=== PATIENT | female | born 1950 | race Caucasian/White ===

== ENCOUNTER → 2016-05-28 | Outpatient (CLI) | payer OTHER ==
[2016-05-28 14:41] LABS: HEMATOCRIT 38.8 % (37-47); MEAN CELL VOLUME 91.9 fL (80-100); MEAN CORPUSCULAR HEMOGLOBIN 31.5 pg (25-34); MEAN CORPUSCULAR HGB CONC 34.3 g/dl (32-36); PLATELET COUNT 250 K/uL (130-400); RED BLOOD COUNT 4.22 M/uL (4.2-5.4); WHITE BLOOD COUNT 9.28 K/uL (4.8-10.8)
[2016-05-28 14:52] LABS: ALT/SGPT 32 U/L (12-78); CREATININE 0.71 mg/dl (0.60-1.20)
[2016-05-28 14:55] LABS: ALKALINE PHOSPHATASE 95 U/L (45-117); AST/SGOT 37 U/L (15-37)
== END | disposition home or self-care (01) ==
LOC: C.LAB1850 13:20
PROVIDERS: ATTEND Internal Medicine Rheumatology
DX: R76.8 Other specified abnormal immunological findings in serum (principal); I73.00 Raynaud's syndrome without gangrene; M25.50 Pain in unspecified joint

== ENCOUNTER → 2016-09-02 | Outpatient (CLI) | payer OTHER ==
[2016-09-02 13:13] LABS: BASO % 0.5 %; BASO ABS # 0.03 K/uL (0-0.2); COMPLETE YES; EOS % 0.6 %; HEMATOCRIT 40.2 % (37-47); IG% 0.2 %; LYMPH % 16.9 %; LYMPH ABS # 1.11 K/uL (1.2-3.4); MEAN CELL VOLUME 92.4 fL (80-100); MEAN CORPUSCULAR HGB CONC 34.6 g/dl (32-36); MEAN PLATELET VOLUME 9.9 fL (7.4-10.4); MONO % 8.2 %; NEUT % 73.6 %; PLATELET COUNT 233 K/uL (130-400); RED BLOOD COUNT 4.35 M/uL (4.2-5.4); WHITE BLOOD COUNT 6.55 K/uL (4.8-10.8)
[2016-09-02 13:31] LABS: CREATININE 0.67 mg/dl (0.60-1.20)
[2016-09-02 13:34] LABS: ALKALINE PHOSPHATASE 82 U/L (45-117); ALT/SGPT 40 U/L (12-78); AST/SGOT 46 U/L (15-37)
[2016-09-02 14:55] LABS: URINE APPEARANCE CLEAR (CLEAR); URINE BILIRUBIN NEG (NEG); URINE COLOR YELLOW; URINE NITRITE NEG (NEG); URINE PH 7.5 (4.5-7.5); URINE SPECIFIC GRAVITY 1.012 (1.000-1.030); UROBILINOGEN NEG (NEG)
[2016-09-02 14:58] LABS: MANUAL MICROSCOPIC REQUIRED? NO; REVIEW REQ? NO
== END | disposition home or self-care (01) ==
LOC: C.LAB1850 11:42
PROVIDERS: ATTEND Internal Medicine Rheumatology
DX: R76.8 Other specified abnormal immunological findings in serum (principal); M35.9 Systemic involvement of connective tissue, unspecified; Z79.899 Other long term (current) drug therapy

== ENCOUNTER → 2016-10-31 | Outpatient (CLI) | payer OTHER ==
[2016-10-31 14:43] LABS: BASO % 0.2 %; BASO ABS # 0.01 K/uL (0-0.2); COMPLETE YES; EOS % 0.6 %; HEMATOCRIT 40.1 % (37-47); IG% 0.2 %; LYMPH % 13.8 %; LYMPH ABS # 0.92 K/uL (1.2-3.4); MEAN CELL VOLUME 90.1 fL (80-100); MEAN CORPUSCULAR HEMOGLOBIN 31.9 pg (25-34); MEAN CORPUSCULAR HGB CONC 35.4 g/dl (32-36); MEAN PLATELET VOLUME 10.1 fL (7.4-10.4); NEUT % 77.2 %; PLATELET COUNT 232 K/uL (130-400); RED BLOOD COUNT 4.45 M/uL (4.2-5.4); WHITE BLOOD COUNT 6.65 K/uL (4.8-10.8)
[2016-10-31 14:54] LABS: ALT/SGPT 34 U/L (12-78); AST/SGOT 32 U/L (15-37); CREATININE 0.63 mg/dl (0.60-1.20)
[2016-10-31 14:59] LABS: ALKALINE PHOSPHATASE 79 U/L (45-117)
[2016-10-31 14:59] LABS: URINE APPEARANCE CLEAR (CLEAR); URINE BILIRUBIN NEG (NEG); URINE COLOR YELLOW; URINE NITRITE NEG (NEG); URINE PH 6.5 (4.5-7.5); URINE SPECIFIC GRAVITY 1.011 (1.000-1.030); UROBILINOGEN NEG (NEG)
[2016-10-31 15:02] LABS: MANUAL MICROSCOPIC REQUIRED? NO; REVIEW REQ? NO
[2016-11-04 16:07] LABS: ANTI-CENTROMERE AB <1.0 NEG AI (<1.0 NEG); ANTI-SS-A 7.2 POS AI (<1.0 NEG); ANTI-SS-B 1.5 POS AI (<1.0 NEG); DNA ds CRITHIDIA POSITIVE (NEGATIVE); Sm Antibody <1.0 NEG AI (<1.0 NEG)
[2016-11-07 13:45] LABS: ANA TITER 1:40 TITER (<1:40); DNA ds CRITHIDIA TITER 1:40 (<1:10)
== END | disposition home or self-care (01) ==
LOC: C.LAB1850 13:18
PROVIDERS: ATTEND Internal Medicine Rheumatology
DX: R76.8 Other specified abnormal immunological findings in serum (principal); I73.00 Raynaud's syndrome without gangrene; M35.9 Systemic involvement of connective tissue, unspecified; Z79.899 Other long term (current) drug therapy

== ENCOUNTER → 2017-06-23 | Outpatient (CLI) | payer OTHER ==
[2017-06-23 14:38] LABS: BASO % 0.2 %; BASO ABS # 0.01 K/uL (0-0.2); EOS % 0.8 %; EOS ABS # 0.04 K/uL (0-0.5); HEMATOCRIT 39.9 % (37-47); IG# 0.01 K/uL (0.00-0.02); LYMPH % 17.2 %; MEAN CELL VOLUME 91.9 fL (80-100); MEAN CORPUSCULAR HEMOGLOBIN 32.3 pg (25-34); MEAN CORPUSCULAR HGB CONC 35.1 g/dl (32-36); MEAN PLATELET VOLUME 10.1 fL (7.4-10.4); MONO % 4.8 %; MONO ABS # 0.25 K/uL (0.11-0.59); NEUT % 76.8 %; NEUT ABS # 4.02 K/uL (1.4-6.5); PLATELET COUNT 241 K/uL (130-400); RED CELL DISTRIBUTION WIDTH CV 13.7 % (11.5-14.5); RED CELL DISTRIBUTION WIDTH SD 46.3 fL (36.4-46.3); WHITE BLOOD COUNT 5.23 K/uL (4.8-10.8)
[2017-06-23 15:06] LABS: ALBUMIN 3.8 gm/dl (3.4-5.0); ALT/SGPT 39 U/L (12-78); AST/SGOT 41 U/L (15-37); CREATININE 0.68 mg/dl (0.60-1.20)
[2017-06-23 15:09] LABS: ALKALINE PHOSPHATASE 84 U/L (45-117)
== END | disposition home or self-care (01) ==
LOC: C.LAB1850 13:27
PROVIDERS: ATTEND Internal Medicine Rheumatology
DX: M25.50 Pain in unspecified joint (principal); M35.9 Systemic involvement of connective tissue, unspecified; Z79.899 Other long term (current) drug therapy

== ENCOUNTER → 2017-07-06 | Outpatient (CLI) | payer OTHER | END | disposition home or self-care (01) | LOC: C.LAB1850 15:14 | PROVIDERS: ATTEND Internal Medicine Rheumatology | DX: M81.0 Age-related osteoporosis without current pathological fracture (principal); E55.9 Vitamin D deficiency, unspecified ==

== ENCOUNTER → 2017-09-30 | Outpatient (CLI) | payer OTHER ==
[2017-09-30 14:04] LABS: BASO % 0.1 %; BASO ABS # 0.01 K/uL (0-0.2); EOS ABS # 0.07 K/uL (0-0.5); HEMATOCRIT 39.5 % (37-47); HEMOGLOBIN 13.9 g/dL (12.0-16.0); IG# 0.01 K/uL (0.00-0.02); LYMPH % 15.9 %; LYMPH ABS # 1.07 K/uL (1.2-3.4); MEAN CELL VOLUME 92.5 fL (80-100); MEAN CORPUSCULAR HEMOGLOBIN 32.6 pg (25-34); MEAN CORPUSCULAR HGB CONC 35.2 g/dl (32-36); MEAN PLATELET VOLUME 10.3 fL (7.4-10.4); MONO % 5.5 %; MONO ABS # 0.37 K/uL (0.11-0.59); NEUT % 77.4 %; PLATELET COUNT 240 K/uL (130-400); RED CELL DISTRIBUTION WIDTH SD 47.1 fL (36.4-46.3); WHITE BLOOD COUNT 6.73 K/uL (4.8-10.8)
[2017-09-30 14:20] LABS: ALBUMIN 4.2 gm/dl (3.4-5.0); ALKALINE PHOSPHATASE 97 U/L (45-117); ALT/SGPT 50 U/L (12-78); AST/SGOT 83 U/L (15-37); CREATININE 0.65 mg/dl (0.60-1.20); TOTAL PROTEIN 7.9 gm/dl (6.4-8.2)
== END | disposition home or self-care (01) ==
LOC: C.LAB1850 12:20
PROVIDERS: ATTEND Internal Medicine Rheumatology
DX: R76.8 Other specified abnormal immunological findings in serum (principal); M35.9 Systemic involvement of connective tissue, unspecified; Z79.899 Other long term (current) drug therapy; I73.00 Raynaud's syndrome without gangrene

== ENCOUNTER 2019-12-15 03:44 | Inpatient (IN) ==
--- OUTSIDE RECORDS SUMMARY | 2019-12-15 03:51 | External Medical Summary | Continuity of Care Document ---
:1950 Author Name Glen Wadsworth, Provider Address Unavailable Unavailable , Care Team Providers Name Role Phone Unavailable Unavailable Unavailable Maddi Abraham M.D. Unavailable [email or web address] ALLAN DUTTA Unavailable Unavailable Unavailable Unavailable Unavailable Problems Undifferentiated connective tissue disease (710.9) (M35.9) Osteoporosis (733.00) (M81.0) Raynauds phenomenon (443.0) (I73.00) Positive ELISA (antinuclear antibody) (795.79) (R76.8) Polyarthralgia (719.49) (M25.50) Vitamin D deficiency (268.9) (E55.9) Long-term use of hydroxychloroquine (V58.69) (Z79.899) Abnormal SPEP (790.99) (R77.8) Allergies and Adverse Reactions No Known Drug Allergies (Allergy) Medications Tums 500 MG Oral Tablet Chewable; TAKE 2 TABLET Daily Ananth Abraham Quantity: 60 Refills: 0 Hydroxychloroquine Sulfate 200 MG Oral Tablet; TAKE 1 TABLET DAILY. Ananth Abraham Quantity: 90 Refills: 1 Vitamin D3 125 MCG (5000 UT) Oral Tablet; TAKE 1 TABLET Week ly Ananth Abraham Start: 06-Oct-2017 Refills: 3 Procedures Procedures not documented Immunizations Immunizations not documented Social History - Smoking Status Ex-smoker Plan of Treatment Planned Observations Planned Goals not documented Results No Known Results Results not documented Encounters Appointment; Maddi Abraham M.D. 09-Feb-2018 11:20 Encounter Diagnosis: Problem not documented
--- NOTE | 2019-12-15 04:07 | Emergency Department Note ---
History of Present Illness General Chief complaint: Weakness Stated complaint: WEAKNESS Time Seen by Provider: 12/15/19 04:00 Source: patient Mode of arrival: EMS Limitations: no limitations History of Present Illness Provider complaint: Weakness, fever Onset (ago): day(s) 2 Associated symptoms: + cough, + fever/chills, + loss of appetite, + malaise and + weakness; no chest pain, no headaches, no nausea/vomiting and no shortness of breath Treatments prior to arrival: none This is a 69-year-old female who presents from home via EMS due to 2 days of increased weakness. Patient states in addition to the fatigue and weakness she noticed fevers and chills. Patient states the highest temperature she got at home was 100.2. Patient states she has had a slight cough, typically nonproductive. Patient states she is a former smoker, no diagnosis of COPD, does not use home oxygen. Patient does see rheumatology as she has a history of rheumatologic disorders. No recent courses of steroids, however patient does take Plaquenil daily. Patient denies any sick contacts, stating her at home has been well. No known exposure to any coronavirus positive individual. Patient has not been tested for coronavirus. Patient denies any prior history of recurrent bronchitis or pneumonia. Patient denies any headaches, dizziness, nasal congestion, sore throat, chest pain, abdominal pain, vomiting or diarrhea, lower extremity swelling, rash or sores. Patient states she has not had a great appetite. Pt states she has also been using CBD oil to help with her symptoms. EMS reports that on their arrival patient was tachycardic in the 140s, tachypneic in the 30s, febrile at 100.2, however was holding a blood pressure. Patient received a total of 1 L of normal saline from EMS in route to the hospital. They state her heart rate is now in the 130s, however she does still appear tachypneic. Patient was initially 93% on room air, she was placed on 3 L via nasal cannula and sats improved to 98%. Pt seen during a time of high acuity and national emergency pandemic while wearing PPE. Home Medications Home Medications Medication Instructions Recorded Confirmed Type Cbd Oil 0 drp PO DIRECTED PRN 12/15/19 12/15/19 History hydroxychloroquine 200 mg PO DAILY 12/15/19 12/15/19 History Allergies Allergy/AdvReac Type Severity Reaction Status Date / Time No Known Allergies Allergy Verified 12/15/19 05:04 Past Med/Surg History Medical History (Updated 12/15/19 @ 23:36 by Traci Hampton DO) Emphysema of lung Myocardial Infarction nstemi Sjogren's disease Smoker Smokers' cough Tobacco abuse (Acute) Surgical History (Updated 12/15/19 @ 14:43 by John Navarrete PA-C) No pertinent past surgical history Family History (Updated 12/15/19 @ 14:43 by John Navarrete PA-C) Other Family history non-contributory Social History (Updated 12/15/19 @ 14:44 by John Navarrete PA-C) Smoking Status: Current some day smoker Tobacco Type: Cigarettes Hx Alcohol Use: No Hx Substance Use: No Communication Ability: Effective 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 and A total of 10 systems reviewed and were otherwise negative Physical Exam Vital Signs Vital Signs - 24 hr 12/15/19 03:55 12/15/19 04:00 12/15/19 04:15 Temperature 38.2 C H Temperature Source Oral Pulse Rate 135 H 133 H 125 H Pulse Rate [Apical] Pulse Rate from SpO2 Sensor 135 H 133 H Respiratory Rate 25 H 32 H 35 H Respiratory Effort / Characteristics Non-Labored Spontaneous Spontaneous Accessory Muscle Use Labored Short of Breath SOB on Exertion Respiratory Depth Normal Respiratory Pattern Regular Blood Pressure 163/93 H 151/86 H Blood Pressure Mean 106 110 Blood Pressure Position Lying Pulse Oximetry 93 93 93 Oxygen Delivery Method Room Air Room Air Sepsis Recent Fever Within 48 Hours Yes Sepsis New/Unexplained Change in Mental Status Yes Sepsis Action Taken by Nursing Physician Notified 12/15/19 04:30 12/15/19 05:00 12/15/19 05:08 Temperature Temperature Source Pulse Rate 135 H 128 H Pulse Rate [Apical] 120 H Pulse Rate from SpO2 Sensor 135 H 128 H Respiratory Rate 28 H 30 H 28 H Respiratory Effort / Characteristics Spontaneous Respiratory Depth Respiratory Pattern Blood Pressure 146/78 H 116/66 Blood Pressure Mean 96 81 Blood Pressure Position Pulse Oximetry 93 92 92 Oxygen Delivery Method Room Air Sepsis Recent Fever Within 48 Hours Sepsis New/Unexplained Change in Mental Status Sepsis Action Taken by Nursing 12/15/19 05:30 12/15/19 05:39 Temperature 36.9 C Temperature Source Oral Pulse Rate 120 H Pulse Rate [Apical] Pulse Rate from SpO2 Sensor 123 H Respiratory Rate 18 Respiratory Effort / Characteristics Respiratory Depth Respiratory Pattern Blood Pressure 111/60 Blood Pressure Mean 69 Blood Pressure Position Pulse Oximetry 95 Oxygen Delivery Method Sepsis Recent Fever Within 48 Hours Sepsis New/Unexplained Change in Mental Status Sepsis Action Taken by Nursing GENERAL: alert, ill appearing, well nourished, mild distress, non-toxic EYE EXAM: normal conjunctiva, PERRL and EOM's grossly intact OROPHARYNX: no exudate, no erythema, lips, buccal mucosa, and tongue normal and mucous membranes are moist NECK: supple, no nuchal rigidity, no adenopathy, non-tender LUNGS: Clear to auscultation. Normal chest wall mechanics, no w/r/r, tachypneic, oxygen saturation 93% on room air HEART: no murmurs, S1 normal and S2 normal, sinus tachycardia on the monitor at 133 ABDOMEN: abdomen soft, non-tender, normo-active bowel sounds, no masses, no rebound or guarding. BACK: Back is symmetrical on inspection and there is no deformity, no midline tenderness, no CVA tenderness. SKIN: no rashes and no bruising UPPER EXTREMITIES: upper extremities are grossly normal. FROM, nml pulses b/l. LOWER EXTREMITIES: No pitting edema. FROM, nml pulses b/l. NEURO EXAM: Normal sensorium, cranial nerves II-XII grossly intact, normal speech, no gross weakness of arms, no gross weakness of legs. Gross sensation intact. Course Course 0450: Pt updated on results. HR in 120's. 0514: Case discussed with Dr. Cutler. 0535: Updated pt's via phone per patient request. states she was very weak and tremulous over the last 2-3 days. Mild cough which was mildly worse than her usual smokers cough. 0557: Discussed with Dr. Mclean again. He would like patient sent for CT imaging now that her coronavirus test is negative. VS still stable. Pt made aware of results. Administered Medications Acetaminophen (Tylenol) 650 mg PO Q4H PRN PRN Reason: Pain or Fever Stop: 01/14/20 08:27 Last Admin: 08/06/20 21:11 Dose: 650 mg Documented by: [id number] Albuterol (Duoneb) 3 ml NEB QIDR EVELYN Stop: 01/14/20 06:59 Last Admin: 12/15/19 19:33 Dose: Not Given Documented by: [id number] Admin: 12/15/19 15:52 Dose: Not Given Documented by: [id number] Admin: 12/15/19 10:54 Dose: 3 ml Documented by: [id number] Admin: 12/15/19 08:16 Dose: Not Given Documented by: [id number] Guaifenesin (Mucinex) 600 mg PO Q12 EVELYN Stop: 01/14/20 08:59 Last Admin: 12/15/19 21:08 Dose: 600 mg Documented by: [id number] Admin: 12/15/19 09:46 Dose: 600 mg Documented by: [id number] Hydroxychloroquine Sulfate (Plaquenil) 200 mg PO DAILY [facility] Stop: 01/14/20 08:59 Last Admin: 12/15/19 09:46 Dose: 200 mg Documented by: [id number] Sodium Chloride (Nss 1000ml) 1,000 mls @ 125 mls/hr IV .Q8H [facility] Stop: 01/14/20 04:14 Last Admin: 12/15/19 17:16 Dose: 125 mls/hr Documented by: [id number] Infusion: 12/15/19 17:16 Dose: 125 mls/hr Documented by: [id number] Admin: 12/15/19 09:18 Dose: 125 mls/hr Documented by: [id number] Infusion: 12/15/19 09:18 Dose: 125 mls/hr Documented by: [id number] Admin: 12/15/19 04:40 Dose: 125 mls/hr Documented by: [id number] Azithromycin 500 mg/ Dextrose 255 mls @ 125 mls/hr IV DAILY@0900 [facility] Stop: 12/22/19 08:59 Last Infusion: 12/15/19 11:52 Dose: 0 mls/hr Documented by: [id number] Admin: 12/15/19 09:45 Dose: 125 mls/hr Documented by: [id number] Piperacillin Sod/Tazobactam (Sod 3.375 gm/ Dextrose) 115 mls @ 28.75 mls/hr IV Q8H EVELYN; Protocol Stop: 12/22/19 08:59 Last Admin: 12/15/19 21:08 Dose: 28.8 mls/hr Documented by: [id number] Infusion: 12/15/19 18:05 Dose: 0 mls/hr Documented by: [id number] Admin: 12/15/19 14:03 Dose: 28.8 mls/hr Documented by: [id number] Dexamethasone 6 mg/ Syringe 1.5 mls @ 1 mls/min IV Q6H EVELYN Stop: 01/14/20 09:59 Last Admin: 12/15/19 21:08 Dose: 1 mls/min Documented by: [id number] Admin: 12/15/19 15:37 Dose: 1 mls/min Documented by: [id number] Admin: 12/15/19 09:46 Dose: 1 mls/min Documented by: [id number] Discontinued Medications Acetaminophen (Ofirmev) Confirm Administered Dose 1,000 mg IV .STK-MED ONE Stop: 12/15/19 04:15 Last Admin: 12/15/19 04:40 Dose: Not Given Documented by: [id number] Albuterol (Duoneb) 3 ml NEB NOW STA Stop: 12/15/19 04:55 Last Admin: 12/15/19 05:04 Dose: 3 ml Documented by: [id number] Dexamethasone (Decadron) 10 mg IV NOW ONE Stop: 12/15/19 04:52 Last Admin: 12/15/19 04:56 Dose: 10 mg Documented by: [id number] Acetaminophen (Ofirmev) 1,000 mg in 100 mls @ 400 mls/hr IV NOW STA Stop: 12/15/19 04:30 Last Infusion: 12/15/19 04:58 Dose: 0 mls/hr Documented by: [id number] Admin: 12/15/19 04:40 Dose: 400 mls/hr Documented by: [id number] Magnesium Sulfate/Dextrose (Magnesium Sulfate / D5w) 1 gm in 100 mls @ 100 mls/hr IV NOW STA Stop: 12/15/19 05:29 Last Infusion: 12/15/19 05:40 Dose: 0 mls/hr Documented by: [id number] Admin: 12/15/19 04:40 Dose: 100 mls/hr Documented by: [id number] Cefepime HCl (Maxipime) 2,000 mg in 20 mls @ 5 mls/min IV NOW STA Stop: 12/15/19 04:33 Last Admin: 12/15/19 04:40 Dose: 5 mls/min Documented by: [id number] Vancomycin HCl 1,000 mg/ (Sodium Chloride) 520 mls @ 200 mls/hr IV NOW ONE Stop: 12/15/19 07:05 Last Infusion: 12/15/19 07:30 Dose: 0 mls/hr Documented by: [id number] Admin: 12/15/19 04:49 Dose: 200 mls/hr Documented by: [id number] Magnesium Sulfate/Dextrose (Magnesium Sulfate / D5w) 1 gm in 100 mls @ 50 mls/hr IV ONE ONE Stop: 12/15/19 07:56 Last Admin: 12/15/19 08:12 Dose: Not Given Documented by: [id number] Piperacillin Sod/Tazobactam (Sod 3.375 gm/ Dextrose) 115 mls @ 230 mls/hr IV NOW ONE; Protocol Stop: 12/15/19 10:29 Last Infusion: 12/15/19 09:53 Dose: 0 mls/hr Documented by: [id number] Admin: 12/15/19 09:18 Dose: 230 mls/hr Documented by: [id number] Ioversol (Optiray 320 125ml) 120 ml IV ONCE ONE Stop: 12/15/19 07:36 Last Admin: 12/15/19 07:35 Dose: 120 ml Documented by: [id number] Potassium Chloride (Klor-Con M20) 40 meq PO NOW STA Stop: 12/15/19 04:31 Last Admin: 12/15/19 04:44 Dose: Not Given Documented by: [id number] Potassium Chloride (Klor-Con Pwd) 40 meq PO NOW STA Stop: 12/15/19 04:54 Last Admin: 12/15/19 05:03 Dose: 40 meq Documented by: [id number] Critical Care Time Critical Care Time: Yes Total Critical Care Time: 46 Critical care of 46 min performed to assess and manage high likelihood of life- threatening sepsis and multifocal pneumonia, involving labs and imaging p erformed with assessment to evaluate sepsis diagnosis] with frequent reassessment. This time includes bedside time, treatment discussions with patient/family/consultants, documentation time and excludes procedure time. Medical Decision Making Differential Diagnosis Differential diagnosis: Etiologies such as viral syndrome, otitis, pharyngitis, pneumonia, influenza, meningitis, urinary tract infection, sepsis, bacteremia, as well as others were entertained. Medical Records Attestation: I reviewed the patient's medical records. Home Medications Current Medication List: was personally reviewed by me Laboratory Data Attestation: I reviewed the patient's lab results. Result diagrams: 12/15/19 03:45 12/15/19 03:45 Lab Results 12/15/19 12/15/19 12/15/19 Range/Units 03:45 03:45 03:45 WBC 14.16 H (4.8-10.8) K/uL RBC 4.25 (4.2-5.4) M/uL Hgb 13.9 (12.0-16.0) g/dL Hct 39.0 (37-47) % MCV 91.8 (80-100) fL MCH 32.7 (25-34) pg MCHC 35.6 (32-36) g/dL RDW Std Deviation 45.4 (36.4-46.3) fL RDW Coeff of Oz 13.5 (11.5-14.5) % Plt Count 195 (130-400) K/uL MPV 10.6 H (7.4-10.4) fL Immature Gran % (Auto) 0.4 % Neut % (Auto) 94.8 % Lymph % (Auto) 2.7 % [place] % (Auto) 2.1 % Eos % (Auto) 0.0 % Baso % (Auto) 0.0 % Neut # (Auto) 13.43 H (1.4-6.5) K/uL Lymph # (Auto) 0.38 L (1.2-3.4) K/uL [place] # (Auto) 0.30 (0.11-0.59) K/uL Eos # (Auto) 0.00 (0-0.5) K/uL Baso # (Auto) 0.00 (0-0.2) K/uL Immature Gran # (Auto) 0.05 H (0.00-0.02) K/uL PT 11.3 (9.0-12.0) Seconds INR 1.1 (0.9-1.1) APTT 36.5 H (21.0-31.0) Seconds PTT Ratio 1.3 Sodium 132 L (136-145) mmol/L Potassium 3.1 L (3.5-5.1) mmol/L Chloride 97 L (98-107) mmol/L Carbon Dioxide 24 (21-32) mmol/L Anion Gap 11.0 (3-11) BUN 12 (7-18) mg/dl Creatinine 0.71 (0.6-1.2) mg/dl Est Cr Clr Drug Dosing Not Reportable Est GFR ( Amer) 100.7 Est GFR (Non-Af Amer) 86.9 BUN/Creatinine Ratio 16.8 (10-20) Glucose 105 H (70-99) mg/dl Lactate (0.4-2.0) mmol/L Calcium 8.7 (8.5-10.1) mg/dl Magnesium 1.5 L (1.8-2.4) mg/dl Total Bilirubin 0.6 (0.2-1) mg/dl AST 63 H (15-37) U/L ALT 25 (12-78) U/L Alkaline Phosphatase 78 (45-117) U/L Troponin I 0.828 H* (0-0.045) ng/ml Total Protein 7.1 (6.4-8.2) gm/dl Albumin 2.7 L (3.4-5.0) gm/dl Globulin 4.4 H (2.5-4.0) gm/dl Albumin/Globulin Ratio 0.6 L (0.9-2) Procalcitonin (0-0.5) ng/ml Adenovirus (PCR) (NotDetected) B. pertussis DNA (PCR) (NotDetected) B.parapertussis DNA PCR (NotDetected) C. pneumoniae DNA (PCR) (NotDetected) Coronavirus OC43 (PCR) (NotDetected) Coronavirus HKU1 (PCR) (NotDetected) Coronavirus 229E (PCR) (NotDetected) COVID-19 PCR (Negative) Coronavirus NL63 (PCR) (NotDetected) Human Metapneumovir PCR (NotDetected) Influenza Type A (PCR) (NotDetected) Influenza Type B (PCR) (NotDetected) M. pneumoniae (PCR) (NotDetected) Parainfluenza 1 (PCR) (NotDetected) Parainfluenza 2 (PCR) (NotDetected) Parainfluenza 3 (PCR) (NotDetected) Parainfluenza 4 (PCR) (NotDetected) RSV (PCR) (NotDetected) Entero/Rhino (PCR) (NotDetected) 12/15/19 12/15/19 12/15/19 Range/Units 03:45 04:23 04:35 WBC (4.8-10.8) K/uL RBC (4.2-5.4) M/uL Hgb (12.0-16.0) g/dL Hct (37-47) % MCV (80-100) fL MCH (25-34) pg MCHC (32-36) g/dL RDW Std Deviation (36.4-46.3) fL RDW Coeff of Oz (11.5-14.5) % Plt Count (130-400) K/uL MPV (7.4-10.4) fL Immature Gran % (Auto) % Neut % (Auto) % Lymph % (Auto) % [place] % (Auto) % Eos % (Auto) % Baso % (Auto) % Neut # (Auto) (1.4-6.5) K/uL Lymph # (Auto) (1.2-3.4) K/uL [place] # (Auto) (0.11-0.59) K/uL Eos # (Auto) (0-0.5) K/uL Baso # (Auto) (0-0.2) K/uL Immature Gran # (Auto) (0.00-0.02) K/uL PT (9.0-12.0) Seconds INR (0.9-1.1) APTT (21.0-31.0) Seconds PTT Ratio Sodium (136-145) mmol/L Potassium (3.5-5.1) mmol/L Chloride (98-107) mmol/L Carbon Dioxide (21-32) mmol/L Anion Gap (3-11) BUN (7-18) mg/dl Creatinine (0.6-1.2) mg/dl Est Cr Clr Drug Dosing Est GFR ( Amer) Est GFR (Non-Af Amer) BUN/Creatinine Ratio (10-20) Glucose (70-99) mg/dl Lactate 1.3 (0.4-2.0) mmol/L Calcium (8.5-10.1) mg/dl Magnesium (1.8-2.4) mg/dl Total Bilirubin (0.2-1) mg/dl AST (15-37) U/L ALT (12-78) U/L Alkaline Phosphatase (45-117) U/L Troponin I (0-0.045) ng/ml Total Protein (6.4-8.2) gm/dl Albumin (3.4-5.0) gm/dl Globulin (2.5-4.0) gm/dl Albumin/Globulin Ratio (0.9-2) Procalcitonin 19.35 H (0-0.5) ng/ml Adenovirus (PCR) (NotDetected) B. pertussis DNA (PCR) (NotDetected) B.parapertussis DNA PCR (NotDetected) C. pneumoniae DNA (PCR) (NotDetected) Coronavirus OC43 (PCR) (NotDetected) Coronavirus HKU1 (PCR) (NotDetected) Coronavirus 229E (PCR) (NotDetected) COVID-19 PCR NEGATIVE (Negative) Coronavirus NL63 (PCR) (NotDetected) Human Metapneumovir PCR (NotDetected) Influenza Type A (PCR) (NotDetected) Influenza Type B (PCR) (NotDetected) M. pneumoniae (PCR) (NotDetected) Parainfluenza 1 (PCR) (NotDetected) Parainfluenza 2 (PCR) (NotDetected) Parainfluenza 3 (PCR) (NotDetected) Parainfluenza 4 (PCR) (NotDetected) RSV (PCR) (NotDetected) Entero/Rhino (PCR) (NotDetected) 12/15/19 Range/Units 04:35 WBC (4.8-10.8) K/uL RBC (4.2-5.4) M/uL Hgb (12.0-16.0) g/dL Hct (37-47) % MCV (80-100) fL MCH (25-34) pg MCHC (32-36) g/dL RDW Std Deviation (36.4-46.3) fL RDW Coeff of Oz (11.5-14.5) % Plt Count (130-400) K/uL MPV (7.4-10.4) fL Immature Gran % (Auto) % Neut % (Auto) % Lymph % (Auto) % [place] % (Auto) % Eos % (Auto) % Baso % (Auto) % Neut # (Auto) (1.4-6.5) K/uL Lymph # (Auto) (1.2-3.4) K/uL [place] # (Auto) (0.11-0.59) K/uL Eos # (Auto) (0-0.5) K/uL Baso # (Auto) (0-0.2) K/uL Immature Gran # (Auto) (0.00-0.02) K/uL PT (9.0-12.0) Seconds INR (0.9-1.1) APTT (21.0-31.0) Seconds PTT Ratio Sodium (136-145) mmol/L Potassium (3.5-5.1) mmol/L Chloride (98-107) mmol/L Carbon Dioxide (21-32) mmol/L Anion Gap (3-11) BUN (7-18) mg/dl Creatinine (0.6-1.2) mg/dl Est Cr Clr Drug Dosing Est GFR ( Amer) Est GFR (Non-Af Amer) BUN/Creatinine Ratio (10-20) Glucose (70-99) mg/dl Lactate (0.4-2.0) mmol/L Calcium (8.5-10.1) mg/dl Magnesium (1.8-2.4) mg/dl Total Bilirubin (0.2-1) mg/dl AST (15-37) U/L ALT (12-78) U/L Alkaline Phosphatase (45-117) U/L Troponin I (0-0.045) ng/ml Total Protein (6.4-8.2) gm/dl Albumin (3.4-5.0) gm/dl Globulin (2.5-4.0) gm/dl Albumin/Globulin Ratio (0.9-2) Procalcitonin (0-0.5) ng/ml Adenovirus (PCR) Not Detected (NotDetected) B. pertussis DNA (PCR) Not Detected (NotDetected) B.parapertussis DNA PCR Not Detected (NotDetected) C. pneumoniae DNA (PCR) Not Detected (NotDetected) Coronavirus OC43 (PCR) Not Detected (NotDetected) Coronavirus HKU1 (PCR) Not Detected (NotDetected) Coronavirus 229E (PCR) Not Detected (NotDetected) COVID-19 PCR (Negative) Coronavirus NL63 (PCR) Not Detected (NotDetected) Human Metapneumovir PCR Not Detected (NotDetected) Influenza Type A (PCR) Not Detected (NotDetected) Influenza Type B (PCR) Not Detected (NotDetected) M. pneumoniae (PCR) Not Detected (NotDetected) Parainfluenza 1 (PCR) Not Detected (NotDetected) Parainfluenza 2 (PCR) Not Detected (NotDetected) Parainfluenza 3 (PCR) Not Detected (NotDetected) Parainfluenza 4 (PCR) Not Detected (NotDetected) RSV (PCR) Not Detected (NotDetected) Entero/Rhino (PCR) Not Detected (NotDetected) Imaging Data My Impression: X-ray: I interpreted the following studies. Chest: A single view study of the chest was reviewed and revealed what appeared to be a multi lobar pneumonia, however was negative for cardiomegaly, effusion, pulmonary edema, or wide mediastinum. Radiologist's Impression: CT angio chest PE protocol CT DOSE: 411.13 mGy.cm HISTORY: 69 years-old Female with PE. Acute cough with fever and shortness of breath TECHNIQUE: Multiple CTA images of the chest were obtained after the intravenous administration of 120 ml Optiray 320. Coronal and sagittal MIPS were obtained from the axial data set and were submitted for review. All measurements were obtained according to NASCET criteria. A dose lowering technique was utilized adhering to the principles of ALARA. COMPARISON: Chest radiograph of same day FINDINGS: CTA: Mild cardiomegaly. No pericardial effusion. Mixed plaque of the thoracic aortic arch. Patency of the imaged great vessels. There is suboptimal opacification of the distal descending thoracic aorta secondary to contrast bolus timing. The pulmonary artery is opacified to the level of the subsegmental branches and demonstrates no filling defects to suggest thromboembolic disease. CT CHEST: No thyroid nodules identified. Subcarinal adenopathy measures up to 2.3 x 1.3 cm. Mildly prominent paratracheal and AP window lymph nodes. Trace pleural effusions. No pneumothorax. Moderate emphysema with bronchial wall thickening suggestive of bronchitis. Mild mucous plugging of the lung bases. Multifocal patchy alveolar opacities are present within all lobes bilaterally, most pronounced in the lower lobes, right greater than left with air bronchograms. Mild intralobular septal thickening. Mild thickening of the left adrenal gland. Hepatic steatosis. Unremarkable appearance of the soft tissues. Mild age-indeterminate however likely chronic superior endplate compression deformity at the T8 level. Schmorl's nodes with mild superior endplate compression deformity also noted at T11 and L1 which is also likely chronic. 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 IMPRESSION: 1. Multifocal alveolar opacities within all lobes bilaterally, greatest within the right greater than left lower lobes is compatible with multifocal pneumonia. Follow-up imaging after treatment course is recommended to document complete resolution. 2. Moderate emphysema with bronchial wall thickening suggestive of bronchitis. Mild mucous plugging of the lung bases. 3. Cardiomegaly with mild pulmonary vascular congestion and trace pleural effusions. 4. Subcarinal adenopathy, likely reactive. 5. Hepatic steatosis. ACT 112: Negative or not required by law. The above report was generated using voice recognition software. It may contain grammatical, syntax or spelling errors. Electronically signed by: Zander Cassidy M.D. 12/15/2019 8:07 AM ECG Data Attestation: I personally reviewed and interpreted this ECG as follows: Indication: + weakness Rate (beats per minute): 134 Rhythm: + sinus tachycardia ECG Intervals/blocks: + Normal QRS and + Normal QT ECG [place]: + Left axis deviation ECG ST segments: + Normal ST segments Blood Pressure Blood Pressure Findings: Elevated blood pressure MDM Narrative This was an ill-appearing female brought in from home via EMS with concerns for sepsis. Patient was febrile, tachycardic, and tachypneic although had maintained a normal blood pressure. Patient did receive 1 L of normal saline solution in route to the hospital, and IV fluids were continued upon her arrival. Patient's heart rate was slowly improving from around 140 according to EMS down into the low 130s. While patient was maintaining her oxygen saturation, she was placed on 2 L via nasal cannula for comfort. Labs are drawn and sent, cultures obtained, chest x-ray performed. Patient was placed on airborne precautions due to concern for possible coronavirus although patient denied any known exposure. Patient's labs revealed a leukocytosis, however reassuring renal and hepatic function. Patient also found to have an elevated troponin. Patient was sinus tachycardia on her EKG without any acute ischemic EKG changes. Patient's x-ray revealed what appeared to be a multi lobar pneumonia. Patient was started on broad-spectrum antibiotics. IV fluids were continued to achieve 30 mL/kg, patient was never hypotensive in the emergency room. While patient's lactic acid was reassuring, her pro calcitonin was significantly elevated. Patient was given Tylenol for her fever. With improvement in fever and continued IV fluids, patient's heart rate slowly continued to come down. Case was discussed with hospitalist for additional evaluation and management. Patient was updated on all of her results. At her request I also updated her who was in the waiting room. Once her coronavirus test resulted negative, he was allowed to come back and visit her. At that time the hospitalist requested that I add a CT of the patient's chest due to her history of rheumatologic disease, multi lobar pneumonia, and elevated troponin. I have a lower suspicion for PE given patient does have a history of tobacco abuse and likely has underlying COPD, however will order as angiography to rule out. Patient kept aware of all results, continued to have slowly improving tachycardia and tachypnea in the emergency room, did maintain her blood pressure and oxygen saturations. Mild electrolyte abnormalities were repleted while in the emergency room also. An order was placed for continuous cardiac monitoring. The monitor shows a rate of _133_ with sinus tachycardia_ rhythm. Impression & Plan Sepsis, Multifocal pneumonia, Hypomagnesemia, Hypokalemia, Tobacco abuse, Elevated troponin Discharge Plan Visit Data *Final* Discharge Date/Time: 12/15/19 06:50 Chief Complaint: Weakness Stated Complaint: WEAKNESS ED Provider: Traci Hampton Discharge Problem: Sepsis, Multifocal pneumonia, Hypomagnesemia, Hypokalemia, Tobacco abuse, Elevated troponin Patient Disposition: Admitted As Inpatient Discharge Instructions Interventions: ED Discharge Assessment Last Done: 12/15/19 06:50 Discharge Problem: Sepsis Qualifiers: Sepsis type: sepsis due to unspecified organism Sepsis acute organ dysfunction status: with acute organ dysfunction Severe sepsis acute organ dysfunction type: unspecified Severe sepsis shock status: without septic shock Qualified Code(s): A41.9 - Sepsis, unspecified organism
[2019-12-15 04:13] LABS: Hemoglobin 13.9 g/dL (12.0-16.0); Immature Granulocytes # (auto) 0.05 K/uL (0.00-0.02); Immature Granulocytes % (auto) 0.4 %; Lymphocytes # (auto) 0.38 K/uL (1.2-3.4); Lymphocytes % (auto) 2.7 %; Mean Corpuscular Hemoglobin 32.7 pg (25-34); Mean Corpuscular Hgb Conc 35.6 g/dL (32-36); Mean Corpuscular Volume 91.8 fL (80-100); Mean Platelet Volume 10.6 fL (7.4-10.4); Monocytes % (auto) 2.1 %; Neutrophils # (auto) 13.43 K/uL (1.4-6.5); Neutrophils % (auto) 94.8 %; Platelet Count 195 K/uL (130-400); RDW Coefficient of Variation 13.5 % (11.5-14.5); RDW Standard Deviation 45.4 fL (36.4-46.3); Red Blood Count 4.25 M/uL (4.2-5.4); White Blood Count 14.16 K/uL (4.8-10.8)
[2019-12-15] MEDS ORDERED: ACETAMINOPHEN 1000 MG/100 ML IV IV ONE (04:14)
[2019-12-15] MEDS ORDERED: ACETAMINOPHEN 1,000 MG/100 ML VIAL IV STA (04:16)
[2019-12-15 04:22] LABS: Alanine Aminotransferase 25 U/L (12-78); Albumin Level 2.7 gm/dl (3.4-5.0); Aspartate Aminotransferase 63 U/L (15-37); BUN Creatinine Ratio 16.8 (10-20); Blood Urea Nitrogen 12 mg/dl (7-18); Calcium 8.7 mg/dl (8.5-10.1); Carbon Dioxide 24 mmol/L (21-32); Chloride 97 mmol/L (98-107); Est GFR (African American) 100.7; Est GFR (Non-African American) 86.9; Glucose 105 mg/dl (70-99); Magnesium 1.5 mg/dl (1.8-2.4); Potassium 3.1 mmol/L (3.5-5.1); Sodium 132 mmol/L (136-145)
[2019-12-15 04:26] LABS: INR 1.1 (0.9-1.1); Partial Thromboplastin Ratio 1.3; Partial Thromboplastin Time 36.5 Seconds (21.0-31.0); Prothrombin Time 11.3 Seconds (9.0-12.0)
[2019-12-15] MEDS ORDERED: VANCOMYCIN HCL 1,000 MG in SODIUM CHLORIDE 0.9% 500 ML IV ONE (04:30)
[2019-12-15] MEDS ORDERED: MAGNESIUM SULFATE / D5W 1 GM/100 ML BAG IV STA (04:30)
[2019-12-15] MEDS ORDERED: CEFEPIME 2,000 MG/20 ML VIAL IV STA (04:30)
[2019-12-15] MEDS ORDERED: VANCOMYCIN CONSULT ACTIVE PRN ×3 (04:30→08:28)
[2019-12-15 04:36] LABS: Albumin Globulin Ratio 0.6 (0.9-2); Alkaline Phosphatase 78 U/L (45-117); Bilirubin,Total 0.6 mg/dl (0.2-1); Globulin 4.4 gm/dl (2.5-4.0); Total Protein 7.1 gm/dl (6.4-8.2); Troponin I 0.828 ng/ml (0-0.045)
[2019-12-15] MEDS: POTASSIUM CHLORIDE 20 MEQ TABCR PO STA ×2 (04:39→04:44)
[2019-12-15] MEDS: SODIUM CHLORIDE 0.9% 1000ML 1,000 ML IV SCH ×3 (04:40→17:16)
[2019-12-15] MEDS ORDERED: DEXAMETHASONE SOD INJ 10 MG/ML VIAL IV ONE (04:51)
[2019-12-15] MEDS ORDERED: POTASSIUM CHLORIDE PWD 20 MEQ PACK PO STA (04:53)
[2019-12-15] MEDS ORDERED: ALBUT/IPRATROP 3MG/0.5MG NEB 3 ML VIAL NEB STA (04:54)
[2019-12-15] MEDS ORDERED: MAGNESIUM SULFATE / D5W 1 GM/100 ML BAG IV ONE (05:57)
--- NOTE | 2019-12-15 05:59 | History & Physical Report ---
Date of Service December 15, 2019 Assessment & Plan (1) Multifocal pneumonia: Acute respiratory failure with hypoxia/multifocal pneumonia- Patient is COVID-19- testing in the ED. Pro-Lorenzo elevated at 19.35 Placed on vancomycin IV, Zosyn IV, azithromycin IV. Duonebs every 4 hours while awake and every 2 hours when necessary. Given Decadron 10 mg IV in the ED and will continue 6 mg IV every 6 hours Guaifenesin extended release 600 mg p.o. twice daily Nasal cannula 2 L oxygen titrate to keep pulse ox 94%. Differential includes pneumonia due to bacteria, viruses, versus pneumonitis associated with Sjogren's syndrome. CT angiography of chest is being ordered to further investigate cause of pn eumonia/pneumonitis, and assess for possible PE. Consult pulmonology depending upon the results of CT Present on Admission?: Yes (2) Acute respiratory failure with hypoxia: See above Present on Admission?: Yes (3) Sjogrens syndrome: Continue hydroxychloroquine Present on Admission?: Yes (4) Non-STEMI (non-ST elevated myocardial infarction): The patient will be admitted to telemetry for serial cardiac enzymes, serial EKG's, cardiac rhythm monitoring and a 2-D echocardiogram with Dopplers. Troponin elevated at 0.828 upon admission. More commonly type II IA, supply demand mismatch. We will consult cardiology Present on Admission?: Yes (5) Hypomagnesemia: Given magnesium sulfate IV Present on Admission?: Yes (6) Hypokalemia: Placing on NSS + KCl 20 mEq at 100 mils per hour Follow serial BMP and magnesium levels Present on Admission?: Yes History of Present Illness Chief Complaint: The patient presents to the emergency department via EMS from home, with 2 to 3 days of increased weakness, shortness of breath, fatigue, fevers and chills. Primary Care Provider: Serafin Suarez MD The patient is a 69-year-old female with a past medical history including presumptive Sjogren's syndrome/chronic inflammatory state. She has had 2 to 3 days of worsening fatigue, generalized weakness, shortness of breath, fevers and chills. She has not had a recent travels or sick exposures. She was COVID-19 negative in the ED. Chest x-ray in the emergency department suggested a multifocal pneumonia, and oxygenation which initially was 93% on room air and with 3 L improved to 98%, later decreased into the mid 80s toward the end of her course in the ED. She did empirically receive Decadron 10 mg IV,vancomycin 1000 mg IV and cefepime 2 g IV, along with DuoNeb treatment from the emergency department. The patient was presently being sent for a CT angiography of the chest to assess for possible PE, due to declining oxygen. Allergies Allergy/AdvReac Type Severity Reaction Status Date / Time No Known Allergies Allergy Verified 12/15/19 05:04 Home Medications Home Medications Medication Instructions Recorded Confirmed Type Cbd Oil 0 drp PO DIRECTED PRN 12/15/19 12/15/19 History hydroxychloroquine 200 mg PO DAILY 12/15/19 12/15/19 History Past Med/Surg History Social History (Updated 12/15/19 @ 05:46 by Traci Hampton DO) Smoking Status: Current every day smoker Tobacco Type: Cigarettes Current Living Situation: Spouse Feels Safe at Home: Yes Review of Systems Review of Systems: The patient denies chest pain, palpitations, cough, lower extremity swelling, sore throat, fevers, chills, sweats, nausea, vomiting, diarrhea , constipation, abdominal pain, pelvic pain, blood in urine or stool, dysuria, urinary frequency or urgency, lightheadedness, dizziness, headache, memory loss, loss of consciousness, rash, abnormal bruising or bleeding, imbalance, focal or generalized weakness, numbness or tingling in arms or legs, or night sweats. The review of systems is otherwise negative other than for that already noted above, and at least 10 systems have been reviewed. Physical Exam Physical Exam: The patient is awake, alert and oriented 3, normocephalic and atraumatic, lying in bed and in no acute distress. HEENT--PERRL, EOMI, mucous membranes and oropharynx moderately dry. Neck--supple. No JVD. No bruits. Thyroid normal, trachea midline, no adenopathy. Heart--normal S1 and S2. No murmurs, rubs or gallops. Lungs--dry crackles throughout bilaterally. No respiratory distress, no accessory muscle use. Abdomen--normal bowel sounds and soft. Nontender. Nondistended. Extremities--no cyanosis or clubbing. No edema. Dermatologic--normal skin turgor, normal color, no abnormal lymph nodes, no rash. Neurologic--cranial nerves II through XII grossly intact. Rheumatologic--normal range of motion. Psychiatric--normal affect. Results & Data Results & Data ([facility]) Vital Signs (Past 12 Hours) Vital Signs Temp Pulse Pulse Resp BP Pulse Ox 12/15/19 05:39 98.4 F 12/15/19 05:30 120 H 18 111/60 95 12/15/19 05:08 120 H 28 H 92 12/15/19 05:00 128 H 30 H 116/66 92 12/15/19 04:30 135 H 28 H 146/78 H 93 12/15/19 04:15 125 H 35 H 93 12/15/19 04:00 100.8 F H 133 H 32 H 151/86 H 93 12/15/19 03:55 135 H 25 H 163/93 H 93 Laboratory Results Laboratory Results WBC 14.16 K/uL (4.8-10.8) H 12/15/19 03:45 RBC 4.25 M/uL (4.2-5.4) 12/15/19 03:45 Hgb 13.9 g/dL (12.0-16.0) 12/15/19 03:45 Hct 39.0 % (37-47) 12/15/19 03:45 MCV 91.8 fL (80-100) 12/15/19 03:45 MCH 32.7 pg (25-34) 12/15/19 03:45 MCHC 35.6 g/dL (32-36) 12/15/19 03:45 RDW Std Deviation 45.4 fL (36.4-46.3) 12/15/19 03:45 RDW Coeff of Oz 13.5 % (11.5-14.5) 12/15/19 03:45 Plt Count 195 K/uL (130-400) 12/15/19 03:45 MPV 10.6 fL (7.4-10.4) H 12/15/19 03:45 Immature Gran % (Auto) 0.4 % 12/15/19 03:45 Neut % (Auto) 94.8 % 12/15/19 03:45 Lymph % (Auto) 2.7 % 12/15/19 03:45 Elliott % (Auto) 2.1 % 12/15/19 03:45 Eos % (Auto) 0.0 % 12/15/19 03:45 Baso % (Auto) 0.0 % 12/15/19 03:45 Neut # (Auto) 13.43 K/uL (1.4-6.5) H 12/15/19 03:45 Lymph # (Auto) 0.38 K/uL (1.2-3.4) L 12/15/19 03:45 Elliott # (Auto) 0.30 K/uL (0.11-0.59) 12/15/19 03:45 Eos # (Auto) 0.00 K/uL (0-0.5) 12/15/19 03:45 Baso # (Auto) 0.00 K/uL (0-0.2) 12/15/19 03:45 Immature Gran # (Auto) 0.05 K/uL (0.00-0.02) H 12/15/19 03:45 PT 11.3 Seconds (9.0-12.0) 12/15/19 03:45 INR 1.1 (0.9-1.1) 12/15/19 03:45 APTT 36.5 Seconds (21.0-31.0) H 12/15/19 03:45 PTT Ratio 1.3 12/15/19 03:45 Sodium 132 mmol/L (136-145) L 12/15/19 03:45 Potassium 3.1 mmol/L (3.5-5.1) L 12/15/19 03:45 Chloride 97 mmol/L (98-107) L 12/15/19 03:45 Carbon Dioxide 24 mmol/L (21-32) 12/15/19 03:45 Anion Gap 11.0 (3-11) 12/15/19 03:45 BUN 12 mg/dl (7-18) 12/15/19 03:45 Creatinine 0.71 mg/dl (0.6-1.2) 12/15/19 03:45 Est Cr Clr Drug Dosing Not Reportable 12/15/19 03:45 Est GFR ( Amer) 100.7 12/15/19 03:45 Est GFR (Non-Af Amer) 86.9 12/15/19 03:45 BUN/Creatinine Ratio 16.8 (10-20) 12/15/19 03:45 Glucose 105 mg/dl (70-99) H 12/15/19 03:45 Lactate 1.3 mmol/L (0.4-2.0) 12/15/19 04:23 Calcium 8.7 mg/dl (8.5-10.1) 12/15/19 03:45 Magnesium 1.5 mg/dl (1.8-2.4) L 12/15/19 03:45 Total Bilirubin 0.6 mg/dl (0.2-1) 12/15/19 03:45 AST 63 U/L (15-37) H 12/15/19 03:45 ALT 25 U/L (12-78) 12/15/19 03:45 Alkaline Phosphatase 78 U/L (45-117) 12/15/19 03:45 Troponin I 0.828 ng/ml (0-0.045) H* 12/15/19 03:45 Total Protein 7.1 gm/dl (6.4-8.2) 12/15/19 03:45 Albumin 2.7 gm/dl (3.4-5.0) L 12/15/19 03:45 Globulin 4.4 gm/dl (2.5-4.0) H 12/15/19 03:45 Albumin/Globulin Ratio 0.6 (0.9-2) L 12/15/19 03:45 Procalcitonin 19.35 ng/ml (0-0.5) H 12/15/19 03:45 COVID-19 PCR NEGATIVE (Negative) 12/15/19 04:35 Code Status & VTE Plan Code Status Full code VTE Prophylaxis Plan VTE Prophylaxis will be ordered: Yes PG Care Time/CCT Total # of Minutes Spent Total Time Spent with Patient: Total time spent is greater than 50% in coordination of care (as documented) at patient's floor/unit and/or counseling patient: Coding Level of Care Code 57690 Initial Inpt Care Lvl 3 Diagnoses Multifocal pneumonia J18.9 Acute respiratory failure with hypoxia J96.01 Sjogrens syndrome M35.00 Non-STEMI (non-ST elevated myocardial infarction) I21.4 Hypomagnesemia E83.42 Hypokalemia E87.6
[2019-12-15] MEDS ORDERED: OPTIRAY 320 125ml IV ONE (07:35)
--- NOTE | 2019-12-15 07:40 | XRay Report ---
XR chest 1V portable HISTORY: 69 years-old Female SEPSIS acute sepsis COMPARISON: None TECHNIQUE: Portable AP view of the chest FINDINGS: Cardiac silhouette is mildly enlarged. Bilateral mixed interstitial and alveolar opacities. No pneumo thorax or large pleural effusion. 1.3 cm nodular opacity projects over the lateral left midlung. Dege nerative changes of the shoulders and spine. IMPRESSION: 1. Right greater than left mixed interstitial and alveolar opacities are suggestive of multifocal pne umonia. Close follow-up is needed. 2. 1.3 cm nodular opacity projects over the lateral left midlung suspicious for a pulmonary nodule ACT 112: Negative or not required by law. The above report was generated using voice recognition software. It may contain grammatical, syntax o r spelling errors. Electronically signed by: Zander Cassidy M.D. 12/15/2019 7:39 AM
[2019-12-15 07:44] LABS: Adenovirus PCR Not Detected (NotDetected); Bordetella parapertussis PCR Not Detected (NotDetected); Bordetella pertussis PCR Not Detected (NotDetected); Chlamydia pneumoniae PCR Not Detected (NotDetected); Coronavirus 229E PCR Not Detected (NotDetected); Coronavirus HKU1 PCR Not Detected (NotDetected); Coronavirus NL63 PCR Not Detected (NotDetected); Coronavirus OC43PCR Not Detected (NotDetected); Human Metapneumovirus PCR Not Detected (NotDetected); Influenza A PCR Not Detected (NotDetected); Influenza B PCR Not Detected (NotDetected); Mycoplasma pneumoniae PCR Not Detected (NotDetected); Parainfluenza Virus 1 PCR Not Detected (NotDetected); Parainfluenza Virus 2 PCR Not Detected (NotDetected); Parainfluenza Virus 3 PCR Not Detected (NotDetected); Parainfluenza Virus 4 PCR Not Detected (NotDetected); Respiratory Syncytial VirusPCR Not Detected (NotDetected); Rhinovirus/Enterovirus PCR Not Detected (NotDetected)
--- NOTE | 2019-12-15 08:09 | CT Scan Report ---
CT angio chest PE protocol CT DOSE: 411.13 mGy.cm HISTORY: 69 years-old Female with PE. Acute cough with fever and shortness of breath TECHNIQUE: Multiple CTA images of the chest were obtained after the intravenous administration of 120 ml Optiray 320. Coronal and sagittal MIPS were obtained from the axial data set and were submitted for review. All measurements were obtained according to NASCET criteria. A dose lowering technique w as utilized adhering to the principles of ALARA. COMPARISON: Chest radiograph of same day FINDINGS: CTA: Mild cardiomegaly. No pericardial effusion. Mixed plaque of the thoracic aortic arch. Patency of the imaged great vessels. There is suboptimal opacification of the distal descending thoracic aorta secon rinku to contrast bolus timing. The pulmonary artery is opacified to the level of the subsegmental bra nches and demonstrates no filling defects to suggest thromboembolic disease. CT CHEST: No thyroid nodules identified. Subcarinal adenopathy measures up to 2.3 x 1.3 cm. Mildly prominent pa ratracheal and AP window lymph nodes. Trace pleural effusions. No pneumothorax. Moderate emphysema wi th bronchial wall thickening suggestive of bronchitis. Mild mucous plugging of the lung bases. Multif ocal patchy alveolar opacities are present within all lobes bilaterally, most pronounced in the lower lobes, right greater than left with air bronchograms. Mild intralobular septal thickening. Mild thickening of the left adrenal gland. Hepatic steatosis. Unremarkable appearance of the soft tis sues. Mild age-indeterminate however likely chronic superior endplate compression deformity at the T8 level. Schmorl's nodes with mild superior endplate compression deformity also noted at T11 and L1 wh ich is also likely chronic. 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 IMPRESSION: 1. Multifocal alveolar opacities within all lobes bilaterally, greatest within the right greater than left lower lobes is compatible with multifocal pneumonia. Follow-up imaging after treatment course i s recommended to document complete resolution. 2. Moderate emphysema with bronchial wall thickening suggestive of bronchitis. Mild mucous plugging o f the lung bases. 3. Cardiomegaly with mild pulmonary vascular congestion and trace pleural effusions. 4. Subcarinal adenopathy, likely reactive. 5. Hepatic steatosis. ACT 112: Negative or not required by law. The above report was generated using voice recognition software. It may contain grammatical, syntax o r spelling errors. Electronically signed by: Zander Cassidy M.D. 12/15/2019 8:07 AM
[2019-12-15] MEDS: ALBUT/IPRATROP 3MG/0.5MG NEB 3 ML VIAL NEB SCH ×5 (08:16→19:33)
[2019-12-15] MEDS ORDERED: ACETAMINOPHEN 325 MG TAB PO PRN (08:28)
[2019-12-15] MEDS ORDERED: ONDANSETRON INJ 2 MG/ML 2 ML VIAL IV PRN (08:28)
[2019-12-15] MEDS ORDERED: MAGNESIUM HYDROXIDE SUSP 30 ML UDC PO PRN (08:28)
[2019-12-15] MEDS ORDERED: ALUMINUM/MAGNESIUM SUSP 30 ML UDC PO PRN (08:28)
[2019-12-15] MEDS ORDERED: PIPERACILL/TAZOBAC CONSULT ACTIVE PRN (08:28)
--- NOTE | 2019-12-15 09:19 | Pharmacy Report ---
Pharmacy Abx Dose Short Note - Date of Service December 15, 2019 - Assessment & Plan Assessment Evon is a 69 year old F with history of presumptive Sjogrens Syndrome admitted for 2-3 days of increased weakness, shortness of breath, fatigue, fevers and chills. CXR revealed right greater than left mixed interstitial and alveolar opacities suggestive of multifocal pneumonia. COVID-19 negative. * Ordered empiric vancomycin + zosyn + azithromycin * No reports of recent hospital admission or recent outpt antibiotic use * BC and MRSA nasal swab pending. If nasal swab is negative, recommend d/c vancomycin. Plan Vancomycin * Loading dose: 1000 mg (18 mg/kg) IV * Maintenance dose: 750 mg (14 mg/kg) IV q12h * Goal trough level: ~15 mcg/mL * Trough level 12/16 @ 0530 Pharmacy will continue to follow and will adjust dose/frequency as necessary. Thank you.
[2019-12-15] MEDS: AZITHROMYCIN 500 MG in DEXTROSE 5% 250 ML IV SCH (09:45)
[2019-12-15] MEDS: HYDROXYCHLOROQUINE SULFATE 200 MG TAB PO SCH (09:46)
[2019-12-15] MEDS: guaiFENesin 600 MG TABCR PO SCH ×2 (09:46→21:08)
[2019-12-15] MEDS: dexAMETHasone 6 MG in SYRINGE 0 ML IV SCH ×3 (09:46→21:08)
[2019-12-15] MEDS ORDERED: PIPERACILLIN/TAZOBACTAM 3.375 GM in DEXTROSE 5% 100 ML IV ONE (10:00)
--- NOTE | 2019-12-15 10:52 | History & Physical Bridge Note ---
Date of Service December 15, 2019 History & Physical Bridge Note I have examined the patient, reviewed the History & Physical and in the interval since the performance of the History & Physical I have noted the following changes of clinical significance: no changes noted
--- NOTE | 2019-12-15 10:53 | Pre Anesthesia Assessment ---
Date of Service December 15, 2019 Pre Sedation Assessment Vital Signs Temp Pulse Pulse Resp BP BP Pulse Ox 12/15/19 08:33 37 C 98 H 18 100/60 92 12/15/19 06:30 110 H 27 H 107/63 90 12/15/19 06:00 120 H 32 H 102/67 97 12/15/19 05:39 36.9 C 12/15/19 05:30 120 H 18 111/60 95 12/15/19 05:08 120 H 28 H 92 12/15/19 05:00 128 H 30 H 116/66 92 12/15/19 04:30 135 H 28 H 146/78 H 93 12/15/19 04:15 125 H 35 H 93 12/15/19 04:00 38.2 C H 133 H 32 H 151/86 H 93 12/15/19 03:55 135 H 25 H 163/93 H 93 Cardiovascular + regular rate Respiratory + respiratory effort normal Pre-Sedation Airway Assessment Smoking Status: Former smoker Hx Sleep Apnea: No Hx Difficult Intubation: No Short, Thick Neck: No Thyromental Distance: > or= 3.5 Finger Breadths Oral Cavity: + WNL Mallampati Class: III ASA: ASA3 Procedure Planning Contraindications for Sedation: none Current Medications Reviewed: Yes Notes The planned sedation has been discussed with the patient. Informed Consent was obtained. I have identified the patient, determined the appropriateness of sedation and have assessed the patient immediately prior to the procedure. All medicine(s) and interventions are by my order.
--- NOTE | 2019-12-15 12:03 | Electrophysiology Report ---
Date of Service December 15, 2019
--- NOTE | 2019-12-15 12:04 | Post Anesthesia Assessment ---
Date of Service December 15, 2019 Post Sedation Assessment Vital Signs Temp Pulse Pulse Resp BP BP Pulse Ox 12/15/19 10:55 36.6 C 109 H 16 96/63 L 94 12/15/19 08:33 37 C 98 H 18 100/60 92 12/15/19 06:30 110 H 27 H 107/63 90 12/15/19 06:00 120 H 32 H 102/67 97 12/15/19 05:39 36.9 C 12/15/19 05:30 120 H 18 111/60 95 12/15/19 05:08 120 H 28 H 92 12/15/19 05:00 128 H 30 H 116/66 92 12/15/19 04:30 135 H 28 H 146/78 H 93 12/15/19 04:15 125 H 35 H 93 12/15/19 04:00 38.2 C H 133 H 32 H 151/86 H 93 12/15/19 03:55 135 H 25 H 163/93 H 93 Recovery Score Activity: Moves 4 extremities Respiration: Deep Breath/Cough Circulation: +/-20% PreAnes Value Consciousness: Fully Awake Oxygen Saturation: > 92% On Room Air Discharge Sedation Level of Care: Fast Track Phase II Post Sedation Plan On clinical assessment, the patient appears to have tolerated the sedation without complications. Patient is recovering as anticipated. Patient will continue to be monitored by nursing and may be discharged when sedation discharge criteria are met per below protocol. Upon Completions of procedure up to 15 minutes continue every 5 minute vital signs and the P.A.R. score; then discharge to a Phase I or Fast Track to Phase II per the following guidelines: * Discharge Patient to appropriate Phase II area if PAR is 8 or greater or return to pre- procedure baseline. The post - procedure orders will be as directed. * If PAR score is less than 8 or not return to pre-procedure baseline then patient will follow Phase I monitoring till PAR is reached for Phase II. The Phase I may be done in procedure room or may call to secure a Phase I area. * If naloxone or flumazenil are used for reversal, hold in Phase I for cont inued monitoring from when last reversal dose was given for a minimum of 60 minutes or longer pending the nurse and/or physician discretion of patient condition before discharge to Phase II. Please call the Sedation Physician to re-evaluate and complete post-note for discharge to Phase II area. Do NOT discharge from procedure sedation or Phase 1 until post- sedation evaluation note is complete by procedure /sedation MD Sedation Discharge Instructions to be given to the patient at discharge to home.
--- NOTE | 2019-12-15 13:06 | XCELERA ---
[id number]
[2019-12-15] MEDS: PIPERACILLIN/TAZOBACTAM 3.375 GM in DEXTROSE 5% 100 ML IV SCH ×2 (14:03→21:08)
--- NOTE | 2019-12-15 14:31 | Pulmonary Consultation ---
Date of Consultation December 15, 2019 Assessment & Plan (1) Acute respiratory failure with hypoxia: This is a 69-year-old female with a history of Sjogren's disease and undifferentiated inflammatory disease. She is on chronic hydroxychloroquine and CBD oil with no other prescription medications. The patient states that she has had 2 to 3 days of worsening shortness of breath and feelings of fever and chills. She has no mucus production. And she further denies hemoptysis. Bio fire panel as well as COVID 19 PCR is negative Recommendations: 1. Acute respiratory failure with hypoxia: Patient has no history of supplemental oxygen use. Imaging reveals multifocal pneumonia. CT of the chest was negative for pulmonary emboli. The patient does have some evidence of mild mucus plugging at the lung bases. Will start patient with flutter valve and incentive spirometry. Also agree with cefepime and azithromycin and is much as patient has an elevated procalcitonin. Patient is in no respiratory distress. Titrate oxygen off as tolerated. Increase ambulation as tolerated. Patient started on dexamethasone for pneumonia. Patient has no bronchospasm. Would stop steroids without a taper. 2. Undifferentiated inflammatory disease: Patient does report history of Sjogre n's syndrome and is chronically on hydrochloroquine and CBD oil. We will continue home medications. Patient also empirically started on dexamethasone 6 mg every 6 hours in the emergency department. I am not sure that the steroids will have efficacy as the patient has used steroids in the past with no improvement. 3. Emphysema: Patient has no history of pulmonary function testing as an outpatient. She is a sporadic smoker with no heavy smoking history. I recommended to the patient that she follow-up with pulmonary office on discharge and consider pulmonary function testing. 4. Tobacco abuse: Discussed complete abstention from tobacco abuse. Recommended patient consider smoking cessation program. Thank you for including us in the care of this patient. We will follow along with you. Please refer to Dr. Prasad's addendum for further recommendations. (2) Multifocal pneumonia: (3) Sjogrens syndrome: (4) Tobacco abuse: (5) Emphysema of lung: Supervising Physician Co-Signing Physician Notes Patient seen and examined with John navarrete PA-C. I agree with his assessment and plan aside for any additions/exceptions noted: Patient has a history of Sjogren's disorder on Plaquenil. No other immunosup pressant medications other than sporadic prednisone use. She has a history of smoking for roughly [address] of her chest reviewed which demonstrates upper lobe predominant emphysema versus cystic changes and multifocal infiltrates. There is also a large station 7 lymph node. I went o gail options with her which include continuing antibiotics and obtaining a follow-up CT chest in 4 to 6 weeks versus a more aggressive approach such as bronchoscopy with endobronchial ultrasound transbronchial needle aspiration of the lymph node. Given her Sjogren's disorder and her history of smoking, she is certainly at risk for malignancy. Her procalcitonin was quite elevated upon admission but she does appear to be improving. I suspect that she likely has bacterial pneumonia. I would recommend treating for 7 days. We will make her n.p.o. for tonight and if she decides to go through a bronchoscopy tomorrow, we can do that for her at that time. History of Present Illness Attending Physician: Catarino Santo, History of Present Illness Attending: Dr. Prasad This is a 69-year-old female with a past medical history including Sjogren's syndrome and an undifferentiated inflammatory disorder. She is on chronic hydroxychloroquine and CBD oil and states that she takes no other prescription medications. The patient states that she has had 2 to 3 days of increased shortness of breath with fever and chills. She has no sputum production and denies any hemoptysis. She has no history of significant sick contacts. She is to her Megha who is a radiologist. They have no children and no birds or exotic pets. She has no recent travel as very cautious when outside of the home regarding mask wearing and social distancing. She has a chronic intermittent tremor of her face and lips when speaking and reports that her brother has similar findings. She has been seen by Dr. [facility] in the past and currently follows in [place]. She has no chronic pulmonary disease and no use of supplemental oxygen in the past. She has been an "on again off again" smoker but does not smoke heavily and does not smoke every day. Patient has not been outdoors for significant amounts of time and denies any exposure to ticks or other insects. Allergies Allergy/AdvReac Type Severity Reaction Status Date / Time No Known Allergies Allergy Verified 12/15/19 05:04 Home Medications Home Medications Medication Instructions Recorded Confirmed Type Cbd Oil 0 drp PO DIRECTED PRN 12/15/19 12/15/19 History hydroxychloroquine 200 mg PO DAILY 12/15/19 12/15/19 History Patient History Medical History (Updated 12/15/19 @ 15:27 by Pramod Lynch MD) Emphysema of lung Myocardial Infarction nstemi Sjogren's disease Smoker Smokers' cough Tobacco abuse Surgical History (Updated 12/15/19 @ 14:43 by John Navarrete PA-C) No pertinent past surgical history Family History (Updated 12/15/19 @ 14:43 by John Navarrete PA-C) Other Family history non-contributory Social History (Updated 12/15/19 @ 14:44 by John Navarrete PA-C) Smoking Status: Current some day smoker Tobacco Type: Cigarettes Hx Alcohol Use: No Hx Substance Use: No Communication Ability: Effective Department Store General 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 EYES: No icterus, gaze conjugate NOSE: No evidence of epistaxis MOUTH: No lesions or candidiasis NECK: Supple LUNGS: Bibasilar coarse rales. No rhonchi. No appreciation of bronchospasm. HEART: Regular, tachycardic. No appreciation of ectopy ABDOMEN: Soft, NT, ND, BS Present EXTREMITIES: No LE edema, pedal pulses intact. NEURO: A&OX3. Chronic tremor of lips and face when speaking. No appreciable tremor of extremities. Results & Data Results & Data ([facility]) Vital Signs (Past 12 Hours) Vital Signs Temp Pulse Pulse Resp BP BP Pulse Ox 12/15/19 10:55 36.6 C 109 H 16 96/63 L 94 12/15/19 08:33 37 C 98 H 18 100/60 92 12/15/19 06:30 110 H 27 H 107/63 90 12/15/19 06:00 120 H 32 H 102/67 97 12/15/19 05:39 36.9 C 12/15/19 05:30 120 H 18 111/60 95 12/15/19 05:08 120 H 28 H 92 12/15/19 05:00 128 H 30 H 116/66 92 12/15/19 04:30 135 H 28 H 146/78 H 93 12/15/19 04:15 125 H 35 H 93 12/15/19 04:00 38.2 C H 133 H 32 H 151/86 H 93 12/15/19 03:55 135 H 25 H 163/93 H 93 Laboratory Results 12/15/19 03:45 12/15/19 03:45 INR 1.1 (0.9-1.1) 12/15/19 03:[address] angio chest PE protocol CT DOSE: 411.13 mGy.cm HISTORY: 69 years-old Female with PE. Acute cough with fever and shortness of breath TECHNIQUE: Multiple CTA images of the chest were obtained after the intravenous administration of 120 ml Optiray 320. Coronal and sagittal MIPS were obtained from the axial data set and were submitted for review. All measurements were obtained according to NASCET criteria. A dose lowering technique was utilized adhering to the principles of ALARA. COMPARISON: Chest radiograph of same day FINDINGS: CTA: Mild cardiomegaly. No pericardial effusion. Mixed plaque of the thoracic aortic arch. Patency of the imaged great vessels. There is suboptimal opacification of the distal descending thoracic aorta secondary to contrast bolus timing. The pulmonary artery is opacified to the level of the subsegmental branches and demonstrates no filling defects to suggest thromboembolic disease. CT CHEST: No thyroid nodules identified. Subcarinal adenopathy measures up to 2.3 x 1.3 cm. Mildly prominent paratracheal and AP window lymph nodes. Trace pleural effusions. No pneumothorax. Moderate emphysema with bronchial wall thickening suggestive of bronchitis. Mild mucous plugging of the lung bases. Multifocal patchy alveolar opacities are present within all lobes bilaterally, most pronounced in the lower lobes, right greater than left with air bronchograms. Mild intralobular septal thickening. Mild thickening of the left adrenal gland. Hepatic steatosis. Unremarkable appearance of the soft tissues. Mild age-indeterminate however likely chronic superior endplate compression deformity at the T8 level. Schmorl's nodes with mild superior endplate compression deformity also noted at T11 and L1 which is also likely chronic. 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 IMPRESSION: 1. Multifocal alveolar opacities within all lobes bilaterally, greatest within the right greater than left lower lobes is compatible with multifocal pneumonia. Follow-up imaging after treatment course is recommended to document complete resolution. 2. Moderate emphysema with bronchial wall thickening suggestive of bronchitis. Mild mucous plugging of the lung bases. 3. Cardiomegaly with mild pulmonary vascular congestion and trace pleural effusions. 4. Subcarinal adenopathy, likely reactive. 5. Hepatic steatosis. Electronically signed by: Zander Cassidy M.D. 12/15/2019 8:07 AM PG Care Time/CCT Total # of Minutes Spent Total Time Spent with Patient: Total time spent is greater than 50% in coordination of care (as documented) at patient's floor/unit and/or counseling patient: 45 minutes including discussion with patient and patient's [id number] who was present in the room. Coding Level of Care Code 36936 Inpt Consult Level 5 Diagnoses Acute respiratory failure with hypoxia J96.01 Multifocal pneumonia J18.9 Sjogrens syndrome M35.00 Tobacco abuse Z72.0 Emphysema of lung J43.9
--- NOTE | 2019-12-15 15:42 | Cardiology Consultation ---
Date of Consultation December 15, 2019 Assessment & Plan (1) Troponin level elevated: Patient had elevated biomarkers, but given their trajectory, along with the absence of cardiac symptoms, is unlikely to be due to ACS. This could reflect a remote event, or could be due to demand ischemia given active multifocal pneumonia. EKG was reassuring. Echocardiogram findings were inconclusive; reduced cardiac wall motion could be due to a prior infarct, or could be an artifact. The likelihood of infarct appears to be low given the patient's pre-hospital exercise capacity and lack of cardiac history. -recommend Lexican scan on an outpatient basis Present on Admission?: Yes (2) Multifocal pneumonia: Present on Admission?: Yes (3) Emphysema of lung: Present on Admission?: Yes (4) Tobacco abuse: Present on Admission?: Yes (5) Sjogrens syndrome: Present on Admission?: Yes (6) Hypomagnesemia: Present on Admission?: Yes (7) Hypokalemia: Present on Admission?: Yes Supervising Physician Co-Signing Physician Notes I saw and examined the patient at the bedside and agrees the documentation in his note. Briefly, the patient was admitted for symptoms of multi focal pneumonia. She was discovered incidentally to have mildly elevated cardiac biomarkers. I do not believe this represents an acute coronary syndrome. she did not report symptoms consistent with coronary artery disease or angina leading up to her current admission. Think the likelihood that she has significant coronary disease is low, however her echocardiogram was not normal. This could be a false positive. I think a more thorough evaluation is warranted and suggested a Lexiscan perfusion study. This could certainly be performed as an outpatient. If the patient's clinical condition requires her to be in the hospital into next week we could perform it as an inpatient as well. I do not think she requires any change in her medical therapy at this point. History of Present Illness Reason for Consultation: elevated troponins Attending Physician: Catarino Santo DO History of Present Illness Patient is a 69 year old female with a PMH of unspecified connective tissue disorder treated with hydroxychloroquine, emphysema, and tobacco use who presented to the ED with marked weakness. Patient had noticed 1-2 days of fever, fatigue, and weakness, which had worsened to the point of being unable to transfer herself off the toilet without concern for falling. Patient denies chest pain, chest pressure, arm pain, jaw pain, cough, shortness of breath, lightheadedness, dizziness, or syncope at that time. She was brought to the ED by her . Laboratory analysis and imaging in the ED revealed multifocal pneumonia, for which she was treated with IV antibiotics, IV steroids, and IV fluids. Patient's initial troponin was elevated at 0.828, and a repeat level three hours later was 0.824. Cardiology was consulted as a result of these elevated cardiac biomarkers. Patient reports improvement of her symptoms upon receiving treatment. Allergies Allergy/AdvReac Type Severity Reaction Status Date / Time No Known Allergies Allergy Verified 12/15/19 05:04 Home Medications Home Medications Medication Instructions Recorded Confirmed Type Cbd Oil 0 drp PO DIRECTED PRN 12/15/19 12/15/19 History hydroxychloroquine 200 mg PO DAILY 12/15/19 12/15/19 History Patient History Medical History (Updated 12/15/19 @ 15:27 by Pramod Lynch MD) Emphysema of lung Myocardial Infarction nstemi Sjogren's disease Smoker Smokers' cough Tobacco abuse Surgical History (Updated 12/15/19 @ 14:43 by John Navarrete PA-C) No pertinent past surgical history Family History (Updated 12/15/19 @ 14:43 by John Navarrete PA-C) Other Family history non-contributory Social History (Updated 12/15/19 @ 14:44 by John Navarrete PA-C) Smoking Status: Current some day smoker Tobacco Type: Cigarettes Hx Alcohol Use: No Hx Substance Use: No Communication Ability: Effective Conference Producer Required: No Beliefs That Will Affect Care: None Current Living Situation: Spouse Feels Safe at Home: Yes Review of Systems Constitutional: no sweats, no body aches and no weight gain Respiratory: no cough, no chest congestion and no wheezing Cardiovascular: no chest pain, no chest pain at rest, no chest pain with activity, no radiating jaw, neck or arm pain, no palpitations, no lightheadedness, no syncope, no edema and no claudication Gastrointestinal: no abdominal pain, no nausea, no vomiting, no constipation and no diarrhea/loose stools Physical Exam Constitutional: well developed; no acute distress Respiratory: no cough Auscultation: + diminished lung sounds and + crackles; no wheezes Cardiovascular: Rate/Rhythm: regular rhythm and + tachycardic Heart Sounds: no murmur Vessels: no carotid bruit Results & Data ([facility]) Vital Signs (Past 12 Hours) Vital Signs Temp Pulse Pulse Resp BP BP Pulse Ox 12/15/19 10:55 36.6 C 109 H 16 96/63 L 94 12/15/19 08:33 37 C 98 H 18 100/60 92 12/15/19 06:30 110 H 27 H 107/63 90 12/15/19 06:00 120 H 32 H 102/67 97 12/15/19 05:39 36.9 C 12/15/19 05:30 120 H 18 111/60 95 12/15/19 05:08 120 H 28 H 92 12/15/19 05:00 128 H 30 H 116/66 92 12/15/19 04:30 135 H 28 H 146/78 H 93 12/15/19 04:15 125 H 35 H 93 12/15/19 04:00 38.2 C H 133 H 32 H 151/86 H 93 12/15/19 03:55 135 H 25 H 163/93 H 93 PG Care Time/CCT Total # of Minutes Spent Total Time Spent with Patient: Total time spent is greater than 50% in coordination of care (as documented) at patient's floor/unit and/or counseling patient: Coding Level of Care Code 54965 Initial Inpt Care Lvl 3 Diagnoses Troponin level elevated R79.89 Multifocal pneumonia J18.9 Emphysema of lung J43.9 Tobacco abuse Z72.0 Sjogrens syndrome M35.00 Hypomagnesemia E83.42 Hypokalemia E87.6 Resident Activity Tracking Resident Involvement: Resident Care Provided Care Provided: Adult Hospital Medicine
--- NOTE | 2019-12-15 17:30 | Electrocardiogram Report ---
Test Reason : Blood Pressure : / mmHG Vent. Rate : 134 BPM Atrial Rate : 134 BPM P-R Int : 156 ms QRS Dur : 096 ms QT Int : 272 ms P-R-T Axes : 069 -38 076 degrees QTc Int : 406 ms Sinus tachycardia Possible Left atrial enlargement Left axis deviation Incomplete right bundle branch block Abnormal ECG No previous ECGs available Confirmed by Silvano Nguyen ([id number]) on 12/15/2019 5:29:55 PM Referred By: REFERRED SELF Confirmed By:Puneet Nguyen
[2019-12-15] MEDS ORDERED: VANCOMYCIN HCL 750 MG in SODIUM CHLORIDE 0.9% 250 ML IV SCH (18:00)
[2019-12-16] MEDS: SODIUM CHLORIDE 0.9% 1000ML 1,000 ML IV SCH ×3 (01:54→18:41)
[2019-12-16] MEDS: PIPERACILLIN/TAZOBACTAM 3.375 GM in DEXTROSE 5% 100 ML IV SCH ×3 (05:07→22:15)
[2019-12-16] MEDS: dexAMETHasone 6 MG in SYRINGE 0 ML IV SCH (05:09)
[2019-12-16 06:44] LABS: Appearance Urine Clear (Clear); Bilirubin Urine Negative (Negative); Blood Urine Trace (Negative); Color Urine Dark Yellow; Epithelial Cell Urine Auto >30 /lpf (0-5); Glucose Urine UA Negative (Negative); Ketones Urine Trace (Negative); Leukocyte Esterase Urine Negative (Negative); Nitrite Urine Negative (Negative); Protein Urine 2+ (Negative); Specific Gravity Urine 1.037 (1.000-1.030); Urobilinogen Urine Negative (Negative); pH Urine 5.5 (4.5-7.5)
[2019-12-16] MEDS: ALBUT/IPRATROP 3MG/0.5MG NEB 3 ML VIAL NEB SCH ×5 (06:51→19:40)
[2019-12-16 07:15] LABS: Bacteria Urine Automated 1+ (Negative); RBC Urine Automated 0-4 /hpf (0-4)
[2019-12-16 07:43] LABS: Basophils # (auto) 0.01 K/uL (0-0.2); Basophils % (auto) 0.1 %; Hematocrit (blood only) 39.8 % (37-47); Hemoglobin 13.5 g/dL (12.0-16.0); Immature Granulocytes # (auto) 0.67 K/uL (0.00-0.02); Immature Granulocytes % (auto) 3.7 %; Lymphocytes # (auto) 0.31 K/uL (1.2-3.4); Lymphocytes % (auto) 1.7 %; Mean Corpuscular Hemoglobin 31.5 pg (25-34); Mean Corpuscular Hgb Conc 33.9 g/dL (32-36); Mean Corpuscular Volume 92.8 fL (80-100); Mean Platelet Volume 10.9 fL (7.4-10.4); Monocytes # (auto) 0.33 K/uL (0.11-0.59); Monocytes % (auto) 1.8 %; Neutrophils # (auto) 16.99 K/uL (1.4-6.5); Neutrophils % (auto) 92.7 %; Platelet Count 192 K/uL (130-400); RDW Coefficient of Variation 14.2 % (11.5-14.5); Red Blood Count 4.29 M/uL (4.2-5.4); White Blood Count 18.31 K/uL (4.8-10.8)
[2019-12-16 07:54] LABS: Partial Thromboplastin Ratio 1.2; Partial Thromboplastin Time 33.3 Seconds (21.0-31.0); Prothrombin Time 10.6 Seconds (9.0-12.0)
[2019-12-16 08:09] LABS: BUN Creatinine Ratio 17.9 (10-20); Calcium 8.5 mg/dl (8.5-10.1); Creatinine Clr Calc Pharmacy 71.5 ml/min; Est GFR (African American) 105.5; Magnesium 1.8 mg/dl (1.8-2.4); Potassium 3.6 mmol/L (3.5-5.1)
[2019-12-16 08:11] LABS: Albumin Globulin Ratio 0.4 (0.9-2); Bilirubin,Total 0.5 mg/dl (0.2-1); Globulin 4.5 gm/dl (2.5-4.0); Total Protein 6.5 gm/dl (6.4-8.2)
[2019-12-16] MEDS: AZITHROMYCIN 500 MG in DEXTROSE 5% 250 ML IV SCH (09:03)
--- NOTE | 2019-12-16 10:06 | History & Physical Bridge Note ---
Date of Service December 16, 2019 History & Physical Bridge Note I have examined the patient, reviewed the History & Physical and in the interval since the performance of the History & Physical I have noted the following changes of clinical significance: no changes noted
[2019-12-16] MEDS ORDERED: SODIUM CHLORIDE 0.9% 500 ML IV SCH ×2 (10:15→11:00)
--- NOTE | 2019-12-16 10:47 | Pulmonology Progress Note ---
Date of Service December 16, 2019 Assessment & Plan (1) Acute respiratory failure with hypoxia: 69-year-old female with a past medical history of tobacco abuse smoking 1 pack/day for 20 to 30 years, centrilobular emphysema and Sjogren's disorder on Plaquenil presenting for acute hypoxemic respiratory failure with multifocal pneumonia and a subcarinal lymph node She does appear to be improving with broad-spectrum antibiotics. Recommend rechecking procalcitonin as it was very elevated initially. Blood cultures are negative to date. I discussed bronchoscopy with her versus being conservative and following up CT chest in 4 to 6 weeks. We have elected to proceed with a bronchoscopy to do brushings, washings and endobronchial ultrasound with transbronchial needle aspiration of the subcarinal lymph node. She is certainly at risk for lymphoma and lung cancer given her Sjogren's and extensive tobacco smoking history. This was discussed with the to his satisfaction. We will proceed with a bronchoscopy today. (2) Multifocal pneumonia: (3) Sjogrens syndrome: (4) Tobacco abuse: (5) Emphysema of lung: Admission and Anticipated Discharge Date Admission Date: December 15, 2019 Subjective Patient notes that her breathing and coughing have improved. She is still very weak and often times unsteady on her feet. She feels that her tremor is getting worse. She is very hungry today. She is anxious about the procedure. I did discuss the bronchoscopy with her who is initially upset about not being called with an update, but then was satisfied with my discussion with him. He is a radiologist at [employer]. Review of Systems Review of Systems: All systems reviewed & are unremarkable except as noted in HPI & below Physical Exam Physical Exam: GENERAL : No acute distress. EYES: No icterus, gaze conjugate NOSE: No evidence of epistaxis MOUTH: No lesions or candidiasis NECK: Supple LUNGS: Bibasilar coarse rales. No rhonchi. No appreciation of bronchospasm. HEART: Regular, tachycardic. No appreciation of ectopy ABDOMEN: Soft, NT, ND, BS Present EXTREMITIES: No LE edema, pedal pulses intact. NEURO: A&OX3. Chronic tremor of lips and face when speaking. No appreciable tremor of extremities. Results & Data Results & Data ([facility]) Vital Signs (Past 12 Hours) Vital Signs Temp Pulse Pulse Resp BP Pulse Ox Pulse Ox 12/16/19 07:14 98.2 F 120 H 21 121/77 93 12/16/19 06:54 119 H 20 85 L 12/16/19 04:09 98.2 F 125 H 20 115/72 90 12/16/19 04:00 91 12/16/19 00:00 98.6 F 99 H 18 100/64 90 signs, labs and imaging. PG Care Time/CCT Total # of Minutes Spent Total Time Spent with Patient: Total time spent is greater than 50% in coordination of care (as documented) at patient's floor/unit and/or counseling patient: Coding Level of Care Code 43801 Subseq Hosp Care Lvl 3 Diagnoses Acute respiratory failure with hypoxia J96.01 Multifocal pneumonia J18.9 Sjogrens syndrome M35.00 Tobacco abuse Z72.0 Emphysema of lung J43.9
--- NOTE | 2019-12-16 11:06 | Pre Anesthesia Assessment ---
Date of Service December 16, 2019 Pre Sedation Assessment Vital Signs Temp Pulse Pulse Pulse Resp BP Pulse Ox 12/16/19 11:00 143 H 18 154/96 H 92 12/16/19 07:14 98.2 F 120 H 21 121/77 93 12/16/19 06:54 119 H 20 85 L 12/16/19 04:09 98.2 F 125 H 20 115/72 90 12/16/19 04:00 12/16/19 00:00 98.6 F 99 H 18 100/64 90 12/15/19 20:04 101.3 F H 137 H 18 135/79 94 12/15/19 15:54 98.8 F 118 H 19 122/76 92 12/15/19 15:41 122 H Pulse Ox 12/16/19 11:00 12/16/19 07:14 12/16/19 06:54 12/16/19 04:09 12/16/19 04:00 91 12/16/19 00:00 12/15/19 20:04 12/15/19 15:54 12/15/19 15:41 Pre-Sedation Airway Assessment Smoking Status: Current some day smoker Hx Sleep Apnea: No Short, Thick Neck: Yes Thyromental Distance: > or= 3.5 Finger Breadths Oral Cavity: + Dental Abnormalities Mallampati Class: II ASA: ASA3 NPO Status Date of Last Intake of Fluids: 12/15/19 Time of Last Intake of Fluids: 21:00 Date of Last Intake of Solid Food: 12/15/19 Time of Last Intake of Solid Foods: 17:00 Notes The planned sedation has been discussed with the patient. Informed Consent was obtained. I have identified the patient, determined the appropriateness of sedation and have assessed the patient immediately prior to the procedure. All medicine(s) and interventions are by my order.
[2019-12-16] MEDS ORDERED: METOPROLOL TARTRATE 1 MG/ML VIAL IV ONE ×2 (11:19→15:31)
[2019-12-16] MEDS: guaiFENesin 600 MG TABCR PO SCH ×2 (11:25→19:52)
[2019-12-16] MEDS ORDERED: fentaNYL citrate 100 MCG/2 ML VIAL IV ONE (12:11)
[2019-12-16] MEDS ORDERED: MIDAZOLAM HCL 1 MG/ML 2ML VIAL IV STA (12:11)
[2019-12-16] MEDS ORDERED: LIDOCAINE HCL 2% (LOCAL) INJ 50 ML VIAL INSTIL ONE (12:11)
[2019-12-16] MEDS ORDERED: LIDOCAINE 4% INH SOLN 4 ML BTL NEB ONE (12:18)
--- NOTE | 2019-12-16 12:29 | Procedure Note ---
Procedure Note Date of Service December 16, 2019 Note 4 mg of Versed were utilized and 150 mcg of fentanyl were utilized for sedation. Procedural sedation began at 11:19 AM and ended at 12:01 PM. PREOPERATIVE DIAGNOSIS: Nodular infiltrates with subcarinal adenopathy POSTOPERATIVE DIAGNOSIS: Nodular infiltrates with subcarinal adenopathy RAPID ON SITE POSITIVE [facility] NODES FOR MALIGNANCY INCLUDE: 5 out of 6 lymph node samples adequate. PROCEDURES PERFORMED: Endobronchial ultrasound with transbronchial needle aspiraion PROCEDURALIST: Clark Prasad MD ORIENTAL RUG REPAIRER: None. ANESTHESIA: Local regional using 1% lidocaine and concious sedation as noted in the EMR and note INDICATIONS FOR PROCEDURE: The procedures were explained to the patient. All risks, benefits, and options were discussed. The risks include but were not limited to bleeding, infection, and pneumothorax. All questions were answered, and the patient wished for us to proceed with the procedure. DESCRIPTION OF PROCEDURE: Prior to the start of the procedure, the patient was found to be tachycardic with heart rates in the mid 130s. She appeared to be in a sinus tachycardia. We gave her 2-1/2 mg of metoprolol and her heart rate improved to the 1 teens. Endobronchial ultrasound bronchoscope was inserted through the mouth. Vocal cords were visualized and appeared normal with normal movement. Trachea appeared normal. I visualized lymph node station 11 R, 10 R, 7, 4R, 4L, 11 L and 10 L. Only station 7 lymph node appeared to be pathologically enlarged. I performed 6 passes of station 7. 5 out of 6 were deemed to be adequate. 15 sweeps on each individual past. Adequate hemostasis was achieved. The scope was then withdrawn. The regular bronchoscope was inserted. Again the cords, trachea and kajal were visualized and all appeared normal. Kajal was sharp. I did a sequential inspection of the right and left tracheal bronchial tree. There were scant secretions noted generally. There were thick secretions noted in the lingula. I performed a general washing of the right lower lobe and superior segment. I also performed microscopy brushings and cytology brushings of the superior segment of the right lower lobe. Adequate hemostasis was achieved. We then performed a BAL in the lingula with 120 mL of fluid. 40 mL was aspirated. Patient tolerated the procedure well. Recommendations: Follow biopsy results from station 7 lymph node. Follow culture results from brushings and BAL fluid. Follow cytology from the BAL fluid. Continue antibiotics. Will need repeat CT chest in 4 to 6 weeks. Coding CPT Codes Pulmonary/Thoracic - Pulmonary and Thoracic: 23688 Dx bronchoscopy/BAL ([id number]) Pulmonary/Thoracic - Pulmonary and Thoracic: 99023 Dx bronchoscopy/brush ([id number]) Pulmonary/Thoracic - Pulmonary and Thoracic: 93459 Bronchoscopy, w/EBUS 1 or 2 mediastinal ([id number]) Sedation/Anesthesia - Sedation/Anesthesia: 47282 Mod Sedation by the same physician; Ea [id number] Minutes ([id number]) [facility] Procedure Codes (Charges) Pulmonary/Thoracic Procedure 1: Pulmonary and Thoracic: 19249 Dx bronchoscopy/BAL Procedure 2: Pulmonary and Thoracic: 19006 Dx bronchoscopy/brush Procedure 3: Pulmonary and Thoracic: 13615 Bronchoscopy, w/EBUS 1 or 2 mediastinal Sedation/Anesthesia Procedure 1: Sedation/Anesthesia: 46114 Mod Sedation by the same physician; Ea [id number] Minutes Total Sedation Time (minutes): 42
--- NOTE | 2019-12-16 13:43 | XRay Report ---
XR chest 1V portable CLINICAL HISTORY: labored breathing dyspnea COMPARISON STUDY: 12/15/2019 FINDINGS: Mildly progressive bibasilar parenchymal infiltrative change. Slightly progressive right up per lobe infiltrate. Unchanged pleural-based density left midlung laterally. IMPRESSION: Progressive bilateral parenchymal infiltrative change ACT 112: Negative or not required by law. The above report was generated using voice recognition software. It may contain grammatical, syntax or spelling errors. Electronically signed by: González Haynes M.D. 12/16/2019 1:42 PM
[2019-12-16] MEDS ORDERED: LORazepam 1 MG/2 ML VIAL IV PRN ×2 (13:46→15:08)
[2019-12-16] MEDS ORDERED: LORazepam 1 MG TAB PO PRN (13:46)
[2019-12-16] MEDS ORDERED: STAT IV Infusion **Titration per Protocol STA (13:46)
[2019-12-16] MEDS ORDERED: MULTI-VITAMIN INFUSION 10 ML, THIAMINE HCL 100 MG, FOLIC ACID 1 MG in SODIUM CHLORIDE 0... IV ONE (14:00)
[2019-12-16] MEDS ORDERED: DEXMEDETOMIDINE HCL 200 MCG in SODIUM CHLORIDE 0.9% 48 ML IV SCH (14:00)
[2019-12-16] MEDS: FOLIC ACID 1 MG in SYRINGE 9.8 ML IV SCH (14:22)
[2019-12-16] MEDS: THIAMINE HCL 100 MG in SYRINGE 9 ML IV SCH (14:22)
[2019-12-16] MEDS: HYDROXYCHLOROQUINE SULFATE 200 MG TAB PO SCH ×2 (14:45→15:19)
--- NOTE | 2019-12-16 14:51 | Communication Note ---
Date of Service: December 16, 2019 Patient was seen after the bronchoscopy. I was called by the nurse due to increasing tachypnea and hypoxemia. She is currently on 15 L via oxygen mask. She is demonstrating paradoxical respiratory movements. Repeat chest x-ray demonstrated mildly worsening interstitial markings and alveolar opacities in the right lower lobe. Upon discussion with her , it was discovered that she is a very heavy drinker and at least drinks 4-5 drinks of hard liquor a night and often times late into the night. She has a chronic tremor, but it is definitely worse since hospitalization. Her last drink was on Thursday. She is very likely going through alcohol withdrawal at this point. Some of her hypoxemia is likely acutely worsened related to the bronchoscopy and also due to alcohol withdrawal itself. She does have multifocal pneumonia which is still in the process of being worked up. It is very likely these infiltrates represent aspiration pneumonia. Additionally, she does have evidence of a halo around some of these nodular infiltrates and thus fungal disease is difficult to rule out. I did send bronchoscopy specimens for fungal cultures. She is chronically on Plaquenil and has gotten intermittent doses of prednisone as an outpatient. She also has evidence of hypoalbuminemia and may theoretically be immunocompromise. Unclear whether she has underlying cirrhosis. I had a lengthy discussion with her regarding her overall condition and prognosis. I also had a long discussion with the patient's hospitalist Dr. Santo. We have elected to transfer her to the ICU. I did recommend using high flow nasal cannula if her work of breathing increases. I would avoid BiPAP given her risk of aspiration and active alcohol withdrawal. Recommend high-dose thiamine, alcohol withdrawal protocol with Ativan and Precedex for symptomatic control. CRITICAL CARE TIME - I have personally spent 37 minutes of critical care time in the direct management of this patient. This is a life/limb threatening event. This includes time spent evaluating patient, direct bedside care, chart review, placing orders, interpretation of diagnostic studies, discussion with consultants, patient, and family members, as well as other required patient management activities. This time is exclusive of all separately billable procedures, and teaching time and separate from and in addition to any other critical care service time. Coding Level of Care Code Critical Care 1st 30-74 mins
[2019-12-16 14:58] LABS: Eosinophil Body Fluid Man 0 %; Lymphocyte Body Fluid Man 0 %; Neutrophil Body Fluid Man 17 %
[2019-12-16 14:59] LABS: Fluid Mono/Macrophage 83 %
[2019-12-16] MEDS ORDERED: LORazepam 3 MG/6 ML VIAL IV PRN (15:08)
[2019-12-16] MEDS ORDERED: ATIVAN IV ALCOHOL WITHDRAWL IV PRN (15:08)
[2019-12-16] MEDS: LORazepam 2 MG/4 ML VIAL IV PRN ×2 (15:12→15:17)
[2019-12-16] MEDS ORDERED: ENOXAPARIN INJ 40 MG/0.4 ML SYR SQ SCH (15:15)
--- NOTE | 2019-12-16 15:23 | Critical Care Consultation ---
Date of Consultation December 16, 2019 Assessment & Plan (1) Acute respiratory failure with hypoxia: Reason Critically Ill: 69 yo F PMHx Sjogren's disease, alcohol abuse, depression/anxiety who presented with weakness, fatigue, and fevers and who was admitted for multifocal pneumonia/NSTEMI. Admitted to ICU for worsening respiratory status and worsening alcohol withdrawal for respiratory and cardiac monitoring. Neuro - [facility] ICU: Negative Sedation: none Analgesia: none Alcohol Abuse Disorder in Acute Alcohol Withdrawal: - History of over 10 years of 2+ alcoholic beverages per day (vodka martinis), however patient's goes to bed 4-5 hours earlier than the patient so it is unclear the patient's quantity of drinking. - Started having worsening of her tremor today, last reported alcoholic beverage Thursday. - Placed on AWSS Ativan IV Withdrawal Protocol with frequent AWSS scoring. - Was started on Precedex by primary team for anxiolytic, have discontinued and will start Ativan scheduled taper (2mg IV q8h for the next 24 hours) with PRN. - Start thiamine, folate. Cardiac - Tachycardia, NSTEMI: - On admission with troponin 0.828, which has continued to downtrend with most recent troponin 0.295. - Echo showed LV systolic function low normal, moderate to severe hypokinesis of mid-distal anterioseptal arana, RVSP 30-40. - Cariology consulted and appreciate recommendations. - No changes in medical therapy at this time. - Lexiscan outpatient. - Patient with continued tachycardia to the 120-140s throughout admission prior to arrival in ICU. - Type 2 ME likely demand ischemia in the setting of hypoxia, continued tach ycardia and tachypnea for several hours, as well as pulmonary infection. - Lopressor 5mg IV and Ativan IV given in ICU this afternoon with improvement in diaphoresis and tachycardia (now 100-110s). - Lopressor 5mg IV q6h PRN tachycardia >100bpm. Hold for HR <60bpm, SBP <100mmHg. - EKG AM, continuous cardiac monitoring. Respiratory - Acute Hypoxemic Respiratory Failure: - With tachypnea and increased oxygen demand initially requiring 15L Oxymask, and transferred to ICU for continued monitoring for decompensation. - Suspect respiratory failure multifactorial secondary to multifocal pneumonia, V/Q mismatch 2/2 fluid and bronchial washings. - After receiving Lopressor, Ativan, patient with some improvement in respiratory status, however still tachypneic to mid-30s. - Holding fluids at this time due to exam findings suggestive of mild fluid overload. Patient is listed as +4000mL in chart however output was not monitored while not in ICU. - Dong cath as below to monitor Is/Os. - Currently on HFNC at FiO2 70%. Continue to wean as tolerated. Consider non- invasive positive pressure ventilation to decrease afterload and aid in alveolar ventilation. - Low threshold for intubation if the patient's respiratory status does not improve overnight. - Consent received by . Multifocal Pneumonia: - s/p bronchoscopy, bronchial washing and lymph node biopsy by Dr. Prasad this afternoon. - CTA Chest showed multifocal alveolar opacities within all lobes bilaterally, greatest within the right greater than left lower lobes. - Leukocytosis to 18 today; currently on Zosyn/azithromycin for treatment of suspected pneumonia. - Solumedrol 60mg IV q8h. - Bronchial washings sent today to rule out fungal causes, given cannot rule out fungal pneumonia. - Patient has Sjogren's on Plaquenil and therefore likely has some element of immune compromise. - BioFire negative. - Unlikely to have MRSA pneumonia, however can consider broadening coverage for MRSA and fungal causes if pneumonia worsens. - Treatment for respiratory failure as above. Emphysema: - CTA Chest showed moderate emphysema with bronchial wall thickening suggestive of bronchitis. - Patient has 20+ pack year history of smoking. - Encourage smoking cessation. - IV Steroids as above. GI - - NPO until able to tolerate nasal cannula. - Then can advance to Heart Healthy diet. - Famotidine 20mg IV BID for GI ppx. RENAL/LYTES - - No significant electrolyte derangement. - Replete as needed. - No evidence of kidney injury. - - Dong inserted to monitor strict Is/Os. - UA with bacteria however no urinary symptoms on arrival. - Currently on azithromycin/Zosyn for pneumonia as above. ENDO - - Patient without history of DM2 or thyroid disease. - TSH normal, not in thyroid storm. - BSG in ICU 330, likely adrenal stress 2/2 infection. - Insulin drip for now, monitor BSG closely and titrate as needed. - No history of DM2 and so expect will not require insulin after acute infection improves. HEME - - Stable H/H. - Continue to follow CBC given recent biopsy. ID - - Pneumonia as above. - Leukocytosis to 18 today; likely multifactorial 2/2 infection / inflammation receiving steroids. - Patient also received steroids this admission and is currently on solumedrol 60mg IV q8h. - Bcx drawn on admission, negative to date. INTEGUMENTARY - Sjogren's Disease: - With history of Sjogren's disease on hydroxychloroquine 200mg daily at home. - Will resume once able to tolerate PO. - Lymph node biopsy for pathology. - Sjogren's disease patients at increased risk for lung cancer and lymphoma. - IV steroids as above. LINES/IV ACCESS - - PIVs intact. - PICC line placed after consent obtained from patient's . DVT PROPHYLAXIS - - SCDs. - Patient is recently s/p bronchoscopy with respiratory decompensation, will hold Heparin at this time. Thank you for allowing us to be part of this patient's care. Please refer to Dr. Chavez's documentation for any further recommendations. (2) Non-STEMI (non-ST elevated myocardial infarction): (3) Sjogrens syndrome: (4) Multifocal pneumonia: (5) Tobacco abuse: (6) Emphysema of lung: (7) Elevated troponin: (8) Sepsis: Supervising Physician Co-Signing Physician Notes Dr. Escamilla was resident physician during care of patient. I separately evaluated patient for newby portions of the history and the exam. I was present during the critical portion of medical decision making, and I discussed the case with the resident. I generally agree with the findings and plan. Patient seen and evaluated, initially was going to start positive pressure noninvasive ventilation as opposed to high flow as the patient was n.p.o. for a procedure proceeding and she has not had food or drink since that time. Ultimately she was started on high flow nasal cannula and had improvement in her oxygenation. I believe her exacerbation of hypoxic respiratory failure is more likely VQ mismatch from lavage or pneumonitis from possible oozing in the airways. Compounding the factors is probable alcohol withdraw and a hyperadrenergic state. She was significantly tachycardic which required beta- blockade, I do suspect she is volume up and non-invasive mechanical ventilation may be indicated in the near future to assist with manipulation of her hemodynamics. Patient is certainly critically ill. I have personally spent 60 minutes of critical care time in the direct management of this patient. This is a life/limb threatening event. This includes time spent evaluating patient, direct bedside care, chart review, placing orders, interpretation of diagnostic studies, discussion with consultants, patient, and/or family members regarding treatment decisions, as well as other required patient management activities. This time is exclusive of all separately billable procedures, and teaching time and separate from and in addition to any other critical care service time. History of Present Illness Reason for Consultation: alcohol withdrawal, acute hypoxemic respiratory failure Requesting Physician: Dr. Santo Attending Physician: Catarino Santo, DO History of Present Illness 69 yo F PMHx alcohol abuse, Sjogren's disease admitted for multilobar pneumonia after developing profound weakness and mild fever at home. Admitted overnight on Azithromycin/cefepime which was transitioned to Zosyn for concern for anaerobic infection. Dr. Prasad noted a halo nodule on CTA Chest, as well as a subcarinal lymph node and performed elective bronchoscopy in order to perform bronchial washing as well as lymph node biopsy. Patient was put on 15L Oxymask during this procedure, and pre-procedure was tachycardic to the 120s. Following procedure patient had worsening of her respiratory status, and it was also discovered that she has profound alcohol abuse history of at least 2 but sometimes 5 vodka martinis daily. She started to have tremors and anxiety, as well as worsening tachycardia following procedure and patient was transferred to ICU for closer monitoring of alcohol withdrawal as well as for respiratory decompensation. Of note, patient also had an elevated troponin on arrival that has peaked, but denies CP. On interview patient is tremulous, and confused about why she was moved to the ICU. States she feels comfortable despite 15L Oxymask and tachypnea. Anxious to go home. Denies CP, confirms weakness at home. During interview patient became sleepy 2/2 Ativan, and though arousable was unable to answer some questions due to her tiredness. On discussion with her , she has had about 2 vodka martinis every day for "quite some time as she thinks it helps with her anxiety". He will go to bed at night at 8pm and read, while she will stay downstairs until sometimes midnight before coming to bed. He states that they are "on very different schedules" and therefore he is not sure if she drinks more alcohol than he sees her drink. She also does all of the shopping so he is unclear on how much vodka she buys. She does not have a history of seizures, or for hospitalizations in the past for alcohol abuse. Allergies Allergy/AdvReac Type Severity Reaction Status Date / Time No Known Allergies Allergy Verified 12/15/19 05:04 Home Medications Home Medications Medication Instructions Recorded Confirmed Type Cbd Oil 0 drp PO DIRECTED PRN 12/15/19 12/15/19 History hydroxychloroquine 200 mg PO DAILY 12/15/19 12/15/19 History Patient History Medical History Emphysema of lung Myocardial Infarction nstemi Sjogren's disease Smoker Smokers' cough Tobacco abuse (Acute) Surgical History No pertinent past surgical history Family History Other Family history non-contributory Social History Smoking Status: Current some day smoker Tobacco Type: Cigarettes Hx Alcohol Use: No Hx Substance Use: No Communication Ability: Effective Mirror Painter Required: No Beliefs That Will Affect Care: None Current Living Situation: Spouse Feels Safe at Home: Yes Review of Systems Review of Systems: All systems reviewed & are unremarkable except as noted in HPI & below Physical Exam Constitutional: well developed, + ill appearing and + thin; no acute distress Eyes: PERRL, conjunctivae normal, anicteric sclerae ENMT: external ear and nose normal, oropharynx normal Neck: trachea midline, no thyromegaly Respiratory: Tachypneic, lungs with diffuse coarse crackles R>L, inspiratory wheeze bilaterally No cough Cardiovascular: Rate/Rhythm: regular rhythm and + tachycardic Heart Sounds: no murmur Extremities: no edema Gastrointestinal (Abdomen): normal bowel sounds, soft, nontender, no he patosplenomegaly Musculoskeletal: Extremities: no cyanosis and no clubbing Skin: No rashes Patient on initial exam is diaphoretic on face and has clammy hands Neurologic: moves all extremities; no focal motor deficits Speech / Cognition: normal speech Motor/Sensory: + tremor (upper lip, bilateral upper extremities with hands outstretched) Psychiatric: Orientation: alert and oriented x 3 Affect: + anxious affect Genitourinary: Dong currently draining clear yellow urine Results & Data Results & Data ([facility]) Vital Signs (Past 12 Hours) Vital Signs Temp Pulse Pulse Pulse Resp BP BP 12/16/19 14:56 118 H 22 12/16/19 13:33 124 H 25 H 12/16/19 13:17 37 C 123 H 24 105/69 12/16/19 12:45 119 H 14 127/71 12/16/19 12:40 120 H 14 115/78 12/16/19 12:35 119 H 14 121/72 12/16/19 12:30 118 H 14 113/72 12/16/19 12:25 120 H 14 113/66 12/16/19 12:20 118 H 14 113/70 12/16/19 12:15 118 H 14 113/70 12/16/19 12:10 117 H 12 101/64 12/16/19 12:05 117 H 12 97/60 L 12/16/19 12:00 117 H 12 107/69 12/16/19 11:55 120 H 14 120/74 12/16/19 11:50 120 H 14 106/65 12/16/19 11:45 118 H 14 110/64 12/16/19 11:40 118 H 14 102/66 12/16/19 11:35 119 H 16 117/73 12/16/19 11:30 124 H 16 126/76 12/16/19 11:25 122 H 18 141/87 H 12/16/19 11:20 142 H 20 134/112 H 160/126 H 12/16/19 11:00 143 H 18 154/96 H 12/16/19 07:14 36.8 C 120 H 21 121/77 12/16/19 06:54 119 H 20 12/16/19 04:09 36.8 C 125 H 20 115/72 12/16/19 04:00 Pulse Ox Pulse Ox 12/16/19 14:56 94 12/16/19 13:33 91 12/16/19 13:17 89 L 12/16/19 12:45 92 12/16/19 12:40 89 L 12/16/19 12:35 88 L 12/16/19 12:30 89 L 12/16/19 12:25 89 L 12/16/19 12:20 91 12/16/19 12:15 91 12/16/19 12:10 90 12/16/19 12:05 89 L 12/16/19 12:00 90 12/16/19 11:55 94 12/16/19 11:50 95 12/16/19 11:45 96 12/16/19 11:40 96 12/16/19 11:35 95 12/16/19 11:30 94 12/16/19 11:25 94 12/16/19 11:20 97 12/16/19 11:00 92 12/16/19 07:14 93 12/16/19 06:54 85 L 12/16/19 04:09 90 12/16/19 04:00 91 Resident Activity Tracking Resident Involvement: Resident Care Provided Care Provided: Adult Hospital Medicine (1) Sepsis Sepsis acute organ dysfunction status: with acute organ dysfunction Sepsis type: sepsis due to unspecified organism Severe sepsis acute organ dysfunction type: unspecified Severe sepsis shock status: without septic shock Qualified Code(s): A41.9 - Sepsis, unspecified organism; R65.20 - Severe sepsis without septic shock
[2019-12-16] MEDS ORDERED: METOPROLOL TARTRATE 1 MG/ML VIAL IV STA ×2 (15:32→15:53)
[2019-12-16] MEDS ORDERED: INSULIN PROTOCOL GOAL RANGE ONE (15:46)
[2019-12-16] MEDS ORDERED: NovoLIN-R BOLUS FROM BAG IV ONE (16:15)
[2019-12-16] MEDS ORDERED: DEXTROSE 50% 50 ML SYRINGE IV PRN (16:15)
[2019-12-16] MEDS ORDERED: GLUCOSE 40% GEL 15 GM TUBE PO PRN (16:15)
[2019-12-16] MEDS ORDERED: CARBOHYDRATES FOR HYPOGLYCEMIA PO PRN (16:15)
[2019-12-16] MEDS ORDERED: INSULIN REGULAR 250 UNITS in SODIUM CHLORIDE 0.9% 247.5 ML IV SCH (16:15)
[2019-12-16] MEDS ORDERED: GLUCOSE 10 TABS/TUBE PO PRN (16:15)
[2019-12-16] MEDS ORDERED: GLUCAGON FOR INJ 1 MG VIAL IM PRN (16:15)
[2019-12-16 16:22] LABS: Allen Test POS (Pos); Base Excess ABG -4.3 mEq/L (-9-1.8); HCO3 ABG 19 mmol/L (19-24); PCO2 ABG 28 mmHg (35-46); PO2 ABG 85 mmHg (80-95); pH ABG 7.44 (7.35-7.45)
[2019-12-16] MEDS ORDERED: methylPREDNISolone 60 MG in SYRINGE 0 ML IV SCH (17:15)
[2019-12-16] MEDS: INSULIN ASPART 100 UNITS/ML 3 ML PEN SC SCH ×2 (18:14→20:36)
[2019-12-16] MEDS: methylPREDNISolone 60 MG in SYRINGE 0 ML IV SCH (18:16)
[2019-12-16] MEDS ORDERED: METOPROLOL TARTRATE 1 MG/ML VIAL IV PRN (19:30)
[2019-12-16] MEDS ORDERED: METOPROLOL TARTRATE 1 MG/ML VIAL IV SCH ×2 (20:00)
--- NOTE | 2019-12-16 20:21 | Hospitalist Progress Note ---
Date of Service December 16, 2019 Assessment & Plan (1) Sepsis: present on arrival due to multifocal pneumonia, presented with leukocytosis, fever, tachycardia bilateral infiltrates on CXR and CT chest continue Zosyn and Zithromax, Vanco was stopped due to MRSA swab negativity follow up blood cultures no evidence of shock, transferred to ICU due to hypoxia and alcohol withdrawal (2) Multifocal pneumonia: multifocal pneumonia, likely aspiration pneumonia in setting of heavy alcohol abuse, malnutrition COVID negative Pro-Lorenzo elevated at 19.35 on admission continue Zosyn IV, azithromycin IV. Duonebs every 4 hours while awake and every [address] chest with multifocal pneumonia, enlarged mediastinal lymph node bronchoscopy on 12/[address] Prasad bronchial lavage sent for cultures EBUS performed, biopsy results pending transferred to ICU shortly after bronchoscopy due to worsening hypoxia (3) Acute respiratory failure with hypoxia: increased work of breathing, accessory muscle use, requiring 15L Oxymask to keep saturations > 90% due to multifocal pneumonia, may have aspirated after bronchoscopy complicated by suspected alcohol withdrawal transferred to ICU, placed on HFNC, saturations in the low 90's at risk for intubation, okay with intubation if it is required (4) Alcohol withdrawal: unsure how much patient drinks as she drinks a lot after goes to bed may be as much as a fifth a night AWSS scale with Ativan Precedex drip 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 may require intubation to protect airway (5) Emphysema of lung: seen on CT, this is a new diagnosis she is a heavy smoker (6) Hyperglycemia: sugars in the 300's, she did get a dose of decadron this morning place on insulin drip in the ICU check HbA1c as she does not have a history of diabetes (7) Sjogrens syndrome: Continue hydroxychloroquine (8) Non-STEMI (non-ST elevated myocardial infarction): preserved EF on echo, troponin falling cardiology consult appreciated, likely demand ischemia in setting of tachycardia, sepsis no plans for further work up at this time (9) Hypomagnesemia: Given magnesium sulfate IV (10) Hypokalemia: Placing on NSS + KCl 20 mEq at 100 mils per hour Follow serial BMP and magnesium levels (11) Tobacco abuse: Admission and Anticipated Discharge Date Admission Date: December 15, 2019 Subjective patient had bronchoscopy this morning to evaluate lymph node with EBUS and for bronchial lavage over night she had a fever and her HR was elevated in the 120-140 range this morning she had tremors but she denied any shortness of breath, had a cough but no sputum production she was NPO for the bronchoscopy labs reviewed, WBC up to 18k, Cr 0.64, Na 131, electrolytes stable after the bronchoscopy she was requiring 15L oxymask which was a dramatic increase as she was on 2L NC prior she arrived to the floor tachypneic, tachycardic, having tremors, admitted to shortness of breath her lungs were coarse bilaterally and a follow up chest x-ray showed worsening infiltrate in the right base as well as bilateral infiltrates her was at the bedside, he told Dr. Prasad and myself that she smokes 1ppd and drinks several martini's every night yesterday she admitted to only one drink a day at this time we suspected she was going through alcohol withdrawal which would explain her tremors, tachycardia, hyponatremia, elevated AST says that she starts drinking around 4-5 pm every day and he goes to bed at 830pm so he does not know how much she drinks every night due to her high oxygen requirements, increased work of breathing, tachycardia and need to control withdrawal, we moved patient to the ICU for close monitoring discussed with the ICU resident and with Dr. Chavez at the time of transfer discussed extensively with Dr. Prasad Review of Systems Review of Systems: All systems reviewed & are unremarkable except as noted in Subjective Constitutional: + fever, + chills, + sweats, + fatigue and + weakness Respiratory: + cough, + chest congestion, + dyspnea and + dyspnea on exertion; no wheezing Cardiovascular: no chest pain, no palpitations and no edema Gastrointestinal: no abdominal pain, no nausea, no vomiting, no constipation and no diarrhea/loose stools Neurologic: + tremor(s); no seizure-like activity Physical Exam Constitutional: well developed, + acute distress, + ill appearing and + frail appearing Eyes: PERRL, conjunctivae normal, anicteric sclerae ENMT: external ear and nose normal, oropharynx normal Neck: trachea midline, no thyromegaly Respiratory: + respiratory distress, + labored breathing, + uses accessory muscles and + cough Auscultation: + crackles and + rhonchi; no rales and no wheezes Cardiovascular: Rate/Rhythm: regular rhythm and + tachycardic Heart Sounds: normal S1 and normal S2; no murmur Vessels: no JVD Extremities: normal capillary refill; no edema Gastrointestinal (Abdomen): normal bowel sounds, soft, nontender, no hepatosplenomegaly Musculoskeletal: no cyanosis or clubbing, extremities motor strength 5/5 Skin: no rashes, warm and dry Neurologic: patellar DTR's 2+ bilat, sensation intact and PERRL, EOMI, accommodation nl, no face palsy, no dysarthria Motor/Sensory: + tremor (facial muscles, arms bilaterally) Psychiatric: Orientation: alert and oriented x 3 Lymphatic: no cervical or axillary lymphadenopathy Results & Data Results & Data ([facility]) Vital Signs (Past 12 Hours) Vital Signs Temp Pulse Pulse Pulse Resp BP BP 12/16/19 19:42 112 H 29 H 12/16/19 18:07 89 35 H 109/61 12/16/19 17:58 111 H 32 H 12/16/19 17:49 37.5 C 12/16/19 17:12 124 H 117/79 12/16/19 17:07 103 H 34 H 117/79 12/16/19 16:11 114 H 37 H 112/61 12/16/19 16:00 36.7 C 12/16/19 15:56 116 H 37 H 114/65 12/16/19 15:47 133 H 124/79 12/16/19 15:41 117 H 37 H 124/79 12/16/19 15:15 135 H 24 12/16/19 14:56 118 H 22 12/16/19 14:53 134 H 35 H 129/82 12/16/19 13:53 135 H 33 H 130/73 12/16/19 13:33 124 H 25 H 12/16/19 13:17 37 C 123 H 24 105/69 12/16/19 12:45 119 H 14 127/71 12/16/19 12:40 120 H 14 115/78 12/16/19 12:35 119 H 14 121/72 12/16/19 12:30 118 H 14 113/72 12/16/19 12:25 120 H 14 113/66 12/16/19 12:20 118 H 14 113/70 12/16/19 12:15 118 H 14 113/70 12/16/19 12:10 117 H 12 101/64 12/16/19 12:05 117 H 12 97/60 L 12/16/19 12:00 117 H 12 107/69 12/16/19 11:55 120 H 14 120/74 12/16/19 11:50 120 H 14 106/65 12/16/19 11:45 118 H 14 110/64 12/16/19 11:40 118 H 14 102/66 12/16/19 11:35 119 H 16 117/73 12/16/19 11:30 124 H 16 126/76 12/16/19 11:25 122 H 18 141/87 H 12/16/19 11:20 142 H 20 134/112 H 160/126 H 12/16/19 11:00 143 H 18 154/96 H Pulse Ox 12/16/19 19:42 93 12/16/19 18:07 95 12/16/19 17:58 95 12/16/19 17:49 12/16/19 17:12 12/16/19 17:07 96 12/16/19 16:11 98 12/16/19 16:00 12/16/19 15:56 99 12/16/19 15:47 12/16/19 15:41 98 12/16/19 15:15 95 12/16/19 14:56 94 12/16/19 14:53 96 12/16/19 13:53 95 12/16/19 13:33 91 12/16/19 13:17 89 L 12/16/19 12:45 92 12/16/19 12:40 89 L 12/16/19 12:35 88 L 12/16/19 12:30 89 L 12/16/19 12:25 89 L 12/16/19 12:20 91 12/16/19 12:15 91 12/16/19 12:10 90 12/16/19 12:05 89 L 12/16/19 12:00 90 12/16/19 11:55 94 12/16/19 11:50 95 12/16/19 11:45 96 12/16/19 11:40 96 12/16/19 11:35 95 12/16/19 11:30 94 12/16/19 11:25 94 12/16/19 11:20 97 12/16/19 11:00 92 Laboratory Results Laboratory Results - last 24 hr 12/15/19 12/16/19 12/16/19 21:50 06:30 07:14 WBC 18.31 H RBC 4.29 Hgb 13.5 Hct 39.8 MCV 92.8 MCH 31.5 MCHC 33.9 RDW Std Deviation 48.0 H RDW Coeff of Oz 14.2 Plt Count 192 MPV 10.9 H Immature Gran % (Auto) 3.7 Neut % (Auto) 92.7 Lymph % (Auto) 1.7 Franklin % (Auto) 1.8 Eos % (Auto) 0.0 Baso % (Auto) 0.1 Neut # (Auto) 16.99 H Lymph # (Auto) 0.31 L Franklin # (Auto) 0.33 Eos # (Auto) 0.00 Baso # (Auto) 0.01 Immature Gran # (Auto) 0.67 H PT INR APTT PTT Ratio ABG pH ABG pCO2 ABG pO2 ABG HCO3 ABG O2 Saturation ABG Base Excess Philipp Test Barometric Pressure Oxygen Given Sodium Potassium Chloride Carbon Dioxide Anion Gap BUN Creatinine Est Cr Clr Drug Dosing Est GFR ( Amer) Est GFR (Non-Af Amer) BUN/Creatinine Ratio Glucose POC Glucose Lactate Calcium Magnesium Total Bilirubin AST ALT Alkaline Phosphatase Ammonia Troponin I 0.497 H* Total Protein Albumin Globulin Albumin/Globulin Ratio Folate TSH Urine Color Dark Yellow Urine Appearance Clear Urine pH 5.5 Ur Specific [place] 1.037 H Urine Protein 2+ H Urine Glucose (UA) Negative Urine Ketones Trace H Urine Blood Trace H Urine Nitrite Negative Urine Bilirubin Negative Urine Urobilinogen Negative Ur Leukocyte Esterase Negative Urine WBC (Auto) 5-10 H Urine RBC (Auto) 0-4 U Hyaline Cast (Auto) 1-5 U Epithel Cells (Auto) >30 H Urine Bacteria (Auto) 1+ H Ur Renal Epithelial Cell Not Reportable Fluid Neutrophils % Fluid Lymphocytes % Fluid Eosinophils % Fl Monocyt/Macrophag % Flow Cytometry Comment 12/16/19 12/16/19 12/16/19 07:14 07:14 13:52 WBC RBC Hgb Hct MCV MCH MCHC RDW Std Deviation RDW Coeff of Oz Plt Count MPV Immature Gran % (Auto) Neut % (Auto) Lymph % (Auto) Franklin % (Auto) Eos % (Auto) Baso % (Auto) Neut # (Auto) Lymph # (Auto) Franklin # (Auto) Eos # (Auto) Baso # (Auto) Immature Gran # (Auto) PT 10.6 INR 1.0 APTT 33.3 H PTT Ratio 1.2 ABG pH ABG pCO2 ABG pO2 ABG HCO3 ABG O2 Saturation ABG Base Excess Philipp Test Barometric Pressure Oxygen Given Sodium 131 L Potassium 3.6 D Chloride 102 Carbon Dioxide 21 Anion Gap 8.0 BUN 11 Creatinine 0.64 Est Cr Clr Drug Dosing 71.5 Est GFR ( Amer) 105.5 Est GFR (Non-Af Amer) 91.0 BUN/Creatinine Ratio 17.9 Glucose 121 H POC Glucose Lactate Calcium 8.5 Magnesium 1.8 Total Bilirubin 0.5 AST 54 H ALT 25 Alkaline Phosphatase 61 Ammonia Troponin I Total Protein 6.5 Albumin 2.0 L Globulin 4.5 H Albumin/Globulin Ratio 0.4 L Folate TSH Urine Color Urine Appearance Urine pH Ur Specific [place] Urine Protein Urine Glucose (UA) Urine Ketones Urine Blood Urine Nitrite Urine Bilirubin Urine Urobilinogen Ur Leukocyte Esterase Urine WBC (Auto) Urine RBC (Auto) U Hyaline Cast (Auto) U Epithel Cells (Auto) Urine Bacteria (Auto) Ur Renal Epithelial Cell Fluid Neutrophils % 17 Fluid Lymphocytes % 0 Fluid Eosinophils % 0 Fl Monocyt/Macrophag % 83 Flow Cytometry Comment 12/16/19 12/16/19 12/16/19 15:28 15:37 15:38 WBC RBC Hgb Hct MCV MCH MCHC RDW Std Deviation RDW Coeff of Oz Plt Count MPV Immature Gran % (Auto) Neut % (Auto) Lymph % (Auto) Franklin % (Auto) Eos % (Auto) Baso % (Auto) Neut # (Auto) Lymph # (Auto) Franklin # (Auto) Eos # (Auto) Baso # (Auto) Immature Gran # (Auto) PT INR APTT PTT Ratio ABG pH Cancelled ABG pCO2 Cancelled ABG pO2 Cancelled ABG HCO3 Cancelled ABG O2 Saturation Cancelled ABG Base Excess Cancelled Philipp Test Cancelled Barometric Pressure Cancelled Oxygen Given Cancelled Sodium Potassium Chloride Carbon Dioxide Anion Gap BUN Creatinine Est Cr Clr Drug Dosing Est GFR ( Amer) Est GFR (Non-Af Amer) BUN/Creatinine Ratio Glucose POC Glucose 333 H* 332 H* Lactate Calcium Magnesium Total Bilirubin AST ALT Alkaline Phosphatase Ammonia Troponin I Total Protein Albumin Globulin Albumin/Globulin Ratio Folate TSH Urine Color Urine Appearance Urine pH Ur Specific [place] Urine Protein Urine Glucose (UA) Urine Ketones Urine Blood Urine Nitrite Urine Bilirubin Urine Urobilinogen Ur Leukocyte Esterase Urine WBC (Auto) Urine RBC (Auto) U Hyaline Cast (Auto) U Epithel Cells (Auto) Urine Bacteria (Auto) Ur Renal Epithelial Cell Fluid Neutrophils % Fluid Lymphocytes % Fluid Eosinophils % Fl Monocyt/Macrophag % Flow Cytometry Comment 12/16/19 12/16/19 12/16/19 15:40 15:40 15:40 WBC RBC Hgb Hct MCV MCH MCHC RDW Std Deviation RDW Coeff of Oz Plt Count MPV Immature Gran % (Auto) Neut % (Auto) Lymph % (Auto) Franklin % (Auto) Eos % (Auto) Baso % (Auto) Neut # (Auto) Lymph # (Auto) Franklin # (Auto) Eos # (Auto) Baso # (Auto) Immature Gran # (Auto) PT INR APTT PTT Ratio ABG pH ABG pCO2 ABG pO2 ABG HCO3 ABG O2 Saturation ABG Base Excess Philipp Test Barometric Pressure Oxygen Given Sodium Potassium Chloride Carbon Dioxide Anion Gap BUN Creatinine Est Cr Clr Drug Dosing Est GFR ( Amer) Est GFR (Non-Af Amer) BUN/Creatinine Ratio Glucose POC Glucose Lactate 2.0 Calcium Magnesium Total Bilirubin AST ALT Alkaline Phosphatase Ammonia Troponin I Total Protein Albumin Globulin Albumin/Globulin Ratio Folate > 24.00 TSH 0.452 Urine Color Urine Appearance Urine pH Ur Specific [place] Urine Protein Urine Glucose (UA) Urine Ketones Urine Blood Urine Nitrite Urine Bilirubin Urine Urobilinogen Ur Leukocyte Esterase Urine WBC (Auto) Urine RBC (Auto) U Hyaline Cast (Auto) U Epithel Cells (Auto) Urine Bacteria (Auto) Ur Renal Epithelial Cell Fluid Neutrophils % Fluid Lymphocytes % Fluid Eosinophils % Fl Monocyt/Macrophag % Flow Cytometry Comment 12/16/19 12/16/19 12/16/19 15:40 15:44 16:04 WBC RBC Hgb Hct MCV MCH MCHC RDW Std Deviation RDW Coeff of Oz Plt Count MPV Immature Gran % (Auto) Neut % (Auto) Lymph % (Auto) Franklin % (Auto) Eos % (Auto) Baso % (Auto) Neut # (Auto) Lymph # (Auto) Franklin # (Auto) Eos # (Auto) Baso # (Auto) Immature Gran # (Auto) PT INR APTT PTT Ratio ABG pH 7.44 ABG pCO2 28 L ABG pO2 85 ABG HCO3 19 ABG O2 Saturation 97.0 H ABG Base Excess -4.3 Philipp Test POS Barometric Pressure 734.3 Oxygen Given 35L O2 85% Sodium Potassium Chloride Carbon Dioxide Anion Gap BUN Creatinine Est Cr Clr Drug Dosing Est GFR ( Amer) Est GFR (Non-Af Amer) BUN/Creatinine Ratio Glucose POC Glucose Lactate Calcium Magnesium Total Bilirubin AST ALT Alkaline Phosphatase Ammonia < 10.0 L Troponin I 0.295 H* Total Protein Albumin Globulin Albumin/Globulin Ratio Folate TSH Urine Color Urine Appearance Urine pH Ur Specific [place] Urine Protein Urine Glucose (UA) Urine Ketones Urine Blood Urine Nitrite Urine Bilirubin Urine Urobilinogen Ur Leukocyte Esterase Urine WBC (Auto) Urine RBC (Auto) U Hyaline Cast (Auto) U Epithel Cells (Auto) Urine Bacteria (Auto) Ur Renal Epithelial Cell Fluid Neutrophils % Fluid Lymphocytes % Fluid Eosinophils % Fl Monocyt/Macrophag % Flow Cytometry Comment 12/16/19 12/16/19 12/16/19 17:29 17:52 18:13 WBC RBC Hgb Hct MCV MCH MCHC RDW Std Deviation RDW Coeff of Oz Plt Count MPV Immature Gran % (Auto) Neut % (Auto) Lymph % (Auto) Franklin % (Auto) Eos % (Auto) Baso % (Auto) Neut # (Auto) Lymph # (Auto) Franklin # (Auto) Eos # (Auto) Baso # (Auto) Immature Gran # (Auto) PT INR APTT PTT Ratio ABG pH ABG pCO2 ABG pO2 ABG HCO3 ABG O2 Saturation ABG Base Excess Philipp Test Barometric Pressure Oxygen Given Sodium Potassium Chloride Carbon Dioxide Anion Gap BUN Creatinine Est Cr Clr Drug Dosing Est GFR ( Amer) Est GFR (Non-Af Amer) BUN/Creatinine Ratio Glucose POC Glucose 104 H 108 H 107 H Lactate Calcium Magnesium Total Bilirubin AST ALT Alkaline Phosphatase Ammonia Troponin I Total Protein Albumin Globulin Albumin/Globulin Ratio Folate TSH Urine Color Urine Appearance Urine pH Ur Specific [place] Urine Protein Urine Glucose (UA) Urine Ketones Urine Blood Urine Nitrite Urine Bilirubin Urine Urobilinogen Ur Leukocyte Esterase Urine WBC (Auto) Urine RBC (Auto) U Hyaline Cast (Auto) U Epithel Cells (Auto) Urine Bacteria (Auto) Ur Renal Epithelial Cell Fluid Neutrophils % Fluid Lymphocytes % Fluid Eosinophils % Fl Monocyt/Macrophag % Flow Cytometry Comment 12/16/19 12/16/19 12/16/19 18:36 18:59 20:00 WBC RBC Hgb Hct MCV MCH MCHC RDW Std Deviation RDW Coeff of Oz Plt Count MPV Immature Gran % (Auto) Neut % (Auto) Lymph % (Auto) Franklin % (Auto) Eos % (Auto) Baso % (Auto) Neut # (Auto) Lymph # (Auto) [place] # (Auto) Eos # (Auto) Baso # (Auto) Immature Gran # (Auto) PT INR APTT PTT Ratio ABG pH ABG pCO2 ABG pO2 ABG HCO3 ABG O2 Saturation ABG Base Excess Philipp Test Barometric Pressure Oxygen Given Sodium Potassium Chloride Carbon Dioxide Anion Gap BUN Creatinine Est Cr Clr Drug Dosing Est GFR ( Amer) Est GFR (Non-Af Amer) BUN/Creatinine Ratio Glucose POC Glucose 102 H 141 H 144 H Lactate Calcium Magnesium Total Bilirubin AST ALT Alkaline Phosphatase Ammonia Troponin I Total Protein Albumin Globulin Albumin/Globulin Ratio Folate TSH Urine Color Urine Appearance Urine pH Ur Specific [place] Urine Protein Urine Glucose (UA) Urine Ketones Urine Blood Urine Nitrite Urine Bilirubin Urine Urobilinogen Ur Leukocyte Esterase Urine WBC (Auto) Urine RBC (Auto) U Hyaline Cast (Auto) U Epithel Cells (Auto) Urine Bacteria (Auto) Ur Renal Epithelial Cell Fluid Neutrophils % Fluid Lymphocytes % Fluid Eosinophils % Fl Monocyt/Macrophag % Flow Cytometry Comment 12/16/19 Unknown WBC RBC Hgb Hct MCV MCH MCHC RDW Std Deviation RDW Coeff of Oz Plt Count MPV Immature Gran % (Auto) Neut % (Auto) Lymph % (Auto) Franklin % (Auto) Eos % (Auto) Baso % (Auto) Neut # (Auto) Lymph # (Auto) [place] # (Auto) Eos # (Auto) Baso # (Auto) Immature Gran # (Auto) PT INR APTT PTT Ratio ABG pH ABG pCO2 ABG pO2 ABG HCO3 ABG O2 Saturation ABG Base Excess Philipp Test Barometric Pressure Oxygen Given Sodium Potassium Chloride Carbon Dioxide Anion Gap BUN Creatinine Est Cr Clr Drug Dosing Est GFR ( Amer) Est GFR (Non-Af Amer) BUN/Creatinine Ratio Glucose POC Glucose Lactate Calcium Magnesium Total Bilirubin AST ALT Alkaline Phosphatase Ammonia Troponin I Total Protein Albumin Globulin Albumin/Globulin Ratio Folate TSH Urine Color Urine Appearance Urine pH Ur Specific [place] Urine Protein Urine Glucose (UA) Urine Ketones Urine Blood Urine Nitrite Urine Bilirubin Urine Urobilinogen Ur Leukocyte Esterase Urine WBC (Auto) Urine RBC (Auto) U Hyaline Cast (Auto) U Epithel Cells (Auto) Urine Bacteria (Auto) Ur Renal Epithelial Cell Fluid Neutrophils % Fluid Lymphocytes % Fluid Eosinophils % Fl Monocyt/Macrophag % Flow Cytometry Comment Pending Diagnostic Findings XR chest 1V portable CLINICAL HISTORY: labored breathing dyspnea COMPARISON STUDY: 12/15/2019 FINDINGS: Mildly progressive bibasilar parenchymal infiltrative change. Slightly progressive right upper lobe infiltrate. Unchanged pleural-based density left midlung laterally. IMPRESSION: Progressive bilateral parenchymal infiltrative change Medications Administered Current Inpatient Medications Acetaminophen (Tylenol) 650 mg PO Q4H PRN PRN Reason: Pain or Fever Stop: 01/14/20 08:27 Last Admin: 12/15/19 21:11 Dose: 650 mg Documented by: Al Hydrox/Mg Hydrox/Simethicone (Maalox) 15 ml PO Q4H PRN PRN Reason: Dyspepsia Stop: 01/14/20 08:27 Albuterol (Duoneb) 3 ml NEB QIDR [facility] Stop: 01/14/20 06:59 Last Admin: 12/16/19 19:40 Dose: 3 ml Documented by: Dextrose (Dextrose 50%) 25 - 50 ml IV UD PRN; Protocol PRN Reason: Hypoglycemia Protocol Stop: 01/15/20 16:14 Last Admin: 12/16/19 18:46 Dose: 25 ml Documented by: Enoxaparin Sodium (Lovenox) 40 mg SQ QAM [facility] Stop: 01/15/20 15:14 Last Admin: 12/16/19 18:14 Dose: Not Given Documented by: Glucagon (Glucagen) 1 mg IM UD PRN; Protocol PRN Reason: Hypoglycemia Protocol Stop: 01/15/20 16:14 Glucose (Glucose 40%) 15 - 30 gm PO UD PRN; Protocol PRN Reason: Hypoglycemia Protocol Stop: 01/15/20 16:14 Glucose (Dex4 Glucose) 4 - 8 tabs PO UD PRN; Protocol PRN Reason: Hypoglycemia Protocol Stop: 01/15/20 16:14 Guaifenesin (Mucinex) 600 mg PO Q12 [facility] Stop: 01/14/20 08:59 Last Admin: 12/16/19 19:52 Dose: Not Given Documented by: Hydroxychloroquine Sulfate (Plaquenil) 200 mg PO DAILY [facility] Stop: 01/14/20 08:59 Last Admin: 12/16/19 15:19 Dose: Not Given Documented by: Sodium Chloride (Nss 1000ml) 1,000 mls @ 100 mls/hr IV .Q10H [facility] Stop: 01/14/20 04:14 Last Admin: 12/16/19 18:41 Dose: 100 mls/hr Documented by: Azithromycin 500 mg/ Dextrose 255 mls @ 125 mls/hr IV DAILY@0900 [facility] Stop: 12/22/19 08:59 Last Infusion: 12/16/19 11:09 Dose: Infused Documented by: Piperacillin Sod/Tazobactam (Sod 3.375 gm/ Dextrose) 115 mls @ 28.75 mls/hr IV Q8H [facility]; Protocol Stop: 12/22/19 08:59 Last Infusion: 12/16/19 18:50 Dose: Infused Documented by: Folic Acid 1 mg/ Syringe 10 mls @ 5 mls[facility] [place]: 01/15/20 14:14 Last Admin: 12/16/19 14:22 Dose: 5 mls/min Documented by: Thiamine HCl 100 mg/ Syringe 10 mls @ 2 mls/[facility] Stop: 01/15/20 14:14 Last Admin: 12/16/19 14:22 Dose: 2 mls/min Documented by: Lorazepam (Ativan) 1 mg in 2 mls @ 2 mls/min IV UD PRN; Protocol PRN Reason: EtOH Withdrawl AWSS Score 6,7 Stop: 01/15/20 15:07 Lorazepam (Ativan) 2 mg in 4 mls @ 4 mls/min IV UD PRN; Protocol PRN Reason: EtOH Withdrawl AWSS Score 8,9 Stop: 01/15/20 15:07 Last Admin: 12/16/19 15:17 Dose: 4 mls/min Documented by: Lorazepam (Ativan) 3 mg in 6 mls @ 4 mls/min IV ONCE PRN; Protocol PRN Reason: EtOH Withdrawl AWSS Score >=10 Stop: 01/15/20 15:07 Insulin Human Regular 250 (units/ Sodium Chloride) 250 mls @ 0.8 mls/hr IV .Q24H [facility]; Protocol Stop: 01/15/20 16:14 Last Titration: 12/16/19 19:02 Dose: 0.8 units/hr, 0.8 mls/hr Documented by: Methylprednisolone 60 mg/ (Syringe) 0.96 mls @ 1.5 mls/min IV Q8H [facility] Stop: 01/15/20 17:59 Last Admin: 12/16/19 18:16 Dose: 1.5 mls/min Documented by: Lorazepam (Ativan) 2 mg in 4 mls @ 4 mls/min IV Q8H [facility] Stop: 01/15/20 20:59 Famotidine 20 mg/ Syringe 5 mls @ 2.5 mls/min IV Q12 [facility] Stop: 01/15/20 19:59 Insulin Aspart (Novolog Flexpen) 0 units SC ACHS [facility] Stop: 01/15/20 16:29 Last Admin: 12/16/19 18:14 Dose: Not Given Documented by: Magnesium Hydroxide (Milk Of Magnesia) 30 ml PO Q12H PRN PRN Reason: Constipation Stop: 01/14/20 08:27 Metoprolol Tartrate (Lopressor) 5 mg IV Q6 PRN PRN Reason: HR > 100 Stop: 01/15/20 19:29 Miscellaneous (Carbohydrates For Hypoglycemia) 15 - 30 gm PO UD PRN PRN Reason: Hypoglycemia Treatment Stop: 01/15/20 16:14 Miscellaneous Information (Consult) 1 ea N/A UD PRN PRN Reason: Consult Stop: 01/14/20 08:27 Ondansetron HCl (Zofran) 4 mg IV Q6H PRN PRN Reason: Nausea Stop: 01/14/20 08:27 PG Care Time/CCT Total # of Minutes Spent Total Time Spent: 60 Total Time Spent with Patient: Total time spent is greater than 50% in coordination of care (as documented) at patient's floor/unit and/or counseling patient: Prolonged Care Time Prolonged Care Time: No Critical Care Time: Yes Total Critical Care Time: 35 Coding Level of Care Code 72173 Subseq Hosp Care Lvl 3 Diagnoses Sepsis A41.9; R65.20 Sepsis acute organ dysfunction status: with acute organ dysfunction Sepsis type: sepsis due to unspecified organism Severe sepsis acute organ dysfunction type: unspecified Severe sepsis shock status: without septic shock Multifocal pneumonia J18.9 Acute respiratory failure with hypoxia J96.01 Alcohol withdrawal F10.239 Emphysema of lung J43.9 Hyperglycemia R73.9 Sjogrens syndrome M35.00 Non-STEMI (non-ST elevated myocardial infarction) I21.4 Hypomagnesemia E83.42 Hypokalemia E87.6 Tobacco abuse Z72.0 Additional Codes Critical Care Time - Critical Care Time: Yes ([id number]) (1) Sepsis Sepsis acute organ dysfunction status: with acute organ dysfunction Sepsis type: sepsis due to unspecified organism Severe sepsis acute organ dysfunction type: unspecified Severe sepsis shock status: without septic shock Qualified Code(s): A41.9 - Sepsis, unspecified organism; R65.20 - Severe sepsis without septic shock
[2019-12-16] MEDS: FAMOTIDINE 20 MG in SYRINGE 3 ML IV SCH (20:34)
[2019-12-16] MEDS: LORazepam 2 MG/4 ML VIAL IV SCH (20:34)
--- NOTE | 2019-12-16 23:05 | Communication Note ---
Date of Service: December 16, 2019 Progressively throughout the night, the patient was noted to have increasing work of breathing, tachypnea, and persistent tachycardia. While the patient did seem to maintain oxygen saturations in the low 90s, she had increasing work of breathing with respiratory rates into the upper 30s. She was transitioned from Precedex to Ativan per orders prior to my arrival. The patient has been resting comfortably from this standpoint. I am generally concerned that the patient's respiratory status is extremely tenuous and she is requiring some positive pr essure support given review of imaging studies and the patient's appearance clinically. Decision was made by myself to place the patient on CPAP as previously ordered in an attempt to improve the patient's respiratory status. In review of documentation, there have been discussions regarding the utility of both high flow versus CPAP. At this point, the patient's status has appeared to change and she has become much more tachypneic with shallow breathing. I am concerned that regardless of any intervention at this point, the patient is at high risk for need for endotracheal intubation. While the patient certainly may have aspirated and might continue to be at risk for aspiration, I feel the risks of placing the patient on BiPAP with an attempted to avoid endotracheal intubation outweighs the benefits of continuing with current high flow settings. Patient was placed on a CPAP of 10. She was titrated down to an FiO2 of 60% immediately. She is drawn tidal volumes in the 500-600 range. Respiratory rate is now in the 20s. She awakens and reports no discomfort this time. Clinically, the patient appears much more comfortable. We will repeat an ABG reassess. We will continue to monitor the patient closely and proceed with endotracheal intubation if the patient's clinical status is to deteriorate despite positive pressure ventilatory techniques. Low threshold for emergent endotracheal intubation in the setting of worsening respiratory distress. I have personally spent 36 minutes of critical care time in the direct management of this patient. This is a life/limb threatening event. This includes time spent evaluating patient, direct bedside care, chart review, placing orders, interpretation of diagnostic studies, discussion with consultants, patient, and family members, as well as other required patient management activities. This time is exclusive of all separately billable procedures, and teaching time and separate from and in addition to any other critical care service time. Coding Level of Care Code Critical Care shellie [email or web address]'[email or web address] 30 min Time Spent (min) 36
[2019-12-17] MEDS: methylPREDNISolone 60 MG in SYRINGE 0 ML IV SCH ×2 (01:12→10:40)
[2019-12-17 04:25] LABS: Basophils # (auto) 0.01 K/uL (0-0.2); Basophils % (auto) 0.1 %; Hematocrit (blood only) 33.7 % (37-47); Hemoglobin 11.7 g/dL (12.0-16.0); Immature Granulocytes # (auto) 0.16 K/uL (0.00-0.02); Immature Granulocytes % (auto) 1.3 %; Lymphocytes % (auto) 2.5 %; Mean Corpuscular Hemoglobin 32.1 pg (25-34); Mean Corpuscular Hgb Conc 34.7 g/dL (32-36); Mean Corpuscular Volume 92.3 fL (80-100); Mean Platelet Volume 10.7 fL (7.4-10.4); Monocytes # (auto) 0.32 K/uL (0.11-0.59); Monocytes % (auto) 2.7 %; Neutrophils # (auto) 11.18 K/uL (1.4-6.5); Neutrophils % (auto) 93.4 %; Platelet Count 173 K/uL (130-400); RDW Coefficient of Variation 14.3 % (11.5-14.5); RDW Standard Deviation 48.5 fL (36.4-46.3); Red Blood Count 3.65 M/uL (4.2-5.4); White Blood Count 11.97 K/uL (4.8-10.8)
[2019-12-17 04:39] LABS: Partial Thromboplastin Ratio 1.3; Partial Thromboplastin Time 36.3 Seconds (21.0-31.0); Prothrombin Time 10.1 Seconds (9.0-12.0)
[2019-12-17 04:41] LABS: iSTAT Allen Test Pass; iSTAT Art Bld Gas pCO2 Correct 32 mmHg (35-46); iSTAT Art Bld Gas pH Corrected 7.382 (7.35-7.45); iSTAT Arterial Blood Gas HCO3 19 meg/L (19-24); iSTAT Arterial Blood Gas pCO2 32 mmHg (35-46); iSTAT Arterial Blood Gas pH 7.39 (7.35-7.45); iSTAT Arterial Blood Gas pO2 74 mmHg (80-95); iSTAT Arterial Blood Gas pO2 C 78; iSTAT Carbon Dioxide 20 mmol/L (24-31); iSTAT FiO2 50 %; iSTAT Hematocrit 32 % (37-47); iSTAT Hemoglobin 10.9 g/dl (12.0-16.0); iSTAT Potassium 3.6 mmol/L (3.3-5.0); iSTAT Site R Radial; iSTAT Sodium 134 mmol/L (135-144)
[2019-12-17 04:42] LABS: Albumin Level 1.5 gm/dl (3.4-5.0); BUN Creatinine Ratio 24.5 (10-20); Calcium 7.7 mg/dl (8.5-10.1); Est GFR (African American) 119.4; Magnesium 1.9 mg/dl (1.8-2.4); Potassium 3.6 mmol/L (3.5-5.1)
[2019-12-17 04:45] LABS: Albumin Globulin Ratio 0.4 (0.9-2); Bilirubin,Total 0.4 mg/dl (0.2-1); Globulin 4.1 gm/dl (2.5-4.0); Total Protein 5.6 gm/dl (6.4-8.2)
[2019-12-17] MEDS: LORazepam 2 MG/4 ML VIAL IV SCH (05:42)
[2019-12-17] MEDS: PIPERACILLIN/TAZOBACTAM 3.375 GM in DEXTROSE 5% 100 ML IV SCH ×3 (05:42→20:56)
[2019-12-17 05:51] LABS: Estimated Average Glucose 117 mg/dl; Hemoglobin A1C 5.7 % (4.5-5.6)
[2019-12-17] MEDS ORDERED: POTASSIUM PHOS 3 MMOL/1 ML INFUSION IV STA (05:55)
[2019-12-17] MEDS ORDERED: POTASSIUM PHOSPHATE 21 MMOL in SODIUM CHLORIDE 0.9% 250 ML IV ONE (07:00)
--- NOTE | 2019-12-17 07:06 | XRay Report ---
XR chest 1V portable CLINICAL HISTORY: f/u dyspnea COMPARISON STUDY: 12/16/2019 FINDINGS: Unchanging diffuse right and to a lesser extent left parenchymal infiltrative change. Subtl e improvement in aeration left base. IMPRESSION: Generally stable diffuse bilateral parenchymal infiltrates. Slight improvement in aerati on left lung base. ACT 112: Negative or not required by law. The above report was generated using voice recognition software. It may contain grammatical, syntax or spelling errors. Electronically signed by: González Haynes M.D. 12/17/2019 7:05 AM
[2019-12-17] MEDS: ALBUT/IPRATROP 3MG/0.5MG NEB 3 ML VIAL NEB SCH (07:32)
--- NOTE | 2019-12-17 07:52 | Critical Care Progress Note ---
Date of Service December 17, 2019 Assessment & Plan (1) Acute respiratory failure with hypoxia: Reason Critically Ill: 69 yo F PMHx Sjogren's disease, alcohol abuse, depression/anxiety who presented with weakness, fatigue, and fevers and who was admitted for multifocal pneumonia/NSTEMI. Admitted to ICU for worsening respiratory status and worsening alcohol withdrawal for respiratory and cardiac monitoring. Neuro - [facility] ICU: POSITIVE Sedation: Ativan 2mg q8h and PRN Analgesia: none Alcohol Abuse Disorder in Acute Alcohol Withdrawal: - History of over 10 years of 2+ alcoholic beverages per day (vodka michaelis), however patient's goes to bed 4-5 hours earlier than the patient so it is unclear the patient's quantity of drinking. - Started having worsening of her tremor today, last reported alcoholic beverage Thursday. - Was started on Precedex by primary team for anxiolytic, have resumed to help facilitate CPAP/BiPAP. - Ativan scheduled taper with PRN, AWSS protocol. - Continue thiamine, folate. Cardiac - NSTEMI: - On admission with troponin 0.828, which has continued to downtrend with most recent troponin 0.295. - Patient without symptoms of CP or palpitations. - Echo showed LV systolic function low normal, moderate to severe hypokinesis of mid-distal anterioseptal arana, RVSP 30-40. - Cariology consulted and appreciate recommendations. - EKG reviewed with Dr. Nguyen this AM, shows T wave inversions in V1-3, relatively unchanged from prior EKG /. - No changes in medical therapy at this time, agree with Lopressor as below. - Lexiscan outpatient, or inpatient if patient is in hospital early next week. Tachycardia, Frequent PVCs: - Patient with continued tachycardia to the 120-140s throughout admission prior to arrival in ICU. - Type 2 VA likely demand ischemia in the setting of hypoxia, continued tachycardia and tachypnea for several hours, as well as pulmonary infection. - EKG this AM reviewed with Dr. Nguyen, no PVCs on captured EKG, however with tachycardia. - Etiology of PVCs could be multifactorial 2/2 acute septic illness, NSTEMI. - Lopressor 5mg IV and Ativan IV given in ICU with improvement in diaphoresis and tachycardia (now 100-110s). - Lopressor 5mg IV q6h PRN tachycardia >100bpm. Hold for HR <60bpm, SBP <100mmHg. - EKG daily, continuous cardiac monitoring. Respiratory - Acute Hypoxemic Respiratory Failure: - With tachypnea and increased oxygen demand initially requiring 15L Oxymask, and transferred to ICU for continued monitoring for decompensation. - Suspect respiratory failure multifactorial secondary to multifocal pneumonia, V/Q mismatch 2/2 fluid and bronchial washings. - After receiving Lopressor, Ativan, patient with some improvement in respiratory status, however still tachypneic to mid-30s. - Holding fluids at this time due to exam findings suggestive of mild fluid overload. Patient is listed as 4kg up in weight over 24 hours, with total +3L on Is/Os in that same time period. - Dong cath as below to monitor Is/Os. - Currently on CPAP of 10 without improvement in respiratory status. - Low threshold for intubation if the patient's respiratory status does not improve. - Consent received by . Multifocal Pneumonia: - s/p bronchoscopy, bronchial washing and lymph node biopsy by Dr. Prasad 12/15. - CTA Chest showed multifocal alveolar opacities within all lobes bilaterally, greatest within the right greater than left lower lobes. - Leukocytosis to 18 today; currently on Zosyn/azithromycin for treatment of suspected pneumonia. - Solumedrol 60mg IV q8h. - Bronchial washings sent today to rule out fungal causes, given cannot rule out fungal pneumonia. - Patient has Sjogren's on Plaquenil and therefore likely has some element of immune compromise. - BioFire negative. - Unlikely to have MRSA pneumonia, however can consider broadening coverage for MRSA and fungal causes if pneumonia worsens. - Treatment for respiratory failure as above. Emphysema: - CTA Chest showed moderate emphysema with bronchial wall thickening suggestive of bronchitis. - Patient has 20+ pack year history of smoking. - Encourage smoking cessation. - IV Steroids as above. GI - - NPO until able to tolerate nasal cannula. - Then can advance to Heart Healthy diet. - Famotidine 20mg IV BID for GI ppx. RENAL/LYTES - - No significant electrolyte derangement. - Replete as needed. - No evidence of kidney injury. - - Dong inserted to monitor strict Is/Os. - UA with bacteria however no urinary symptoms on arrival. - Currently on azithromycin/Zosyn for pneumonia as above. ENDO - - Patient without history of DM2 or thyroid disease. - TSH normal, not in thyroid storm. - BSG in ICU 330, likely adrenal stress 2/2 infection. - Insulin drip for now, monitor BSG closely and titrate as needed. - No history of DM2 and so expect will not require insulin after acute infection improves. HEME - - Stable H/H. - Continue to follow CBC given recent biopsy. ID - - Pneumonia as above. - Leukocytosis to 18 today; likely multifactorial 2/2 infection / inflammation r eceiving steroids. - Patient also received steroids this admission and is currently on solumedrol 60mg IV q8h. - Bcx drawn on admission, negative to date. INTEGUMENTARY - Sjogren's Disease: - With history of Sjogren's disease on hydroxychloroquine 200mg daily at home. - Will resume once able to tolerate PO. - Lymph node biopsy for pathology. - Sjogren's disease patients at increased risk for lung cancer and lymphoma. - IV steroids as above. LINES/IV ACCESS - - PIVs intact. - PICC line placed after consent obtained from patient's . DVT PROPHYLAXIS - - SCDs. - Resume Lovenox 40mg SQ q12h. Thank you for allowing us to be part of this patient's care. Please refer to Dr. Chavez's documentation for any further recommendations. (2) Non-STEMI (non-ST elevated myocardial infarction): (3) Sjogrens syndrome: (4) Multifocal pneumonia: (5) Tobacco abuse: (6) Emphysema of lung: (7) Elevated troponin: (8) Sepsis: Admission and Anticipated Discharge Date Admission Date: December 15, 2019 Supervising Physician Co-Signing Physician Notes Dr. Escamilla was resident physician during care of patient. I separately evaluated patient for newby portions of the history and the exam. I was present during the critical portion of medical decision making, and I discussed the case with the resident. I generally agree with the findings and plan. Patient is now on BiPAP CPAP, reviewed cardiology notes, patient remains critically ill receiving treatment for alcohol withdraw. Requiring intravenous medications to improve hemodynamics. Updated the patient's of status and regarding possible cardiac infection which would be covered by current antibiotic regimen. Update 12:45 Critical Care team is signing off, care has been transitioned to Pulmonary and Hospitalist service. Subjective Overnight patient was transitioned from Precedex to Ativan IV scheduled doses with PRN dosing by AWSS protocol. She was also placed on BiPAP due to continued respiratory distress despite high flow nasal cannula. She was started at FiO2 100% and rapidly weaned to 60%, currently on 40%. Still with tachycardia over night, however overall HR trend is down from yesterday, with average HR in the 90s-110s from 110s-130s on 12/14 into the afternoon of 12/15. On cardiac monitoring around 9PM last night patient started having intermittent bigeminy/trigeminy, which became more consistently trigeminy overnight. Patient denies CP or palpitations. No nausea or vomiting. This AM patient is able to answer yes/no questions by shaking her head. Our communication is somewhat limited by BiPAP. She denies shortness of breath on BiPAP. Denies headache or dizziness. Denies abdominal or chest wall pain. Review of Systems Review of Systems: Otherwise unobtainable due to respiratory status Physical Exam Constitutional: well developed, + ill appearing and + thin uncomfortable appearing Eyes: PERRL, conjunctivae normal, anicteric sclerae ENMT: external ear and nose normal, oropharynx normal Neck: trachea midline, no thyromegaly Respiratory: Tachypneic, lungs with diffuse coarse crackles R>L, inspiratory/expiratory wheeze bilaterally Intermittent cough Cardiovascular: Rate/Rhythm: + tachycardic (With occasional ectopy) Heart Sounds: no murmur Extremities: no edema Gastrointestinal (Abdomen): normal bowel sounds, soft, nontender, no hepatosplenomegaly Musculoskeletal: Extremities: no cyanosis and no clubbing Skin: no rashes, warm and dry Neurologic: moves all extremities; no focal motor deficits Speech / Cognition: normal speech Motor/Sensory: + tremor (upper lip, bilateral upper extremities with hands outstretched) Psychiatric: Orientation: alert and oriented x 3 Affect: + anxious affect Genitourinary: Dong currently draining clear yellow urine Results & Data Results & Data ([facility]) Vital Signs (Past 12 Hours) Vital Signs Temp Pulse Pulse Pulse Resp BP BP 12/17/19 07:07 103 H 34 H 100/71 12/17/19 06:07 96 H 33 H 116/74 12/17/19 05:07 109 H 36 H 122/73 12/17/19 04:43 79 32 H 12/17/19 04:07 101 H 35 H 100/61 12/17/19 04:00 99 H 34 H 12/17/19 03:07 106 H 34 H 103/68 12/17/19 03:00 100 H 36 H 12/17/19 02:08 95 H 33 H 113/76 12/17/19 02:00 37.4 C 90 37 H 12/17/19 01:07 97 H 34 H 103/63 12/17/19 01:00 97 H 34 H 12/17/19 00:07 100 H 28 H 104/64 12/17/19 00:00 37.7 C H 101 H 99 H 99 H 35 H 104/64 12/16/19 23:10 96 H 24 12/16/19 23:07 105 H 35 H 109/65 12/16/19 23:00 107 H 35 H 12/16/19 22:07 107 H 32 H 105/63 12/16/19 22:00 107 H 38 H 12/16/19 21:07 114 H 34 H 107/61 12/16/19 21:00 113 H 36 H 12/16/19 20:07 37.7 C H 119 H 32 H 119/71 12/16/19 20:00 37.7 C H 114 H 119 H 119 H 39 H 119/71 12/16/19 19:42 112 H 29 H Pulse Ox Pulse Ox 12/17/19 07:07 93 12/17/19 06:07 93 12/17/19 05:07 93 12/17/19 04:43 98 12/17/19 04:07 95 12/17/19 04:00 96 95 12/17/19 03:07 95 12/17/19 03:00 98 12/17/19 02:08 96 12/17/19 02:00 87 L 12/17/19 01:07 97 12/17/19 01:00 96 12/17/19 00:07 96 12/17/19 00:00 95 12/16/19 23:10 97 12/16/19 23:07 96 12/16/19 23:00 96 12/16/19 22:07 94 12/16/19 22:00 94 12/16/19 21:07 93 12/16/19 21:00 93 12/16/19 20:07 92 12/16/19 20:00 93 12/16/19 19:42 93 Resident Activity Tracking Resident Involvement: Resident Care Provided Care Provided: Adult Hospital Medicine (1) Sepsis Sepsis acute organ dysfunction status: with acute organ dysfunction Sepsis type: sepsis due to unspecified organism Severe sepsis acute organ dysfunction type: unspecified Severe sepsis shock status: without septic shock Qualified Code(s): A41.9 - Sepsis, unspecified organism; R65.20 - Severe sepsis without septic shock
[2019-12-17] MEDS: INSULIN ASPART 100 UNITS/ML 3 ML PEN SC SCH ×4 (07:55→20:56)
[2019-12-17] MEDS: FOLIC ACID 1 MG in SYRINGE 9.8 ML IV SCH (08:09)
[2019-12-17] MEDS: THIAMINE HCL 100 MG in SYRINGE 9 ML IV SCH (08:09)
[2019-12-17] MEDS: guaiFENesin 600 MG TABCR PO SCH (08:10)
[2019-12-17] MEDS: FAMOTIDINE 20 MG in SYRINGE 3 ML IV SCH ×2 (08:10→20:55)
[2019-12-17] MEDS: AZITHROMYCIN 500 MG in DEXTROSE 5% 250 ML IV SCH (08:10)
[2019-12-17] MEDS ORDERED: ALBUT/IPRATROP 3MG/0.5MG NEB 3 ML VIAL NEB PRN (08:55)
[2019-12-17] MEDS: HYDROXYCHLOROQUINE SULFATE 200 MG TAB PO SCH (09:01)
--- NOTE | 2019-12-17 09:56 | Cardiology Progress Note ---
Date of Service December 17, 2019 Assessment & Plan (1) Elevated troponin: patient's mild biomarker elevation of the time admission is resolving. As noted previously a I suspect this is related to supply demand mismatch rather than an acute coronary syndrome. Based on a possible wall motion abnormality seen on echocardiography we recommended outpatient perfusion imaging. I think this is still a reasonable course although it may be able to be performed as an inpatient when her clinical condition improves. Unfortunately, she has difficulty verbalizing symptoms at this point. She does have some minor EKG changes involving T-wave inversions. This is a nonspecific finding. Hemodynamically she has been stable with biomarkers that are trending downward I think the likelihood of coronary ischemia or an acute coronary syndrome is low. She clearly has a competing diagnosis for her decompensation which involves a primary lung process. I think treatment of any specific cardiac problem at this point is simply supportive. (2) Ventricular trigeminy: The patient has developed more frequent ventricular ectopy over the past 24 hours. I suspect this is simply related to her underlying pulmonary process and generalized illness. She has been getting occasional doses of intravenous beta blockade which would seem reasonable in the setting of ventricular ectopy. However, her tachycardia is likely driven by her severe pulmonary process and possibly alcohol withdrawal. As her clinical condition improves of expect to see both a reduction in her heart rate and less ventricular ectopy. As she appears to be hemodynamically stable with a normal blood pressure currently, I would not advocate any specific treatment for frequent PVCs. As noted above, we will likely perform some perfusion imaging in order to exclude ischemic heart di sease once her clinical condition improves. Admission and Anticipated Discharge Date Admission Date: December 15, 2019 Subjective the patient was on BiPAP at the time of my evaluation. While she was responsive to verbal stimuli and questions, she cannot provide answers due to tachypnea. Review of Systems Review of Systems: Other Per HPI. Patient very tachypneic on assisted br eathing. Physical Exam Physical Exam: She generally had her eyes closed but did respond to verbal stimuli. She appeared uncomfortable and tachypneic. HEENT: Sclerae are anicteric. Neuro: Cranial nerves intact Lungs: Tachypneic. Inspiratory stridor and expiratory wheezing. Cardiac: The rhythm was Rapid with frequent ectopy. S1 and S2 were normal. There are no murmurs on examination. Abdomen: The abdomen was soft and nontender. Extremities: Patient has bilateral radial pulses that are equal in intensity. PICC line in the right upper extremity. Skin: There are no rashes noted on examination today. Results & Data ([facility]) Vital Signs (Past 12 Hours) Vital Signs Temp Pulse Pulse Pulse Resp BP BP 12/17/19 09:07 107 H 43 H 104/71 12/17/19 08:53 128 H 120/75 12/17/19 08:38 37.5 C 12/17/19 08:07 114 H 40 H 120/75 12/17/19 08:00 12/17/19 07:35 108 H 108 H 30 H 12/17/19 07:07 103 H 34 H 100/71 12/17/19 06:07 96 H 33 H 116/74 12/17/19 05:07 109 H 36 H 122/73 12/17/19 04:43 79 32 H 12/17/19 04:07 101 H 35 H 100/61 12/17/19 04:00 99 H 34 H 12/17/19 03:07 106 H 34 H 103/68 12/17/19 03:00 100 H 36 H 12/17/19 02:08 95 H 33 H 113/76 12/17/19 02:00 37.4 C 90 37 H 12/17/19 01:07 97 H 34 H 103/63 12/17/19 01:00 97 H 34 H 12/17/19 00:07 100 H 28 H 104/64 12/17/19 00:00 37.7 C H 101 H 99 H 99 H 35 H 104/64 12/16/19 23:10 96 H 24 12/16/19 23:07 105 H 35 H 109/65 12/16/19 23:00 107 H 35 H 12/16/19 22:07 107 H 32 H 105/63 12/16/19 22:00 38.1 C H 107 H 38 H Pulse Ox Pulse Ox 12/17/19 09:07 93 12/17/19 08:53 12/17/19 08:38 12/17/19 08:07 94 12/17/19 08:00 93 12/17/19 07:35 94 12/17/19 07:07 93 12/17/19 06:07 93 12/17/19 05:07 93 12/17/19 04:43 98 12/17/19 04:07 95 12/17/19 04:00 96 95 12/17/19 03:07 95 12/17/19 03:00 98 12/17/19 02:08 96 12/17/19 02:00 87 L 12/17/19 01:07 97 12/17/19 01:00 96 12/17/19 00:07 96 12/17/19 00:00 95 12/16/19 23:10 97 12/16/19 23:07 96 12/16/19 23:00 96 12/16/19 22:07 94 12/16/19 22:00 94 Laboratory Results Abnormal Lab Results 12/16/19 12/16/19 12/16/19 13:52 15:28 15:37 WBC RBC Hgb POC Hgb Hct POC Hct MCV MCH MCHC RDW Std Deviation RDW Coeff of Oz Plt Count MPV Immature Gran % (Auto) Neut % (Auto) Lymph % (Auto) Smyth % (Auto) Eos % (Auto) Baso % (Auto) Neut # (Auto) Lymph # (Auto) Smyth # (Auto) Eos # (Auto) Baso # (Auto) Immature Gran # (Auto) PT INR APTT PTT Ratio Sample Site POC pH POC pCO2 POC pO2 POC HCO3 POC Total CO2 POC Base Excess ABG pH Cancelled ABG pH (Temp Correct) ABG pCO2 Cancelled ABG pCO2 (Temp Corrct ABG pO2 Cancelled POC ABG pO2 at Pt Temp ABG HCO3 Cancelled POC ABG O2 Sat ABG O2 Saturation Cancelled ABG Base Excess Cancelled Philipp Test Cancelled Barometric Pressure Cancelled Oxygen Given Cancelled O2 Delivery Device POC FiO2 POC Sodium Sodium POC Potassium Potassium Chloride Carbon Dioxide Anion Gap BUN Creatinine Est Cr Clr Drug Dosing Est GFR ( Amer) Est GFR (Non-Af Amer) BUN/Creatinine Ratio Glucose POC Glucose 333 H* Estimat Average Glucose Hemoglobin A1c Lactate Calcium Phosphorus Magnesium Total Bilirubin AST ALT Alkaline Phosphatase Ammonia Troponin I Total Protein Albumin Globulin Albumin/Globulin Ratio Folate Procalcitonin TSH Fluid Neutrophils % 17 Fluid Lymphocytes % 0 Fluid Eosinophils % 0 Fl Monocyt/Macrophag % 83 12/16/19 12/16/19 12/16/19 15:38 15:40 15:40 WBC RBC Hgb POC Hgb Hct POC Hct MCV MCH MCHC RDW Std Deviation RDW Coeff of Oz Plt Count MPV Immature Gran % (Auto) Neut % (Auto) Lymph % (Auto) Smyth % (Auto) Eos % (Auto) Baso % (Auto) Neut # (Auto) Lymph # (Auto) Smyth # (Auto) Eos # (Auto) Baso # (Auto) Immature Gran # (Auto) PT INR APTT PTT Ratio Sample Site POC pH POC pCO2 POC pO2 POC HCO3 POC Total CO2 POC Base Excess ABG pH ABG pH (Temp Correct) ABG pCO2 ABG pCO2 (Temp Corrct ABG pO2 POC ABG pO2 at Pt Temp ABG HCO3 POC ABG O2 Sat ABG O2 Saturation ABG Base Excess Philipp Test Barometric Pressure Oxygen Given O2 Delivery Device POC FiO2 POC Sodium Sodium POC Potassium Potassium Chloride Carbon Dioxide Anion Gap BUN Creatinine Est Cr Clr Drug Dosing Est GFR ( Amer) Est GFR (Non-Af Amer) BUN/Creatinine Ratio Glucose POC Glucose 332 H* Estimat Average Glucose Hemoglobin A1c Lactate 2.0 Calcium Phosphorus Magnesium Total Bilirubin AST ALT Alkaline Phosphatase Ammonia Troponin I Total Protein Albumin Globulin Albumin/Globulin Ratio Folate > 24.00 Procalcitonin TSH Fluid Neutrophils % Fluid Lymphocytes % Fluid Eosinophils % Fl Monocyt/Macrophag % 12/16/19 12/16/19 12/16/19 15:40 15:40 15:44 WBC RBC Hgb POC Hgb Hct POC Hct MCV MCH MCHC RDW Std Deviation RDW Coeff of Oz Plt Count MPV Immature Gran % (Auto) Neut % (Auto) Lymph % (Auto) Smyth % (Auto) Eos % (Auto) Baso % (Auto) Neut # (Auto) Lymph # (Auto) Smyth # (Auto) Eos # (Auto) Baso # (Auto) Immature Gran # (Auto) PT INR APTT PTT Ratio Sample Site POC pH POC pCO2 POC pO2 POC HCO3 POC Total CO2 POC Base Excess ABG pH ABG pH (Temp Correct) ABG pCO2 ABG pCO2 (Temp Corrct ABG pO2 POC ABG pO2 at Pt Temp ABG HCO3 POC ABG O2 Sat ABG O2 Saturation ABG Base Excess Philipp Test Barometric Pressure Oxygen Given O2 Delivery Device POC FiO2 POC Sodium Sodium POC Potassium Potassium Chloride Carbon Dioxide Anion Gap BUN Creatinine Est Cr Clr Drug Dosing Est GFR ( Amer) Est GFR (Non-Af Amer) BUN/Creatinine Ratio Glucose POC Glucose Estimat Average Glucose Hemoglobin A1c Lactate Calcium Phosphorus Magnesium Total Bilirubin AST ALT Alkaline Phosphatase Ammonia < 10.0 L Troponin I 0.295 H* Total Protein Albumin Globulin Albumin/Globulin Ratio Folate Procalcitonin TSH 0.452 Fluid Neutrophils % Fluid Lymphocytes % Fluid Eosinophils % Fl Monocyt/Macrophag % 12/16/19 12/16/19 12/16/19 16:04 17:29 17:52 WBC RBC Hgb POC Hgb Hct POC Hct MCV MCH MCHC RDW Std Deviation RDW Coeff of Oz Plt Count MPV Immature Gran % (Auto) Neut % (Auto) Lymph % (Auto) Smyth % (Auto) Eos % (Auto) Baso % (Auto) Neut # (Auto) Lymph # (Auto) Smyth # (Auto) Eos # (Auto) Baso # (Auto) Immature Gran # (Auto) PT INR APTT PTT Ratio Sample Site POC pH POC pCO2 POC pO2 POC HCO3 POC Total CO2 POC Base Excess ABG pH 7.44 ABG pH (Temp Correct) ABG pCO2 28 L ABG pCO2 (Temp Corrct ABG pO2 85 POC ABG pO2 at Pt Temp ABG HCO3 19 POC ABG O2 Sat ABG O2 Saturation 97.0 H ABG Base Excess -4.3 Philipp Test POS Barometric Pressure 734.3 Oxygen Given 35L O2 85% O2 Delivery Device POC FiO2 POC Sodium Sodium POC Potassium Potassium Chloride Carbon Dioxide Anion Gap BUN Creatinine Est Cr Clr Drug Dosing Est GFR ( Amer) Est GFR (Non-Af Amer) BUN/Creatinine Ratio Glucose POC Glucose 104 H 108 H Estimat Average Glucose Hemoglobin A1c Lactate Calcium Phosphorus Magnesium Total Bilirubin AST ALT Alkaline Phosphatase Ammonia Troponin I Total Protein Albumin Globulin Albumin/Globulin Ratio Folate Procalcitonin TSH Fluid Neutrophils % Fluid Lymphocytes % Fluid Eosinophils % Fl Monocyt/Macrophag % 12/16/19 12/16/19 12/16/19 18:13 18:36 18:59 WBC RBC Hgb POC Hgb Hct POC Hct MCV MCH MCHC RDW Std Deviation RDW Coeff of Oz Plt Count MPV Immature Gran % (Auto) Neut % (Auto) Lymph % (Auto) Smyth % (Auto) Eos % (Auto) Baso % (Auto) Neut # (Auto) Lymph # (Auto) Smyth # (Auto) Eos # (Auto) Baso # (Auto) Immature Gran # (Auto) PT INR APTT PTT Ratio Sample Site POC pH POC pCO2 POC pO2 POC HCO3 POC Total CO2 POC Base Excess ABG pH ABG pH (Temp Correct) ABG pCO2 ABG pCO2 (Temp Corrct ABG pO2 POC ABG pO2 at Pt Temp ABG HCO3 POC ABG O2 Sat ABG O2 Saturation ABG Base Excess Philipp Test Barometric Pressure Oxygen Given O2 Delivery Device POC FiO2 POC Sodium Sodium POC Potassium Potassium Chloride Carbon Dioxide Anion Gap BUN Creatinine Est Cr Clr Drug Dosing Est GFR ( Amer) Est GFR (Non-Af Amer) BUN/Creatinine Ratio Glucose POC Glucose 107 H 102 H 141 H Estimat Average Glucose Hemoglobin A1c Lactate Calcium Phosphorus Magnesium Total Bilirubin AST ALT Alkaline Phosphatase Ammonia Troponin I Total Protein Albumin Globulin Albumin/Globulin Ratio Folate Procalcitonin TSH Fluid Neutrophils % Fluid Lymphocytes % Fluid Eosinophils % Fl Monocyt/Macrophag % 12/16/19 12/16/19 12/16/19 20:00 22:03 22:59 WBC RBC Hgb POC Hgb Hct POC Hct MCV MCH MCHC RDW Std Deviation RDW Coeff of Oz Plt Count MPV Immature Gran % (Auto) Neut % (Auto) Lymph % (Auto) Smyth % (Auto) Eos % (Auto) Baso % (Auto) Neut # (Auto) Lymph # (Auto) Smyth # (Auto) Eos # (Auto) Baso # (Auto) Immature Gran # (Auto) PT INR APTT PTT Ratio Sample Site POC pH POC pCO2 POC pO2 POC HCO3 POC Total CO2 POC Base Excess ABG pH ABG pH (Temp Correct) ABG pCO2 ABG pCO2 (Temp Corrct ABG pO2 POC ABG pO2 at Pt Temp ABG HCO3 POC ABG O2 Sat ABG O2 Saturation ABG Base Excess Philipp Test Barometric Pressure Oxygen Given O2 Delivery Device POC FiO2 POC Sodium Sodium POC Potassium Potassium Chloride Carbon Dioxide Anion Gap BUN Creatinine Est Cr Clr Drug Dosing Est GFR ( Amer) Est GFR (Non-Af Amer) BUN/Creatinine Ratio Glucose POC Glucose 144 H 126 H 135 H Estimat Average Glucose Hemoglobin A1c Lactate Calcium Phosphorus Magnesium Total Bilirubin AST ALT Alkaline Phosphatase Ammonia Troponin I Total Protein Albumin Globulin Albumin/Globulin Ratio Folate Procalcitonin TSH Fluid Neutrophils % Fluid Lymphocytes % Fluid Eosinophils % Fl Monocyt/Macrophag % 12/17/19 12/17/19 12/17/19 00:02 01:59 03:00 WBC RBC Hgb POC Hgb Hct POC Hct MCV MCH MCHC RDW Std Deviation RDW Coeff of Oz Plt Count MPV Immature Gran % (Auto) Neut % (Auto) Lymph % (Auto) Smyth % (Auto) Eos % (Auto) Baso % (Auto) Neut # (Auto) Lymph # (Auto) Smyth # (Auto) Eos # (Auto) Baso # (Auto) Immature Gran # (Auto) PT INR APTT PTT Ratio Sample Site POC pH POC pCO2 POC pO2 POC HCO3 POC Total CO2 POC Base Excess ABG pH ABG pH (Temp Correct) ABG pCO2 ABG pCO2 (Temp Corrct ABG pO2 POC ABG pO2 at Pt Temp ABG HCO3 POC ABG O2 Sat ABG O2 Saturation ABG Base Excess Philipp Test Barometric Pressure Oxygen Given O2 Delivery Device POC FiO2 POC Sodium Sodium POC Potassium Potassium Chloride Carbon Dioxide Anion Gap BUN Creatinine Est Cr Clr Drug Dosing Est GFR ( Amer) Est GFR (Non-Af Amer) BUN/Creatinine Ratio Glucose POC Glucose 129 H 99 99 Estimat Average Glucose Hemoglobin A1c Lactate Calcium Phosphorus Magnesium Total Bilirubin AST ALT Alkaline Phosphatase Ammonia Troponin I Total Protein Albumin Globulin Albumin/Globulin Ratio Folate Procalcitonin TSH Fluid Neutrophils % Fluid Lymphocytes % Fluid Eosinophils % Fl Monocyt/Macrophag % 12/17/19 12/17/19 12/17/19 04:08 04:08 04:08 WBC 11.97 H RBC 3.65 L Hgb 11.7 L POC Hgb Hct 33.7 L POC Hct MCV 92.3 MCH 32.1 MCHC 34.7 RDW Std Deviation 48.5 H RDW Coeff of Oz 14.3 Plt Count 173 MPV 10.7 H Immature Gran % (Auto) 1.3 Neut % (Auto) 93.4 Lymph % (Auto) 2.5 Smyth % (Auto) 2.7 Eos % (Auto) 0.0 Baso % (Auto) 0.1 Neut # (Auto) 11.18 H Lymph # (Auto) 0.30 L Smyth # (Auto) 0.32 Eos # (Auto) 0.00 Baso # (Auto) 0.01 Immature Gran # (Auto) 0.16 H PT 10.1 INR 1.0 APTT 36.3 H PTT Ratio 1.3 Sample Site POC pH POC pCO2 POC pO2 POC HCO3 POC Total CO2 POC Base Excess ABG pH ABG pH (Temp Correct) ABG pCO2 ABG pCO2 (Temp Corrct ABG pO2 POC ABG pO2 at Pt Temp ABG HCO3 POC ABG O2 Sat ABG O2 Saturation ABG Base Excess Philipp Test Barometric Pressure Oxygen Given O2 Delivery Device POC FiO2 POC Sodium Sodium 137 POC Potassium Potassium 3.6 Chloride 109 H Carbon Dioxide 20 L Anion Gap 8.0 BUN 11 Creatinine 0.44 L Est Cr Clr Drug Dosing 104.0 Est GFR ( Amer) 119.4 Est GFR (Non-Af Amer) 103.0 BUN/Creatinine Ratio 24.5 H Glucose 99 POC Glucose Estimat Average Glucose Hemoglobin A1c Lactate Calcium 7.7 L Phosphorus 2.0 L Magnesium 1.9 Total Bilirubin 0.4 AST 35 ALT 18 Alkaline Phosphatase 50 Ammonia Troponin I Total Protein 5.6 L Albumin 1.5 L Globulin 4.1 H Albumin/Globulin Ratio 0.4 L Folate Procalcitonin TSH Fluid Neutrophils % Fluid Lymphocytes % Fluid Eosinophils % Fl Monocyt/Macrophag % 12/17/19 12/17/19 12/17/19 04:08 04:08 04:09 WBC RBC Hgb POC Hgb Hct POC Hct MCV MCH MCHC RDW Std Deviation RDW Coeff of Oz Plt Count MPV Immature Gran % (Auto) Neut % (Auto) Lymph % (Auto) Smyth % (Auto) Eos % (Auto) Baso % (Auto) Neut # (Auto) Lymph # (Auto) Smyth # (Auto) Eos # (Auto) Baso # (Auto) Immature Gran # (Auto) PT INR APTT PTT Ratio Sample Site POC pH POC pCO2 POC pO2 POC HCO3 POC Total CO2 POC Base Excess ABG pH ABG pH (Temp Correct) ABG pCO2 ABG pCO2 (Temp Corrct ABG pO2 POC ABG pO2 at Pt Temp ABG HCO3 POC ABG O2 Sat ABG O2 Saturation ABG Base Excess Philipp Test Barometric Pressure Oxygen Given O2 Delivery Device POC FiO2 POC Sodium Sodium POC Potassium Potassium Chloride Carbon Dioxide Anion Gap BUN Creatinine Est Cr Clr Drug Dosing Est GFR ( Amer) Est GFR (Non-Af Amer) BUN/Creatinine Ratio Glucose POC Glucose 100 H Estimat Average Glucose 117 Hemoglobin A1c 5.7 H Lactate Calcium Phosphorus Magnesium Total Bilirubin AST ALT Alkaline Phosphatase Ammonia Troponin I Total Protein Albumin Globulin Albumin/Globulin Ratio Folate Procalcitonin 9.77 H TSH Fluid Neutrophils % Fluid Lymphocytes % Fluid Eosinophils % Fl Monocyt/Macrophag % 12/17/19 12/17/19 12/17/19 04:27 06:02 07:19 WBC RBC Hgb POC Hgb 10.9 L Hct POC Hct 32 L MCV MCH MCHC RDW Std Deviation RDW Coeff of Oz Plt Count MPV Immature Gran % (Auto) Neut % (Auto) Lymph % (Auto) Smyth % (Auto) Eos % (Auto) Baso % (Auto) Neut # (Auto) Lymph # (Auto) Smyth # (Auto) Eos # (Auto) Baso # (Auto) Immature Gran # (Auto) PT INR APTT PTT Ratio Sample Site R Radial POC pH 7.39 POC pCO2 32 L POC pO2 74 L POC HCO3 19 POC Total CO2 20 L POC Base Excess -6.0 ABG pH ABG pH (Temp Correct) 7.382 ABG pCO2 ABG pCO2 (Temp Corrct 32 L ABG pO2 POC ABG pO2 at Pt Temp 78 ABG HCO3 POC ABG O2 Sat 95.0 ABG O2 Saturation ABG Base Excess Philipp Test Pass Barometric Pressure Oxygen Given O2 Delivery Device Other POC FiO2 50 POC Sodium 134 L Sodium POC Potassium 3.6 Potassium Chloride Carbon Dioxide Anion Gap BUN Creatinine Est Cr Clr Drug Dosing Est GFR ( Amer) Est GFR (Non-Af Amer) BUN/Creatinine Ratio Glucose POC Glucose 90 99 Estimat Average Glucose Hemoglobin A1c Lactate Calcium Phosphorus Magnesium Total Bilirubin AST ALT Alkaline Phosphatase Ammonia Troponin I Total Protein Albumin Globulin Albumin/Globulin Ratio Folate Procalcitonin TSH Fluid Neutrophils % Fluid Lymphocytes % Fluid Eosinophils % Fl Monocyt/Macrophag % 12/17/19 12/17/19 08:15 09:34 WBC RBC Hgb POC Hgb Hct POC Hct MCV MCH MCHC RDW Std Deviation RDW Coeff of Oz Plt Count MPV Immature Gran % (Auto) Neut % (Auto) Lymph % (Auto) Smyth % (Auto) Eos % (Auto) Baso % (Auto) Neut # (Auto) Lymph # (Auto) Smyth # (Auto) Eos # (Auto) Baso # (Auto) Immature Gran # (Auto) PT INR APTT PTT Ratio Sample Site POC pH POC pCO2 POC pO2 POC HCO3 POC Total CO2 POC Base Excess ABG pH ABG pH (Temp Correct) ABG pCO2 ABG pCO2 (Temp Corrct ABG pO2 POC ABG pO2 at Pt Temp ABG HCO3 POC ABG O2 Sat ABG O2 Saturation ABG Base Excess Philipp Test Barometric Pressure Oxygen Given O2 Delivery Device POC FiO2 POC Sodium Sodium POC Potassium Potassium Chloride Carbon Dioxide Anion Gap BUN Creatinine Est Cr Clr Drug Dosing Est GFR ( Amer) Est GFR (Non-Af Amer) BUN/Creatinine Ratio Glucose POC Glucose 99 113 H Estimat Average Glucose Hemoglobin A1c Lactate Calcium Phosphorus Magnesium Total Bilirubin AST ALT Alkaline Phosphatase Ammonia Troponin I Total Protein Albumin Globulin Albumin/Globulin Ratio Folate Procalcitonin TSH Fluid Neutrophils % Fluid Lymphocytes % Fluid Eosinophils % Fl Monocyt/Macrophag % PG Care Time/CCT Total # of Minutes Spent Total Time Spent with Patient: Total time spent is greater than 50% in coordination of care (as documented) at patient's floor/unit and/or counseling patient: Coding Level of Care Code 83146 Subseq Hosp Care Lvl 3 Diagnoses Elevated troponin R79.89 Ventricular trigeminy I49.8
[2019-12-17] MEDS: LORazepam 2 MG/4 ML VIAL IV PRN (09:57)
--- NOTE | 2019-12-17 10:24 | Electrocardiogram Report ---
Test Reason : Blood Pressure : / mmHG Vent. Rate : 122 BPM Atrial Rate : 122 BPM P-R Int : 168 ms QRS Dur : 094 ms QT Int : 296 ms P-R-T Axes : 076 026 091 degrees QTc Int : 421 ms Sinus tachycardia Possible Left atrial enlargement Nonspecific T wave abnormality Abnormal ECG When compared with ECG of 15-DEC-2019 03:53, T wave inversion now evident in Anterior leads Confirmed by Silvano Nguyen ([id number]) on 12/17/2019 10:24:17 AM Referred By: REFERRED SELF Confirmed By:Puneet Nguyen
[2019-12-17] MEDS ORDERED: STAT IV Infusion **Titration per Protocol STA ×4 (10:25→14:44)
[2019-12-17] MEDS ORDERED: DEXMEDETOMIDINE HCL 200 MCG in SODIUM CHLORIDE 0.9% 48 ML IV SCH (10:30)
--- NOTE | 2019-12-17 10:37 | Billing Data ---
Date of Service December 17, 2019 Coding Level of Care Code Critical Care 1st - mins
--- NOTE | 2019-12-17 10:56 | Billing Data ---
Date of Service December 16, 2019 Coding Level of Care Code Critical Care 1st 30-74 mins Time Spent (min) 60 Comment I have personally spent 60 minutes of critical care time in the direct management of this patient. This is a life/limb threatening event. This includes time spent evaluating patient, direct bedside care, chart review, placing orders, interpretation of diagnostic studies, discussion with consultants, patient, and/or family members regarding treatment decisions, as well as other required patient management activities. This time is exclusive of all separately billable procedures, and teaching time and separate from and in addition to any other critical care service time.
[2019-12-17] MEDS ORDERED: ENOXAPARIN INJ 40 MG/0.4 ML SYR SQ SCH (11:00)
[2019-12-17] MEDS ORDERED: FUROSEMIDE 40 MG/4 ML VIAL IV STA (12:02)
--- NOTE | 2019-12-17 12:18 | Pulmonology Progress Note ---
Date of Service December 17, 2019 Assessment & Plan (1) Acute hypoxemic respiratory failure: (2) Multifocal pneumonia: (3) Troponin level elevated: (4) Alcohol withdrawal: (5) Sjogrens syndrome: Admission and Anticipated Discharge Date Admission Date: December 15, 2019 Subjective Patient seen and examined at bedside. I discussed the case with the bedside nurse. I also discussed with her . The patient is minimally responsive at present. She is very tachypneic on CPAP. She is currently requiring 40% FiO2. I asked her if she was short of breath and she nodded her head no. Her history certainly unreliable at this point. She is 9 L positive on her fluid intake since admission. Her most recent temperature is 99.5. She has been febrile to 100.6 overnight. Review of Systems Review of Systems: Unobtainable due to cognitive status Physical Exam Physical Exam: GENERAL : No acute distress. EYES: No icterus, gaze conjugate NOSE: No evidence of epistaxis MOUTH: No lesions or candidiasis NECK: Supple LUNGS: Bibasilar coarse rales. No rhonchi. No appreciation of bronchospasm. HEART: Regular, tachycardic. No appreciation of ectopy ABDOMEN: Soft, NT, ND, BS Present EXTREMITIES: No LE edema, pedal pulses intact. NEURO: A&OX3. Chronic tremor of lips and face when speaking. No appreciable tremor of extremities. Results & Data Results & Data ([facility]) Vital Signs (Past 12 Hours) Vital Signs Temp Pulse Pulse Resp BP Pulse Ox Pulse Ox 12/17/19 11:07 115 H 38 H 111/71 93 12/17/19 10:52 106 H 12/17/19 10:07 118 H 43 H 117/75 93 12/17/19 10:06 117 H 40 H 93 12/17/19 09:07 107 H 43 H 104/71 93 12/17/19 08:53 128 H 120/75 12/17/19 08:38 99.5 F 12/17/19 08:07 114 H 40 H 120/75 94 12/17/19 08:00 93 12/17/19 07:35 108 H 108 H 30 H 94 12/17/19 07:07 103 H 34 H 100/71 93 12/17/19 06:07 96 H 33 H 116/74 93 12/17/19 05:07 109 H 36 H 122/73 93 12/17/19 04:43 79 32 H 98 12/17/19 04:07 101 H 35 H 100/61 95 12/17/19 04:00 99 H 34 H 96 95 12/17/19 03:07 106 H 34 H 103/68 95 12/17/19 03:00 100 H 36 H 98 12/17/19 02:08 95 H 33 H 113/76 96 12/17/19 02:00 99.3 F 90 37 H 87 L 12/17/19 01:07 97 H 34 H 103/63 97 12/17/19 01:00 97 H 34 H 96 I reviewed vital signs, labs and imaging. PG Care Time/CCT Total # of Minutes Spent Total Time Spent with Patient: Total time spent is greater than 50% in coordination of care (as documented) at patient's floor/unit and/or counseling patient: Coding Diagnoses Acute hypoxemic respiratory failure J96.01 Multifocal pneumonia J18.9 Troponin level elevated R79.89 Alcohol withdrawal F10.239 Sjogrens syndrome M35.00
--- NOTE | 2019-12-17 12:39 | Pulmonology Progress Note ---
Date of Service December 17, 2019 Assessment & Plan (1) Acute hypoxemic respiratory failure: 69-year-old female with a past medical history of Sjogren's disorder, tobacco abuse, centrilobular emphysema, alcoholism and ray nods phenomenon presenting to the hospital with multifocal pneumonia. She is currently in acute hypoxemic respiratory failure and very tachypneic on CPAP. I will give her a dose of 40 mg Lasix to see if this will improve her respiratory status. If not, we will likely elect to proceed with intubation and mechanical ventilation. I am holding her steroids at this point as I am concerned that she is immunocompromised given her underlying alcoholism and she likely has a very significant bacterial pneumonia. Procalcitonin is trending down, but still very elevated 9.77 today. Blood cultures negative to date. She has nodular infiltrates with surrounding halos in certain regions concerning for possible fungal infection as well. I am going to start her on voriconazole and I have ordered for a beta D glucan. Fungal, AFB and Gram stain/culture pending from bronchoscopy yesterday. Biopsy results from station 7 lymph node pending as well. Notably she also had an elevated troponin upon hospital admission and was found to have mild to moderate mitral regurgitation on echocardiogram on 12/15/2019 along with moderate to severe hypokinesis involving the mid to distal anterior septal arana. She also had evidence of right ventricular failure systolic pre ssure elevation to 30 to 40 mmHg. I suspect she likely has some degree of secondary pulmonary hypertension from chronic respiratory disease given her underlying centrilobular emphysema. She will need PFTs as an outpatient to evaluate for COPD. She will remain n.p.o. at this time. Cardiology notes reviewed as well and she has had evidence of ventricular trigeminy. Recommendation for an outpatient ischemic work-up. They feel that her acute issues are likely related to her hypoxemic respiratory failure. Continue with beta-blockade on a as needed basis. Precedex will also help with her heart rate at this time. I am holding her Plaquenil at this time. We will discontinue the scheduled Ativan and have her on the alcohol withdrawal protocol. Continue PRN Ativan. Continue thiamine and folic acid. Continue Precedex for agitation and withdrawal. Continue Lovenox, but will switch to once daily. I had numerous discussions with the and indicated to him that there is a very high likelihood that she will need intubation today with mechanical ventilation. She is very critically ill at this time. Albumin is very low. Prognosis at this time is guarded. (2) Multifocal pneumonia: (3) Troponin level elevated: (4) Alcohol withdrawal: (5) Sjogrens syndrome: Admission and Anticipated Discharge Date Admission Date: December 15, 2019 Subjective Patient seen and examined and discussed with the bedside RN. Patient is minimally responsive at this time due to altered mental status and hypoxemia. I also discussed the case with her . She has been very tachypneic overnight requiring CPAP and currently saturating 93% on 40% FiO2. She is 9 L positive. She has had low-grade fevers overnight. Review of Systems Review of Systems: Unobtainable due to cognitive status Physical Exam Constitutional: Patient is laying in bed. CPAP in place. She is very tachypneic. No obvious distress. Eyes: PERRL, conjunctivae normal, anicteric sclerae ENMT: external ear and nose normal, oropharynx normal Neck: normal visual inspection Respiratory: Diffuse rhonchi and crackles particularly on the right. Cardiovascular: Tachycardic. Regular rhythm. No significant peripheral edema. Gastrointestinal (Abdomen): normal bowel sounds, soft, nontender, no hepatosplenomegaly Musculoskeletal: Purpling discoloration of her fingertips noted. Skin: no rashes, warm and dry Neurologic: PERRL, EOMI, accommodation nl, no face palsy, no dysarthria Psychiatric: Lethargic. Able to answer some simple questions with shaking of her head. Unable to assess orientation. Results & Data Results & Data ([facility]) Vital Signs (Past 12 Hours) Vital Signs Temp Pulse Pulse Resp BP Pulse Ox Pulse Ox 12/17/19 11:07 115 H 38 H 111/71 93 12/17/19 10:52 106 H 12/17/19 10:07 118 H 43 H 117/75 93 12/17/19 10:06 117 H 40 H 93 12/17/19 09:07 107 H 43 H 104/71 93 12/17/19 08:53 128 H 120/75 12/17/19 08:38 99.5 F 12/17/19 08:07 114 H 40 H 120/75 94 12/17/19 08:00 93 12/17/19 07:35 108 H 108 H 30 H 94 12/17/19 07:07 103 H 34 H 100/71 93 12/17/19 06:07 96 H 33 H 116/74 93 12/17/19 05:07 109 H 36 H 122/73 93 12/17/19 04:43 79 32 H 98 12/17/19 04:07 101 H 35 H 100/61 95 12/17/19 04:00 99 H 34 H 96 95 12/17/19 03:07 106 H 34 H 103/68 95 12/17/19 03:00 100 H 36 H 98 12/17/19 02:08 95 H 33 H 113/76 96 12/17/19 02:00 99.3 F 90 37 H 87 L 12/17/19 01:07 97 H 34 H 103/63 97 12/17/19 01:00 97 H 34 H 96 I personally reviewed vital signs, labs and chest imaging PG Care Time/CCT Total # of Minutes Spent Total Time Spent with Patient: Total time spent is greater than 50% in coordination of care (as documented) at patient's floor/unit and/or counseling patient: Coding Level of Care Code 36129 Subseq Hosp Care Lvl 3 Diagnoses Acute hypoxemic respiratory failure J96.01 Multifocal pneumonia J18.9 Troponin level elevated R79.89 Alcohol withdrawal F10.239 Sjogrens syndrome M35.00
[2019-12-17] MEDS ORDERED: FUROSEMIDE 40 MG in SYRINGE 0 ML IV ONE (12:45)
[2019-12-17] MEDS: VORICONAZOLE 350 MG in 0.9 % SODIUM CHLORIDE 65 ML IV SCH (13:25)
[2019-12-17] MEDS: POTASSIUM CHLORIDE / WTR 20 MEQ/100 ML PLCT IV SCH ×2 (13:50→15:53)
[2019-12-17] MEDS ORDERED: ICU ELECTROLYTE REPLACEMENT PROTOCOL PRN (14:32)
[2019-12-17] MEDS ORDERED: PROPOFOL BOLUS FROM BAG IV PRN (14:32)
[2019-12-17] MEDS ORDERED: ETOMIDATE 2 MG/ML 20 ML VIAL IV ONE (14:32)
[2019-12-17] MEDS ORDERED: RAPID SEQUENCE INDUCTION BAG ONE (14:37)
[2019-12-17 14:44] LABS: iSTAT Allen Test Pass; iSTAT Art Bld Gas pCO2 Correct 34 mmHg (35-46); iSTAT Art Bld Gas pH Corrected 7.427 (7.35-7.45); iSTAT Arterial Blood Gas HCO3 22 meg/L (19-24); iSTAT Arterial Blood Gas pCO2 35 mmHg (35-46); iSTAT Arterial Blood Gas pH 7.42 (7.35-7.45); iSTAT Arterial Blood Gas pO2 58 mmHg (80-95); iSTAT Arterial Blood Gas pO2 C 56; iSTAT Carbon Dioxide 23 mmol/L (24-31); iSTAT FiO2 40 %; iSTAT Hematocrit 35 % (37-47); iSTAT Hemoglobin 11.9 g/dl (12.0-16.0); iSTAT Potassium 3.8 mmol/L (3.3-5.0); iSTAT Site R Radial; iSTAT Sodium 134 mmol/L (135-144)
[2019-12-17] MEDS ORDERED: MIDAZOLAM HCL 125MG/250ML D5W ONE (14:58)
--- NOTE | 2019-12-17 14:58 | Procedure Note ---
Procedure Note Date of Service December 17, 2019 Note INTUBATION PROCEDURE NOTE: Dr. Clark Prasad A time-out was completed verifying correct patient, procedure, site, positioning. Patient was evaluated and required intubation for hypoxemic respiratory failure. Sedative agent used: 20 mg of etomidate Paralysis agent used: 75 mg of succinylcholine Consent signed and placed on chart. Number of attempts: 1 Grade view: 1 via video laryngoscope The patient was prepared in the appropriate fashion. Sedation was achieved utilizing 20 mg of etomidate and 75 mg of succinylcholine. The patient was easily ventilated using [id number] to achieve adequate oxygenation. A 7-1/2 [place] endotracheal tube was placed under video laryngoscope guidance to 24 cm at the lip. The stylette was removed and balloon was inflated with 10mL of air. Appropriate Colorimetric change was appreciated. Bilateral breath sounds were heard without air sounds in the abdomen. Post Intubation Chest X-ray ordered Patient tolerated the procedure well and there were no immediate complications. Coding CPT Codes Resuscitation - Resuscitation: 94140 Endotracheal Intubation, emergency ([id number]) [facility] [place] Procedure Codes (Charges) Resuscitation Resuscitation: 12377 Endotracheal Intubation, emergency
[2019-12-17] MEDS: fentaNYL DRIP 1,250 MCG/250 ML BAG IV PRN (15:02)
[2019-12-17] MEDS: propofoL 1,000 MG/100 ML VIAL IV SCH (15:05)
--- NOTE | 2019-12-17 15:26 | XRay Report ---
XR chest 1V portable CLINICAL HISTORY: intubation tube position COMPARISON STUDY: 12/17/2019 FINDINGS: Placement of an endotracheal tube 5 cm above the natividad. Patchy parenchymal infiltrative change bilaterally is stable. There is a central catheter in the superior vena cava. No evidence of pneumothorax. IMPRESSION: 1. Interval placement of an endotracheal tube 5 cm above the natividad. 2. Study is otherwise unchanged. 3. Note is made of a nasogastric tube inferior to the diaphragm ACT 112: Negative or not required by law. The above report was generated using voice recognition software. It may contain grammatical, syntax or spelling errors. Electronically signed by: González Haynes M.D. 12/17/2019 3:25 PM
[2019-12-17 15:43] LABS: Ferritin 1773.4 ng/ml (8-388)
[2019-12-17] MEDS: NOREPINEPHRINE BIT INJ 8 MG in DEXTROSE 5% 500 ML IV SCH (15:43)
[2019-12-17] MEDS: PEPTAMEN INTENSE VHP 1.0 CAL 1,000 ML BAG OG SCH (16:04)
[2019-12-17 16:22] LABS: iSTAT Allen Test Pass; iSTAT Art Bld Gas pCO2 Correct 32 mmHg (35-46); iSTAT Art Bld Gas pH Corrected 7.419 (7.35-7.45); iSTAT Arterial Blood Gas HCO3 21 meg/L (19-24); iSTAT Arterial Blood Gas pCO2 33 mmHg (35-46); iSTAT Arterial Blood Gas pH 7.41 (7.35-7.45); iSTAT Arterial Blood Gas pO2 66 mmHg (80-95); iSTAT Arterial Blood Gas pO2 C 63; iSTAT Carbon Dioxide 22 mmol/L (24-31); iSTAT FiO2 50 %; iSTAT Hematocrit 36 % (37-47); iSTAT Hemoglobin 12.2 g/dl (12.0-16.0); iSTAT Potassium 4.3 mmol/L (3.3-5.0); iSTAT Site R Radial; iSTAT Sodium 133 mmol/L (135-144)
--- NOTE | 2019-12-17 20:46 | Hospitalist Progress Note ---
Date of Service December 17, 2019 Assessment & Plan (1) Sepsis: present on arrival due to multifocal pneumonia, presented with leukocytosis, fever, tachycardia bilateral infiltrates on CXR and CT chest continue Zosyn and Zithromax, Vanco was stopped due to MRSA swab negativity blood cultures - no growth at 48 hours urine culture - no growth bronchial lavage - no growth on funal, AFB, microbial but too early to tell, follow up final results add Voriconazole IV to cover for possible fungal infection given immunocompromised status with alcohol abuse, malnourished, on Plaquenil now with some circulatory shock after being intubated and sedated Levophed trip, titrate for MAP > 65 (2) Multifocal pneumonia: multifocal pneumonia, likely aspiration pneumonia in setting of heavy alcohol abuse, malnutrition COVID negative Pro-Lorenzo elevated at 19.35 on admission, trending down continue Zosyn IV, azithromycin IV, add Voriconazole on 12/16 to cover for possible fungal infection CT chest with multifocal pneumonia, enlarged mediastinal lymph node bronchoscopy on 12/[address] Prasad bronchial lavage sent for cultures EBUS performed, biopsy results pending transferred to ICU shortly after bronchoscopy due to worsening hypoxia now intubated and sedated (3) Acute respiratory failure with hypoxia: increased work of breathing, accessory muscle use, requiring 15L Oxymask to keep saturations > 90% due to multifocal pneumonia, may have aspirated after bronchoscopy complicated by suspected alcohol withdrawal transferred to ICU, placed on HFNC, saturations in the low 90's placed on CPAP overnight on 12/15 and into the morning on 12/16 still tachypneic intubated on 12/[address] Prasad ventilator management per Dr. Prasad (4) Alcohol withdrawal: unsure how much patient drinks as she drinks a lot after goes to bed may be as much as a fifth a night AWSS scale with Ativan Precedex drip ordered defer to log handler management now intubated for airway protection on Propofol (5) Emphysema of lung: seen on CT, this is a new diagnosis she is a heavy smoker will need outpatient follow up (6) Hyperglycemia: sugars in the 300's, she did get a dose of decadron this morning place on insulin drip in the ICU check HbA1c as she does not have a history of diabetes (7) Sjogrens syndrome: Continue hydroxychloroquine (8) Non-STEMI (non-ST elevated myocardial infarction): preserved EF on echo, troponin falling cardiology consult appreciated, likely demand ischemia in setting of tachycardia, sepsis no plans for further work up at this time (9) Hypomagnesemia: Given magnesium sulfate IV (10) Hypokalemia: stop IV fluids replaced K with K phos and K chloride IV today (11) Tobacco abuse: (12) Ventricular trigeminy: likely due to alcohol withdrawal, severe distress with multifocal pneumonia keep electrolytes normal resolved after metoprolol continue tele monitor (13) Pulmonary edema: likely due to aggressive fluid resuscitation at admission and then with bronchial lavage responded well to Lasix 40mg IV continue to follow closely Admission and Anticipated Discharge Date Admission Date: December 15, 2019 Subjective patient tachypneic on CPAP this morning, sedated on Precedex and Ativan reviewed labs, WBC 11k, Hb 11.7, plts 173, Cr 0.44, HCO2 20 BNP very elevated at 10k discussed with Dr. Prasad, decided to intubate patient this afternoon as she was still tachypneic, tiring out shortly after intubation she became hypotensive, placed on Levophed and pressures up to 90's systolic I updated patient's at the bedside discussed that she will be in the ICU for several days, will re-evaluate her breathing every day but I would anticipate being intubated a few days she received Lasix this afternoon, making a lot of urine afterwards some trigeminy overnight and this morning, resolved after a dose of metoprolol and Potassium phosphate this morning Review of Systems Review of Systems: Unobtainable due to cognitive status (obtunded) and Unobtainable due to endotracheal tube Physical Exam Constitutional: well developed, + acute distress, + ill appearing, + frail appearing and + mechanically ventilated Eyes: PERRL, conjunctivae normal, anicteric sclerae ENMT: external ear and nose normal, oropharynx normal Neck: trachea midline, no thyromegaly Respiratory: + respiratory distress, + labored breathing, + uses accessory muscles and + cough Auscultation: + crackles and + rhonchi; no rales and no wheezes Cardiovascular: Rate/Rhythm: regular rhythm and + tachycardic Heart Sounds: normal S1 and normal S2; no murmur Vessels: no JVD Extremities: normal capillary refill; no edema Gastrointestinal (Abdomen): normal bowel sounds, soft, nontender, no hepatosplenomegaly Musculoskeletal: no cyanosis or clubbing, extremities motor strength 5/5 Skin: no rashes, warm and dry Neurologic: normal touch/pain/proprioception, CN's II-XI intact bilaterally and + obtunded; no focal motor deficits Motor/Sensory: + tremor (facial muscles, arms bilaterally) Psychiatric: Orientation: + not alert Lymphatic: no cervical or axillary lymphadenopathy Results & Data Results & Data ([facility]) Vital Signs (Past 12 Hours) Vital Signs Temp Pulse Resp BP Pulse Ox 12/17/19 19:46 93 H 30 H 94 12/17/19 19:06 93 H 98/60 L 93 12/17/19 18:51 94 H 106/63 94 12/17/19 18:36 94 H 107/64 94 12/17/19 18:21 96 H 101/64 94 12/17/19 18:06 94 H 110/65 95 12/17/19 17:51 93 H 102/63 94 12/17/19 17:36 94 H 101/63 94 12/17/19 17:27 94 H 34 H 95 12/17/19 17:21 92 H 108/55 L 91 12/17/19 17:06 94 H 109/70 97 12/17/19 16:51 93 H 103/64 97 12/17/19 16:36 93 H 99/66 L 97 12/17/19 16:21 94 H 93/62 L 96 12/17/19 16:06 92 H 106/65 94 12/17/19 15:50 102 H 76/43 L 91 12/17/19 15:44 103 H 74/52 L 91 12/17/19 15:40 100 H 75/47 L 90 12/17/19 15:35 99 H 86/51 L 90 12/17/19 15:25 103 H 95/48 L 93 12/17/19 15:15 96 H 22 95/70 L 92 12/17/19 15:10 96 H 23 99 12/17/19 15:07 95 H 24 96/63 L 98 12/17/19 15:01 98 H 18 88/58 L 98 12/17/19 14:59 96 H 18 90/56 L 98 12/17/19 14:55 93 H 23 103/65 99 12/17/19 14:52 102 H 15 121/78 98 12/17/19 14:49 110 H 29 H 112/73 92 12/17/19 14:20 104 H 35 H 92 12/17/19 14:07 94 H 44 H 115/67 92 12/17/19 13:07 104 H 38 H 110/71 93 12/17/19 12:07 112 H 41 H 116/75 92 12/17/19 12:00 36.4 C L 12/17/19 11:07 115 H 38 H 111/71 93 12/17/19 10:52 106 H 12/17/19 10:07 118 H 43 H 117/75 93 12/17/19 10:06 117 H 40 H 93 12/17/19 09:07 107 H 43 H 104/71 93 12/17/19 08:53 128 H 120/75 12/17/19 08:38 37.5 C Laboratory Results Laboratory Results - last 24 hr 12/16/19 12/16/19 12/17/19 22:03 22:59 00:02 WBC RBC Hgb POC Hgb Hct POC Hct MCV MCH MCHC RDW Std Deviation RDW Coeff of Oz Plt Count MPV Immature Gran % (Auto) Neut % (Auto) Lymph % (Auto) [place] % (Auto) Eos % (Auto) Baso % (Auto) Neut # (Auto) Lymph # (Auto) [place] # (Auto) Eos # (Auto) Baso # (Auto) Immature Gran # (Auto) PT INR APTT PTT Ratio Sample Site POC pH POC pCO2 POC pO2 POC HCO3 POC Total CO2 POC Base Excess ABG pH (Temp Correct) ABG pCO2 (Temp Corrct POC ABG pO2 at Pt Temp POC ABG O2 Sat Philipp Test O2 Delivery Device POC O2 Rate Minute Ventilation POC FiO2 Tidal Volume PEEP POC Sodium Sodium POC Potassium Potassium Chloride Carbon Dioxide Anion Gap BUN Creatinine Est Cr Clr Drug Dosing Est GFR ( Amer) Est GFR (Non-Af Amer) BUN/Creatinine Ratio Glucose POC Glucose 126 H 135 H 129 H POC Glucose (other) Estimat Average Glucose Hemoglobin A1c Lactate Calcium Phosphorus Magnesium Ferritin Total Bilirubin AST ALT Alkaline Phosphatase Total Creatine Kinase NT-Pro-B Natriuret Pep Total Protein Albumin Globulin Albumin/Globulin Ratio Lipase Procalcitonin Urine Legionella Ag Beta-(1,3)-D-Glucan B-(1,3)-D-Glucan Intrp 12/17/19 12/17/19 12/17/19 01:59 03:00 04:08 WBC 11.97 H RBC 3.65 L Hgb 11.7 L POC Hgb Hct 33.7 L POC Hct MCV 92.3 MCH 32.1 MCHC 34.7 RDW Std Deviation 48.5 H RDW Coeff of Oz 14.3 Plt Count 173 MPV 10.7 H Immature Gran % (Auto) 1.3 Neut % (Auto) 93.4 Lymph % (Auto) 2.5 [place] % (Auto) 2.7 Eos % (Auto) 0.0 Baso % (Auto) 0.1 Neut # (Auto) 11.18 H Lymph # (Auto) 0.30 L [place] # (Auto) 0.32 Eos # (Auto) 0.00 Baso # (Auto) 0.01 Immature Gran # (Auto) 0.16 H PT INR APTT PTT Ratio Sample Site POC pH POC pCO2 POC pO2 POC HCO3 POC Total CO2 POC Base Excess ABG pH (Temp Correct) ABG pCO2 (Temp Corrct POC ABG pO2 at Pt Temp POC ABG O2 Sat Philipp Test O2 Delivery Device POC O2 Rate Minute Ventilation POC FiO2 Tidal Volume PEEP POC Sodium Sodium POC Potassium Potassium Chloride Carbon Dioxide Anion Gap BUN Creatinine Est Cr Clr Drug Dosing Est GFR ( Amer) Est GFR (Non-Af Amer) BUN/Creatinine Ratio Glucose POC Glucose 99 99 POC Glucose (other) Estimat Average Glucose Hemoglobin A1c Lactate Calcium Phosphorus Magnesium Ferritin Total Bilirubin AST ALT Alkaline Phosphatase Total Creatine Kinase NT-Pro-B Natriuret Pep Total Protein Albumin Globulin Albumin/Globulin Ratio Lipase Procalcitonin Urine Legionella Ag Beta-(1,3)-D-Glucan B-(1,3)-D-Glucan Intrp 12/17/19 12/17/19 12/17/19 04:08 04:08 04:08 WBC RBC Hgb POC Hgb Hct POC Hct MCV MCH MCHC RDW Std Deviation RDW Coeff of Oz Plt Count MPV Immature Gran % (Auto) Neut % (Auto) Lymph % (Auto) [place] % (Auto) Eos % (Auto) Baso % (Auto) Neut # (Auto) Lymph # (Auto) [place] # (Auto) Eos # (Auto) Baso # (Auto) Immature Gran # (Auto) PT 10.1 INR 1.0 APTT 36.3 H PTT Ratio 1.3 Sample Site POC pH POC pCO2 POC pO2 POC HCO3 POC Total CO2 POC Base Excess ABG pH (Temp Correct) ABG pCO2 (Temp Corrct POC ABG pO2 at Pt Temp POC ABG O2 Sat Philipp Test O2 Delivery Device POC O2 Rate Minute Ventilation POC FiO2 Tidal Volume PEEP POC Sodium Sodium 137 POC Potassium Potassium 3.6 Chloride 109 H Carbon Dioxide 20 L Anion Gap 8.0 BUN 11 Creatinine 0.44 L Est Cr Clr Drug Dosing 104.0 Est GFR ( Amer) 119.4 Est GFR (Non-Af Amer) 103.0 BUN/Creatinine Ratio 24.5 H Glucose 99 POC Glucose POC Glucose (other) Estimat Average Glucose Hemoglobin A1c Lactate Calcium 7.7 L Phosphorus 2.0 L Magnesium 1.9 Ferritin Total Bilirubin 0.4 AST 35 ALT 18 Alkaline Phosphatase 50 Total Creatine Kinase NT-Pro-B Natriuret Pep Total Protein 5.6 L Albumin 1.5 L Globulin 4.1 H Albumin/Globulin Ratio 0.4 L Lipase Procalcitonin 9.77 H Urine Legionella Ag Beta-(1,3)-D-Glucan B-(1,3)-D-Glucan Intrp 12/17/19 12/17/19 12/17/19 04:08 04:08 04:08 WBC RBC Hgb POC Hgb Hct POC Hct MCV MCH MCHC RDW Std Deviation RDW Coeff of Oz Plt Count MPV Immature Gran % (Auto) Neut % (Auto) Lymph % (Auto) [place] % (Auto) Eos % (Auto) Baso % (Auto) Neut # (Auto) Lymph # (Auto) [place] # (Auto) Eos # (Auto) Baso # (Auto) Immature Gran # (Auto) PT INR APTT PTT Ratio Sample Site POC pH POC pCO2 POC pO2 POC HCO3 POC Total CO2 POC Base Excess ABG pH (Temp Correct) ABG pCO2 (Temp Corrct POC ABG pO2 at Pt Temp POC ABG O2 Sat Philipp Test O2 Delivery Device POC O2 Rate Minute Ventilation POC FiO2 Tidal Volume PEEP POC Sodium Sodium POC Potassium Potassium Chloride Carbon Dioxide Anion Gap BUN Creatinine Est Cr Clr Drug Dosing Est GFR ( Amer) Est GFR (Non-Af Amer) BUN/Creatinine Ratio Glucose POC Glucose POC Glucose (other) Estimat Average Glucose 117 Hemoglobin A1c 5.7 H Lactate Calcium Phosphorus Magnesium Ferritin 1773.4 H Total Bilirubin AST ALT Alkaline Phosphatase Total Creatine Kinase 104 NT-Pro-B Natriuret Pep 95745 H Total Protein Albumin Globulin Albumin/Globulin Ratio Lipase Procalcitonin Urine Legionella Ag Beta-(1,3)-D-Glucan B-(1,3)-D-Glucan Intrp 12/17/19 12/17/19 12/17/19 04:08 04:09 04:27 WBC RBC Hgb POC Hgb 10.9 L Hct POC Hct 32 L MCV MCH MCHC RDW Std Deviation RDW Coeff of Oz Plt Count MPV Immature Gran % (Auto) Neut % (Auto) Lymph % (Auto) [place] % (Auto) Eos % (Auto) Baso % (Auto) Neut # (Auto) Lymph # (Auto) [place] # (Auto) Eos # (Auto) Baso # (Auto) Immature Gran # (Auto) PT INR APTT PTT Ratio Sample Site R Radial POC pH 7.39 POC pCO2 32 L POC pO2 74 L POC HCO3 19 POC Total CO2 20 L POC Base Excess -6.0 ABG pH (Temp Correct) 7.382 ABG pCO2 (Temp Corrct 32 L POC ABG pO2 at Pt Temp 78 POC ABG O2 Sat 95.0 Philipp Test Pass O2 Delivery Device Other POC O2 Rate Minute Ventilation POC FiO2 50 Tidal Volume PEEP POC Sodium 134 L Sodium POC Potassium 3.6 Potassium Chloride Carbon Dioxide Anion Gap BUN Creatinine Est Cr Clr Drug Dosing Est GFR ( Amer) Est GFR (Non-Af Amer) BUN/Creatinine Ratio Glucose POC Glucose 100 H POC Glucose (other) Estimat Average Glucose Hemoglobin A1c Lactate Calcium Phosphorus Magnesium Ferritin Total Bilirubin AST ALT Alkaline Phosphatase Total Creatine Kinase NT-Pro-B Natriuret Pep Total Protein Albumin Globulin Albumin/Globulin Ratio Lipase Pending Procalcitonin Urine Legionella Ag Beta-(1,3)-D-Glucan B-(1,3)-D-Glucan Intrp 12/17/19 12/17/19 12/17/19 06:02 07:19 08:15 WBC RBC Hgb POC Hgb Hct POC Hct MCV MCH MCHC RDW Std Deviation RDW Coeff of Oz Plt Count MPV Immature Gran % (Auto) Neut % (Auto) Lymph % (Auto) [place] % (Auto) Eos % (Auto) Baso % (Auto) Neut # (Auto) Lymph # (Auto) [place] # (Auto) Eos # (Auto) Baso # (Auto) Immature Gran # (Auto) PT INR APTT PTT Ratio Sample Site POC pH POC pCO2 POC pO2 POC HCO3 POC Total CO2 POC Base Excess ABG pH (Temp Correct) ABG pCO2 (Temp Corrct POC ABG pO2 at Pt Temp POC ABG O2 Sat Philipp Test O2 Delivery Device POC O2 Rate Minute Ventilation POC FiO2 Tidal Volume PEEP POC Sodium Sodium POC Potassium Potassium Chloride Carbon Dioxide Anion Gap BUN Creatinine Est Cr Clr Drug Dosing Est GFR ( Amer) Est GFR (Non-Af Amer) BUN/Creatinine Ratio Glucose POC Glucose 90 99 99 POC Glucose (other) Estimat Average Glucose Hemoglobin A1c Lactate Calcium Phosphorus Magnesium Ferritin Total Bilirubin AST ALT Alkaline Phosphatase Total Creatine Kinase NT-Pro-B Natriuret Pep Total Protein Albumin Globulin Albumin/Globulin Ratio Lipase Procalcitonin Urine Legionella Ag Beta-(1,3)-D-Glucan B-(1,3)-D-Glucan Intrp 12/17/19 12/17/19 12/17/19 09:34 10:38 12:09 WBC RBC Hgb POC Hgb Hct POC Hct MCV MCH MCHC RDW Std Deviation RDW Coeff of Oz Plt Count MPV Immature Gran % (Auto) Neut % (Auto) Lymph % (Auto) [place] % (Auto) Eos % (Auto) Baso % (Auto) Neut # (Auto) Lymph # (Auto) [place] # (Auto) Eos # (Auto) Baso # (Auto) Immature Gran # (Auto) PT INR APTT PTT Ratio Sample Site POC pH POC pCO2 POC pO2 POC HCO3 POC Total CO2 POC Base Excess ABG pH (Temp Correct) ABG pCO2 (Temp Corrct POC ABG pO2 at Pt Temp POC ABG O2 Sat Philipp Test O2 Delivery Device POC O2 Rate Minute Ventilation POC FiO2 Tidal Volume PEEP POC Sodium Sodium POC Potassium Potassium Chloride Carbon Dioxide Anion Gap BUN Creatinine Est Cr Clr Drug Dosing Est GFR ( Amer) Est GFR (Non-Af Amer) BUN/Creatinine Ratio Glucose POC Glucose 113 H 119 H 111 H POC Glucose (other) Estimat Average Glucose Hemoglobin A1c Lactate Calcium Phosphorus Magnesium Ferritin Total Bilirubin AST ALT Alkaline Phosphatase Total Creatine Kinase NT-Pro-B Natriuret Pep Total Protein Albumin Globulin Albumin/Globulin Ratio Lipase Procalcitonin Urine Legionella Ag Beta-(1,3)-D-Glucan B-(1,3)-D-Glucan Intrp 12/17/19 12/17/19 12/17/19 12:23 13:04 13:08 WBC RBC Hgb POC Hgb Hct POC Hct MCV MCH MCHC RDW Std Deviation RDW Coeff of Oz Plt Count MPV Immature Gran % (Auto) Neut % (Auto) Lymph % (Auto) [place] % (Auto) Eos % (Auto) Baso % (Auto) Neut # (Auto) Lymph # (Auto) [place] # (Auto) Eos # (Auto) Baso # (Auto) Immature Gran # (Auto) PT INR APTT PTT Ratio Sample Site POC pH POC pCO2 POC pO2 POC HCO3 POC Total CO2 POC Base Excess ABG pH (Temp Correct) ABG pCO2 (Temp Corrct POC ABG pO2 at Pt Temp POC ABG O2 Sat Philipp Test O2 Delivery Device POC O2 Rate Minute Ventilation POC FiO2 Tidal Volume PEEP POC Sodium Sodium POC Potassium Potassium Chloride Carbon Dioxide Anion Gap BUN Creatinine Est Cr Clr Drug Dosing Est GFR ( Amer) Est GFR (Non-Af Amer) BUN/Creatinine Ratio Glucose POC Glucose 103 H POC Glucose (other) Estimat Average Glucose Hemoglobin A1c Lactate 0.9 Calcium Phosphorus Magnesium Ferritin Total Bilirubin AST ALT Alkaline Phosphatase Total Creatine Kinase NT-Pro-B Natriuret Pep Total Protein Albumin Globulin Albumin/Globulin Ratio Lipase Procalcitonin Urine Legionella Ag Beta-(1,3)-D-Glucan Pending B-(1,3)-D-Glucan Intrp Pending 12/17/19 12/17/19 12/17/19 14:24 16:07 17:50 WBC RBC Hgb POC Hgb 11.9 L 12.2 Hct POC Hct 35 L 36 L MCV MCH MCHC RDW Std Deviation RDW Coeff of Oz Plt Count MPV Immature Gran % (Auto) Neut % (Auto) Lymph % (Auto) [place] % (Auto) Eos % (Auto) Baso % (Auto) Neut # (Auto) Lymph # (Auto) [place] # (Auto) Eos # (Auto) Baso # (Auto) Immature Gran # (Auto) PT INR APTT PTT Ratio Sample Site R Radial R Radial POC pH 7.42 7.41 POC pCO2 35 33 L POC pO2 58 L 66 L POC HCO3 22 21 POC Total CO2 23 L 22 L POC Base Excess -2.0 -4.0 ABG pH (Temp Correct) 7.427 7.419 ABG pCO2 (Temp Corrct 34 L 32 L POC ABG pO2 at Pt Temp 56 63 POC ABG O2 Sat 91.0 93.0 Philipp Test Pass Pass O2 Delivery Device BIPAP Ventilator POC O2 Rate 22 Minute Ventilation 12.7 POC FiO2 40 50 Tidal Volume 350 PEEP 8 POC Sodium 134 L 133 L Sodium POC Potassium 3.8 4.3 Potassium Chloride Carbon Dioxide Anion Gap BUN Creatinine Est Cr Clr Drug Dosing Est GFR ( Amer) Est GFR (Non-Af Amer) BUN/Creatinine Ratio Glucose POC Glucose POC Glucose (other) Estimat Average Glucose Hemoglobin A1c Lactate Calcium Phosphorus Magnesium Ferritin Total Bilirubin AST ALT Alkaline Phosphatase Total Creatine Kinase NT-Pro-B Natriuret Pep Total Protein Albumin Globulin Albumin/Globulin Ratio Lipase Procalcitonin Urine Legionella Ag Pending Beta-(1,3)-D-Glucan B-(1,3)-D-Glucan Intrp 12/17/19 17:56 WBC RBC Hgb POC Hgb Hct POC Hct MCV MCH MCHC RDW Std Deviation RDW Coeff of Oz Plt Count MPV Immature Gran % (Auto) Neut % (Auto) Lymph % (Auto) [place] % (Auto) Eos % (Auto) Baso % (Auto) Neut # (Auto) Lymph # (Auto) [place] # (Auto) Eos # (Auto) Baso # (Auto) Immature Gran # (Auto) PT INR APTT PTT Ratio Sample Site POC pH POC pCO2 POC pO2 POC HCO3 POC Total CO2 POC Base Excess ABG pH (Temp Correct) ABG pCO2 (Temp Corrct POC ABG pO2 at Pt Temp POC ABG O2 Sat Philipp Test O2 Delivery Device POC O2 Rate Minute Ventilation POC FiO2 Tidal Volume PEEP POC Sodium Sodium POC Potassium Potassium Chloride Carbon Dioxide Anion Gap BUN Creatinine Est Cr Clr Drug Dosing Est GFR ( Amer) Est GFR (Non-Af Amer) BUN/Creatinine Ratio Glucose POC Glucose POC Glucose (other) 203 H Estimat Average Glucose Hemoglobin A1c Lactate Calcium Phosphorus Magnesium Ferritin Total Bilirubin AST ALT Alkaline Phosphatase Total Creatine Kinase NT-Pro-B Natriuret Pep Total Protein Albumin Globulin Albumin/Globulin Ratio Lipase Procalcitonin Urine Legionella Ag Beta-(1,3)-D-Glucan B-(1,3)-D-Glucan Intrp Diagnostic Findings XR chest 1V portable CLINICAL HISTORY: intubation tube position COMPARISON STUDY: 12/17/2019 FINDINGS: Placement of an endotracheal tube 5 cm above the natividad. Patchy parenchymal infiltrative change bilaterally is stable. There is a central catheter in the superior vena cava. No evidence of pneumothorax. IMPRESSION: 1. Interval placement of an endotracheal tube 5 cm above the natividad. 2. Study is otherwise unchanged. 3. Note is made of a nasogastric tube inferior to the diaphragm Medications Administered Current Inpatient Medications Acetaminophen (Tylenol) 650 mg PO Q4H PRN PRN Reason: Pain or Fever Stop: 01/14/20 08:27 Last Admin: 12/15/19 21:11 Dose: 650 mg Documented by: Al Hydrox/Mg Hydrox/Simethicone (Maalox) 15 ml PO Q4H PRN PRN Reason: Dyspepsia Stop: 01/14/20 08:27 Albuterol (Duoneb) 3 ml NEB BID PRN PRN Reason: Shortness Of Breath Or Wheezing Stop: 01/16/20 08:59 Dextrose (Dextrose 50%) 25 - 50 ml IV UD PRN; Protocol PRN Reason: Hypoglycemia Protocol Stop: 01/15/20 16:14 Last Admin: 12/16/19 18:46 Dose: 25 ml Documented by: Enoxaparin Sodium (Lovenox) 40 mg SQ QAM EVELYN Stop: 01/17/20 08:59 Fentanyl Citrate (Fentanyl Bolus From Bag) 50 mcg IV Q60M PRN PRN Reason: Pain or Agitation Stop: 12/31/19 14:32 Glucagon (Glucagen) 1 mg IM UD PRN; Protocol PRN Reason: Hypoglycemia Protocol Stop: 01/15/20 16:14 Glucose (Glucose 40%) 15 - 30 gm PO UD PRN; Protocol PRN Reason: Hypoglycemia Protocol Stop: 01/15/20 16:14 Glucose (Dex4 Glucose) 4 - 8 tabs PO UD PRN; Protocol PRN Reason: Hypoglycemia Protocol Stop: 01/15/20 16:14 Heparin Sodium (Beef Lung) (Heparin Sod 10 Unit/Ml Flush) 5 ml FLUSH PRN PRN PRN Reason: Flush Stop: 01/16/20 01:00 Azithromycin 500 mg/ Dextrose 255 mls @ 125 mls/hr IV DAILY@0900 [facility] Stop: 12/22/19 08:59 Last Infusion: 12/17/19 10:31 Dose: Infused Documented by: Piperacillin Sod/Tazobactam (Sod 3.375 gm/ Dextrose) 115 mls @ 28.75 mls/hr IV Q8H [facility]; Protocol Stop: 12/22/19 08:59 Last Infusion: 12/17/19 18:15 Dose: Infused Documented by: Folic Acid 1 mg/ Syringe 10 mls @ 5 mls/min IV QAM [facility] Stop: 01/15/20 14:14 Last Admin: 12/17/19 08:09 Dose: 5 mls/min Documented by: Thiamine HCl 100 mg/ Syringe 10 mls @ 2 mls/min IV QAM EVELYN Stop: 01/15/20 14:14 Last Admin: 12/17/19 08:09 Dose: 2 mls/min Documented by: Lorazepam (Ativan) 1 mg in 2 mls @ 2 mls/min IV UD PRN; Protocol PRN Reason: EtOH Withdrawl AWSS Score 6,7 Stop: 01/15/20 15:07 Lorazepam (Ativan) 2 mg in 4 mls @ 4 mls/min IV UD PRN; Protocol PRN Reason: EtOH Withdrawl AWSS Score 8,9 Stop: 01/15/20 15:07 Last Admin: 12/17/19 09:57 Dose: 4 mls/min Documented by: Lorazepam (Ativan) 3 mg in 6 mls @ 4 mls/min IV ONCE PRN; Protocol PRN Reason: EtOH Withdrawl AWSS Score >=10 Stop: 01/15/20 15:07 Famotidine 20 mg/ Syringe 5 mls @ 2.5 mls/min IV Q12 EVELYN Stop: 01/15/20 19:59 Last Admin: 12/17/19 08:10 Dose: 2.5 mls/min Documented by: Dexmedetomidine HCl 200 mcg/ (Sodium Chloride) 50 mls @ 0 mls/hr IV .Q0M EVELYN; Protocol Stop: 12/21/19 10:29 Last Titration: 12/17/19 17:53 Dose: Infused Documented by: Voriconazole 350 mg/ Sodium (Chloride) 100 mls @ 50 mls/hr IV Q12H [facility] Stop: 12/18/19 03:59 Last Infusion: 12/17/19 15:45 Dose: Infused Documented by: Voriconazole 250 mg/ Sodium (Chloride) 100 mls @ 50 mls/hr IV Q12H EVELYN; Protocol Stop: 12/24/19 23:59 Propofol (Diprivan) 1,000 mg in 100 mls @ 5.418 mls/hr IV .[id number] EVELYN; Protocol Stop: 12/20/19 14:44 Last Titration: 12/17/19 18:56 Dose: 15 mcg/kg/min, 5.4 mls/hr Documented by: Fentanyl Citrate (Fentanyl Drip) 1,250 mcg in 250 mls @ 5 mls/hr IV .Q50H PRN; Protocol PRN Reason: Pain Stop: 12/31/19 14:32 Last Titration: 12/17/19 18:56 Dose: 25 mcg/hr, 5 mls/hr Documented by: Norepinephrine Bitartrate 8 mg (/ Dextrose) 508 mls @ 11.468 mls/hr IV .Q24H EVELYN; Protocol Stop: 01/16/20 14:49 Last Titration: 12/17/19 18:56 Dose: 0.05 mcg/kg/min, 11.5 mls/hr Documented by: Insulin Aspart (Novolog Flexpen) 0 units SC ACHS EVELYN Stop: 01/16/20 16:29 Last Admin: 12/17/19 18:19 Dose: 2 units Documented by: Magnesium Hydroxide (Milk Of Magnesia) 30 ml PO Q12H PRN PRN Reason: Constipation Stop: 01/14/20 08:27 Miscellaneous (Carbohydrates For Hypoglycemia) 15 - 30 gm PO UD PRN PRN Reason: Hypoglycemia Treatment Stop: 01/15/20 16:14 Miscellaneous (Icu Electrolyte Replacement Protocol) 1 ea N/A UD PRN PRN Reason: for e-lyte repletion Stop: 12/24/19 14:31 Miscellaneous Information (Consult) 1 ea N/A UD PRN PRN Reason: Consult Stop: 01/14/20 08:27 Nutritional Formula (Peptamen Intense Vhp 1.0 Lorenzo) 1,000 ml OG DAILY EVELYN; Protocol Stop: 01/16/20 15:29 Last Admin: 12/17/19 16:04 Dose: 1,000 ml Documented by: Ondansetron HCl (Zofran) 4 mg IV Q6H PRN PRN Reason: Nausea Stop: 01/14/20 08:27 Propofol (Diprivan Bolus From Bag) 20 mg IV Q5M PRN PRN Reason: Sedation Stop: 12/20/19 14:31 PG Care Time/CCT Total # of Minutes Spent Total Time Spent with Patient: Total time spent is greater than 50% in coordination of care (as documented) at patient's floor/unit and/or counseling patient: Coding Level of Care Code 10671 Subseq Hosp Care Lvl 3 Diagnoses Sepsis A41.9; R65.20 Sepsis acute organ dysfunction status: with acute organ dysfunction Sepsis type: sepsis due to unspecified organism Severe sepsis acute organ dysfunction type: unspecified Severe sepsis shock status: without septic shock Multifocal pneumonia J18.9 Acute respiratory failure with hypoxia J96.01 Alcohol withdrawal F10.239 Emphysema of lung J43.9 Hyperglycemia R73.9 Sjogrens syndrome M35.00 Non-STEMI (non-ST elevated myocardial infarction) I21.4 Hypomagnesemia E83.42 Hypokalemia E87.6 Tobacco abuse Z72.0 Ventricular trigeminy I49.8 Pulmonary edema J81.1 (1) Sepsis Sepsis acute organ dysfunction status: with acute organ dysfunction Sepsis type: sepsis due to unspecified organism Severe sepsis acute organ dysfunction type: unspecified Severe sepsis shock status: without septic shock Qualified Code(s): A41.9 - Sepsis, unspecified organism; R65.20 - Severe sepsis without septic shock
[2019-12-18] MEDS ORDERED: FUROSEMIDE 20 MG in SYRINGE 0 ML IV ONE (00:01)
[2019-12-18] MEDS: VORICONAZOLE 350 MG in 0.9 % SODIUM CHLORIDE 65 ML IV SCH (03:06)
[2019-12-18 04:43] LABS: Basophils # (auto) 0.02 K/uL (0-0.2); Basophils % (auto) 0.1 %; Hematocrit (blood only) 34.4 % (37-47); Hemoglobin 12.1 g/dL (12.0-16.0); Immature Granulocytes # (auto) 0.17 K/uL (0.00-0.02); Immature Granulocytes % (auto) 0.8 %; Lymphocytes # (auto) 0.63 K/uL (1.2-3.4); Lymphocytes % (auto) 3.1 %; Mean Corpuscular Hemoglobin 32.7 pg (25-34); Mean Corpuscular Hgb Conc 35.2 g/dL (32-36); Mean Platelet Volume 11.1 fL (7.4-10.4); Monocytes % (auto) 1.5 %; Neutrophils % (auto) 94.5 %; Platelet Count 222 K/uL (130-400); RDW Coefficient of Variation 14.6 % (11.5-14.5); White Blood Count 20.32 K/uL (4.8-10.8)
[2019-12-18 05:08] LABS: Albumin Globulin Ratio 0.3 (0.9-2); Albumin Level 1.5 gm/dl (3.4-5.0); BUN Creatinine Ratio 28.1 (10-20); Bilirubin,Total 0.3 mg/dl (0.2-1); Calcium 7.8 mg/dl (8.5-10.1); Creatinine Clr Calc Pharmacy 88.5 ml/min; Est GFR (African American) 109.6; Est GFR (Non-African American) 94.6; Globulin 4.3 gm/dl (2.5-4.0); Phosphorus 2.7 mg/dl (2.5-4.9); Potassium 4.2 mmol/L (3.5-5.1); Total Protein 5.8 gm/dl (6.4-8.2)
[2019-12-18 06:02] LABS: iSTAT Allen Test Pass; iSTAT Arterial Blood Gas HCO3 23 meg/L (19-24); iSTAT Arterial Blood Gas pCO2 39 mmHg (35-46); iSTAT Arterial Blood Gas pH 7.38 (7.35-7.45); iSTAT Arterial Blood Gas pO2 60 mmHg (80-95); iSTAT Carbon Dioxide 24 mmol/L (24-31); iSTAT Site R Radial
[2019-12-18] MEDS: PIPERACILLIN/TAZOBACTAM 3.375 GM in DEXTROSE 5% 100 ML IV SCH ×3 (06:20→20:43)
[2019-12-18] MEDS: propofoL 1,000 MG/100 ML VIAL IV SCH ×2 (07:00→18:55)
--- NOTE | 2019-12-18 07:13 | XRay Report ---
XR chest 1V portable CLINICAL HISTORY: post diuresis COMPARISON STUDY: 12/27/2019 FINDINGS: Endotracheal tube 5 cm above the natividad. Prominent pulmonary vasculature bilaterally consid ered unchanged. Nasogastric tube within the stomach. IMPRESSION: 1. Endotracheal tube 5 cm above the natividad. 2. Nasogastric tube inferior to the diaphragm. 3. Unchanged bilateral parenchymal infiltrative change. ACT 112: Negative or not required by law. The above report was generated using voice recognition software. It may contain grammatical, syntax or spelling errors. Electronically signed by: González Haynes M.D. 12/18/2019 7:12 AM
[2019-12-18] MEDS: INSULIN ASPART 100 UNITS/ML 3 ML PEN SC SCH ×3 (08:06→18:08)
[2019-12-18] MEDS: AZITHROMYCIN 500 MG in DEXTROSE 5% 250 ML IV SCH (08:25)
[2019-12-18] MEDS: FAMOTIDINE 20 MG in SYRINGE 3 ML IV SCH ×2 (08:26→20:43)
[2019-12-18] MEDS: PEPTAMEN INTENSE VHP 1.0 CAL 1,000 ML BAG OG SCH (08:27)
[2019-12-18] MEDS: ASPIRIN 81 MG CHEW NG SCH (08:42)
[2019-12-18] MEDS: ENOXAPARIN INJ 40 MG/0.4 ML SYR SQ SCH (08:42)
[2019-12-18] MEDS: THIAMINE HCL 100 MG TAB PO SCH (08:43)
[2019-12-18] MEDS: FOLIC ACID 1 MG TAB PO SCH (08:43)
[2019-12-18] MEDS ORDERED: ASPIRIN 81 MG ECTAB PO SCH (09:00)
[2019-12-18] MEDS ORDERED: FUROSEMIDE 40 MG in SYRINGE 0 ML IV ONE (09:30)
--- NOTE | 2019-12-18 09:59 | Critical Care Progress Note ---
Date of Service December 18, 2019 Assessment & Plan (1) S/P admission to ICU (intensive care unit): The patient was discussed with the bedside RN. Assessment and Plan: -Acute hypoxemic respiratory failure secondary to multifocal pneumonia -Alcoholism with possible immunocompromise state -Sjogren's disease -Severe sepsis -Shock likely related to sedation Neurologic: Analgesics and sedation: Continue low-dose propofol and fentanyl. Increasing fentanyl given her increased respiratory drive. Ammonia levels checked 2 days ago which were normal. Delirium precautions Pulmonary: Continue lung protective ventilation strategy. Aim for saturations of 88 to 92%. PaO2 acceptable at 60 today. Not ready for spontaneous breathing trials today given pressor requirement and oxygen requirements. Head of the bed elevated to 30 degrees if intubated Cardiovascular: Low-dose Levophed to maintain mean arterial pressure greater than 65. Aspirin started given her NSTEMI upon hospital admission. She does have a dyskinetic left ventricle as noted on the initial echocardiogram on admission. No further significant arrhythmias noted. Holding beta-yaya at this time. Gastrointestinal: Tube feeds started yesterday. Currently at goal. Stress ulcer prophylaxis: Famotidine twice daily. Renal: I am giving her 40 mg of IV Lasix today she does continue to have presence of pulmonary edema. Infectious disease: Continue Zosyn, azithromycin and voriconazole. She does have nodular opacities that may be concerning for fungal infection. LFTs being monitored. Cultures from the bronchoscopy are still pending. Thus far all cultures have been negative. Beta glucan was sent yesterday, but may be falsely elevated due to her undergoing treatment with Zosyn. We will follow-up procalcitonin tomorrow. Her procalcitonin yesterday was downtrending but still very elevated 9.77. Hematologic: Mild anemia. Ferritin was elevated likely an acute phase reactant from infection. I am going to obtain a left upper extremity ultrasound to evaluate for DVT as her left upper extremity was swollen. Mild leukocytosis today likely secondary to steroids that were given the day prior. We will continue to trend. Endocrine: Insulin protocol. F/E/N: Holding fluids, electrolytes acceptable. Nutrition at goal. Lines and tubes: Right PICC line, peripheral IVs in place and Dong catheter. VTE prophylaxis: Lovenox CODE STATUS: Full Family at bedside: was not available at bedside today Disposition: Patient to remain in the ICU as she is critically ill. I have personally spent 44 minutes of critical care time in the direct management of this patient. This is a life/limb threatening event. This includes time spent evaluating patient, direct bedside care, chart review, placing orders, interpretation of diagnostic studies, discussion with consultants, patient, and family members, as well as other required patient management activities. This time is exclusive of all separately billable procedures, and teaching time and separate from and in addition to any other critical care service time. Thank you for allowing us to participate in the care of this patient. (2) Acute hypoxemic respiratory failure: (3) Pulmonary edema: (4) Ventricular trigeminy: (5) Hyperglycemia: (6) Alcohol withdrawal: (7) Sepsis: (8) Elevated troponin: (9) Emphysema of lung: (10) Multifocal pneumonia: (11) Sjogrens syndrome: (12) Non-STEMI (non-ST elevated myocardial infarction): Admission and Anticipated Discharge Date Admission Date: December 15, 2019 Subjective Patient seen and examined this morning. She is on 15 of propofol 25 mcg of fentanyl. She is very tachypneic on the ventilator. Tidal volume is set at 350 and a PEEP of 8 cm H2O. FiO2 50%. Saturations of approximately 91 to 92% on these settings. She is not responsive to commands at present. She does open eyes spontaneously. Mild facial grimacing when applying pressure to her abdomen. Patient discussed with bedside RN. No significant arrhythmias overnight. Afebrile. Urine output has been marginal. She did receive 20 mg of IV Lasix overnight. Review of Systems Review of Systems: Unobtainable due to cognitive status and Unobtainable due to endotracheal tube Physical Exam Constitutional: Patient is intubated and sedated. She is very tachypneic. Eyes: PERRL, conjunctivae normal, anicteric sclerae ENMT: Endotracheal tube is in place. Neck: normal visual inspection Respiratory: Coarse breath sounds bilaterally on the ventilator. Tachypneic. Cardiovascular: Regular rate and rhythm. No significant edema in the lower extremities. Gastrointestinal (Abdomen): normal bowel sounds, soft, nontender, no hepatosplenomegaly Inspection/Auscultation: abdomen normal to inspection; abdomen not distended and no abdominal edema Mild grimacing upon deep palpation. Musculoskeletal: Extremities: + muscle hypertrophy Swollen left upper extremity Skin: no rashes, warm and dry Neurologic: PERRL, EOMI, accommodation nl, no face palsy, no dysarthria Psychiatric: Unable to adequately assess to the patient being mechanically ventilated and sedated. Results & Data Results & Data ([facility]) Vital Signs (Past 12 Hours) Vital Signs Temp Pulse Resp BP Pulse Ox Pulse Ox 12/18/19 06:00 98.2 F 86 95 12/18/19 05:52 86 115/67 94 12/18/19 05:39 89 29 H 92 12/18/19 05:37 88 118/63 95 12/18/19 05:22 87 114/67 94 12/18/19 05:07 86 130/72 94 12/18/19 05:00 87 92 12/18/19 04:52 88 106/66 91 12/18/19 04:07 87 125/73 93 12/18/19 04:00 87 93 12/18/19 03:56 93 12/18/19 03:52 88 123/71 93 12/18/19 03:37 86 116/71 95 12/18/19 03:22 85 123/74 95 12/18/19 03:07 87 121/70 95 12/18/19 03:00 87 94 12/18/19 02:52 86 127/71 94 12/18/19 02:37 84 119/74 95 12/18/19 02:22 85 122/72 95 12/18/19 02:07 85 124/74 95 12/18/19 02:00 85 95 12/18/19 01:52 86 121/71 95 12/18/19 01:44 97 H 26 H 95 12/18/19 01:37 88 120/69 95 12/18/19 01:22 86 122/73 95 12/18/19 01:07 88 122/74 94 12/18/19 01:00 87 95 12/18/19 00:00 87 95 12/17/19 23:51 87 118/72 95 12/17/19 23:36 88 119/71 94 12/17/19 23:21 87 113/71 95 12/17/19 23:06 89 112/74 95 12/17/19 23:00 90 95 12/17/19 22:51 88 120/71 95 12/17/19 22:42 90 29 H 95 08/08/20 22:36 91 H 120/72 95 12/17/19 22:21 90 115/69 95 12/17/19 22:06 90 115/69 94 12/17/19 22:00 89 95 12/17/19 21:51 90 114/70 95 I reviewed vital signs, labs and chest imaging. Coding Level of Care Code Critical Care 1st 30-74 mins Diagnoses S/P admission to ICU (intensive care unit) Acute hypoxemic respiratory failure J96.01 Pulmonary edema J81.1 Ventricular trigeminy I49.8 Hyperglycemia R73.9 Alcohol withdrawal F10.239 Sepsis A41.9; R65.20 Sepsis acute organ dysfunction status: with acute organ dysfunction Sepsis type: sepsis due to unspecified organism Severe sepsis acute organ dysfunction type: unspecified Severe sepsis shock status: without septic shock Elevated troponin R79.89 Emphysema of lung J43.9 Multifocal pneumonia J18.9 Sjogrens syndrome M35.00 Non-STEMI (non-ST elevated myocardial infarction) I21.4 Time Spent (min) 44 (1) Sepsis Sepsis acute organ dysfunction status: with acute organ dysfunction Sepsis type: sepsis due to unspecified organism Severe sepsis acute organ dysfunction type: unspecified Severe sepsis shock status: without septic shock Qualified Code(s): A41.9 - Sepsis, unspecified organism; R65.20 - Severe sepsis without septic shock
--- NOTE | 2019-12-18 11:07 | Electrocardiogram Report ---
Test Reason : Blood Pressure : / mmHG Vent. Rate : 091 BPM Atrial Rate : 091 BPM P-R Int : 184 ms QRS Dur : 098 ms QT Int : 376 ms P-R-T Axes : 072 024 095 degrees QTc Int : 462 ms Normal sinus rhythm Possible Left atrial enlargement ST and T wave changes concerning for ischemia Abnormal ECG When compared with ECG of 17-DEC-2019 08:26, T wave inversion more evident in Anterior leads Confirmed by Silvano Nguyen ([id number]) on 12/18/2019 11:06:57 AM Referred By: REFERRED SELF Confirmed By:Puneet Nguyen
[2019-12-18] MEDS: VORICONAZOLE IV SCH (13:42)
[2019-12-18] MEDS: SODIUM CHLORIDE 0.9% IV SCH (13:42)
[2019-12-18] MEDS: POTASSIUM CHLORIDE / WTR 20 MEQ/100 ML PLCT IV SCH ×2 (16:05→18:07)
--- NOTE | 2019-12-18 16:23 | Electrocardiogram Report ---
Test Reason : Blood Pressure : / mmHG Vent. Rate : 077 BPM Atrial Rate : 077 BPM P-R Int : 184 ms QRS Dur : 100 ms QT Int : 424 ms P-R-T Axes : 073 051 110 degrees QTc Int : 479 ms Sinus rhythm with frequent Premature ventricular complexes T wave abnormality, consider anterior ischemia Abnormal ECG When compared with ECG of 18-DEC-2019 09:49, Premature ventricular complexes are now Present Confirmed by Silvano Nguyen ([id number]) on 12/18/2019 4:22:50 PM Referred By: REFERRED SELF Confirmed By:Puneet Nguyen
[2019-12-18 16:30] LABS: BUN Creatinine Ratio 30.2 (10-20); Calcium 8.4 mg/dl (8.5-10.1); Creatinine Clr Calc Pharmacy 77.1 ml/min; Est GFR (African American) 104.5; Est GFR (Non-African American) 90.1; Magnesium 1.8 mg/dl (1.8-2.4); Potassium 3.6 mmol/L (3.5-5.1)
[2019-12-18] MEDS: NOREPINEPHRINE BIT INJ 8 MG in DEXTROSE 5% 500 ML IV SCH (17:09)
[2019-12-18] MEDS ORDERED: MAGNESIUM SULFATE / D5W 1 GM/100 ML BAG IV SCH (18:30)
[2019-12-18] MEDS: fentaNYL DRIP 1,250 MCG/250 ML BAG IV PRN (18:47)
--- NOTE | 2019-12-18 19:53 | Ultrasound Report ---
LEFT UPPER EXTREMITY VENOUS DOPPLER HISTORY: Swelling left upper extremity COMPARISON STUDY: None. FINDINGS: The left internal jugular vein is patent. There is normal flow within the left subclavian v ein. There is normal flow and compressibility within the left axillary, basilic, brachial, radial, ul chay, and visualized cephalic veins. IMPRESSION: No DVT within the left upper extremity. ACT 112: Negative or not required by law. Electronically signed by: Zackary Schmitz M.D. 12/18/2019 7:52 PM
--- NOTE | 2019-12-18 21:43 | Hospitalist Progress Note ---
Date of Service December 18, 2019 Assessment & Plan (1) Sepsis: present on arrival due to multifocal pneumonia, presented with leukocytosis, fever, tachycardia bilateral infiltrates on CXR and CT chest continue Zosyn and Zithromax, Vanco was stopped due to MRSA swab negativity blood cultures - no growth at over 48 hours urine culture - no growth, < 1000 colonies bronchial lavage - no growth on fungal, AFB, microbial but too early to tell, follow up final results added Voriconazole IV to cover for possible fungal infection given immunocompromised status with alcohol abuse, malnourished, on Plaquenil this was done on 12/16, continue now with some circulatory shock after being intubated and sedated low dose Levophed trip, titrate for MAP > 65 (2) Multifocal pneumonia: multifocal pneumonia, likely aspiration pneumonia in setting of heavy alc ohol abuse, malnutrition also, patient vapes nicotine daily, possible Vaping associated lung injury COVID negative Pro-Lorenzo elevated at 19.35 on admission, trending down to 9.7 continue Zosyn IV, azithromycin IV, Voriconazole to cover for possible fungal infection CT chest with multifocal pneumonia, enlarged mediastinal lymph node bronchoscopy on 12/[address] Prasad bronchial lavage sent for cultures EBUS performed, biopsy results pending transferred to ICU shortly after bronchoscopy due to worsening hypoxia now intubated and sedated (3) Acute respiratory failure with hypoxia: increased work of breathing, accessory muscle use, requiring 15L Oxymask to keep saturations > 90% due to multifocal pneumonia, may have aspirated after bronchoscopy complicated by suspected alcohol withdrawal transferred to ICU, placed on HFNC, saturations in the low 90's placed on CPAP overnight on 12/15 and into the morning on 12/16 intubated on 12/[address] Prasad ventilator management per Dr. Prasad OGT in place, tube feeds for GI prophylaxis (4) Alcohol withdrawal: unsure how much patient drinks as she drinks a lot after goes to bed may be as much as a fifth a night AWSS scale Precedex drip ordered initially, now on Propofol and Fentanyl PRN defer to gage maker management (5) Emphysema of lung: seen on CT, this is a new diagnosis she is a heavy smoker will need outpatient follow up (6) Hyperglycemia: sugars in the 300's, she did get a dose of decadron on 12/[address] on insulin drip in the ICU check HbA1c as she does not have a history of diabetes (7) Sjogrens syndrome: Continue hydroxychloroquine (8) Non-STEMI (non-ST elevated myocardial infarction): preserved EF on echo, troponin falling cardiology consult appreciated, likely demand ischemia in setting of tachycardia, sepsis no plans for further work up at this time add aspirin 81mg daily (9) Hypomagnesemia: Given magnesium sulfate IV (10) Hypokalemia: stop IV fluids monitor closely with repeat doses of Lasix to treat pulmonary edema K is 3.6 this afternoon, gave KCl 40 mEq (11) Tobacco abuse: (12) Ventricular trigeminy: likely due to alcohol withdrawal, severe distress with multifocal pneumonia keep electrolytes normal resolved after metoprolol continue tele monitor K 3.6 and Mg 1.8 repeat in the AM (13) Pulmonary edema: likely due to aggressive fluid resuscitation at admission and then with bronchial lavage responded well to Lasix 40mg IV continue to follow closely, give Lasix daily as needed Admission and Anticipated Discharge Date Admission Date: December 15, 2019 Subjective patient stable on ventilator labs reviewed, WBC 20k, Hb 12.1, plts 222k BMP with Cr of 0.66, K was 3.6 on repeat, Mg 1.8 with some PVC on monitor blood cultures no growth 48 hours, urine culture < 1000 colonies, no growth on bronchial lavage discussed with Dr. Prasad, will give further Lasix IV he found out that the patient vapes every day, raising possibility of vaping lung injury Review of Systems Review of Systems: Unobtainable due to endotracheal tube Physical Exam Constitutional: well developed, + ill appearing, + frail appearing and + mechanically ventilated Eyes: PERRL, conjunctivae normal, anicteric sclerae ENMT: external ear and nose normal, oropharynx normal Neck: trachea midline, no thyromegaly Respiratory: symmetric chest movement Auscultation: + crackles; no rales and no wheezes Cardiovascular: Rate/Rhythm: regular rhythm and + tachycardic Heart Sounds: normal S1 and normal S2; no murmur Vessels: no JVD Extremities: normal capillary refill; no edema Gastrointestinal (Abdomen): normal bowel sounds, soft, nontender, no hepatosplenomegaly Musculoskeletal: no cyanosis or clubbing, extremities motor strength 5/5 Skin: no rashes, warm and dry Neurologic: normal touch/pain/proprioception, CN's II-XI intact bilaterally and + obtunded; no focal motor deficits Psychiatric: Orientation: + not alert Lymphatic: no cervical or axillary lymphadenopathy Results & Data Results & Data ([facility]) Vital Signs (Past 12 Hours) Vital Signs Temp Pulse Resp BP Pulse Ox 12/18/19 20:10 79 22 94 12/18/19 17:35 80 117/68 94 12/18/19 17:10 84 21 93 12/18/19 16:35 83 102/64 93 12/18/19 15:35 80 107/63 92 12/18/19 14:35 81 109/62 91 12/18/19 14:20 88 22 93 12/18/19 14:11 82 113/64 93 12/18/19 13:35 82 100/56 L 92 12/18/19 12:35 80 99/60 L 93 12/18/19 11:54 81 24 94 12/18/19 11:35 83 100/61 94 12/18/19 10:35 90 112/67 94 12/18/19 09:54 36.9 C Laboratory Results Laboratory Results - last 24 hr 12/16/19 12/17/19 12/17/19 11:52 23:44 23:51 WBC RBC Hgb Hct MCV MCH MCHC RDW Std Deviation RDW Coeff of Oz Plt Count MPV Immature Gran % (Auto) Neut % (Auto) Lymph % (Auto) Parmer % (Auto) Eos % (Auto) Baso % (Auto) Neut # (Auto) Lymph # (Auto) Parmer # (Auto) Eos # (Auto) Baso # (Auto) Immature Gran # (Auto) Sample Site POC pH POC pCO2 POC pO2 POC HCO3 POC Total CO2 POC Base Excess POC ABG O2 Sat Philipp Test O2 Delivery Device POC O2 Rate Minute Ventilation Tidal Volume PEEP Sodium Potassium Chloride Carbon Dioxide Anion Gap BUN Creatinine Est Cr Clr Drug Dosing Est GFR ( Amer) Est GFR (Non-Af Amer) BUN/Creatinine Ratio Glucose POC Glucose (other) 163 H Calcium Phosphorus Magnesium Total Bilirubin AST ALT Alkaline Phosphatase Total Protein Albumin Globulin Albumin/Globulin Ratio Lipase 49 L BAL A.galactomannan Ag Pending BAL A.galactomann Index Pending 12/18/19 12/18/19 12/18/19 04:24 04:24 04:44 WBC 20.32 H RBC 3.70 L Hgb 12.1 Hct 34.4 L MCV 93.0 MCH 32.7 MCHC 35.2 RDW Std Deviation 50.0 H RDW Coeff of Oz 14.6 H Plt Count 222 MPV 11.1 H Immature Gran % (Auto) 0.8 Neut % (Auto) 94.5 Lymph % (Auto) 3.1 Parmer % (Auto) 1.5 Eos % (Auto) 0.0 Baso % (Auto) 0.1 Neut # (Auto) 19.20 H Lymph # (Auto) 0.63 L Parmer # (Auto) 0.30 Eos # (Auto) 0.00 Baso # (Auto) 0.02 Immature Gran # (Auto) 0.17 H Sample Site POC pH POC pCO2 POC pO2 POC HCO3 POC Total CO2 POC Base Excess POC ABG O2 Sat Philipp Test O2 Delivery Device POC O2 Rate Minute Ventilation Tidal Volume PEEP Sodium 136 Potassium 4.2 D Chloride 105 Carbon Dioxide 24 Anion Gap 7.0 BUN 16 Creatinine 0.57 L Est Cr Clr Drug Dosing 88.5 Est GFR ( Amer) 109.6 Est GFR (Non-Af Amer) 94.6 BUN/Creatinine Ratio 28.1 H Glucose 183 H POC Glucose (other) Calcium 7.8 L Phosphorus 2.7 Magnesium Total Bilirubin 0.3 AST 35 ALT 23 Alkaline Phosphatase 71 Total Protein 5.8 L Albumin 1.5 L Globulin 4.3 H Albumin/Globulin Ratio 0.3 L Lipase Cancelled BAL A.galactomannan Ag BAL A.galactomann Index 12/18/19 12/18/19 12/18/19 05:43 07:54 12:38 WBC RBC Hgb Hct MCV MCH MCHC RDW Std Deviation RDW Coeff of Oz Plt Count MPV Immature Gran % (Auto) Neut % (Auto) Lymph % (Auto) Parmer % (Auto) Eos % (Auto) Baso % (Auto) Neut # (Auto) Lymph # (Auto) Parmer # (Auto) Eos # (Auto) Baso # (Auto) Immature Gran # (Auto) Sample Site R Radial POC pH 7.38 POC pCO2 39 POC pO2 60 L POC HCO3 23 POC Total CO2 24 POC Base Excess -3.0 POC ABG O2 Sat 90.0 Philipp Test Pass O2 Delivery Device Ventilator POC O2 Rate 20 Minute Ventilation 7.0 Tidal Volume 350 PEEP 8 Sodium Potassium Chloride Carbon Dioxide Anion Gap BUN Creatinine Est Cr Clr Drug Dosing Est GFR ( Amer) Est GFR (Non-Af Amer) BUN/Creatinine Ratio Glucose POC Glucose (other) 166 H 159 H Calcium Phosphorus Magnesium Total Bilirubin AST ALT Alkaline Phosphatase Total Protein Albumin Globulin Albumin/Globulin Ratio Lipase BAL A.galactomannan Ag BAL A.galactomann Index 12/18/19 12/18/19 15:59 18:04 WBC RBC Hgb Hct MCV MCH MCHC RDW Std Deviation RDW Coeff of Oz Plt Count MPV Immature Gran % (Auto) Neut % (Auto) Lymph % (Auto) Parmer % (Auto) Eos % (Auto) Baso % (Auto) Neut # (Auto) Lymph # (Auto) Parmer # (Auto) Eos # (Auto) Baso # (Auto) Immature Gran # (Auto) Sample Site POC pH POC pCO2 POC pO2 POC HCO3 POC Total CO2 POC Base Excess POC ABG O2 Sat Philipp Test O2 Delivery Device POC O2 Rate Minute Ventilation Tidal Volume PEEP Sodium 136 Potassium 3.6 Chloride 102 Carbon Dioxide 27 Anion Gap 7.0 BUN 20 H Creatinine 0.66 Est Cr Clr Drug Dosing 77.1 Est GFR ( Amer) 104.5 Est GFR (Non-Af Amer) 90.1 BUN/Creatinine Ratio 30.2 H Glucose 161 H POC Glucose (other) 189 H Calcium 8.4 L Phosphorus Magnesium 1.8 Total Bilirubin AST ALT Alkaline Phosphatase Total Protein Albumin Globulin Albumin/Globulin Ratio Lipase BAL A.galactomannan Ag BAL A.galactomann Index Medications Administered Current Inpatient Medications Albuterol (Duoneb) 3 ml NEB BID PRN PRN Reason: Shortness Of Breath Or Wheezing Stop: 01/16/20 08:59 Aspirin (Aspirin Chew) 81 mg NG QAM [facility] Stop: 01/17/20 08:59 Last Admin: 12/18/19 08:42 Dose: 81 mg Documented by: Dextrose (Dextrose 50%) 25 - 50 ml IV UD PRN; Protocol PRN Reason: Hypoglycemia Protocol Stop: 01/15/20 16:14 Last Admin: 12/16/19 18:46 Dose: 25 ml Documented by: Enoxaparin Sodium (Lovenox) 40 mg SQ QAM [facility] Stop: 01/17/20 08:59 Last Admin: 12/18/19 08:42 Dose: 40 mg Documented by: Fentanyl Citrate (Fentanyl Bolus From Bag) 50 mcg IV Q60M PRN PRN Reason: Pain or Agitation Stop: 12/31/19 14:32 Folic Acid (Folvite) 1 mg PO QAM [facility] Stop: 01/17/20 08:59 Last Admin: 12/18/19 08:43 Dose: 1 mg Documented by: Glucagon (Glucagen) 1 mg IM UD PRN; Protocol PRN Reason: Hypoglycemia Protocol Stop: 01/15/20 16:14 Glucose (Glucose 40%) 15 - 30 gm PO UD PRN; Protocol PRN Reason: Hypoglycemia Protocol Stop: 01/15/20 16:14 Glucose (Dex4 Glucose) 4 - 8 tabs PO UD PRN; Protocol PRN Reason: Hypoglycemia Protocol Stop: 01/15/20 16:14 Heparin Sodium (Beef Lung) (Heparin Sod 10 Unit/Ml Flush) 5 ml FLUSH PRN PRN PRN Reason: Flush Stop: 01/16/20 01:00 Azithromycin 500 mg/ Dextrose 255 mls @ 125 mls/hr IV DAILY@0900 [facility] Stop: 12/22/19 08:59 Last Infusion: 12/18/19 10:31 Dose: Infused Documented by: Piperacillin Sod/Tazobactam (Sod 3.375 gm/ Dextrose) 115 mls @ 28.75 mls/hr IV Q8H [facility]; Protocol Stop: 12/22/19 08:59 Last Admin: 12/18/19 20:43 Dose: 28.8 mls/hr Documented by: Famotidine 20 mg/ Syringe 5 mls @ 2.5 mls/min IV Q12 [facility] Stop: 01/15/20 19:59 Last Admin: 12/18/19 20:43 Dose: 2.5 mls/min Documented by: Voriconazole 250 mg/ Sodium (Chloride) 100 mls @ 50 mls/hr IV Q12H [facility]; Protocol Stop: 12/24/19 23:59 Last Infusion: 12/18/19 16:02 Dose: Infused Documented by: Propofol (Diprivan) 1,000 mg in 100 mls @ 3.612 mls/hr IV .Q24H [facility]; Protocol Stop: 12/20/19 14:44 Last Titration: 12/18/19 20:08 Dose: 10 mcg/kg/min, 3.6 mls/hr Documented by: Fentanyl Citrate (Fentanyl Drip) 1,250 mcg in 250 mls @ 5 mls/hr IV .Q50H PRN; Protocol PRN Reason: Pain Stop: 12/31/19 14:32 Last Titration: 12/18/19 20:08 Dose: 25 mcg/hr, 5 mls/hr Documented by: Norepinephrine Bitartrate 8 mg (/ Dextrose) 508 mls @ 6.881 mls/hr IV .Q24H [facility]; Protocol Stop: 01/16/20 14:49 Last Titration: 12/18/19 18:48 Dose: 0.03 mcg/kg/min, 6.9 mls/hr Documented by: Insulin Aspart (Novolog Flexpen) 0 units SC Q6 [facility] Stop: 01/17/20 11:59 Last Admin: 12/18/19 18:08 Dose: 2 units Documented by: Miscellaneous (Carbohydrates For Hypoglycemia) 15 - 30 gm PO UD PRN PRN Reason: Hypoglycemia Treatment Stop: 01/15/20 16:14 Miscellaneous (Icu Electrolyte Replacement Protocol) 1 ea N/A UD PRN PRN Reason: for e-lyte repletion Stop: 12/24/19 14:31 Miscellaneous Information (Consult) 1 ea N/A UD PRN PRN Reason: Consult Stop: 01/14/20 08:27 Nutritional Formula (Peptamen Intense Vhp 1.0 Lorenzo) 1,000 ml OG DAILY [facility]; Protocol Stop: 01/16/20 15:29 Last Admin: 12/18/19 08:27 Dose: 1,000 ml Documented by: Propofol (Diprivan Bolus From Bag) 20 mg IV Q5M PRN PRN Reason: Sedation Stop: 12/20/19 14:31 Thiamine HCl (Vitamin B-1) 100 mg PO QAM [facility] Stop: 01/17/20 08:59 Last Admin: 12/18/19 08:43 Dose: 100 mg Documented by: PG Care Time/CCT Total # of Minutes Spent Total Time Spent with Patient: Total time spent is greater than 50% in coordination of care (as documented) at patient's floor/unit and/or counseling patient: Coding Level of Care Code 84727 Subseq Hosp Care Lvl 3 Diagnoses Sepsis A41.9; R65.20 Sepsis acute organ dysfunction status: with acute organ dysfunction Sepsis type: sepsis due to unspecified organism Severe sepsis acute organ dysfunction type: unspecified Severe sepsis shock status: without septic shock Multifocal pneumonia J18.9 Acute respiratory failure with hypoxia J96.01 Alcohol withdrawal F10.239 Emphysema of lung J43.9 Hyperglycemia R73.9 Sjogrens syndrome M35.00 Non-STEMI (non-ST elevated myocardial infarction) I21.4 Hypomagnesemia E83.42 Hypokalemia E87.6 Tobacco abuse Z72.0 Ventricular trigeminy I49.8 Pulmonary edema J81.1 (1) Sepsis Sepsis acute organ dysfunction status: with acute organ dysfunction Sepsis type: sepsis due to unspecified organism Severe sepsis acute organ dysfunction type: unspecified Severe sepsis shock status: without septic shock Qualified Code(s): A41.9 - Sepsis, unspecified organism; R65.20 - Severe sepsis without septic shock
[2019-12-19] MEDS: INSULIN ASPART 100 UNITS/ML 3 ML PEN SC SCH ×5 (00:08→23:49)
[2019-12-19] MEDS: PIPERACILLIN/TAZOBACTAM 3.375 GM in DEXTROSE 5% 100 ML IV SCH ×4 (02:03→21:02)
[2019-12-19] MEDS: VORICONAZOLE IV SCH ×2 (02:25→13:49)
[2019-12-19] MEDS: SODIUM CHLORIDE 0.9% IV SCH ×2 (02:25→13:49)
[2019-12-19 03:45] LABS: Basophils # (auto) 0.02 K/uL (0-0.2); Basophils % (auto) 0.1 %; Eosinophils # (auto) 0.01 K/uL (0-0.5); Eosinophils % (auto) 0.1 %; Hematocrit (blood only) 32.4 % (37-47); Hemoglobin 11.2 g/dL (12.0-16.0); Immature Granulocytes # (auto) 0.25 K/uL (0.00-0.02); Immature Granulocytes % (auto) 1.6 %; Lymphocytes # (auto) 0.48 K/uL (1.2-3.4); Mean Corpuscular Hemoglobin 32.2 pg (25-34); Mean Corpuscular Hgb Conc 34.6 g/dL (32-36); Mean Corpuscular Volume 93.1 fL (80-100); Mean Platelet Volume 10.9 fL (7.4-10.4); Monocytes # (auto) 0.59 K/uL (0.11-0.59); Monocytes % (auto) 3.7 %; Neutrophils # (auto) 14.64 K/uL (1.4-6.5); Neutrophils % (auto) 91.5 %; Platelet Count 251 K/uL (130-400); RDW Coefficient of Variation 14.6 % (11.5-14.5); RDW Standard Deviation 49.8 fL (36.4-46.3); Red Blood Count 3.48 M/uL (4.2-5.4); White Blood Count 15.99 K/uL (4.8-10.8)
[2019-12-19 04:03] LABS: BUN Creatinine Ratio 47.1 (10-20); Calcium 8.3 mg/dl (8.5-10.1); Creatinine Clr Calc Pharmacy 94.2 ml/min; Est GFR (African American) 111.6; Est GFR (Non-African American) 96.3; Magnesium 1.9 mg/dl (1.8-2.4)
[2019-12-19 05:25] LABS: iSTAT Allen Test Pass; iSTAT Arterial Blood Gas HCO3 25 meg/L (19-24); iSTAT Arterial Blood Gas pCO2 36 mmHg (35-46); iSTAT Arterial Blood Gas pH 7.46 (7.35-7.45); iSTAT Arterial Blood Gas pO2 62 mmHg (80-95); iSTAT Carbon Dioxide 26 mmol/L (24-31); iSTAT Site R Radial
[2019-12-19] MEDS: PEPTAMEN INTENSE VHP 1.0 CAL 1,000 ML BAG OG SCH ×2 (05:55→17:44)
[2019-12-19] MEDS: propofoL 1,000 MG/100 ML VIAL IV SCH ×3 (05:55→23:18)
--- NOTE | 2019-12-19 06:57 | Critical Care Progress Note ---
Date of Service December 19, 2019 Assessment & Plan Admission and Anticipated Discharge Date Admission Date: December 15, 2019 Results & Data Results & Data ([facility]) Vital Signs (Past 12 Hours) Vital Signs Temp Pulse Resp BP Pulse Ox 12/19/19 06:00 107 H 92 12/19/19 05:35 105 H 127/67 93 12/19/19 05:26 106 H 27 H 92 12/19/19 05:00 106 H 92 12/19/19 04:35 102 H 118/63 93 12/19/19 04:00 37 C 105 H 92 12/19/19 03:35 102 H 101/60 91 12/19/19 03:00 100 H 91 12/19/19 02:35 101 H 119/61 89 L 12/19/19 02:20 100 H 24 91 12/19/19 02:00 100 H 93 12/19/19 01:35 101 H 104/56 L 92 12/19/19 01:00 102 H 94 12/19/19 00:35 103 H 103/62 93 12/19/19 00:00 36.9 C 105 H 92 12/18/19 23:36 106 H 23 92 12/18/19 23:35 111 H 113/49 L 92 12/18/19 23:00 105 H 93 12/18/19 22:00 105 H 95 12/18/19 21:35 101 H 104/56 L 95 12/18/19 21:00 89 93 12/18/19 20:35 92 H 129/69 92 12/18/19 20:10 79 22 94 12/18/19 20:00 84 94 12/18/19 19:35 83 113/64 92 12/18/19 19:00 81 94
[2019-12-19] MEDS ORDERED: POTASSIUM PHOS 3 MMOL/1 ML INFUSION IV STA (07:41)
[2019-12-19] MEDS ORDERED: FUROSEMIDE 40 MG in SYRINGE 0 ML IV ONE ×2 (08:00→19:30)
--- NOTE | 2019-12-19 08:07 | XRay Report ---
XR chest 1V portable HISTORY: Shortness of breath. Follow-up. COMPARISON: Chest 12/18/2019. FINDINGS: The endotracheal tube terminates 3.3 cm from the natividad. Nasogastric tube terminus below th e diaphragm. The tip is not included on this study. Right PICC terminates at the distal SVC. The hear t remains mildly enlarged. No pneumothorax. Hazy right lung airspace opacities have slightly progress ed. Diffuse interstitial thickening is again noted. Suspect a trace right pleural effusion. IMPRESSION: 1. Satisfactory support line placement. 2. Interval progression of the right lung hazy airspace opacities. ACT 112: Negative or not required by law. Electronically signed by: Zackary Schmitz M.D. 12/19/2019 8:05 AM
--- NOTE | 2019-12-19 08:10 | Critical Care Progress Note ---
Date of Service December 19, 2019 Assessment & Plan (1) S/P admission to ICU (intensive care unit): 69-year-old female was admitted to the hospital because of multilobar pneumonia, she has history of Sjogren's, actively smoking, daily drinker, vaping. She has mediastinal lymphadenopathy and she underwent EBUS for it. Because of the worsening respiratory status she was intubated. Patient was signed out to me by Dr. Prasad. Assessment and Plan: -Acute hypoxemic respiratory failure secondary to multifocal pneumonia -Alcoholism with possible immunocompromise state -Sjogren's disease -Severe sepsis with shock Neurologic: Analgesics and sedation: Continue low-dose propofol and fentanyl. Increasing fentanyl given her increased respiratory drive. Ammonia levels checked 2 days ago which were normal. Delirium precautions Pulmonary: Continue lung protective ventilation strategy. Aim for saturations of 88 to 92%. Head of the bed elevated to 30 degrees if intubated Cardiovascular: Low-dose Levophed to maintain mean arterial pressure greater than 65. Continue with given her NSTEMI upon hospital admission. She does have a dyskinetic left ventricle as noted on the initial echocardiogram on admission. She has PVCs. Beta-blockers are on hold because of her low blood pressure and being on vasopressors. Gastrointestinal: Continue tube feeds. currently at goal. Stress ulcer prophylaxis: Famotidine twice daily. Renal: Electrolytes being replaced Infectious disease: Continue Zosyn, azithromycin and voriconazole. She does have nodular opacities that may be concerning for fungal infection. LFTs being monitored. Cultures from the bronchoscopy are still pending. Beta glucan was sent 12/17/2019, but may be falsely elevated due to her undergoing treatment with Zosyn. Procalcitonin is trending down Hematologic: Mild anemia. Ferritin was elevated likely an acute phase reactant from infection. Left upper extremity ultrasound negative for DVT Leukocytosis trending down Endocrine: Insulin protocol. F/E/N: Holding fluids, electrolytes acceptable. Nutrition at goal. Lines and tubes: Right PICC line, peripheral IVs in place and Dong catheter. VTE prophylaxis: Lovenox, Pepcid CODE STATUS: Full Plan: In/out: Positive 428, urine output 2230 Chest x-ray from today shows more haziness on the right lung likely representing pulmonary edema I will give a dose of Lasix 40 mg with strict in and out with him of having negative balance for the patient. The patient is still positive balance around 3 PM will give another dose of Lasix. Patient is approximately +8 L since the time of admission. Continue with antibiotics azithromycin, Zosyn and antifungal voriconazole. Eliceo Fulton has been added to the BAL which was done. Follow-up beta D glucan. LFTs has been added to the morning labs along with BNP Patient is still tachypneic on the vent I am not sure if alcohol withdrawal is playing a role. Tidal volume was increased from 350 to 450 early in the morning. I repeat an ABG today after the increase in tidal volume which is 7.47/35/64/on 50% FiO2 and PEEP of 8 I will go down on the tidal volume to 400. I will consider giving the patient Ativan Phosphorus and magnesium being replaced. Patient's QTC was 479. We will keep a close eye on her given that the patient is on voriconazole. Keep phosphorus greater than 3, magnesium greater than 2 and potassium greater than 4. Today will be last dose of azithromycin. Procalcitonin trending down. Today 3.46, it went down from 9.77. Steroids has been discontinued. We will keep the family updated after the morning rounds. I have personally spent 47 minutes of critical care time in the direct managem ent of this patient. This is a life/limb threatening event. This includes time spent evaluating pat ient, direct bedside care, chart review, placing orders, interpretation of diagnostic studies, discussion with consultants, patient, and family members, as well as other required patient management activities. This time is exclusive of all separately billable procedures, and teaching time and separate from and in addition to any other critical care service time. Please note the above document was generated using voice recognition software. It may contain grammatical, syntax or spelling errors. (2) Pulmonary edema: (3) Ventricular trigeminy: (4) Hyperglycemia: (5) Alcohol withdrawal: (6) Sepsis: (7) Elevated troponin: (8) Emphysema of lung: (9) Multifocal pneumonia: (10) Sjogrens syndrome: (11) Non-STEMI (non-ST elevated myocardial infarction): Admission and Anticipated Discharge Date Admission Date: December 15, 2019 Subjective Patient seen and examined at bedside. On propofol 20, fentanyl 25, Levophed 0.03 Breathing over the vent RASS: -2 Afebrile Review of Systems Review of Systems: Unobtainable due to endotracheal tube Physical Exam Physical Exam: Constitutional: No acute distress HEENT: PERRLA, positive ETT Respiratory system: Decreased air entry bilaterally, no wheeze, no rhonchi, positive crackles bilateral lower lobes more on the right side CVS: S1-S2 positive, no murmurs or gallops, tachycardia Abdomen: Soft, nontender, nondistended, positive bowel sounds x4 Extremities: +2 pulses bilaterally radialis/ dorsalis pedis, no cyanosis, no edema Neuro: Sedated, RASS -2, opens her eyes to command, positive corneal, positive gag, positive pupillary Psych: Unable to assess G/U: Positive Dong Skin: no rashes, warm and dry Lymphatic: no cervical or axillary lymphadenopathy Results & Data Results & Data ([facility]) Vital Signs (Past 12 Hours) Vital Signs Temp Pulse Resp BP Pulse Ox 12/19/19 07:24 108 H 27 H 93 12/19/19 06:00 107 H 92 12/19/19 05:35 105 H 127/67 93 12/19/19 05:26 106 H 27 H 92 12/19/19 05:00 106 H 92 12/19/19 04:35 102 H 118/63 93 12/19/19 04:00 37 C 105 H 92 12/19/19 03:35 102 H 101/60 91 12/19/19 03:00 100 H 91 12/19/19 02:35 101 H 119/61 89 L 12/19/19 02:20 100 H 24 91 12/19/19 02:00 100 H 93 12/19/19 01:35 101 H 104/56 L 92 12/19/19 01:00 102 H 94 12/19/19 00:35 103 H 103/62 93 12/19/19 00:00 36.9 C 105 H 92 12/18/19 23:36 106 H 23 92 12/18/19 23:35 111 H 113/49 L 92 12/18/19 23:00 105 H 93 12/18/19 22:00 105 H 95 12/18/19 21:35 101 H 104/56 L 95 12/18/19 21:00 89 93 12/18/19 20:35 92 H 129/69 92 08/09/20 20:10 79 22 94 12/19/19 03:29 12/19/19 03:29 Coding Level of Care Code Critical Care 1st 30-74 mins Diagnoses S/P admission to ICU (intensive care unit) Pulmonary edema J81.1 Ventricular trigeminy I49.8 Hyperglycemia R73.9 Alcohol withdrawal F10.239 Sepsis A41.9; R65.20 Sepsis acute organ dysfunction status: with acute organ dysfunction Sepsis type: sepsis due to unspecified organism Severe sepsis acute organ dysfunction type: unspecified Severe sepsis shock status: without septic shock Elevated troponin R79.89 Emphysema of lung J43.9 Multifocal pneumonia J18.9 Sjogrens syndrome M35.00 Non-STEMI (non-ST elevated myocardial infarction) I21.4 Time Spent (min) 47 (1) Sepsis Sepsis acute organ dysfunction status: with acute organ dysfunction Sepsis type: sepsis due to unspecified organism Severe sepsis acute organ dysfunction type: unspecified Severe sepsis shock status: without septic shock Qualified Code(s): A41.9 - Sepsis, unspecified organism; R65.20 - Severe sepsis without septic shock
[2019-12-19] MEDS: ASPIRIN 81 MG CHEW NG SCH (08:17)
[2019-12-19] MEDS: FOLIC ACID 1 MG TAB PO SCH (08:17)
[2019-12-19] MEDS: ENOXAPARIN INJ 40 MG/0.4 ML SYR SQ SCH (08:17)
[2019-12-19] MEDS: MAGNESIUM SULFATE / D5W 1 GM/100 ML BAG IV SCH ×2 (08:17→10:02)
[2019-12-19] MEDS: THIAMINE HCL 100 MG TAB PO SCH (08:17)
[2019-12-19] MEDS: FAMOTIDINE 20 MG in SYRINGE 3 ML IV SCH ×2 (08:18→21:15)
[2019-12-19 08:23] LABS: iSTAT Allen Test Pass; iSTAT Art Bld Gas pCO2 Correct 36 mmHg (35-46); iSTAT Art Bld Gas pH Corrected 7.468 (7.35-7.45); iSTAT Arterial Blood Gas HCO3 26 meg/L (19-24); iSTAT Arterial Blood Gas pCO2 35 mmHg (35-46); iSTAT Arterial Blood Gas pH 7.47 (7.35-7.45); iSTAT Arterial Blood Gas pO2 64 mmHg (80-95); iSTAT Arterial Blood Gas pO2 C 66; iSTAT Carbon Dioxide 27 mmol/L (24-31); iSTAT FiO2 50 %; iSTAT Hematocrit 33 % (37-47); iSTAT Hemoglobin 11.2 g/dl (12.0-16.0); iSTAT Potassium 3.9 mmol/L (3.3-5.0); iSTAT Site R Radial; iSTAT Sodium 136 mmol/L (135-144)
[2019-12-19] MEDS ORDERED: POTASSIUM PHOSPHATE 30 MMOL in SODIUM CHLORIDE 0.9% 500 ML IV ONE (08:30)
[2019-12-19 08:43] LABS: Alanine Aminotransferase 31 U/L (12-78); Albumin Level 1.4 gm/dl (3.4-5.0); Alkaline Phosphatase 80 U/L (45-117); Aspartate Aminotransferase 45 U/L (15-37); Bilirubin Direct < 0.1 mg/dl (0-0.2); Bilirubin,Total 0.2 mg/dl (0.2-1); NT Pro B Type Natriuretic Pept 4575 pg/ml (0-900); Total Protein 5.8 gm/dl (6.4-8.2)
[2019-12-19] MEDS ORDERED: AZITHROMYCIN 500 MG in DEXTROSE 5% 250 ML IV ONE (10:00)
[2019-12-19] MEDS: NOREPINEPHRINE BIT INJ 8 MG in DEXTROSE 5% 500 ML IV SCH (13:37)
[2019-12-19] MEDS: FENTANYL BOLUS FROM BAG IV PRN (13:49)
[2019-12-19] MEDS ORDERED: fentaNYL citrate 100 MCG/2 ML VIAL IV ONE (14:55)
[2019-12-19] MEDS ORDERED: SUCCINYLCHOLINE CHLORIDE 20 MG/ML 10 ML VIAL IV ONE (14:55)
[2019-12-19] MEDS ORDERED: ETOMIDATE 2 MG/ML 20 ML VIAL IV ONE (14:55)
[2019-12-19 15:47] LABS: BUN Creatinine Ratio 48.8 (10-20); Calcium 8.4 mg/dl (8.5-10.1); Creatinine Clr Calc Pharmacy 95.2 ml/min; Est GFR (African American) 110.9; Est GFR (Non-African American) 95.7; Magnesium 2.2 mg/dl (1.8-2.4)
[2019-12-19 15:52] LABS: Phosphorus 4.9 mg/dl (2.5-4.9)
[2019-12-19] MEDS ORDERED: STAT IV Infusion **Titration per Protocol STA (16:28)
[2019-12-19] MEDS ORDERED: Nursing to Pharmacy Communication SCH (17:45)
--- NOTE | 2019-12-19 19:18 | Hospitalist Progress Note ---
Date of Service December 19, 2019 Assessment & Plan (1) Sepsis: present on arrival due to multifocal pneumonia, presented with leukocytosis, fever, tachycardia Remains afebrile, leukocytosis improving, tachycardia persists and is likely also related to alcohol withdrawal With bilateral infiltrates on CXR and CT chest, worsening on chest x-ray 12/18, respiratory failure continue Zosyn and completed a course of Zithromax; Vanco was stopped due to MRSA swab negativity blood cultures - no growth from 12/14 urine culture - no growth, < 1000 colonies bronchial lavage - no growth on fungal, AFB, microbial -Continue voriconazole IV to cover for possible fungal infection given immunocompromised status with alcohol abuse, malnourished, on Plaquenil this was done on 12/16, continue now with some circulatory shock after being intubated and sedated -Continue low dose Levophed trip, titrate for MAP > 65 (2) Multifocal pneumonia: multifocal pneumonia, likely aspiration pneumonia in setting of heavy alcohol abuse, malnutrition also, patient vapes nicotine daily, possible Vaping associated lung injury COVID negative Pro-Lorenzo elevated at 19.35 on admission, trending down to 3 Antibiotics as outlined above CT chest with multifocal pneumonia, enlarged mediastinal lymph node which was biopsied on EBUS and negative for malignancy bronchoscopy on 12/[address] Prasad bronchial lavage sent for cultures-all no growth transferred to ICU shortly after bronchoscopy due to worsening hypoxia in the setting of alcohol withdrawal now remains intubated and sedated (3) Acute respiratory failure with hypoxia: increased work of breathing, accessory muscle use, requiring 15L Oxymask to keep saturations > 90% due to multifocal pneumonia, may have aspirated after bronchoscopy complicated by suspected alcohol withdrawal transferred to ICU, placed on HFNC, saturations in the low 90's placed on CPAP overnight on 12/15 and into the morning on 12/16 intubated on 12/[address] Prasad -Continue ventilator management as per spray machine loader OGT in place, tube feeds (4) Alcohol withdrawal: unsure how much patient drinks as she drinks a lot after goes to bed may be as much as a fifth a night AWSS scale Precedex drip ordered initially, now on Propofol and Fentanyl PRN defer to spray machine loader management -Continue thiamine, folate (5) Emphysema of lung: seen on CT, this is a new diagnosis she is a heavy smoker will need outpatient follow up and PFTs (6) Hyperglycemia: sugars in the 300's, she did get a dose of decadron on 12/15 in morning Glucose now much improved control Was on insulin drip and now weaned off -Continue Accu-Cheks, continue NovoLog sliding scale Hemoglobin A1c only 5.7% (7) Sjogrens syndrome: -Continue to hold home hydroxychloroquine during acute infection (8) Non-STEMI (non-ST elevated myocardial infarction): Secondary to myocardial demand ischemia in the setting of tachycardia from sepsis and alcohol withdrawal With preserved EF on echo, but with some wall motion abnormalities with moderate to severe hypokinesis involving the mid to distal anterior septal arana ECG with nonspecific T wave inversions cardiology consult appreciated, likely demand ischemia -Cardiology recommends outpatient perfusion imaging -Added aspirin 81mg daily (9) Tobacco abuse: Will eventually need counseling on smoking cessation (10) Ventricular trigeminy: likely due to alcohol withdrawal, severe distress with multifocal pneumonia keep electrolytes normal resolved after metoprolol but still with some occasional PVCs continue tele monitor Follow BMP (11) Pulmonary edema: likely due to aggressive fluid resuscitation at admission and then with bronchial lavage responded well to Lasix 40mg IV continue to follow closely, give Lasix daily as needed-defer to spray machine loader (12) DVT prophylaxis: Lovenox SQ Dispo-continued stay in ICU Admission and Anticipated Discharge Date Admission Date: December 15, 2019 Subjective Patient remains intubated and sedated. Discussed the case with the spray machine loader ROSEMARY. Review of Systems Review of Systems: Unobtainable due to endotracheal tube and Unobtainable due to reduced consciousness Physical Exam Constitutional: + thin; not ill appearing ENMT: ET tube in place Neck: trachea midline, no thyromegaly Respiratory: normal respiratory effort, lungs clear to auscultation Cardiovascular: RRR, no murmur, no edema Chest (Breasts): Chest: normal inspection of chest Gastrointestinal (Abdomen): Inspection/Auscultation: + abdomen distended (Mild) and normal bowel sounds Percussion/Palpation: abdomen soft; abdomen nontender Musculoskeletal: Extremities: + extremities abnormal to inspection (Left hand with 1+ pitting edema), no cyanosis and no clubbing Skin: no rashes, warm and dry Neurologic: Sedated Genitourinary: Dong catheter in place draining clear yellow urine Results & Data Results & Data (MN) Vital Signs (Past 12 Hours) Vital Signs Temp Pulse Resp BP Pulse Ox 12/19/19 18:36 109 H 116/48 L 93 12/19/19 17:36 103 H 112/65 91 12/19/19 16:46 37.3 C 12/19/19 16:36 109 H 114/50 L 90 12/19/19 15:38 103 H 23 93 12/19/19 15:35 102 H 104/65 93 12/19/19 14:36 102 H 103/56 L 92 12/19/19 13:36 112 H 114/63 92 12/19/19 13:20 106 H 24 95 12/19/19 12:36 110 H 110/59 L 96 12/19/19 12:16 37.2 C 12/19/19 11:36 106 H 102/55 L 95 12/19/19 10:50 111 H 24 92 12/19/19 10:36 106 H 88/52 L 94 12/19/19 09:36 110 H 106/70 91 12/19/19 08:36 111 H 130/73 92 12/19/19 07:36 37.3 C 113 H 110/71 94 12/19/19 07:24 108 H 27 H 93 Laboratory Results 12/19/19 12/19/19 12/19/19 Range/Units 17:52 14:58 12:01 WBC (4.8-10.8) K/uL RBC (4.2-5.4) M/uL Hgb (12.0-16.0) g/dL POC Hgb (12.0-16.0) g/dl Hct (37-47) % POC Hct (37-47) % MCV (80-100) fL MCH (25-34) pg MCHC (32-36) g/dL RDW Std Deviation (36.4-46.3) fL RDW Coeff of Oz (11.5-14.5) % Plt Count (130-400) K/uL MPV (7.4-10.4) fL Immature Gran % (Auto) % Neut % (Auto) % Lymph % (Auto) % [place] % (Auto) % Eos % (Auto) % Baso % (Auto) % Neut # (Auto) (1.4-6.5) K/uL Lymph # (Auto) (1.2-3.4) K/uL [place] # (Auto) (0.11-0.59) K/uL Eos # (Auto) (0-0.5) K/uL Baso # (Auto) (0-0.2) K/uL Immature Gran # (Auto) (0.00-0.02) K/uL Sample Site POC pH (7.35-7.45) POC pCO2 (35-46) mmHg POC pO2 (80-95) mmHg POC HCO3 (19-24) racheal/L POC Total CO2 (24-31) mmol/L POC Base Excess (-9-1.8) racheal/L ABG pH (Temp Correct) (7.35-7.45) ABG pCO2 (Temp Corrct (35-46) mmHg POC ABG pO2 at Pt Temp POC ABG O2 Sat (90-95) % Philipp Test O2 Delivery Device POC O2 Rate Minute Ventilation POC FiO2 % Tidal Volume PEEP POC Sodium (135-144) mmol/L Sodium 137 (136-145) mmol/L POC Potassium (3.3-5.0) mmol/L Potassium 4.0 (3.5-5.1) mmol/L Chloride 101 (98-107) mmol/L Carbon Dioxide 28 (21-32) mmol/L Anion Gap 8.0 (3-11) BUN 27 H (7-18) mg/dl Creatinine 0.55 L (0.6-1.2) mg/dl Est Cr Clr Drug Dosing 95.2 ml/min Est GFR ( Amer) 110.9 Est GFR (Non-Af Amer) 95.7 BUN/Creatinine Ratio 48.8 H (10-20) Glucose 94 (70-99) mg/dl POC Glucose (other) 108 H 148 H (70-99) mg/dl Calcium 8.4 L (8.5-10.1) mg/dl Phosphorus 4.9 D (2.5-4.9) mg/dl Magnesium 2.2 (1.8-2.4) mg/dl Total Bilirubin (0.2-1) mg/dl Direct Bilirubin (0-0.2) mg/dl AST (15-37) U/L ALT (12-78) U/L Alkaline Phosphatase (45-117) U/L NT-Pro-B Natriuret Pep (0-900) pg/ml Total Protein (6.4-8.2) gm/dl Albumin (3.4-5.0) gm/dl Procalcitonin (0-0.5) ng/ml B&T Cell Panel (Flow) Flow Cytometry Comment 12/19/19 12/19/19 12/19/19 Range/Units 08:09 08:09 05:11 WBC (4.8-10.8) K/uL RBC (4.2-5.4) M/uL Hgb (12.0-16.0) g/dL POC Hgb 11.2 L (12.0-16.0) g/dl Hct (37-47) % POC Hct 33 L (37-47) % MCV (80-100) fL MCH (25-34) pg MCHC (32-36) g/dL RDW Std Deviation (36.4-46.3) fL RDW Coeff of Oz (11.5-14.5) % Plt Count (130-400) K/uL MPV (7.4-10.4) fL Immature Gran % (Auto) % Neut % (Auto) % Lymph % (Auto) % [place] % (Auto) % Eos % (Auto) % Baso % (Auto) % Neut # (Auto) (1.4-6.5) K/uL Lymph # (Auto) (1.2-3.4) K/uL [place] # (Auto) (0.11-0.59) K/uL Eos # (Auto) (0-0.5) K/uL Baso # (Auto) (0-0.2) K/uL Immature Gran # (Auto) (0.00-0.02) K/uL Sample Site R Radial R Radial POC pH 7.47 H 7.46 H (7.35-7.45) POC pCO2 35 36 (35-46) mmHg POC pO2 64 L 62 L (80-95) mmHg POC HCO3 26 H 25 H (19-24) racheal/L POC Total CO2 27 26 (24-31) mmol/L POC Base Excess 2.0 H 2.0 H (-9-1.8) racheal/L ABG pH (Temp Correct) 7.468 H (7.35-7.45) ABG pCO2 (Temp Corrct 36 (35-46) mmHg POC ABG pO2 at Pt Temp 66 POC ABG O2 Sat 94.0 93.0 (90-95) % Philipp Test Pass Pass O2 Delivery Device Ventilator Ventilator POC O2 Rate 28 20 Minute Ventilation 9 POC FiO2 50 % Tidal Volume 450 PEEP 8 8 POC Sodium 136 (135-144) mmol/L Sodium (136-145) mmol/L POC Potassium 3.9 (3.3-5.0) mmol/L Potassium (3.5-5.1) mmol/L Chloride (98-107) mmol/L Carbon Dioxide (21-32) mmol/L Anion Gap (3-11) BUN (7-18) mg/dl Creatinine (0.6-1.2) mg/dl Est Cr Clr Drug Dosing ml/min Est GFR ( Amer) Est GFR (Non-Af Amer) BUN/Creatinine Ratio (10-20) Glucose (70-99) mg/dl POC Glucose (other) (70-99) mg/dl Calcium (8.5-10.1) mg/dl Phosphorus (2.5-4.9) mg/dl Magnesium (1.8-2.4) mg/dl Total Bilirubin 0.2 (0.2-1) mg/dl Direct Bilirubin < 0.1 (0-0.2) mg/dl AST 45 H (15-37) U/L ALT 31 (12-78) U/L Alkaline Phosphatase 80 (45-117) U/L NT-Pro-B Natriuret Pep 4575 H (0-900) pg/ml Total Protein 5.8 L (6.4-8.2) gm/dl Albumin 1.4 L (3.4-5.0) gm/dl Procalcitonin (0-0.5) ng/ml B&T Cell Panel (Flow) Flow Cytometry Comment 12/19/19 12/19/19 12/19/19 Range/Units 03:29 03:29 03:29 WBC 15.99 H (4.8-10.8) K/uL RBC 3.48 L (4.2-5.4) M/uL Hgb 11.2 L (12.0-16.0) g/dL POC Hgb (12.0-16.0) g/dl Hct 32.4 L (37-47) % POC Hct (37-47) % MCV 93.1 (80-100) fL MCH 32.2 (25-34) pg MCHC 34.6 (32-36) g/dL RDW Std Deviation 49.8 H (36.4-46.3) fL RDW Coeff of Oz 14.6 H (11.5-14.5) % Plt Count 251 (130-400) K/uL MPV 10.9 H (7.4-10.4) fL Immature Gran % (Auto) 1.6 % Neut % (Auto) 91.5 % Lymph % (Auto) 3.0 % [place] % (Auto) 3.7 % Eos % (Auto) 0.1 % Baso % (Auto) 0.1 % Neut # (Auto) 14.64 H (1.4-6.5) K/uL Lymph # (Auto) 0.48 L (1.2-3.4) K/uL [place] # (Auto) 0.59 (0.11-0.59) K/uL Eos # (Auto) 0.01 (0-0.5) K/uL Baso # (Auto) 0.02 (0-0.2) K/uL Immature Gran # (Auto) 0.25 H (0.00-0.02) K/uL Sample Site POC pH (7.35-7.45) POC pCO2 (35-46) mmHg POC pO2 (80-95) mmHg POC HCO3 (19-24) racheal/L POC Total CO2 (24-31) mmol/L POC Base Excess (-9-1.8) racheal/L ABG pH (Temp Correct) (7.35-7.45) ABG pCO2 (Temp Corrct (35-46) mmHg POC ABG pO2 at Pt Temp POC ABG O2 Sat (90-95) % Philipp Test O2 Delivery Device POC O2 Rate Minute Ventilation POC FiO2 % Tidal Volume PEEP POC Sodium (135-144) mmol/L Sodium 138 (136-145) mmol/L POC Potassium (3.3-5.0) mmol/L Potassium 4.0 (3.5-5.1) mmol/L Chloride 102 (98-107) mmol/L Carbon Dioxide 28 (21-32) mmol/L Anion Gap 8.0 (3-11) BUN 26 H (7-18) mg/dl Creatinine 0.54 L (0.6-1.2) mg/dl Est Cr Clr Drug Dosing 94.2 ml/min Est GFR ( Amer) 111.6 Est GFR (Non-Af Amer) 96.3 BUN/Creatinine Ratio 47.1 H (10-20) Glucose 155 H (70-99) mg/dl POC Glucose (other) (70-99) mg/dl Calcium 8.3 L (8.5-10.1) mg/dl Phosphorus 2.0 L (2.5-4.9) mg/dl Magnesium 1.9 (1.8-2.4) mg/dl Total Bilirubin (0.2-1) mg/dl Direct Bilirubin (0-0.2) mg/dl AST (15-37) U/L ALT (12-78) U/L Alkaline Phosphatase (45-117) U/L NT-Pro-B Natriuret Pep (0-900) pg/ml Total Protein (6.4-8.2) gm/dl Albumin (3.4-5.0) gm/dl Procalcitonin 3.46 H (0-0.5) ng/ml B&T Cell Panel (Flow) Flow Cytometry Comment 12/19/19 12/18/19 12/16/19 Range/Units 00:05 23:57 Unknown WBC (4.8-10.8) K/uL RBC (4.2-5.4) M/uL Hgb (12.0-16.0) g/dL POC Hgb (12.0-16.0) g/dl Hct (37-47) % POC Hct (37-47) % MCV (80-100) fL MCH (25-34) pg MCHC (32-36) g/dL RDW Std Deviation (36.4-46.3) fL RDW Coeff of Oz (11.5-14.5) % Plt Count (130-400) K/uL MPV (7.4-10.4) fL Immature Gran % (Auto) % Neut % (Auto) % Lymph % (Auto) % [place] % (Auto) % Eos % (Auto) % Baso % (Auto) % Neut # (Auto) (1.4-6.5) K/uL Lymph # (Auto) (1.2-3.4) K/uL [place] # (Auto) (0.11-0.59) K/uL Eos # (Auto) (0-0.5) K/uL Baso # (Auto) (0-0.2) K/uL Immature Gran # (Auto) (0.00-0.02) K/uL Sample Site POC pH (7.35-7.45) POC pCO2 (35-46) mmHg POC pO2 (80-95) mmHg POC HCO3 (19-24) racheal/L POC Total CO2 (24-31) mmol/L POC Base Excess (-9-1.8) racheal/L ABG pH (Temp Correct) (7.35-7.45) ABG pCO2 (Temp Corrct (35-46) mmHg POC ABG pO2 at Pt Temp POC ABG O2 Sat (90-95) % Philipp Test O2 Delivery Device POC O2 Rate Minute Ventilation POC FiO2 % Tidal Volume PEEP POC Sodium (135-144) mmol/L Sodium (136-145) mmol/L POC Potassium (3.3-5.0) mmol/L Potassium (3.5-5.1) mmol/L Chloride (98-107) mmol/L Carbon Dioxide (21-32) mmol/L Anion Gap (3-11) BUN (7-18) mg/dl Creatinine (0.6-1.2) mg/dl Est Cr Clr Drug Dosing ml/min Est GFR ( Amer) Est GFR (Non-Af Amer) BUN/Creatinine Ratio (10-20) Glucose (70-99) mg/dl POC Glucose (other) 220 H > 700 H* (70-99) mg/dl Calcium (8.5-10.1) mg/dl Phosphorus (2.5-4.9) mg/dl Magnesium (1.8-2.4) mg/dl Total Bilirubin (0.2-1) mg/dl Direct Bilirubin (0-0.2) mg/dl AST (15-37) U/L ALT (12-78) U/L Alkaline Phosphatase (45-117) U/L NT-Pro-B Natriuret Pep (0-900) pg/ml Total Protein (6.4-8.2) gm/dl Albumin (3.4-5.0) gm/dl Procalcitonin (0-0.5) ng/ml B&T Cell Panel (Flow) See Comment Flow Cytometry Comment Cancelled Diagnostic Findings XR chest 1V portable HISTORY: Shortness of breath. Follow-up. COMPARISON: Chest 12/18/2019. FINDINGS: The endotracheal tube terminates 3.3 cm from the natividad. Nasogastric tube terminus below the diaphragm. The tip is not included on this study. Right PICC terminates at the distal SVC. The heart remains mildly enlarged. No pneumothorax. Hazy right lung airspace opacities have slightly progressed. Diffuse interstitial thickening is again noted. Suspect a trace right pleural effusion. IMPRESSION: 1. Satisfactory support line placement. 2. Interval progression of the right lung hazy airspace opacities. PG Care Time/CCT Total # of Minutes Spent Total Time Spent with Patient: Total time spent is greater than 50% in coordination of care (as documented) at patient's floor/unit and/or counseling patient: Coding Level of Care Code 78622 Subseq Hosp Care Lvl 1 Diagnoses Sepsis A41.9; R65.20 Sepsis acute organ dysfunction status: with acute organ dysfunction Sepsis type: sepsis due to unspecified organism Severe sepsis acute organ dysfunction type: unspecified Severe sepsis shock status: without septic shock Multifocal pneumonia J18.9 Acute respiratory failure with hypoxia J96.01 Alcohol withdrawal F10.239 Emphysema of lung J43.9 Hyperglycemia R73.9 Sjogrens syndrome M35.00 Non-STEMI (non-ST elevated myocardial infarction) I21.4 Tobacco abuse Z72.0 Ventricular trigeminy I49.8 Pulmonary edema J81.1 DVT prophylaxis Z29.9 (1) Sepsis Sepsis acute organ dysfunction status: with acute organ dysfunction Sepsis type: sepsis due to unspecified organism Severe sepsis acute organ dysfunction type: unspecified Severe sepsis shock status: without septic shock Qualified Code(s): A41.9 - Sepsis, unspecified organism; R65.20 - Severe sepsis without septic shock
--- NOTE | 2019-12-19 22:41 | Electrocardiogram Report ---
Test Reason : Blood Pressure : / mmHG Vent. Rate : 104 BPM Atrial Rate : 104 BPM P-R Int : 174 ms QRS Dur : 094 ms QT Int : 366 ms P-R-T Axes : 074 022 083 degrees QTc Int : 481 ms Sinus tachycardia with frequent Premature ventricular complexes Possible Left atrial enlargement T wave abnormality, consider anterior ischemia Abnormal ECG When compared with ECG of 18-DEC-2019 15:52, No significant change was found Confirmed by Jameson Alcocer ([id number]) on 12/19/2019 10:40:36 PM Referred By: REFERRED SELF Confirmed By:Jameson Alcocer
[2019-12-20] MEDS: SODIUM CHLORIDE 0.9% IV SCH ×2 (01:39→13:32)
[2019-12-20] MEDS: VORICONAZOLE IV SCH ×2 (01:39→13:32)
[2019-12-20] MEDS: DEXMEDETOMIDINE HCL 200 MCG in SODIUM CHLORIDE 0.9% 48 ML IV SCH (03:32)
[2019-12-20 04:23] LABS: Basophils # (auto) 0.01 K/uL (0-0.2); Basophils % (auto) 0.1 %; Eosinophils # (auto) 0.13 K/uL (0-0.5); Eosinophils % (auto) 1.1 %; Hematocrit (blood only) 30.6 % (37-47); Immature Granulocytes % (auto) 4.4 %; Lymphocytes # (auto) 0.61 K/uL (1.2-3.4); Lymphocytes % (auto) 5.3 %; Mean Corpuscular Hemoglobin 33.3 pg (25-34); Mean Corpuscular Hgb Conc 35.9 g/dL (32-36); Mean Corpuscular Volume 92.7 fL (80-100); Monocytes # (auto) 0.33 K/uL (0.11-0.59); Monocytes % (auto) 2.9 %; Neutrophils # (auto) 9.91 K/uL (1.4-6.5); Neutrophils % (auto) 86.2 %; Nucleated RBC # (auto) 0.03 K/uL (0-0); Nucleated RBC % (auto) 0.2 %; Platelet Count 275 K/uL (130-400); RDW Coefficient of Variation 14.3 % (11.5-14.5); White Blood Count 11.49 K/uL (4.8-10.8)
[2019-12-20] MEDS: fentaNYL DRIP 1,250 MCG/250 ML BAG IV PRN (04:45)
[2019-12-20 05:07] LABS: Albumin Globulin Ratio 0.3 (0.9-2); Albumin Level 1.3 gm/dl (3.4-5.0); BUN Creatinine Ratio 54.1 (10-20); Bilirubin,Total 0.3 mg/dl (0.2-1); Calcium 7.6 mg/dl (8.5-10.1); Creatinine Clr Calc Pharmacy 102.7 ml/min; Est GFR (African American) 113.7; Est GFR (Non-African American) 98.1; Globulin 4.1 gm/dl (2.5-4.0); Magnesium 1.6 mg/dl (1.8-2.4); Potassium 3.3 mmol/L (3.5-5.1); Total Protein 5.4 gm/dl (6.4-8.2)
[2019-12-20] MEDS ORDERED: POTASSIUM CHLORIDE 20 MEQ/15 ML UDC PO STA (05:26)
[2019-12-20] MEDS ORDERED: MAGNESIUM SULFATE / D5W 1 GM/100 ML BAG IV ONE ×2 (05:26→07:31)
[2019-12-20 05:59] LABS: iSTAT Allen Test Pass; iSTAT Arterial Blood Gas HCO3 30 meg/L (19-24); iSTAT Arterial Blood Gas pCO2 39 mmHg (35-46); iSTAT Arterial Blood Gas pH 7.49 (7.35-7.45); iSTAT Arterial Blood Gas pO2 58 mmHg (80-95); iSTAT Carbon Dioxide 31 mmol/L (24-31); iSTAT Site R Radial
[2019-12-20] MEDS: POTASSIUM CHLORIDE / WTR 20 MEQ/100 ML PLCT IV SCH ×2 (06:04→08:19)
[2019-12-20] MEDS: PIPERACILLIN/TAZOBACTAM 3.375 GM in DEXTROSE 5% 100 ML IV SCH ×3 (06:04→21:14)
[2019-12-20] MEDS: INSULIN ASPART 100 UNITS/ML 3 ML PEN SC SCH ×3 (06:08→18:12)
[2019-12-20] MEDS: FENTANYL BOLUS FROM BAG IV PRN ×3 (07:45→16:00)
--- NOTE | 2019-12-20 07:48 | XRay Report ---
XR chest 1V portable CLINICAL HISTORY: Respiratory failure COMPARISON STUDY: Chest CT December 25, 2019 and chest radiograph December 19 2019 FINDINGS: Tip of endotracheal tube is 4.5 cm above the natividad. Tip of nasogastric tube is below the l ower aspect of this image but at least within the body of the stomach. Tip of right PICC projects ove r the cavoatrial junction. There is no pneumothorax. A small right pleural effusion is unchanged. The re is emphysema. Bilateral airspace opacities have slightly improved. Cardiomediastinal silhouette is stable. IMPRESSION: 1. Satisfactory positioning of lines and tubes. 2. Slight improvement in bilateral airspace opacities which favor multifocal pneumonia. ACT 112: Negative or not required by law. Electronically signed by: Marquez Barba M.D. 12/20/2019 7:46 AM
--- NOTE | 2019-12-20 08:21 | Critical Care Progress Note ---
Date of Service December 20, 2019 Assessment & Plan (1) S/P admission to ICU (intensive care unit): 69-year-old female was admitted to the hospital because of multilobar pneumonia, she has history of Sjogren's, actively smoking, daily drinker, vaping. She has mediastinal lymphadenopathy and she underwent EBUS for it. Because of the worsening respiratory status she was intubated. Assessment and Plan: -Acute hypoxemic respiratory failure secondary to multifocal pneumonia -Alcoholism with possible immunocompromise state -Sjogren's disease -Severe sepsis Neurologic: Analgesics and sedation: Continue low-dose propofol and fentanyl. Increasing fentanyl given her increased respiratory drive. Ammonia levels checked and were normal. Delirium precautions Pulmonary: Continue lung protective ventilation strategy. Aim for saturations of 88 to 92%. Head of the bed elevated to 30 degrees if intubated Cytology from the EBUS is negative for malignancy Cardiovascular: Low-dose Levophed to maintain mean arterial pressure greater than 65. Continue with given her NSTEMI upon hospital admission. She does have a dyskinetic left ventricle as noted on the initial echocardiogram on admission. She has PVCs. Beta-blockers are on hold because of her low blood pressure and being on vasopressors. Gastrointestinal: Continue tube feeds. currently at goal. Stress ulcer prophylaxis: Famotidine twice daily. Renal: Electrolytes being replaced Keep potassium greater than 4, phosphorus greater than 3, magnesium greater than 2 Infectious disease: Continue Zosyn and voriconazole. Status post azithromycin last dose being on 12/19/2019 She does have nodular opacities that may be concerning for fungal infection. LFTs being monitored. Cultures from the bronchoscopy are still pending. Beta glucan was sent 12/17/2019, but may be falsely elevated due to her undergoing treatment with Zosyn. Procalcitonin is trending down Hematologic: Mild anemia. Ferritin was elevated likely an acute phase reactant from infection. Left upper extremity ultrasound negative for DVT Leukocytosis trending down Endocrine: Insulin protocol. Lines and tubes: Right PICC line, peripheral IVs in place and Dong catheter. VTE prophylaxis: Lovenox, Pepcid CODE STATUS: Full Plan: In/out: -1043, urine output [id number] Chest x-ray from today shows improvement in the pulmonary edema compared to yesterday. I will give 1 more dose of Lasix 40 mg today after the electrolytes has been replaced. Patient got total of 60 mEq of KCl along with 2 g of magnesium. Will repeat BMP at 3 PM Continue with antibiotic Zosyn and antifungal voriconazole. Galactomannan has been added to the BAL which was done. Beta D glucan still pending LFTs are within normal limit. In the morning today propofol was titrated off and Precedex was started to see if a trial of extubation could be given to the patient. The patient got very restless and started breathing at the rate of mid to high 30s resulting in restarting propofol and discontinuing Precedex. I am going to add Ativan on as-needed basis today 2 mg every 6 hours to see if it will help with the heavy alcohol use component/withdrawal. Give a trial of extubation again tomorrow to see while on fentanyl and propofol as patient is already breathing over the vent and see how it goes. If the patient keeps failing extubation trial and then one might have to think about tracheostomy. I have personally spent 43 minutes of critical care time in the direct management of this patient. This is a life/limb threatening event. This includes time spent evaluating patient, direct bedside care, chart review, placing orders, interpretation of diagnostic studies, discussion with consultants, patient, and family members, as well as other required patient management activities. This time is exclusive of all separately billable procedures, and teaching time and separate from and in addition to any other critical care service time. Please note the above document was generated using voice recognition software. It may contain grammatical, syntax or spelling errors. (2) Pulmonary edema: (3) Ventricular trigeminy: (4) Hyperglycemia: (5) Alcohol withdrawal: (6) Sepsis: (7) Elevated troponin: (8) Emphysema of lung: (9) Multifocal pneumonia: (10) Sjogrens syndrome: (11) Non-STEMI (non-ST elevated myocardial infarction): Admission and Anticipated Discharge Date Admission Date: December 15, 2019 Subjective Patient seen and examined at bedside. On fentanyl 25, Precedex 0.5 Patient was breathing at the rate of 36 at the time of examination with heart rate in the 130s Patient looked restless Levophed has been off. T-max 37.9 C, positive bowel movements yesterday. Review of Systems Review of Systems: Unobtainable due to endotracheal tube Physical Exam Physical Exam: Constitutional: No acute distress HEENT: PERRLA, positive ETT Respiratory system: Decreased air entry bilaterally, no wheeze, positive rhonchi, positive crackles bilateral lower lobes CVS: S1-S2 positive, no murmurs or gallops, tachycardia Abdomen: Soft, nontender, positive bowel sounds x4, belly is little bit distended Extremities: +2 pulses bilaterally radialis/ dorsalis pedis, no cyanosis, no edema bilateral lower extremity, +1 pitting edema left upper extremity Neuro: Sedated, RASS -1, opens her eyes to command, positive corneal, positive gag, positive pupillary Psych: Unable to assess G/U: Positive Dong Skin: no rashes, warm and dry Lymphatic: no cervical or axillary lymphadenopathy Results & Data Results & Data ([facility]) Vital Signs (Past 12 Hours) Vital Signs Temp Pulse Resp BP Pulse Ox Pulse Ox 12/20/19 07:25 126 H 29 H 94 12/20/19 07:09 127 H 183/105 H 91 12/20/19 07:00 125 H 87 L 12/20/19 06:54 138 H 160/117 H 92 12/20/19 06:39 122 H 142/95 H 92 12/20/19 06:25 117 H 184/95 H 92 12/20/19 06:09 113 H 121/66 90 12/20/19 06:00 37.9 C H 112 H 90 12/20/19 05:54 111 H 120/68 89 L 12/20/19 05:39 110 H 145/79 H 89 L 12/20/19 05:24 106 H 131/76 89 L 12/20/19 05:09 105 H 132/74 89 L 12/20/19 05:00 106 H 93 12/20/19 04:39 100 H 117/63 91 12/20/19 04:24 103 H 118/63 91 12/20/19 04:09 105 H 132/69 94 12/20/19 04:05 106 H 23 93 12/20/19 04:00 103 H 94 91 12/20/19 03:54 102 H 103/60 93 12/20/19 03:39 104 H 90/54 L 92 12/20/19 03:24 104 H 105/56 L 93 12/20/19 03:09 104 H 111/57 L 92 12/20/19 03:00 105 H 92 12/20/19 02:54 105 H 103/58 L 93 12/20/19 02:39 112 H 109/46 L 94 12/20/19 02:24 104 H 112/59 L 91 12/20/19 02:09 111 H 102/44 L 92 12/20/19 02:00 110 H 92 12/20/19 01:54 113 H 110/67 92 12/20/19 01:39 109 H 110/45 L 92 12/20/19 01:24 111 H 106/38 L 92 12/20/19 01:09 112 H 98/58 L 92 12/20/19 01:01 109 H 23 92 12/20/19 01:00 111 H 92 12/20/19 00:54 111 H 117/63 92 12/20/19 00:39 110 H 108/64 91 12/20/19 00:24 112 H 102/54 L 91 12/20/19 00:09 113 H 102/40 L 91 12/20/19 00:00 112 H 92 12/19/19 23:54 108 H 107/55 L 92 12/19/19 23:38 112 H 98/53 L 91 12/19/19 23:36 113 H 54/44 L 90 12/19/19 23:00 37.7 C H 112 H 90 12/19/19 22:36 114 H 91/55 L 90 12/19/19 22:00 114 H 90 12/19/19 21:59 113 H 22 90 12/19/19 21:36 112 H 115/62 91 12/19/19 21:22 112 H 112/57 L 92 12/19/19 21:00 110 H 92 12/19/19 20:36 111 H 112/57 L 92 12/20/19 04:03 12/20/19 04:03 Coding Level of Care Code Critical Care 1st 30-74 mins Diagnoses S/P admission to ICU (intensive care unit) Pulmonary edema J81.1 Ventricular trigeminy I49.8 Hyperglycemia R73.9 Alcohol withdrawal F10.239 Sepsis A41.9; R65.20 Sepsis acute organ dysfunction status: with acute organ dysfunction Sepsis type: sepsis due to unspecified organism Severe sepsis acute organ dysfunction type: unspecified Severe sepsis shock status: without septic shock Elevated troponin R79.89 Emphysema of lung J43.9 Multifocal pneumonia J18.9 Sjogrens syndrome M35.00 Non-STEMI (non-ST elevated myocardial infarction) I21.4 Time Spent (min) 43 (1) Sepsis Sepsis acute organ dysfunction status: with acute organ dysfunction Sepsis type: sepsis due to unspecified organism Severe sepsis acute organ dysfunction type: unspecified Severe sepsis shock status: without septic shock Qualified Code(s): A41.9 - Sepsis, unspecified organism; R65.20 - Severe sepsis without septic shock
[2019-12-20] MEDS: propofoL 1,000 MG/100 ML VIAL IV SCH ×3 (08:32→15:36)
[2019-12-20] MEDS: ASPIRIN 81 MG CHEW NG SCH (08:36)
[2019-12-20] MEDS: FOLIC ACID 1 MG TAB PO SCH (08:36)
[2019-12-20] MEDS: ENOXAPARIN INJ 40 MG/0.4 ML SYR SQ SCH (08:36)
[2019-12-20] MEDS: THIAMINE HCL 100 MG TAB PO SCH (08:36)
[2019-12-20] MEDS ORDERED: LORazepam 2 MG/4 ML VIAL IV PRN (08:53)
[2019-12-20] MEDS ORDERED: ACETAMINOPHEN SOLN 650 MG/20.3 ML UDC NG PRN (09:09)
[2019-12-20] MEDS: FAMOTIDINE 20 MG in SYRINGE 3 ML IV SCH ×2 (09:47→21:13)
[2019-12-20] MEDS ORDERED: FUROSEMIDE 40 MG in SYRINGE 0 ML IV ONE (13:00)
[2019-12-20] MEDS: NOREPINEPHRINE BIT INJ 8 MG in DEXTROSE 5% 500 ML IV SCH (14:35)
[2019-12-20] MEDS ORDERED: STAT IV Infusion **Titration per Protocol STA (15:00)
[2019-12-20 16:05] LABS: BUN Creatinine Ratio 51.6 (10-20); Calcium 8.6 mg/dl (8.5-10.1); Creatinine Clr Calc Pharmacy 93.6 ml/min; Est GFR (African American) 111.6; Est GFR (Non-African American) 96.3; Magnesium 2.2 mg/dl (1.8-2.4); Phosphorus 3.8 mg/dl (2.5-4.9); Potassium 4.3 mmol/L (3.5-5.1)
--- NOTE | 2019-12-20 19:48 | Hospitalist Progress Note ---
Date of Service December 20, 2019 Assessment & Plan (1) Sepsis: present on arrival due to multifocal pneumonia, presented with leukocytosis, fever, tachycardia Was afebrile, but had T-max of 38.0 on the morning of 12/19, leukocytosis continues to improve, tachycardia now resolved and was likely related to alcohol withdrawal With bilateral infiltrates on CXR and CT chest, worsening on chest x-ray 12/18, respiratory failure. Chest x-ray on 12/19 is improved -Continue Zosyn and completed a course of Zithromax; Vanco was stopped due to MRSA swab negativity blood cultures - no growth from 12/14 urine culture - no growth, < 1000 colonies bronchial lavage - no growth on fungal, AFB, microbial -Continue voriconazole IV to cover for possible fungal infection given immunocompromised status with alcohol abuse, malnourished, on Plaquenil this was started on 12/16 -Continues with some hypotension associated with sedation -Continue low dose Levophed trip, titrate for MAP > 65 (2) Multifocal pneumonia: multifocal pneumonia, likely aspiration pneumonia in setting of heavy alcohol abuse, malnutrition also, patient vapes nicotine daily, possible Vaping associated lung injury COVID negative Pro-Lorenzo elevated at 19.35 on admission, trending down to 3 Antibiotics as outlined above CT chest with multifocal pneumonia, enlarged mediastinal lymph node which was biopsied on EBUS and negative for malignancy Chest x-ray on 12/19 improved bronchoscopy on 12/[address] Prasad bronchial lavage sent for cultures-all no growth transferred to ICU shortly after bronchoscopy due to worsening hypoxia in the setting of alcohol withdrawal now remains intubated and sedated -Spontaneous breathing trial in the morning (3) Acute respiratory failure with hypoxia: Had increased work of breathing, accessory muscle use, requiring 15L Oxymask to keep saturations > 90% due to multifocal pneumonia, may have aspirated after bronchoscopy complicated by suspected alcohol withdrawal transferred to ICU, placed on HFNC, saturations in the low 90's placed on CPAP overnight on 12/15 and into the morning on 12/16 intubated on 12/[address] Prasad -Continue ventilator management as per tanning solution maker -OGT in place, tube feeds placed on hold for mild abdominal distention but is moving bowels (4) Alcohol withdrawal: unsure how much patient drinks as she drinks a lot after goes to bed may be as much as a fifth a night AWSS scale Precedex drip ordered initially, now on Propofol and Fentanyl PRN defer to tanning solution maker management -Continue thiamine, folate (5) Emphysema of lung: seen on CT, this is a new diagnosis she is a heavy smoker will need outpatient follow up and PFTs (6) Hyperglycemia: sugars in the 300's, she did get a dose of decadron on 8 in morning Glucose now much improved control Was on insulin drip and now weaned off -Continue Accu-Cheks, continue NovoLog sliding scale Hemoglobin A1c only 5.7% (7) Sjogrens syndrome: -Continue to hold home hydroxychloroquine during acute infection (8) Non-STEMI (non-ST elevated myocardial infarction): Secondary to myocardial demand ischemia in the setting of tachycardia from sepsis and alcohol withdrawal With preserved EF on echo, but with some wall motion abnormalities with moderate to severe hypokinesis involving the mid to distal anterior septal arana ECG with nonspecific T wave inversions cardiology consult appreciated, likely demand ischemia -Cardiology recommends outpatient perfusion imaging -Added aspirin 81mg daily (9) Tobacco abuse: Will eventually need counseling on smoking cessation (10) Ventricular trigeminy: likely due to alcohol withdrawal, severe distress with multifocal pneumonia keep electrolytes normal resolved after metoprolol but still with some occasional PVCs continue tele monitor Follow BMP (11) Pulmonary edema: likely due to aggressive fluid resuscitation at admission and then with bronchial lavage -Is now diuresing with daily IV Lasix Weight is down continue to follow closely, give Lasix daily as needed-defer to tanning solution maker (12) DVT prophylaxis: Lovenox SQ Dispo-continued stay in ICU Admission and Anticipated Discharge Date Admission Date: December 15, 2019 Subjective Patient remains sedated and intubated. She had a spontaneous breathing trial this morning which she failed secondary to significant agitation while off propofol and fentanyl but remained on Precedex. She became tachycardic and tachypneic and was pulling at the tube. She was placed back on propofol and fentanyl and Precedex was discontinued. While back on sedation, her blood pressure dropped and she was placed back on low-dose Levophed. She had a fever this morning. Since that time, she has settled down quite a bit and is no longer breathing over the vent like she was yesterday. I discussed the case with the tanning solution maker Review of Systems Review of Systems: Unobtainable due to endotracheal tube and Unobtainable due to reduced consciousness Physical Exam Constitutional: + thin and + mechanically ventilated; no acute distress Neck: trachea midline, no thyromegaly Respiratory: normal respiratory effort, lungs clear to auscultation Cardiovascular: RRR, no murmur, no edema Chest (Breasts): Chest: normal inspection of chest Gastrointestinal (Abdomen): Inspection/Auscultation: + abdomen distended (Mild) and normal bowel sounds Percussion/Palpation: abdomen soft; abdomen nontender Musculoskeletal: Extremities: + extremities abnormal to inspection (Left hand with 1+ pitting edema), no cyanosis and no clubbing Skin: no rashes, warm and dry Results & Data Results & Data ([facility]) Vital Signs (Past 12 Hours) Vital Signs Temp Pulse Resp BP Pulse Ox Pulse Ox 12/20/19 17:35 79 115/67 95 12/20/19 17:20 79 109/63 94 12/20/19 17:11 81 22 94 12/20/19 17:05 81 108/66 94 12/20/19 16:50 81 107/61 93 12/20/19 16:35 84 85/55 L 93 12/20/19 16:20 88 90/52 L 93 12/20/19 16:18 91 H 79/52 L 91 12/20/19 16:00 87 92 12/20/19 15:19 37.3 C 101 H 92 12/20/19 15:18 94 H 102/55 L 91 12/20/19 14:48 86 104/60 94 12/20/19 14:18 84 118/67 97 12/20/19 14:08 79 129/72 98 12/20/19 13:55 36.8 C 12/20/19 13:48 78 94/56 L 97 12/20/19 13:44 78 20 97 12/20/19 13:40 78 90/51 L 97 12/20/19 13:36 78 87/52 L 97 12/20/19 13:18 79 89/50 L 96 12/20/19 13:12 82 86/52 L 96 12/20/19 12:48 85 78/48 L 96 12/20/19 12:18 91 H 91/52 L 96 12/20/19 11:48 101 H 88/48 L 96 12/20/19 11:28 105 H 91/47 L 95 12/20/19 11:23 37.4 C 12/20/19 11:18 108 H 90/47 L 95 12/20/19 11:10 109 H 25 H 95 12/20/19 10:48 112 H 102/68 94 12/20/19 10:18 115 H 101/62 93 12/20/19 09:48 117 H 104/60 94 12/20/19 09:18 125 H 103/59 L 92 12/20/19 09:12 126 H 91/57 L 92 12/20/19 09:10 38 C H 12/20/19 08:18 128 H 126/71 92 12/20/19 08:00 95 12/20/19 07:48 132 H 137/76 93 Laboratory Results 12/20/19 12/20/19 12/20/19 Range/Units 18:10 15:12 11:36 WBC (4.8-10.8) K/uL RBC (4.2-5.4) M/uL Hgb (12.0-16.0) g/dL Hct (37-47) % MCV (80-100) fL MCH (25-34) pg MCHC (32-36) g/dL RDW Std Deviation (36.4-46.3) fL RDW Coeff of Oz (11.5-14.5) % Plt Count (130-400) K/uL MPV (7.4-10.4) fL Immature Gran % (Auto) % Neut % (Auto) % Lymph % (Auto) % [place]ville % (Auto) % Eos % (Auto) % Baso % (Auto) % Neut # (Auto) (1.4-6.5) K/uL Lymph # (Auto) (1.2-3.4) K/uL [place]ville # (Auto) (0.11-0.59) K/uL Eos # (Auto) (0-0.5) K/uL Baso # (Auto) (0-0.2) K/uL Immature Gran # (Auto) (0.00-0.02) K/uL Absolute Nucleated RBC (0-0) K/uL Nucleated RBC % (auto) % Sample Site POC pH (7.35-7.45) POC pCO2 (35-46) mmHg POC pO2 (80-95) mmHg POC HCO3 (19-24) racheal/L POC Total CO2 (24-31) mmol/L POC Base Excess (-9-1.8) racheal/L POC ABG O2 Sat (90-95) % Philipp Test O2 Delivery Device POC O2 Rate Minute Ventilation Tidal Volume PEEP Sodium 139 (136-145) mmol/L Potassium 4.3 D (3.5-5.1) mmol/L Chloride 102 (98-107) mmol/L Carbon Dioxide 31 (21-32) mmol/L Anion Gap 6.0 (3-11) BUN 28 H (7-18) mg/dl Creatinine 0.54 L (0.6-1.2) mg/dl Est Cr Clr Drug Dosing 93.6 ml/min Est GFR ( Amer) 111.6 Est GFR (Non-Af Amer) 96.3 BUN/Creatinine Ratio 51.6 H (10-20) Glucose 105 H (70-99) mg/dl POC Glucose 112 H (70-99) mg/dl POC Glucose (other) 111 H (70-99) mg/dl Calcium 8.6 (8.5-10.1) mg/dl Phosphorus 3.8 (2.5-4.9) mg/dl Magnesium 2.2 (1.8-2.4) mg/dl Total Bilirubin (0.2-1) mg/dl AST (15-37) U/L ALT (12-78) U/L Alkaline Phosphatase (45-117) U/L Total Protein (6.4-8.2) gm/dl Albumin (3.4-5.0) gm/dl Globulin (2.5-4.0) gm/dl Albumin/Globulin Ratio (0.9-2) 12/20/19 12/20/19 12/20/19 Range/Units 05:45 04:05 04:03 WBC 11.49 H (4.8-10.8) K/uL RBC 3.30 L (4.2-5.4) M/uL Hgb 11.0 L (12.0-16.0) g/dL Hct 30.6 L (37-47) % MCV 92.7 (80-100) fL MCH 33.3 (25-34) pg MCHC 35.9 (32-36) g/dL RDW Std Deviation 49.0 H (36.4-46.3) fL RDW Coeff of Oz 14.3 (11.5-14.5) % Plt Count 275 (130-400) K/uL MPV 11.0 H (7.4-10.4) fL Immature Gran % (Auto) 4.4 % Neut % (Auto) 86.2 % Lymph % (Auto) 5.3 % Granville % (Auto) 2.9 % Eos % (Auto) 1.1 % Baso % (Auto) 0.1 % Neut # (Auto) 9.91 H (1.4-6.5) K/uL Lymph # (Auto) 0.61 L (1.2-3.4) K/uL [place]ville # (Auto) 0.33 (0.11-0.59) K/uL Eos # (Auto) 0.13 (0-0.5) K/uL Baso # (Auto) 0.01 (0-0.2) K/uL Immature Gran # (Auto) 0.50 H (0.00-0.02) K/uL Absolute Nucleated RBC 0.03 H (0-0) K/uL Nucleated RBC % (auto) 0.2 % Sample Site R Radial POC pH 7.49 H (7.35-7.45) POC pCO2 39 (35-46) mmHg POC pO2 58 L (80-95) mmHg POC HCO3 30 H (19-24) racheal/L POC Total CO2 31 (24-31) mmol/L POC Base Excess 6.0 H (-9-1.8) racheal/L POC ABG O2 Sat 92.0 (90-95) % Philipp Test Pass O2 Delivery Device Ventilator POC O2 Rate 20 Minute Ventilation 8.0 Tidal Volume 400 PEEP 8 Sodium (136-145) mmol/L Potassium (3.5-5.1) mmol/L Chloride (98-107) mmol/L Carbon Dioxide (21-32) mmol/L Anion Gap (3-11) BUN (7-18) mg/dl Creatinine (0.6-1.2) mg/dl Est Cr Clr Drug Dosing ml/min Est GFR ( Amer) Est GFR (Non-Af Amer) BUN/Creatinine Ratio (10-20) Glucose (70-99) mg/dl POC Glucose (70-99) mg/dl POC Glucose (other) 133 H (70-99) mg/dl Calcium (8.5-10.1) mg/dl Phosphorus (2.5-4.9) mg/dl Magnesium (1.8-2.4) mg/dl Total Bilirubin (0.2-1) mg/dl AST (15-37) U/L ALT (12-78) U/L Alkaline Phosphatase (45-117) U/L Total Protein (6.4-8.2) gm/dl Albumin (3.4-5.0) gm/dl Globulin (2.5-4.0) gm/dl Albumin/Globulin Ratio (0.9-2) 12/20/19 12/19/19 Range/Units 04:03 23:24 WBC (4.8-10.8) K/uL RBC (4.2-5.4) M/uL Hgb (12.0-16.0) g/dL Hct (37-47) % MCV (80-100) fL MCH (25-34) pg MCHC (32-36) g/dL RDW Std Deviation (36.4-46.3) fL RDW Coeff of Oz (11.5-14.5) % Plt Count (130-400) K/uL MPV (7.4-10.4) fL Immature Gran % (Auto) % Neut % (Auto) % Lymph % (Auto) % [place] % (Auto) % Eos % (Auto) % Baso % (Auto) % Neut # (Auto) (1.4-6.5) K/uL Lymph # (Auto) (1.2-3.4) K/uL [place]ville # (Auto) (0.11-0.59) K/uL Eos # (Auto) (0-0.5) K/uL Baso # (Auto) (0-0.2) K/uL Immature Gran # (Auto) (0.00-0.02) K/uL Absolute Nucleated RBC (0-0) K/uL Nucleated RBC % (auto) % Sample Site POC pH (7.35-7.45) POC pCO2 (35-46) mmHg POC pO2 (80-95) mmHg POC HCO3 (19-24) racheal/L POC Total CO2 (24-31) mmol/L POC Base Excess (-9-1.8) racheal/L POC ABG O2 Sat (90-95) % Philipp Test O2 Delivery Device POC O2 Rate Minute Ventilation Tidal Volume PEEP Sodium 139 (136-145) mmol/L Potassium 3.3 L D (3.5-5.1) mmol/L Chloride 100 (98-107) mmol/L Carbon Dioxide 29 (21-32) mmol/L Anion Gap 10.0 (3-11) BUN 28 H (7-18) mg/dl Creatinine 0.51 L (0.6-1.2) mg/dl Est Cr Clr Drug Dosing 102.7 ml/min Est GFR ( Amer) 113.7 Est GFR (Non-Af Amer) 98.1 BUN/Creatinine Ratio 54.1 H (10-20) Glucose 139 H (70-99) mg/dl POC Glucose (70-99) mg/dl POC Glucose (other) 211 H (70-99) mg/dl Calcium 7.6 L (8.5-10.1) mg/dl Phosphorus 4.0 (2.5-4.9) mg/dl Magnesium 1.6 L (1.8-2.4) mg/dl Total Bilirubin 0.3 (0.2-1) mg/dl AST 53 H (15-37) U/L ALT 30 (12-78) U/L Alkaline Phosphatase 121 H (45-117) U/L Total Protein 5.4 L (6.4-8.2) gm/dl Albumin 1.3 L (3.4-5.0) gm/dl Globulin 4.1 H (2.5-4.0) gm/dl Albumin/Globulin Ratio 0.3 L (0.9-2) PG Care Time/CCT Total # of Minutes Spent Total Time Spent with Patient: Total time spent is greater than 50% in coordination of care (as documented) at patient's floor/unit and/or counseling patient: Coding Level of Care Code 28885 Subseq Hosp Care Lvl 1 Diagnoses Sepsis A41.9; R65.20 Sepsis acute organ dysfunction status: with acute organ dysfunction Sepsis type: sepsis due to unspecified organism Severe sepsis acute organ dysfunction type: unspecified Severe sepsis shock status: without septic shock Multifocal pneumonia J18.9 Acute respiratory failure with hypoxia J96.01 Alcohol withdrawal F10.239 Emphysema of lung J43.9 Hyperglycemia R73.9 Sjogrens syndrome M35.00 Non-STEMI (non-ST elevated myocardial infarction) I21.4 Tobacco abuse Z72.0 Ventricular trigeminy I49.8 Pulmonary edema J81.1 DVT prophylaxis Z29.9 (1) Sepsis Sepsis acute organ dysfunction status: with acute organ dysfunction Sepsis type: sepsis due to unspecified organism Severe sepsis acute organ dysfunction type: unspecified Severe sepsis shock status: without septic shock Qualified Code(s): A41.9 - Sepsis, unspecified organism; R65.20 - Severe sepsis without septic shock
[2019-12-21] MEDS: INSULIN ASPART 100 UNITS/ML 3 ML PEN SC SCH ×4 (00:42→19:04)
[2019-12-21] MEDS: VORICONAZOLE IV SCH ×2 (01:57→17:25)
[2019-12-21] MEDS: SODIUM CHLORIDE 0.9% IV SCH ×2 (01:57→17:25)
[2019-12-21] MEDS: propofoL 1,000 MG/100 ML VIAL IV SCH ×2 (04:48→07:59)
[2019-12-21 04:54] LABS: Basophils # (auto) 0.02 K/uL (0-0.2); Basophils % (auto) 0.2 %; Eosinophils # (auto) 0.14 K/uL (0-0.5); Eosinophils % (auto) 1.4 %; Hematocrit (blood only) 33.8 % (37-47); Hemoglobin 11.4 g/dL (12.0-16.0); Immature Granulocytes # (auto) 0.47 K/uL (0.00-0.02); Immature Granulocytes % (auto) 4.6 %; Lymphocytes % (auto) 6.9 %; Mean Corpuscular Hgb Conc 33.7 g/dL (32-36); Mean Corpuscular Volume 94.9 fL (80-100); Mean Platelet Volume 10.8 fL (7.4-10.4); Monocytes # (auto) 0.45 K/uL (0.11-0.59); Monocytes % (auto) 4.4 %; Neutrophils # (auto) 8.43 K/uL (1.4-6.5); Neutrophils % (auto) 82.5 %; Platelet Count 298 K/uL (130-400); RDW Coefficient of Variation 14.5 % (11.5-14.5); RDW Standard Deviation 50.5 fL (36.4-46.3); Red Blood Count 3.56 M/uL (4.2-5.4); White Blood Count 10.21 K/uL (4.8-10.8)
[2019-12-21 05:19] LABS: Albumin Level 1.4 gm/dl (3.4-5.0); BUN Creatinine Ratio 42.3 (10-20); Calcium 8.2 mg/dl (8.5-10.1); Creatinine Clr Calc Pharmacy 99.1 ml/min; Est GFR (African American) 113.7; Est GFR (Non-African American) 98.1; Magnesium 1.9 mg/dl (1.8-2.4); Potassium 3.9 mmol/L (3.5-5.1)
[2019-12-21 05:22] LABS: Albumin Globulin Ratio 0.3 (0.9-2); Bilirubin,Total 0.3 mg/dl (0.2-1); Globulin 4.6 gm/dl (2.5-4.0); Phosphorus 3.3 mg/dl (2.5-4.9)
[2019-12-21 05:37] LABS: iSTAT Allen Test Pass; iSTAT Arterial Blood Gas HCO3 34 meg/L (19-24); iSTAT Arterial Blood Gas pCO2 42 mmHg (35-46); iSTAT Arterial Blood Gas pH 7.53 (7.35-7.45); iSTAT Arterial Blood Gas pO2 56 mmHg (80-95); iSTAT Carbon Dioxide 35 mmol/L (24-31); iSTAT FiO2 40 %; iSTAT Site R Radial
[2019-12-21] MEDS: PIPERACILLIN/TAZOBACTAM 3.375 GM in DEXTROSE 5% 100 ML IV SCH ×3 (06:08→22:51)
--- NOTE | 2019-12-21 07:09 | XRay Report ---
XR chest 1V portable CLINICAL HISTORY: respiratory failure, dyspnea COMPARISON STUDY: 2019 FINDINGS: Endotracheal tube 4.5 cm above the natividad. Central catheter in superior vena cava. Stable bilateral multifocal infiltrative change. Possible slight improvement right base with slightly progressive change left base. IMPRESSION: Bilateral parenchymal infiltrates overall considered stable from the prior study. Endotr acheal tube 4.5 cm above the natividad. ACT 112: Negative or not required by law. The above report was generated using voice recognition software. It may contain grammatical, syntax or spelling errors. Electronically signed by: González Haynes M.D. 12/21/2019 7:08 AM
[2019-12-21] MEDS ORDERED: MAGNESIUM SULFATE / D5W 1 GM/100 ML BAG IV ONE (07:34)
[2019-12-21] MEDS ORDERED: POTASSIUM CHLORIDE 20 MEQ/15 ML UDC NG STA (07:35)
[2019-12-21] MEDS: ASPIRIN 81 MG CHEW NG SCH (07:58)
[2019-12-21] MEDS: THIAMINE HCL 100 MG TAB PO SCH (07:58)
[2019-12-21] MEDS: FOLIC ACID 1 MG TAB PO SCH (07:58)
[2019-12-21] MEDS: ENOXAPARIN INJ 40 MG/0.4 ML SYR SQ SCH (08:00)
[2019-12-21] MEDS: DEXMEDETOMIDINE HCL 200 MCG in SODIUM CHLORIDE 0.9% 48 ML IV SCH ×5 (08:22→22:57)
--- NOTE | 2019-12-21 08:41 | Critical Care Progress Note ---
Date of Service December 21, 2019 Assessment & Plan (1) S/P admission to ICU (intensive care unit): 69-year-old female was admitted to the hospital because of multilobar pneumonia, she has history of Sjogren's, actively smoking, daily drinker, vaping. She has mediastinal lymphadenopathy and she underwent EBUS for it. Because of the worsening respiratory status she was intubated. Assessment and Plan: -Acute hypoxemic respiratory failure secondary to multifocal pneumonia -Alcoholism with possible immunocompromise state -Sjogren's disease -Severe sepsis Neurologic: Analgesics and sedation: Continue low-dose propofol and fentanyl. Increasing fentanyl given her increased respiratory drive. Ammonia levels checked and were normal. Delirium precautions Pulmonary: Continue lung protective ventilation strategy. Aim for saturations of 88 to 92%. Head of the bed elevated to 30 degrees if intubated Cytology from the EBUS is negative for malignancy Cardiovascular: Low-dose Levophed to maintain mean arterial pressure greater than 65. Continue with given her NSTEMI upon hospital admission. She does have a dyskinetic left ventricle as noted on the initial echocardiogram on admission. She has PVCs. Beta-blockers are on hold because of her low blood pressure and being on vasopressors. Gastrointestinal: Tube feeds on hold since 12/20/2019. Renal: Electrolytes being replaced Keep potassium greater than 4, phosphorus greater than 3, magnesium greater than 2 Infectious disease: Continue Zosyn and voriconazole. Status post azithromycin last dose being on 12/19/2019 She does have nodular opacities that may be concerning for fungal infection. LFTs being monitored. Cultures from the bronchoscopy are still pending. Beta glucan was sent 12/17/2019, but may be falsely elevated due to her undergoing treatment with Zosyn. Procalcitonin is trending down Hematologic: Mild anemia. Ferritin was elevated likely an acute phase reactant from infection. Left upper extremity ultrasound negative for DVT Leukocytosis trending down Endocrine: Insulin protocol. Lines and tubes: Right PICC line, peripheral IVs in place and Dong catheter. VTE prophylaxis: Lovenox, Pepcid CODE STATUS: Full Plan: In/out: - 927, urine output 2577 Chest x-ray shows minimal improvement in vascular congestion compared to yesterday. Pulmonary infiltrate still persist Hypokalemia and hypomagnesemia is being replaced. Continue with antibiotic Zosyn and antifungal voriconazole. Galactomannan has been added to the BAL which was done. Beta D glucan still pending There is mild elevation of alk phos from 121--> 189 today, AST went from 53---> 59. Keep an eye on LFTs Bronchial culture and blood culture are all negative till date. Follow-up procalcitonin from today. Spontaneous breathing trial today with extubation if she does well. I have personally spent 44 minutes of critical care time in the direct management of this patient. This is a life/limb threatening event. This includes time spent evaluating patient, direct bedside care, chart review, placing orders, interpretation of diagnostic studies, discussion with consultants, patient, and family members, as well as other required patient management activities. This time is exclusive of all separately billable procedures, and teaching time and separate from and in addition to any other critical care service time. Please note the above document was generated using voice recognition software. It may contain grammatical, syntax or spelling errors. (2) Pulmonary edema: (3) Ventricular trigeminy: (4) Hyperglycemia: (5) Alcohol withdrawal: (6) Sepsis: (7) Elevated troponin: (8) Emphysema of lung: (9) Multifocal pneumonia: (10) Sjogrens syndrome: (11) Non-STEMI (non-ST elevated myocardial infarction): Admission and Anticipated Discharge Date Admission Date: December 15, 2019 Subjective Patient seen and examined at bedside. No acute distress, no adverse events overnight. On fentanyl 25, propofol 15 Afebrile in the last 12 hours Review of Systems Review of Systems: Unobtainable due to endotracheal tube Physical Exam Physical Exam: Constitutional: No acute distress HEENT: PERRLA, positive ETT Respiratory system: Decreased air entry bilaterally, no wheeze, positive rhonchi, positive crackles bilateral lower lobes CVS: S1-S2 positive, no murmurs or gallops, tachycardia Abdomen: Soft, nontender, positive bowel sounds x4, belly is less distended than yesterday. Extremities: +2 pulses bilaterally radialis/ dorsalis pedis, no cyanosis, no edema bilateral lower extremity, +1 pitting edema left upper extremity Neuro: Sedated, RASS -1, opens her eyes to command, positive corneal, positive gag, positive pupillary Psych: Unable to assess G/U: Positive Dong Skin: no rashes, warm and dry Lymphatic: no cervical or axillary lymphadenopathy Results & Data Results & Data ([facility]) Vital Signs (Past 12 Hours) Vital Signs Temp Pulse Resp BP Pulse Ox 12/21/19 07:42 99 H 22 94 12/21/19 07:32 37.2 C 12/21/19 05:51 98 H 142/75 H 92 12/21/19 05:36 91 H 127/69 91 12/21/19 05:21 95 H 109/56 L 91 12/21/19 05:06 92 H 113/61 92 12/21/19 05:00 95 H 20 90 12/21/19 04:51 90 104/58 L 91 12/21/19 04:36 85 119/65 92 12/21/19 04:22 37.2 C 93 H 113/66 91 12/21/19 03:51 81 123/65 93 12/21/19 03:36 82 120/66 93 12/21/19 03:21 81 114/62 92 12/21/19 03:06 82 121/66 91 12/21/19 02:51 81 119/63 92 12/21/19 02:36 81 116/65 91 12/21/19 02:21 82 119/66 91 12/21/19 02:06 82 110/65 91 12/21/19 01:52 80 20 95 12/21/19 01:51 82 111/64 92 12/21/19 01:36 83 117/63 95 12/21/19 01:21 81 107/62 94 12/21/19 01:06 84 102/58 L 94 12/21/19 00:51 78 135/70 95 12/21/19 00:35 79 125/69 94 12/21/19 00:20 82 119/67 94 12/21/19 00:05 37.2 C 83 112/62 93 12/21/19 00:00 85 12/20/19 23:50 82 119/64 93 12/20/19 23:35 82 114/65 93 12/20/19 23:20 84 103/61 93 12/20/19 23:07 88 20 91 12/20/19 23:05 87 106/61 93 12/20/19 22:51 90 95/55 L 90 12/20/19 21:20 89 127/69 94 12/20/19 21:05 88 109/64 93 12/20/19 20:50 88 104/61 94 12/21/19 04:21 12/21/19 04:21 Resource program Coding Level of Care Code Critical Care 1st 30-74 mins Diagnoses S/P admission to ICU (intensive care unit) Pulmonary edema J81.1 Ventricular trigeminy I49.8 Hyperglycemia R73.9 Alcohol withdrawal F10.239 Sepsis A41.9; R65.20 Sepsis acute organ dysfunction status: with acute organ dysfunction Sepsis type: sepsis due to unspecified organism Severe sepsis acute organ dysfunction type: unspecified Severe sepsis shock status: without septic shock Elevated troponin R79.89 Emphysema of lung J43.9 Multifocal pneumonia J18.9 Sjogrens syndrome M35.00 Non-STEMI (non-ST elevated myocardial infarction) I21.4 Time Spent (min) 44 (1) Sepsis Sepsis acute organ dysfunction status: with acute organ dysfunction Sepsis type: sepsis due to unspecified organism Severe sepsis acute organ dysfunction type: unspecified Severe sepsis shock status: without septic shock Qualified Code(s): A41.9 - Sepsis, unspecified organism; R65.20 - Severe sepsis without s eptic shock
[2019-12-21] MEDS: FAMOTIDINE 20 MG in SYRINGE 3 ML IV SCH ×2 (08:49→20:33)
[2019-12-21] MEDS: PEPTAMEN INTENSE VHP 1.0 CAL 1,000 ML BAG OG SCH (10:01)
[2019-12-21] MEDS ORDERED: GLYCOPYRROLATE 0.2 MG/ML VIAL IV PRN (10:05)
[2019-12-21] MEDS ORDERED: FUROSEMIDE 40 MG in SYRINGE 0 ML IV ONE (19:30)
--- NOTE | 2019-12-21 20:32 | Hospitalist Progress Note ---
Date of Service December 21, 2019 Assessment & Plan (1) Sepsis: present on arrival due to multifocal pneumonia on chest x-ray, presented with leukocytosis, fever, tachycardia Was afebrile, except had temperature of 38.0 on the morning of 12/19, but none since then Leukocytosis now resolved, tachycardia now resolved and was likely related to alcohol withdrawal With bilateral infiltrates on CXR and CT chest, worsening on chest x-ray 12/18, respiratory failure. Chest x-ray on 12/19 is improved and on 12/19 is stable Procalcitonin is trending almost back to normal blood cultures - no growth from 12/14 urine culture - no growth, < 1000 colonies bronchial lavage - no growth on fungal, AFB, microbial -Continue Zosyn and completed a course of Zithromax; Vanco was stopped due to MRSA swab negativity -Continue voriconazole IV to cover for possible fungal infection given immunocompromised status with alcohol abuse, malnourished, on Plaquenil this was started on 12/16 -Now weaned off Levophed as she has been extubated and is off sedation (2) Multifocal pneumonia: multifocal pneumonia, likely aspiration pneumonia in setting of heavy alcohol abuse, malnutrition also, patient vapes nicotine daily, possible Vaping associated lung injury COVID negative Pro-Lorenzo elevated at 19.35 on admission, trending down to 1 CT chest with multifocal pneumonia, enlarged mediastinal lymph node which was biopsied on EBUS and negative for malignancy Chest x-ray on 12/19 improved bronchoscopy on 12/[address] Prasad bronchial lavage sent for cultures-all no growth Suspicion for fungal pneumonia as per pulmonology-beta glucan and galactomannan are pending Legionella antigen negative transferred to ICU shortly after bronchoscopy due to worsening hypoxia in the setting of alcohol withdrawal Was intubated for several days and was extubated on 12/20 -Now on nasal cannula 5 L and stable -Follow chest x-ray -Continue voriconazole, Zosyn -Appreciate pulmonology/critical care management (3) Acute respiratory failure with hypoxia: Had increased work of breathing, accessory muscle use, requiring 15L Oxymask to keep saturations > 90% due to multifocal pneumonia, may have aspirated after bronchoscopy complicated by suspected alcohol withdrawal transferred to ICU, placed on HFNC, saturations in the low 90's placed on CPAP overnight on 12/15 and into the morning on 12/16 intubated on 12/[address] Prasad and now extubated on 12/20 -Continue supplemental O2 to keep pulse ox greater than 90% -Diuresing with IV Lasix as volume overload was also contributing (4) Alcohol withdrawal: unsure how much patient drinks as she drinks a lot after goes to bed may be as much as a fifth a night AWSS scale -Continue Precedex drip and use Ativan as needed -Continue thiamine, folate -Of course would encourage alcohol cessation (5) Emphysema of lung: seen on CT, this is a new diagnosis she is a heavy smoker will need outpatient follow up and PFTs (6) Hyperglycemia: sugars in the 300's, she did get a dose of decadron on 12/15 in morning Glucose now much improved control Was on insulin drip and now weaned off -Continue Accu-Cheks, continue NovoLog sliding scale Hemoglobin A1c only 5.7% (7) Sjogrens syndrome: -Continue to hold home hydroxychloroquine during acute infection (8) Non-STEMI (non-ST elevated myocardial infarction): Secondary to myocardial demand ischemia in the setting of tachycardia from sepsis and alcohol withdrawal With preserved EF on echo, but with some wall motion abnormalities with moderate to severe hypokinesis involving the mid to distal anterior septal arana ECG with nonspecific T wave inversions cardiology consult appreciated, likely demand ischemia -Cardiology recommends outpatient perfusion imaging -Added aspirin 81mg daily -Add metoprolol when BP can tolerate (9) Tobacco abuse: Will eventually need counseling on smoking cessation (10) Ventricular trigeminy: likely due to alcohol withdrawal, severe distress with multifocal pneumonia keep electrolytes normal -Have been unable to give beta-yaya due to hypotension requiring Levophed -We will likely be able to add metoprolol back on now that she is extubated, off sedation, and weaned off of Levophed continue tele monitor Follow BMP (11) Pulmonary edema: likely due to aggressive fluid resuscitation at admission and then with bronchial lavage -Is now diuresing with daily IV Lasix Weight is down 5 kg in the last 2 days but remains 6.8 L positive net continue to follow closely, give Lasix daily as needed-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 and awaiting speech consultation. Diuresing and not on IV fluids as above, replaced potassium and magnesium this morning, continue folic acid and thiamine as above for history of alcohol abuse Dispo-continued stay in ICU Admission and Anticipated Discharge Date Admission Date: December 15, 2019 Subjective Patient extubated today. She tells me that she wants to move her legs around and get them out of the waffle boots because it is uncomfortable. Otherwise denies chest pain or shortness of breath. She remains on Precedex drip, but is weaned off of propofol, fentanyl, and Levophed. She received a dose of IV Lasix today and is diuresing. She is otherwise slightly confused and not able to tell me much. Review of Systems Review of Systems: All systems reviewed & are unremarkable except as noted in HPI & below Physical Exam Constitutional: + thin; no acute distress Eyes: + anicteric sclerae ENMT: Mouth: + lip abnormality (Peeled cracking skin on lips) Neck: trachea midline, no thyromegaly Respiratory: + tachypneic (Mild); no labored breathing Auscultation: + crackles and + wheezes Cardiovascular: Rate/Rhythm: regular rate and regular rhythm Extremities: + edema (Now trace pitting edema of the left greater than right upper extremities and bilateral lower extremities) Chest (Breasts): Chest: normal inspection of chest Gastrointestinal (Abdomen): normal bowel sounds, soft, nontender, no hepatosplenomegaly Musculoskeletal: Extremities: no cyanosis and no clubbing Skin: no rashes, warm and dry Neurologic: awake and + confused (Mild); no focal motor deficits Motor/Sensory: no tremor Genitourinary: Dong catheter in place draining clear yellow urine Results & Data Results & Data ([facility]) Vital Signs (Past 12 Hours) Vital Signs Pulse Resp BP Pulse Ox Pulse Ox 12/21/19 19:37 89 28 H 124/63 95 12/21/19 19:22 99 H 35 H 124/74 94 12/21/19 19:07 98 H 29 H 113/67 93 12/21/19 18:52 93 H 29 H 114/62 89 L 12/21/19 18:37 90 26 H 144/73 H 12/21/19 18:22 95 H 22 135/72 12/21/19 17:52 92 H 24 122/70 96 12/21/19 17:37 94 H 33 H 133/72 97 12/21/19 17:07 89 25 H 116/57 L 96 12/21/19 16:52 95 H 25 H 123/56 L 94 12/21/19 16:37 95 H 28 H 106/61 97 12/21/19 16:22 89 24 129/66 95 12/21/19 16:07 99 H 26 H 127/78 97 12/21/19 15:52 92 H 24 125/60 94 12/21/19 15:22 98 H 23 119/61 92 12/21/19 14:52 92 H 25 H 108/53 L 96 12/21/19 14:37 93 H 24 103/51 L 95 12/21/19 14:22 98 H 17 101/57 L 96 12/21/19 14:07 97 H 26 H 110/56 L 95 12/21/19 13:52 102 H 28 H 106/60 96 12/21/19 13:37 100 H 27 H 113/51 L 97 12/21/19 13:22 101 H 24 100/72 97 12/21/19 13:07 106 H 22 122/61 96 12/21/19 12:52 91 H 23 100/56 L 97 12/21/19 12:37 88 26 H 117/57 L 97 12/21/19 12:21 90 26 H 116/74 98 12/21/19 12:06 90 24 123/65 97 12/21/19 11:51 94 H 26 H 141/65 H 98 12/21/19 11:36 89 23 128/52 L 99 12/21/19 11:30 87 24 100 12/21/19 11:21 90 25 H 128/51 L 100 12/21/19 11:08 99 12/21/19 11:06 89 23 127/52 L 99 12/21/19 10:52 89 23 120/56 L 100 12/21/19 10:36 93 H 24 92/48 L 95 12/21/19 10:25 96 H 23 82/45 L 94 12/21/19 10:21 98 H 23 84/45 L 94 12/21/19 10:19 102 H 22 85/46 L 94 12/21/19 10:06 106 H 23 89/41 L 93 12/21/19 09:51 114 H 24 117/60 95 12/21/19 09:45 120 H 19 103/67 95 12/21/19 09:36 115 H 22 95/44 L 95 12/21/19 09:22 125 H 27 H 110/65 95 12/21/19 09:06 129 H 23 139/77 94 12/21/19 09:01 129 H 29 H 158/88 H 97 12/21/19 08:51 131 H 23 181/111 H 97 12/21/19 08:37 122 H 20 191/104 H 99 12/21/19 08:30 99 H 22 94 12/21/19 08:21 115 H 105/85 97 Laboratory Results 12/21/19 12/21/19 12/21/19 Range/Units 18:58 10:43 08:50 WBC (4.8-10.8) K/uL RBC (4.2-5.4) M/uL Hgb (12.0-16.0) g/dL Hct (37-47) % MCV (80-100) fL MCH (25-34) pg MCHC (32-36) g/dL RDW Std Deviation (36.4-46.3) fL RDW Coeff of Oz (11.5-14.5) % Plt Count (130-400) K/uL MPV (7.4-10.4) fL Immature Gran % (Auto) % Neut % (Auto) % Lymph % (Auto) % Towner % (Auto) % Eos % (Auto) % Baso % (Auto) % Neut # (Auto) (1.4-6.5) K/uL Lymph # (Auto) (1.2-3.4) K/uL Towner # (Auto) (0.11-0.59) K/uL Eos # (Auto) (0-0.5) K/uL Baso # (Auto) (0-0.2) K/uL Immature Gran # (Auto) (0.00-0.02) K/uL Sample Site POC pH (7.35-7.45) POC pCO2 (35-46) mmHg POC pO2 (80-95) mmHg POC HCO3 (19-24) racheal/L POC Total CO2 (24-31) mmol/L POC Base Excess (-9-1.8) racheal/L POC ABG O2 Sat (90-95) % Philipp Test O2 Delivery Device POC O2 Rate Minute Ventilation POC FiO2 % Tidal Volume PEEP Sodium (136-145) mmol/L Potassium (3.5-5.1) mmol/L Chloride (98-107) mmol/L Carbon Dioxide (21-32) mmol/L Anion Gap (3-11) BUN (7-18) mg/dl Creatinine (0.6-1.2) mg/dl Est Cr Clr Drug Dosing ml/min Est GFR ( Amer) Est GFR (Non-Af Amer) BUN/Creatinine Ratio (10-20) Glucose (70-99) mg/dl POC Glucose 98 109 H (70-99) mg/dl POC Glucose (other) (70-99) mg/dl Calcium (8.5-10.1) mg/dl Phosphorus (2.5-4.9) mg/dl Magnesium (1.8-2.4) mg/dl Total Bilirubin (0.2-1) mg/dl AST (15-37) U/L ALT (12-78) U/L Alkaline Phosphatase (45-117) U/L Total Protein (6.4-8.2) gm/dl Albumin (3.4-5.0) gm/dl Globulin (2.5-4.0) gm/dl Albumin/Globulin Ratio (0.9-2) Procalcitonin 1.23 H (0-0.5) ng/ml Urine Legionella Ag 12/21/19 12/21/19 12/21/19 Range/Units 06:08 05:23 04:21 WBC 10.21 (4.8-10.8) K/uL RBC 3.56 L (4.2-5.4) M/uL Hgb 11.4 L (12.0-16.0) g/dL Hct 33.8 L (37-47) % MCV 94.9 (80-100) fL MCH 32.0 (25-34) pg MCHC 33.7 (32-36) g/dL RDW Std Deviation 50.5 H (36.4-46.3) fL RDW Coeff of Oz 14.5 (11.5-14.5) % Plt Count 298 (130-400) K/uL MPV 10.8 H (7.4-10.4) fL Immature Gran % (Auto) 4.6 % Neut % (Auto) 82.5 % Lymph % (Auto) 6.9 % Towner % (Auto) 4.4 % Eos % (Auto) 1.4 % Baso % (Auto) 0.2 % Neut # (Auto) 8.43 H (1.4-6.5) K/uL Lymph # (Auto) 0.70 L (1.2-3.4) K/uL Towner # (Auto) 0.45 (0.11-0.59) K/uL Eos # (Auto) 0.14 (0-0.5) K/uL Baso # (Auto) 0.02 (0-0.2) K/uL Immature Gran # (Auto) 0.47 H (0.00-0.02) K/uL Sample Site R Radial POC pH 7.53 H* (7.35-7.45) POC pCO2 42 (35-46) mmHg POC pO2 56 L (80-95) mmHg POC HCO3 34 H (19-24) racheal/L POC Total CO2 35 H (24-31) mmol/L POC Base Excess 11.0 H (-9-1.8) racheal/L POC ABG O2 Sat 92.0 (90-95) % Philipp Test Pass O2 Delivery Device Ventilator POC O2 Rate 20 Minute Ventilation 7.86 POC FiO2 40 % Tidal Volume 400 PEEP 5 Sodium (136-145) mmol/L Potassium (3.5-5.1) mmol/L Chloride (98-107) mmol/L Carbon Dioxide (21-32) mmol/L Anion Gap (3-11) BUN (7-18) mg/dl Creatinine (0.6-1.2) mg/dl Est Cr Clr Drug Dosing ml/min Est GFR ( Amer) Est GFR (Non-Af Amer) BUN/Creatinine Ratio (10-20) Glucose (70-99) mg/dl POC Glucose (70-99) mg/dl POC Glucose (other) 145 H (70-99) mg/dl Calcium (8.5-10.1) mg/dl Phosphorus (2.5-4.9) mg/dl Magnesium (1.8-2.4) mg/dl Total Bilirubin (0.2-1) mg/dl AST (15-37) U/L ALT (12-78) U/L Alkaline Phosphatase (45-117) U/L Total Protein (6.4-8.2) gm/dl Albumin (3.4-5.0) gm/dl Globulin (2.5-4.0) gm/dl Albumin/Globulin Ratio (0.9-2) Procalcitonin (0-0.5) ng/ml Urine Legionella Ag 12/21/19 12/21/19 12/17/19 Range/Units 04:21 00:12 17:50 WBC (4.8-10.8) K/uL RBC (4.2-5.4) M/uL Hgb (12.0-16.0) g/dL Hct (37-47) % MCV (80-100) fL MCH (25-34) pg MCHC (32-36) g/dL RDW Std Deviation (36.4-46.3) fL RDW Coeff of Oz (11.5-14.5) % Plt Count (130-400) K/uL MPV (7.4-10.4) fL Immature Gran % (Auto) % Neut % (Auto) % Lymph % (Auto) % Towner % (Auto) % Eos % (Auto) % Baso % (Auto) % Neut # (Auto) (1.4-6.5) K/uL Lymph # (Auto) (1.2-3.4) K/uL Towner # (Auto) (0.11-0.59) K/uL Eos # (Auto) (0-0.5) K/uL Baso # (Auto) (0-0.2) K/uL Immature Gran # (Auto) (0.00-0.02) K/uL Sample Site POC pH (7.35-7.45) POC pCO2 (35-46) mmHg POC pO2 (80-95) mmHg POC HCO3 (19-24) racheal/L POC Total CO2 (24-31) mmol/L POC Base Excess (-9-1.8) racheal/L POC ABG O2 Sat (90-95) % Philipp Test O2 Delivery Device POC O2 Rate Minute Ventilation POC FiO2 % Tidal Volume PEEP Sodium 140 (136-145) mmol/L Potassium 3.9 (3.5-5.1) mmol/L Chloride 101 (98-107) mmol/L Carbon Dioxide 34 H (21-32) mmol/L Anion Gap 5.0 (3-11) BUN 22 H (7-18) mg/dl Creatinine 0.51 L (0.6-1.2) mg/dl Est Cr Clr Drug Dosing 99.1 ml/min Est GFR ( Amer) 113.7 Est GFR (Non-Af Amer) 98.1 BUN/Creatinine Ratio 42.3 H (10-20) Glucose 91 (70-99) mg/dl POC Glucose (70-99) mg/dl POC Glucose (other) 105 H (70-99) mg/dl Calcium 8.2 L (8.5-10.1) mg/dl Phosphorus 3.3 (2.5-4.9) mg/dl Magnesium 1.9 (1.8-2.4) mg/dl Total Bilirubin 0.3 (0.2-1) mg/dl AST 59 H (15-37) U/L ALT 37 (12-78) U/L Alkaline Phosphatase 189 H (45-117) U/L Total Protein 6.0 L (6.4-8.2) gm/dl Albumin 1.4 L (3.4-5.0) gm/dl Globulin 4.6 H (2.5-4.0) gm/dl Albumin/Globulin Ratio 0.3 L (0.9-2) Procalcitonin (0-0.5) ng/ml Urine Legionella Ag SEE NOTE Diagnostic Findings Chest x-ray image personally reviewed by me and agree with the following report: XR chest 1V portable CLINICAL HISTORY: respiratory failure, dyspnea COMPARISON STUDY: 2019 FINDINGS: Endotracheal tube 4.5 cm above the natividad. Central catheter in superior vena cava. Stable bilateral multifocal infiltrative change. Possible slight improvement right base with slightly progressive change left base. IMPRESSION: Bilateral parenchymal infiltrates overall considered stable from the prior study. Endotracheal tube 4.5 cm above the natividad. PG Care Time/CCT Total # of Minutes Spent Total Time Spent with Patient: Total time spent is greater than 50% in coordination of care (as documented) at patient's floor/unit and/or counseling patient: Coding Level of Care Code 96914 Subseq Hosp Care Lvl 1 Diagnoses Sepsis A41.9; R65.20 Sepsis acute organ dysfunction status: with acute organ dysfunction Sepsis type: sepsis due to unspecified organism Severe sepsis acute organ dysfunction type: unspecified Severe sepsis shock status: without septic shock Multifocal pneumonia J18.9 Acute respiratory failure with hypoxia J96.01 Alcohol withdrawal F10.239 Emphysema of lung J43.9 Hyperglycemia R73.9 Sjogrens syndrome M35.00 Non-STEMI (non-ST elevated myocardial infarction) I21.4 Tobacco abuse Z72.0 Ventricular trigeminy I49.8 Pulmonary edema J81.1 DVT prophylaxis Z29.9 (1) Sepsis Sepsis acute organ dysfunction status: with acute organ dysfunction Sepsis type: sepsis due to unspecified organism Severe sepsis acute organ dysfunction type: unspecified Severe sepsis shock status: without septic shock Qualified Code(s): A41.9 - Sepsis, unspecified organism; R65.20 - Severe sepsis without septic shock
[2019-12-22] MEDS: INSULIN ASPART 100 UNITS/ML 3 ML PEN SC SCH ×2 (00:01→05:49)
[2019-12-22] MEDS: SODIUM CHLORIDE 0.9% IV SCH ×2 (02:02→13:25)
[2019-12-22] MEDS: VORICONAZOLE IV SCH ×2 (02:02→13:25)
[2019-12-22 04:37] LABS: Basophils # (auto) 0.01 K/uL (0-0.2); Basophils % (auto) 0.1 %; Eosinophils # (auto) 0.08 K/uL (0-0.5); Eosinophils % (auto) 0.9 %; Hematocrit (blood only) 31.6 % (37-47); Hemoglobin 10.6 g/dL (12.0-16.0); Immature Granulocytes % (auto) 2.3 %; Lymphocytes # (auto) 0.35 K/uL (1.2-3.4); Mean Corpuscular Hemoglobin 31.7 pg (25-34); Mean Corpuscular Hgb Conc 33.5 g/dL (32-36); Mean Corpuscular Volume 94.6 fL (80-100); Mean Platelet Volume 10.8 fL (7.4-10.4); Monocytes # (auto) 0.21 K/uL (0.11-0.59); Monocytes % (auto) 2.4 %; Neutrophils % (auto) 90.3 %; Platelet Count 295 K/uL (130-400); RDW Coefficient of Variation 14.1 % (11.5-14.5); RDW Standard Deviation 48.7 fL (36.4-46.3); Red Blood Count 3.34 M/uL (4.2-5.4); White Blood Count 8.65 K/uL (4.8-10.8)
[2019-12-22 05:20] LABS: Albumin Globulin Ratio 0.4 (0.9-2); Albumin Level 1.5 gm/dl (3.4-5.0); BUN Creatinine Ratio 35.2 (10-20); Bilirubin,Total 0.4 mg/dl (0.2-1); Calcium 8.3 mg/dl (8.5-10.1); Creatinine Clr Calc Pharmacy 91.9 ml/min; Est GFR (Non-African American) 97.5; Globulin 4.1 gm/dl (2.5-4.0); Magnesium 1.9 mg/dl (1.8-2.4); Phosphorus 2.8 mg/dl (2.5-4.9); Potassium 3.1 mmol/L (3.5-5.1); Total Protein 5.6 gm/dl (6.4-8.2)
[2019-12-22] MEDS: PIPERACILLIN/TAZOBACTAM 3.375 GM in DEXTROSE 5% 100 ML IV SCH ×3 (05:50→21:01)
[2019-12-22] MEDS: POTASSIUM CHLORIDE / WTR 20 MEQ/100 ML PLCT IV SCH ×2 (05:58→08:10)
--- NOTE | 2019-12-22 05:58 | Electrocardiogram Report ---
Test Reason : Blood Pressure : / mmHG Vent. Rate : 084 BPM Atrial Rate : 084 BPM P-R Int : 226 ms QRS Dur : 088 ms QT Int : 392 ms P-R-T Axes : 073 032 078 degrees QTc Int : 463 ms Sinus rhythm with 1st degree A-V block Possible Left atrial enlargement T wave abnormality, consider anterior ischemia Abnormal ECG When compared with ECG of 19-DEC-2019 11:12, Premature ventricular complexes are no longer Present ME interval has increased Confirmed by Jameson Alcocer ([id number]) on 12/22/2019 5:58:19 AM Referred By: REFERRED SELF Confirmed By:Jameson Alcocer
[2019-12-22] MEDS: DEXMEDETOMIDINE HCL 200 MCG in SODIUM CHLORIDE 0.9% 48 ML IV SCH (06:01)
[2019-12-22] MEDS ORDERED: POTASSIUM PHOS 3 MMOL/1 ML INFUSION IV STA (07:21)
[2019-12-22] MEDS: ENOXAPARIN INJ 40 MG/0.4 ML SYR SQ SCH (08:11)
[2019-12-22] MEDS: FAMOTIDINE 20 MG in SYRINGE 3 ML IV SCH (08:12)
--- NOTE | 2019-12-22 08:32 | Critical Care Progress Note ---
Date of Service December 22, 2019 Assessment & Plan (1) S/P admission to ICU (intensive care unit): 69-year-old female was admitted to the hospital because of multilobar pneumonia, she has history of Sjogren's, actively smoking, daily drinker, vaping. She has mediastinal lymphadenopathy and she underwent EBUS for it. Because of the worsening respiratory status she was intubated. Assessment and Plan: -Acute hypoxemic respiratory failure secondary to multifocal pneumonia -Alcoholism with possible immunocompromise state -Sjogren's disease -Severe sepsis Neurologic: Analgesics and sedation: Continue low-dose propofol and fentanyl. Increasing fentanyl given her increased respiratory drive. Ammonia levels checked and were normal. Delirium precautions Pulmonary: Status post extubation 12/21/2019. Head of the bed elevated to 30 degrees if intubated Cytology from the EBUS is negative for malignancy Cardiovascular: Low-dose Levophed to maintain mean arterial pressure greater than 65. Continue with given her NSTEMI upon hospital admission. She does have a dyskinetic left ventricle as noted on the initial echocardiogram on admission. She has PVCs. Beta-blockers are on hold because of her low blood pressure and being on vasopressors. Gastrointestinal: Tube feeds on hold since 12/20/2019. Swallow eval today Renal: Electrolytes being replaced Keep potassium greater than 4, phosphorus greater than 3, magnesium greater than 2 Infectious disease: Continue Zosyn and voriconazole. Status post azithromycin last dose being on 12/19/2019 She does have nodular opacities that may be concerning for fungal infection. LFTs being monitored. Cultures from the bronchoscopy are still pending. Beta glucan was sent 12/17/2019, but may be falsely elevated due to her undergoing treatment with Zosyn. Procalcitonin is trending down Hematologic: Mild anemia. Ferritin was elevated likely an acute phase reactant from infection. Left upper extremity ultrasound negative for DVT Leukocytosis trending down Endocrine: Insulin protocol. Lines and tubes: Right PICC line, peripheral IVs in place and Dong catheter. VTE prophylaxis: Lovenox, Pepcid CODE STATUS: Full Plan: In/out: -2.1 L, urine output 3.1 L Chest x-ray shows minimal improvement compared to yesterday. Hypokalemia and hypomagnesemia is being replaced. Continue with antibiotic Zosyn and antifungal voriconazole. Galactomannan and Beta D glucan still pending. LFTs have stabilized Bronchial culture and blood culture are all negative till date. Patient is hemodynamically stable. Will get swallow eval. Transfer the patient to [facility] telemetry. Recommend Lasix to be given 20 mg to keep patient euvolemic to negative balance. DC Dong today. Swallow evaluation. Wait for beta D glucan to come back if the beta D glucan is negative DC voriconazole. Complete total 10 days of Zosyn. PT OT evaluation. Repeat EKG today. I have personally spent 37 minutes of critical care time in the direct management of this patient. This is a life/limb threatening event. This includes time spent evaluating patient, direct bedside care, chart review, placing orders, interpretation of diagnostic studies, discussion with consultants, patient, and family members, as well as other required patient management activities. This time is exclusive of all separately billable procedures, and teaching time and separate from and in addition to any other critical care service time. Please note the above document was generated using voice recognition software. It may contain grammatical, syntax or spelling errors. (2) Pulmonary edema: (3) Ventricular trigeminy: (4) Hyperglycemia: (5) Alcohol withdrawal: (6) Sepsis: (7) Elevated troponin: (8) Emphysema of lung: (9) Multifocal pneumonia: (10) Sjogrens syndrome: (11) Non-STEMI (non-ST elevated myocardial infarction): Admission and Anticipated Discharge Date Admission Date: December 15, 2019 Subjective Patient seen and examined at bedside. No acute distress, no adverse events overnight. Patient was extubated successfully on 12/21/2019. Currently on nasal cannula saturating well not in any respiratory distress. Off Precedex. Review of Systems 2 Review of Systems: All systems reviewed & are unremarkable except as noted in HPI & below Physical Exam Physical Exam: Constitutional: No acute distress HEENT: PERRLA, EOMI Respiratory system: Decreased air entry bilaterally, no wheeze, no rhonchi, mild crackles bilateral lower lobes CVS: S1-S2 positive, no murmurs or gallops Abdomen: Soft, nontender, positive bowel sounds x4 Extremities: +2 pulses bilaterally radialis/ dorsalis pedis, no cyanosis, no edema bilateral lower extremity, +1 pitting edema left upper extremity Neuro: Awake alert oriented x3 Psych: Normal mood and affect G/U: Positive Dong Skin: no rashes, warm and dry Lymphatic: no cervical or axillary lymphadenopathy Results & Data Results & Data ([facility]) Vital Signs (Past 12 Hours) Vital Signs Temp Pulse Resp BP Pulse Ox 12/22/19 06:00 91 H 23 94 12/22/19 05:37 28 H 89/73 L 12/22/19 04:37 36.7 C 97 H 27 H 96 12/22/19 04:36 89 23 102/57 L 95 12/22/19 04:30 86 24 95 12/22/19 04:00 85 21 92 12/22/19 03:36 36.6 C 91 H 26 H 118/60 95 12/22/19 02:37 86 19 97 12/22/19 02:36 88 21 124/67 98 12/22/19 02:00 91 H 25 H 97 12/22/19 01:36 87 26 H 124/66 95 12/22/19 01:16 87 26 H 97 12/22/19 00:36 88 28 H 99/50 L 99 12/21/19 23:36 89 25 H 88/49 L 97 12/21/19 23:11 89 12/21/19 22:37 95 H 24 108/59 L 97 12/21/19 22:28 93 H 28 H 95 12/21/19 22:00 99 H 28 H 92 12/21/19 21:23 91 H 28 H 92 12/21/19 21:22 92 H 26 H 92/52 L 91 12/21/19 20:52 106 H 23 153/78 H 94 12/21/19 20:37 94 H 20 146/75 H 96 12/22/19 04:11 12/22/19 04:11 Coding Level of Care Code Critical Care 1st 30-74 mins Diagnoses S/P admission to ICU (intensive care unit) Pulmonary edema J81.1 Ventricular trigeminy I49.8 Hyperglycemia R73.9 Alcohol withdrawal F10.239 Sepsis A41.9; R65.20 Sepsis acute organ dysfunction status: with acute organ dysfunction Sepsis type: sepsis due to unspecified organism Severe sepsis acute organ dysfunction type: unspecified Severe sepsis shock status: without septic shock Elevated troponin R79.89 Emphysema of lung J43.9 Multifocal pneumonia J18.9 Sjogrens syndrome M35.00 Non-STEMI (non-ST elevated myocardial infarction) I21.4 Time Spent (min) 37 (1) Sepsis Sepsis acute organ dysfunction status: with acute organ dysfunction Sepsis type: sepsis due to unspecified organism Severe sepsis acute organ dysfunction type: unspecified Severe sepsis shock status: without septic shock Qualified Code(s): A41.9 - Sepsis, unspecified organism; R65.20 - Severe sepsis without septic shock
--- NOTE | 2019-12-22 08:47 | XRay Report ---
XR chest 1V portable CLINICAL HISTORY: f/u dyspnea COMPARISON STUDY: 12/21/2019 FINDINGS: Interval extubation. Prominence of pulmonary vasculature is slightly increased from the lyubov or study. Bilateral parenchymal infiltrative change slightly progressive in the right hemithorax. Diaphragms are smooth. Interval removal of the nasogastric tube. IMPRESSION: 1. Interval extubation and removal of the nasogastric tube. 2. Slightly progressive components of congestive change and superimposed right hemithoracic infiltrat magdiel change. ACT 112: Negative or not required by law. The above report was generated using voice recognition software. It may contain grammatical, syntax or spelling errors. Electronically signed by: González Haynes M.D. 12/22/2019 8:46 AM
[2019-12-22] MEDS: THIAMINE HCL 100 MG TAB PO SCH (09:19)
[2019-12-22] MEDS: FOLIC ACID 1 MG TAB PO SCH (09:19)
[2019-12-22] MEDS: ASPIRIN 81 MG CHEW NG SCH (09:19)
[2019-12-22] MEDS ORDERED: POTASSIUM PHOSPHATE 15 MMOL in SODIUM CHLORIDE 0.9% 250 ML IV SCH (09:30)
[2019-12-22] MEDS ORDERED: Nursing to Pharmacy Communication SCH (10:30)
[2019-12-22] MEDS ORDERED: INSULIN ASPART 100 UNITS/ML 3 ML PEN SC SCH (11:30)
[2019-12-22] MEDS: FUROSEMIDE 20 MG TAB PO SCH (12:46)
[2019-12-22 16:04] LABS: Aspergillus Ag, BAL Not Detected (Not Detected)
--- NOTE | 2019-12-22 18:38 | Hospitalist Progress Note ---
Date of Service December 22, 2019 Assessment & Plan (1) Sepsis: present on arrival due to multifocal pneumonia on chest x-ray, presented with leukocytosis, fever, tachycardia Was afebrile, except had temperature of 38.0 on the morning of 12/19, but none since then Leukocytosis now resolved, tachycardia now improved and was likely related to alcohol withdrawal in addition to sepsis With bilateral infiltrates on CXR and CT chest, worsening on chest x-ray 12/18, respiratory failure. Chest x-ray on 12/19 is improved and on 12/20 is stable. CXR on 12/21 slightly progressed components of congestive change and superimposed right hemithoracic infiltrative change Procalcitonin is trending almost back to normal blood cultures - no growth from 12/14 urine culture - no growth, < 1000 colonies bronchial lavage - no growth on fungal, AFB, microbial -Continue Zosyn x10-day course; completed a 5-day course of Zithromax; and Vanco was stopped due to MRSA swab negativity -Continue voriconazole IV to cover for possible fungal infection given immunocompromised status with alcohol abuse, malnourished, on Plaquenil this was started on 12/16. Can discontinue voriconazole once beta glucan is negative -Now weaned off Levophed as she has been extubated and is off sedation Blood pressures remain a bit soft but is receiving frequent Ativan (2) Multifocal pneumonia: multifocal pneumonia, likely aspiration pneumonia in setting of heavy alcohol abuse, malnutrition also, patient vapes nicotine daily, possible Vaping associated lung injury COVID negative Pro-Lorenzo elevated at 19.35 on admission, trended down to 1 CT chest with multifocal pneumonia, enlarged mediastinal lymph node which was biopsied on EBUS and negative for malignancy Chest x-ray overall improved but stable with bilateral parenchymal infiltrates right greater than left bronchoscopy on 12/[address] Prasad bronchial lavage sent for cultures-all no growth Suspicion for fungal pneumonia as per pulmonology-beta glucan pending and galactomannan is negative Legionella antigen negative transferred to ICU shortly after bronchoscopy due to worsening hypoxia in the setting of alcohol withdrawal Was intubated for several days and was extubated on 12/20 -Now on nasal cannula 5 L and needs BiPAP when has IV Ativan or with sleeping -Follow chest x-ray -Continue voriconazole, Zosyn as above -Appreciate pulmonology/critical care management (3) Acute respiratory failure with hypoxia: Had increased work of breathing, accessory muscle use, requiring 15L Oxymask to keep saturations > 90% due to multifocal pneumonia, may have aspirated after bronchoscopy complicated by suspected alcohol withdrawal transferred to ICU, placed on HFNC, saturations in the low 90's placed on CPAP overnight on 12/15 and into the morning on 12/16 intubated on 12/[address] Prasad and now extubated on 12/20 as above -Continue supplemental O2 to keep pulse ox greater than 90% -Diuresed with IV Lasix as volume overload was also contributing, now on p.o. Lasix daily (4) Alcohol withdrawal: unsure how much patient drinks as she drinks a lot after goes to bed may be as much as a fifth a night AWSS scale -Now weaned off of Precedex drip and use Ativan as needed -Continue thiamine, folate -Of course would encourage alcohol cessation (5) Emphysema of lung: seen on CT, this is a new diagnosis she is a heavy smoker will need outpatient follow up and PFTs (6) Hyperglycemia: Glucose now well controlled -Continue Accu-Cheks, continue NovoLog sliding scale Hemoglobin A1c only 5.7% (7) Sjogrens syndrome: -Continue to hold home hydroxychloroquine during acute infection (8) Non-STEMI (non-ST elevated myocardial infarction): Secondary to myocardial demand ischemia in the setting of tachycardia from sepsis and alcohol withdrawal With preserved EF on echo, but with some wall motion abnormalities with moderate to severe hypokinesis involving the mid to distal anterior septal arana ECG with nonspecific T wave inversions cardiology consult appreciated, likely demand ischemia -Cardiology recommends outpatient perfusion imaging -Added aspirin 81mg daily -Add metoprolol when BP can tolerate (9) Tobacco abuse: Will eventually need counseling on smoking cessation (10) Ventricular trigeminy: likely due to alcohol withdrawal, severe distress with multifocal pneumonia keep electrolytes normal -Have been unable to give beta-yaya due to hypotension requiring Levophed -We will likely be able to add metoprolol back on now that she is extubated, off sedation, and weaned off of Levophed-not today as blood pressures are still soft at times continue tele monitor Follow BMP (11) Pulmonary edema: likely due to aggressive fluid resuscitation at admission and then with bronchial lavage -Is now diuresing with daily IV Lasix, now on p.o. Lasix Weight is down 5 kg from 3 days ago, but remains 4.7 L positive net continue to follow closely, give Lasix 20 mg p.o. daily (12) Elevated LFTs: Mildly elevated AST and alkaline phosphatase, stable from yesterday Could be secondary to antifungal versus sepsis -Continue to follow LFTs (13) Hypoalbuminemia: Severely low at albumin of 1.4 Secondary to critical illness and poor p.o. intake -Nutrition following (14) Hypokalemia: Potassium low at 3.1 today Replaced Follow BMP in the morning (15) DVT prophylaxis: Lovenox SQ FEN: now on full liquids diet and swallowing normally. Diuresing and not on IV fluids as above, replaced potassium and magnesium this morning, continue folic acid and thiamine as above for history of alcohol abuse. Dong catheter is been removed and awaiting trial of void. Bladder scan every shift and straight cath for PVR greater than 350 mL's. Dispo-stable for downgrade to PCU Admission and Anticipated Discharge Date Admission Date: December 15, 2019 Subjective Patient lethargic when I saw her in the evening after receiving IV Ativan for significant anxiety. As per reports from the cleaning attendant, she is still quite anxious and tachycardic at times. Blood pressures remain soft. The cleaning attendant would like her to go on BiPAP whenever she receives IV Ativan. Patient for me denies chest pain or shortness of breath, no abdominal pain. She did eat some full liquids today and did well with that. She had her Dong catheter removed and still has not voided in almost 6 hours. She attempted to but it would not come out and had a bladder scan for 320 mL's. Review of Systems Review of Systems: All systems reviewed & are unremarkable except as noted in HPI & below Physical Exam Constitutional: + thin; no acute distress Eyes: + anicteric sclerae Neck: trachea midline, no thyromegaly Respiratory: no labored breathing Auscultation: + diminished lung sounds (throughout) Cardiovascular: Rate/Rhythm: regular rhythm and + tachycardic Extremities: no edema Chest (Breasts): Chest: normal inspection of chest Gastrointestinal (Abdomen): normal bowel sounds, soft, nontender, no hepatosplenomegaly Musculoskeletal: Extremities: no cyanosis and no clubbing Skin: no rashes, warm and dry Neurologic: awake; no focal motor deficits Motor/Sensory: no tremor Results & Data Results & Data ([facility]) Vital Signs (Past 12 Hours) Vital Signs Temp Pulse Resp BP Pulse Ox Pulse Ox 12/22/19 18:03 98 H 24 99 12/22/19 17:00 114 H 30 H 91 12/22/19 16:37 113 H 28 H 121/62 89 L 12/22/19 16:00 110 H 12/22/19 15:37 36.6 C 103 H 24 112/61 98 12/22/19 15:10 100 H 20 99 12/22/19 14:37 103 H 29 H 106/61 98 12/22/19 13:37 115 H 22 132/55 L 92 12/22/19 12:36 36.6 C 127 H 29 H 107/55 L 94 12/22/19 11:37 126 H 25 H 100/63 89 L 12/22/19 11:00 92 12/22/19 10:36 36.6 C 110 H 29 H 126/63 94 12/22/19 09:36 110 H 19 118/65 94 12/22/19 08:37 36.6 C 110 H 25 H 115/63 95 12/22/19 08:00 91 H 12/22/19 07:36 100 H 16 118/63 97 Laboratory Results 12/22/19 12/22/19 12/21/19 Range/Units 04:11 04:11 23:58 WBC 8.65 (4.8-10.8) K/uL RBC 3.34 L (4.2-5.4) M/uL Hgb 10.6 L (12.0-16.0) g/dL Hct 31.6 L (37-47) % MCV 94.6 (80-100) fL MCH 31.7 (25-34) pg MCHC 33.5 (32-36) g/dL RDW Std Deviation 48.7 H (36.4-46.3) fL RDW Coeff of Oz 14.1 (11.5-14.5) % Plt Count 295 (130-400) K/uL MPV 10.8 H (7.4-10.4) fL Immature Gran % (Auto) 2.3 % Neut % (Auto) 90.3 % Lymph % (Auto) 4.0 % Ritchie % (Auto) 2.4 % Eos % (Auto) 0.9 % Baso % (Auto) 0.1 % Neut # (Auto) 7.80 H (1.4-6.5) K/uL Lymph # (Auto) 0.35 L (1.2-3.4) K/uL Ritchie # (Auto) 0.21 (0.11-0.59) K/uL Eos # (Auto) 0.08 (0-0.5) K/uL Baso # (Auto) 0.01 (0-0.2) K/uL Immature Gran # (Auto) 0.20 H (0.00-0.02) K/uL Sodium 142 (136-145) mmol/L Potassium 3.1 L D (3.5-5.1) mmol/L Chloride 101 (98-107) mmol/L Carbon Dioxide 36 H (21-32) mmol/L Anion Gap 5.0 (3-11) BUN 18 (7-18) mg/dl Creatinine 0.52 L (0.6-1.2) mg/dl Est Cr Clr Drug Dosing 91.9 ml/min Est GFR ( Amer) 113.0 Est GFR (Non-Af Amer) 97.5 BUN/Creatinine Ratio 35.2 H (10-20) Glucose 81 (70-99) mg/dl POC Glucose 93 (70-99) mg/dl Calcium 8.3 L (8.5-10.1) mg/dl Phosphorus 2.8 (2.5-4.9) mg/dl Magnesium 1.9 (1.8-2.4) mg/dl Total Bilirubin 0.4 (0.2-1) mg/dl AST 55 H (15-37) U/L ALT 30 (12-78) U/L Alkaline Phosphatase 181 H (45-117) U/L Total Protein 5.6 L (6.4-8.2) gm/dl Albumin 1.5 L (3.4-5.0) gm/dl Globulin 4.1 H (2.5-4.0) gm/dl Albumin/Globulin Ratio 0.4 L (0.9-2) BAL A.galactomannan Ag (Not Detected) BAL A.galactomann Index (<0.50) 12/16/19 Range/Units 11:52 WBC (4.8-10.8) K/uL RBC (4.2-5.4) M/uL Hgb (12.0-16.0) g/dL Hct (37-47) % MCV (80-100) fL MCH (25-34) pg MCHC (32-36) g/dL RDW Std Deviation (36.4-46.3) fL RDW Coeff of Oz (11.5-14.5) % Plt Count (130-400) K/uL MPV (7.4-10.4) fL Immature Gran % (Auto) % Neut % (Auto) % Lymph % (Auto) % Ritchie % (Auto) % Eos % (Auto) % Baso % (Auto) % Neut # (Auto) (1.4-6.5) K/uL Lymph # (Auto) (1.2-3.4) K/uL Ritchie # (Auto) (0.11-0.59) K/uL Eos # (Auto) (0-0.5) K/uL Baso # (Auto) (0-0.2) K/uL Immature Gran # (Auto) (0.00-0.02) K/uL Sodium (136-145) mmol/L Potassium (3.5-5.1) mmol/L Chloride (98-107) mmol/L Carbon Dioxide (21-32) mmol/L Anion Gap (3-11) BUN (7-18) mg/dl Creatinine (0.6-1.2) mg/dl Est Cr Clr Drug Dosing ml/min Est GFR ( Amer) Est GFR (Non-Af Amer) BUN/Creatinine Ratio (10-20) Glucose (70-99) mg/dl POC Glucose (70-99) mg/dl Calcium (8.5-10.1) mg/dl Phosphorus (2.5-4.9) mg/dl Magnesium (1.8-2.4) mg/dl Total Bilirubin (0.2-1) mg/dl AST (15-37) U/L ALT (12-78) U/L Alkaline Phosphatase (45-117) U/L Total Protein (6.4-8.2) gm/dl Albumin (3.4-5.0) gm/dl Globulin (2.5-4.0) gm/dl Albumin/Globulin Ratio (0.9-2) BAL A.galactomannan Ag Not Detected (Not Detected) BAL A.galactomann Index 0.16 (<0.50) PG Care Time/CCT Total # of Minutes Spent Total Time Spent with Patient: Total time spent is greater than 50% in coordination of care (as documented) at patient's floor/unit and/or counseling patient: Coding Level of Care Code 72411 Subseq Hosp Care Lvl 3 Diagnoses Sepsis A41.9; R65.20 Sepsis acute organ dysfunction status: with acute organ dysfunction Sepsis type: sepsis due to unspecified organism Severe sepsis acute organ dysfunction type: unspecified Severe sepsis shock status: without septic shock Multifocal pneumonia J18.9 Acute respiratory failure with hypoxia J96.01 Alcohol withdrawal F10.239 Emphysema of lung J43.9 Hyperglycemia R73.9 Sjogrens syndrome M35.00 Non-STEMI (non-ST elevated myocardial infarction) I21.4 Tobacco abuse Z72.0 Ventricular trigeminy I49.8 Pulmonary edema J81.1 Elevated LFTs R79.89 Hypoalbuminemia E88.09 Hypokalemia E87.6 DVT prophylaxis Z29.9 (1) Sepsis Sepsis acute organ dysfunction status: with acute organ dysfunction Sepsis type: sepsis due to unspecified organism Severe sepsis acute organ dysfunction type: unspecified Severe sepsis shock status: without septic shock Qualified Code(s): A41.9 - Sepsis, unspecified organism; R65.20 - Severe sepsis without se ptic shock
[2019-12-23] MEDS: SODIUM CHLORIDE 0.9% IV SCH ×2 (02:48→13:54)
[2019-12-23] MEDS: VORICONAZOLE IV SCH ×2 (02:48→13:54)
--- NOTE | 2019-12-23 06:22 | Electrocardiogram Report ---
Test Reason : Blood Pressure : / mmHG Vent. Rate : 098 BPM Atrial Rate : 098 BPM P-R Int : 200 ms QRS Dur : 092 ms QT Int : 370 ms P-R-T Axes : 066 007 076 degrees QTc Int : 472 ms Normal sinus rhythm Possible Left atrial enlargement T wave abnormality, consider anterior ischemia Prolonged QT Abnormal ECG When compared with ECG of 20-DEC-2019 14:05, Nonspecific T wave abnormality now evident in Inferior leads Confirmed by Jameson Alcocer ([id number]) on 12/23/2019 6:21:45 AM Referred By: REFERRED SELF Confirmed By:Jameson Alcocer
[2019-12-23] MEDS: PIPERACILLIN/TAZOBACTAM 3.375 GM in DEXTROSE 5% 100 ML IV SCH ×3 (06:31→22:45)
[2019-12-23 06:39] LABS: Basophils # (auto) 0.02 K/uL (0-0.2); Basophils % (auto) 0.2 %; Eosinophils # (auto) 0.06 K/uL (0-0.5); Eosinophils % (auto) 0.7 %; Hematocrit (blood only) 31.3 % (37-47); Hemoglobin 10.4 g/dL (12.0-16.0); Immature Granulocytes # (auto) 0.26 K/uL (0.00-0.02); Immature Granulocytes % (auto) 3.1 %; Lymphocytes # (auto) 0.44 K/uL (1.2-3.4); Lymphocytes % (auto) 5.2 %; Mean Corpuscular Hemoglobin 31.4 pg (25-34); Mean Corpuscular Hgb Conc 33.2 g/dL (32-36); Mean Corpuscular Volume 94.6 fL (80-100); Mean Platelet Volume 10.6 fL (7.4-10.4); Monocytes % (auto) 2.4 %; Neutrophils # (auto) 7.52 K/uL (1.4-6.5); Neutrophils % (auto) 88.4 %; Platelet Count 291 K/uL (130-400); RDW Coefficient of Variation 14.3 % (11.5-14.5); RDW Standard Deviation 49.2 fL (36.4-46.3); Red Blood Count 3.31 M/uL (4.2-5.4)
[2019-12-23 07:13] LABS: Albumin Level 1.6 gm/dl (3.4-5.0); BUN Creatinine Ratio 34.2 (10-20); Calcium 8.1 mg/dl (8.5-10.1); Creatinine Clr Calc Pharmacy 97.8 ml/min; Est GFR (African American) 117.6; Est GFR (Non-African American) 101.5; Potassium 3.1 mmol/L (3.5-5.1)
[2019-12-23 07:15] LABS: Albumin Globulin Ratio 0.4 (0.9-2); Bilirubin,Total 0.5 mg/dl (0.2-1); Globulin 4.2 gm/dl (2.5-4.0); Phosphorus 2.8 mg/dl (2.5-4.9); Total Protein 5.8 gm/dl (6.4-8.2)
[2019-12-23] MEDS: ENOXAPARIN INJ 40 MG/0.4 ML SYR SQ SCH (08:17)
[2019-12-23] MEDS: FUROSEMIDE 20 MG TAB PO SCH (08:18)
[2019-12-23] MEDS: THIAMINE HCL 100 MG TAB PO SCH (08:18)
[2019-12-23] MEDS: ASPIRIN 81 MG ECTAB PO SCH (08:18)
[2019-12-23] MEDS: FOLIC ACID 1 MG TAB PO SCH (08:18)
[2019-12-23] MEDS: PANTOprazole 40 MG TAB PO SCH (08:18)
[2019-12-23] MEDS: ESCITALOPRAM OXALATE 10 MG TAB PO SCH (09:17)
--- NOTE | 2019-12-23 11:05 | XRay Report ---
XR chest 1V portable HISTORY: Dyspnea. COMPARISON: Chest 12/22/2019. FINDINGS: No pneumothorax. Interval improvement in the mild asymmetric pulmonary edema. Bibasilar forrest ear densities favor atelectasis or scarring. Stable small focal density within the periphery the left midlung zone. The heart remains borderline enlarged. Suspect trace bilateral pleural effusions. Righ t PICC terminates at the distal SVC. IMPRESSION: Slight improvement in the mild asymmetric pulmonary edema. ACT 112: Negative or not required by law. Electronically signed by: Zackary Schmitz M.D. 12/23/2019 11:04 AM
[2019-12-23] MEDS ORDERED: POTASSIUM CHLORIDE 20 MEQ TABCR PO STA (11:45)
--- NOTE | 2019-12-23 11:51 | Pulmonology Progress Note ---
Date of Service December 23, 2019 Assessment & Plan (1) S/P admission to ICU (intensive care unit): 69-year-old female was admitted to the hospital because of multilobar pneumonia, she has history of Sjogren's, actively smoking, daily drinker, vaping. She has mediastinal lymphadenopathy and she underwent EBUS for it. Because of the worsening respiratory status she was intubated. Extubated 12/21/2019. Downgraded 12/22/2019 --Acute hypoxic respiratory failure secondary to multifocal pneumonia Continue with antibiotics O2 supplementation to keep O2 saturation 88-92% BiPAP nightly as well as PRN shortness of breath Status post EBUS. Cytology from EBUS is negative for malignancy. Bronchial cultures are negative to date. --Severe COPD with emphysema We will start the patient on Incruse. --Patient has history of anxiety as well as chronic alcohol use Lexapro has been added today for her anxiety issues --History of Sjogren's syndrome --Plan Chest x-ray from today shows improving bilateral opacities and vascular congestion. Continue with diuretic to keep the patient euvolemic to mild negative balance. Continue with Zosyn and voriconazole and complete for total 10 days and then stop. Continue with BiPAP nightly and PRN. Patient needs to be checked for home O2. Beta D glucan and galactomannan are still pending Aggressive PT OT Patient is to follow-up with pulmonary (Dr. Prasad) as an outpatient. Repeat CT chest in 4 weeks. Please note the above document was generated using voice recognition software. It may contain grammatical, syntax or spelling errors. (2) Pulmonary edema: (3) Alcohol withdrawal: (4) Emphysema of lung: (5) Multifocal pneumonia: (6) Sjogrens syndrome: (7) Non-STEMI (non-ST elevated myocardial infarction): Admission and Anticipated Discharge Date Admission Date: December 15, 2019 Subjective Patient seen and examined at bedside. No acute distress, no adverse events overnight. Overnight patient used BiPAP. Patient is answering questions appropriately. Denies any chest pain. She says shortness of breath is improved. But it is difficult for her to move around as she is feels very lethargic. No headache, no nausea or vomiting. Patient is tolerating diet. Review of Systems Review of Systems: All systems reviewed & are unremarkable except as noted in Subjective Physical Exam Physical Exam: Constitutional: No acute distress HEENT: PERRLA, EOMI Respiratory system: Decreased air entry bilaterally, no wheeze, no rhonchi, mild crackles bilateral lower lobes CVS: S1-S2 positive, no murmurs or gallops Abdomen: Soft, nontender, positive bowel sounds x4 Extremities: +2 pulses bilaterally radialis/ dorsalis pedis, no cyanosis, no edema bilateral lower extremity, +1 pitting edema left upper extremity Neuro: Awake alert oriented x3 Psych: Normal mood and affect G/U: No Dong Skin: no rashes, warm and dry Lymphatic: no cervical or axillary lymphadenopathy Results & Data Results & Data ([facility]) Vital Signs (Past 12 Hours) Vital Signs Temp Pulse Pulse Resp BP Pulse Ox 12/23/19 08:20 108 H 12/23/19 07:48 36.8 C 90 18 121/64 96 12/23/19 04:51 36.7 C 95 H 21 114/57 L 100 12/23/19 03:10 99 H 25 H 95 12/23/19 06:28 12/23/19 06:28 PG Care Time/CCT Total # of Minutes Spent Total Time Spent with Patient: Total time spent is greater than 50% in coordination of care (as documented) at patient's floor/unit and/or counseling patient: Coding Level of Care Code 80609 Subseq Hosp Care Lvl 3 Diagnoses S/P admission to ICU (intensive care unit) Pulmonary edema J81.1 Alcohol withdrawal F10.239 Emphysema of lung J43.9 Multifocal pneumonia J18.9 Sjogrens syndrome M35.00 Non-STEMI (non-ST elevated myocardial infarction) I21.4
--- NOTE | 2019-12-23 12:19 | Hospitalist Progress Note ---
Date of Service December 23, 2019 Assessment & Plan (1) Sepsis: present on arrival due to multifocal pneumonia on chest x-ray, presented with leukocytosis, fever, tachycardia Was afebrile, except had temperature of 38.0 on the morning of 12/19, but none since then Leukocytosis now resolved, tachycardia now improved and was likely related to alcohol withdrawal in addition to sepsis With bilateral infiltrates on CXR and CT chest, worsening on chest x-ray 12/18, respiratory failure. Chest x-ray on 12/19 is improved and on 12/20 is stable. CXR on 12/21 slightly progressed components of congestive change and superimposed right hemithoracic infiltrative change Procalcitonin is trending almost back to normal blood cultures - no growth from 12/14 urine culture - no growth, < 1000 colonies bronchial lavage - no growth on fungal, AFB, microbial -Continue Zosyn x10-day course; completed a 5-day course of Zithromax; and Vanco was stopped due to MRSA swab negativity -Continue voriconazole IV to cover for possible fungal infection given immunocompromised status with alcohol abuse, malnourished, on Plaquenil this was started on 12/16. Can discontinue voriconazole once beta glucan is negative -Now weaned off Levophed as she has been extubated and is off sedation BPs improving (2) Multifocal pneumonia: multifocal pneumonia, likely aspiration pneumonia in setting of heavy alcohol abuse, malnutrition also, patient vapes nicotine daily, possible Vaping associated lung injury COVID negative Pro-Lorenzo elevated at 19.35 on admission, trended down to 1 CT chest with multifocal pneumonia, enlarged mediastinal lymph node which was biopsied on EBUS and negative for malignancy Chest x-ray overall improved but stable with bilateral parenchymal infiltrates right greater than left bronchoscopy on 12/[address] Prasad bronchial lavage sent for cultures-all no growth Suspicion for fungal pneumonia as per pulmonology-beta glucan pending and galactomannan is negative Legionella antigen negative transferred to ICU shortly after bronchoscopy due to worsening hypoxia in the setting of alcohol withdrawal Was intubated for several days and was extubated on 12/20 -weaning down on O2 to 3L, improving, needs BiPAP when has IV Ativan or with sleeping -Follow chest x-ray -Continue voriconazole, Zosyn as above -Appreciate pulmonology/critical care management (3) Acute respiratory failure with hypoxia: Had increased work of breathing, accessory muscle use, requiring 15L Oxymask to keep saturations > 90% due to multifocal pneumonia, may have aspirated after bronchoscopy complicated by suspected alcohol withdrawal transferred to ICU, placed on HFNC, saturations in the low 90's placed on CPAP overnight on 12/15 and into the morning on 12/16 intubated on 12/[address] Prasad and now extubated on 12/20 as above -Continue supplemental O2 to keep pulse ox greater than 90% -Diuresed with IV Lasix as volume overload was also contributing, now on p.o. Lasix daily (4) Alcohol withdrawal: unsure how much patient drinks as she drinks a lot after goes to bed may be as much as a fifth a night AWSS scale -Now weaned off of Precedex drip and use Ativan as needed-improving -Continue thiamine, folate -Of course would encourage alcohol cessation starting Lexapro for anxiety (5) Emphysema of lung: seen on CT, this is a new diagnosis she is a heavy smoker will need outpatient follow up and PFTs (6) Hyperglycemia: Glucose now well controlled -Continue Accu-Cheks, continue NovoLog sliding scale Hemoglobin A1c only 5.7% (7) Sjogrens syndrome: -Continue to hold home hydroxychloroquine during acute infection (8) Non-STEMI (non-ST elevated myocardial infarction): Secondary to myocardial demand ischemia in the setting of tachycardia from sepsis and alcohol withdrawal With preserved EF on echo, but with some wall motion abnormalities with moderate to severe hypokinesis involving the mid to distal anterior septal arana ECG with nonspecific T wave inversions cardiology consult appreciated, likely demand ischemia -Cardiology recommends outpatient perfusion imaging -Added aspirin 81mg daily -Add metoprolol when BP can tolerate (9) Tobacco abuse: Will eventually need counseling on smoking cessation (10) Ventricular trigeminy: likely due to alcohol withdrawal, severe distress with multifocal pneumonia keep electrolytes normal -Have been unable to give beta-yaya due to hypotension requiring Levophed -We will likely be able to add metoprolol back on now that she is extubated, off sedation, and weaned off of Levophed-not today as blood pressures are still soft at times continue tele monitor Follow BMP (11) Pulmonary edema: likely due to aggressive fluid resuscitation at admission and then with bronchial lavage -Is now diuresing with daily IV Lasix, now on p.o. Lasix Weight is down continue to follow closely, give Lasix 20 mg p.o. daily (12) Elevated LFTs: Mildly elevated AST and alkaline phosphatase, stable from yesterday Could be secondary to antifungal versus sepsis -Continue to follow LFTs (13) Hypoalbuminemia: Severely low at albumin of 1.4 Secondary to critical illness and poor p.o. intake -Nutrition following (14) Hypokalemia: Potassium low at 3.1 today Replaced Follow BMP in the morning (15) Urinary retention: has been straight cathed twice since Kate removed on 12/21 likely related to opioid sedatives for proomged period of critical illness continue straight cath prn, mobilization (16) DVT prophylaxis: Lovenox SQ FEN: Advanced diet today to minced and moist as per Speech, improving. Diuresing and not on IV fluids as above, replaced potassium , continue folic acid and thiamine as above for history of alcohol abuse. Kate catheter is been removed and awaiting trial of void. Bladder scan every shift and straight cath for PVR greater than 350 mL's. Dispo-continued stay on PCU Admission and Anticipated Discharge Date Admission Date: December 15, 2019 Subjective Still feeling weak, low appetite. Denies SOB, O2 weaning down. Denies CP. Sat up to side of bed with PT but not OOB Tele with NSR rates 90-100s discussed her care with -he reports she has severe anxiety before hospitalization, takes Xanax 1-2 times per week. COVID pandemic has wosened her anxiety and thinks this is why she drinks EtOH frequently he is happy to hear she was started on an SSRI.. Also, RN reports she had to be straight cathed twice since Kate removed Review of Systems Review of Systems: All systems reviewed & are unremarkable except as noted in HPI & below urinary retention Physical Exam Constitutional: + thin; no acute distress Eyes: + anicteric sclerae Neck: trachea midline, no thyromegaly Respiratory: no labored breathing Auscultation: + crackles (R>L lower and middle lung roman); no rhonchi and no wheezes Cardiovascular: RRR, no murmur, no edema Chest (Breasts): Chest: normal inspection of chest Gastrointestinal (Abdomen): normal bowel sounds, soft, nontender, no hepatosplenomegaly Percussion/Palpation: abdomen soft; abdomen nontender Musculoskeletal: Extremities: no cyanosis and no clubbing Skin: no rashes, warm and dry Neurologic: awake; no focal motor deficits Motor/Sensory: no tremor Psychiatric: Affect: + flat affect Mood: + depressed mood Results & Data Results & Data ([facility]) Vital Signs (Past 12 Hours) Vital Signs Temp Pulse Pulse Resp BP Pulse Ox 12/23/19 11:49 36.7 C 100 H 18 116/73 95 12/23/19 08:20 108 H 12/23/19 07:48 36.8 C 90 18 121/64 96 12/23/19 04:51 36.7 C 95 H 21 114/57 L 100 12/23/19 03:10 99 H 25 H 95 PG Care Time/CCT Total # of Minutes Spent Total Time Spent with Patient: Total time spent is greater than 50% in coordination of care (as documented) at patient's floor/unit and/or counseling patient: Coding Level of Care Code 10207 Subseq Hosp Care Lvl 3 Diagnoses Sepsis A41.9; R65.20 Sepsis acute organ dysfunction status: with acute organ dysfunction Sepsis type: sepsis due to unspecified organism Severe sepsis acute organ dysfunction type: unspecified Severe sepsis shock status: without septic shock Multifocal pneumonia J18.9 Acute respiratory failure with hypoxia J96.01 Alcohol withdrawal F10.239 Emphysema of lung J43.9 Hyperglycemia R73.9 Sjogrens syndrome M35.00 Non-STEMI (non-ST elevated myocardial infarction) I21.4 Tobacco abuse Z72.0 Ventricular trigeminy I49.8 Pulmonary edema J81.1 Elevated LFTs R79.89 Hypoalbuminemia E88.09 Hypokalemia E87.6 Urinary retention R33.9 DVT prophylaxis Z29.9 (1) Sepsis Sepsis acute organ dysfunction status: with acute organ dysfunction Sepsis type: sepsis due to unspecified organism Severe sepsis acute organ dysfunction type: unspecified Severe sepsis shock status: without septic shock Qualified Code(s): A41.9 - Sepsis, unspecified organism; R65.20 - Severe sepsis without septic shock
--- NOTE | 2019-12-23 22:22 | Communication Note ---
Date of Service: December 23, 2019 Notified that pt had a rash on abdomen, back and L arm. Non-itchy, not bothersome to patient at all, did not even notice it. No throat or tongue swelling. Pt otherwise stable. Continue to monitor, day team will be notified. Also notified that pt had an occluded lumen in her PICC line. Ordered Cathflo alteplase. Resident Activity Tracking Resident Involvement: [employer] Coverage Note Care Provided: Adult Hospital Medicine
[2019-12-24] MEDS ORDERED: ALTEPLASE, RECOMBINANT 1 MG/ML 2ML VIAL INSTIL ONE (00:59)
[2019-12-24] MEDS: VORICONAZOLE IV SCH (02:08)
[2019-12-24] MEDS: SODIUM CHLORIDE 0.9% IV SCH (02:08)
[2019-12-24] MEDS: PIPERACILLIN/TAZOBACTAM 3.375 GM in DEXTROSE 5% 100 ML IV SCH (05:36)
[2019-12-24 07:20] LABS: Magnesium 1.8 mg/dl (1.8-2.4); Phosphorus 2.2 mg/dl (2.5-4.9)
[2019-12-24] MEDS: FOLIC ACID 1 MG TAB PO SCH (07:43)
[2019-12-24] MEDS: PANTOprazole 40 MG TAB PO SCH (07:43)
[2019-12-24] MEDS: ASPIRIN 81 MG ECTAB PO SCH (07:43)
[2019-12-24] MEDS: ESCITALOPRAM OXALATE 10 MG TAB PO SCH (07:43)
[2019-12-24] MEDS: FUROSEMIDE 20 MG TAB PO SCH (07:43)
[2019-12-24] MEDS: THIAMINE HCL 100 MG TAB PO SCH (07:43)
[2019-12-24] MEDS: ENOXAPARIN INJ 40 MG/0.4 ML SYR SQ SCH (07:43)
[2019-12-24] MEDS: UMECLIDINIUM BROMIDE 62.5MCG/BLISTER 7 PUFFS/INHALER INH SCH (07:44)
[2019-12-24] MEDS ORDERED: MAGNESIUM SULFATE / D5W 1 GM/100 ML BAG IV ONE (08:15)
[2019-12-24 09:20] LABS: BUN Creatinine Ratio 21.5 (10-20); Calcium 8.4 mg/dl (8.5-10.1); Creatinine Clr Calc Pharmacy 78.3 ml/min; Est GFR (African American) 108.4; Est GFR (Non-African American) 93.5; Potassium 2.9 mmol/L (3.5-5.1)
[2019-12-24 10:44] LABS: Fungitell (1-3)-B-D-Glucan <31
[2019-12-24] MEDS ORDERED: POTASSIUM CHLORIDE 20 MEQ TABCR PO STA (10:46)
[2019-12-24] MEDS ORDERED: POTASSIUM PHOS 3 MMOL/1 ML INFUSION IV STA (10:46)
[2019-12-24] MEDS ORDERED: POTASSIUM PHOSPHATE 15 MMOL in SODIUM CHLORIDE 0.9% 250 ML IV ONE (11:00)
[2019-12-24] MEDS ORDERED: LORazepam 0.5 MG TAB PO PRN (12:50)
--- NOTE | 2019-12-24 12:58 | Hospitalist Progress Note ---
Date of Service December 24, 2019 Assessment & Plan (1) Sepsis: present on arrival due to multifocal pneumonia on chest x-ray, presented with leukocytosis, fever, tachycardia Was afebrile, except had temperature of 38.0 on the morning of 12/19, but none since then Leukocytosis now resolved, tachycardia now improved and was likely related to alcohol withdrawal in addition to sepsis With bilateral infiltrates on CXR and CT chest, worsening on chest x-ray 12/18, respiratory failure. Chest x-ray on 12/19 is improved and on 12/20 is stable. CXR on 12/21 slightly progressed components of congestive change and superimposed right hemithoracic infiltrative change Procalcitonin is trending almost back to normal blood cultures - no growth from 12/14 urine culture - no growth, < 1000 colonies bronchial lavage - no growth on fungal, AFB, microbial -Completed Zosyn x10-day course; completed a 5-day course of Zithromax; and Vanco was stopped due to MRSA swab negativity -dc voriconazole IV which was to cover for possible fungal infection given immunocompromised status and possible appearance of fungal PNA--> bet D glucan and galactomannan both neg -Now weaned off Levophed as she has been extubated and is off sedation BPs improving (2) Multifocal pneumonia: multifocal pneumonia, likely aspiration pneumonia in setting of heavy alcohol abuse, malnutrition also, patient vapes nicotine daily, possible Vaping associated lung injury COVID negative Pro-Lorenzo elevated at 19.35 on admission, trended down to 1 CT chest with multifocal pneumonia, enlarged mediastinal lymph node which was biopsied on EBUS and negative for malignancy Chest x-ray overall improved but stable with bilateral parenchymal infiltrates right greater than left bronchoscopy on 12/[address] Prasad bronchial lavage sent for cultures-all no growth Suspicion for fungal pneumonia as per pulmonology-beta glucan neg and galactomannan is negative--> dc Voriconazole Legionella antigen negative transferred to ICU shortly after bronchoscopy due to worsening hypoxia in the setting of alcohol withdrawal Was intubated for several days and was extubated on 12/20 - improving, needs BiPAP with sleeping -Follow chest x-ray completed abx as above -Appreciate pulmonology/critical care management (3) Acute respiratory failure with hypoxia: due to multifocal pneumonia, may have aspirated after bronchoscopy complicated by suspected alcohol withdrawal Had worsening respiratory status early on in stay, was transferred to ICU, placed on HFNC, saturations in the low 90's placed on CPAP overnight on 12/15 and into the morning on 12/16 intubated on 12/[address] Prasad and now extubated on 12/20 as above Now improving, down to 3LNC -Continue supplemental O2 to keep pulse ox greater than 90% -Diuresed with IV Lasix as volume overload was also contributing, now will dc lasix (4) Alcohol withdrawal: unsure how much patient drinks as she drinks a lot after goes to bed may be as much as a fifth a night AWSS scale -Now weaned off of Precedex drip and use Ativan as [id number] to po ativan -Continue thiamine, folate -Of course would encourage alcohol cessation starting Lexapro for anxiety, but will lower dose to 5mg as she feels "doped up" since starting the 10mg (5) Emphysema of lung: seen on CT, this is a new diagnosis she is a heavy smoker will need outpatient follow up and PFTs BiPAP qhs ordered (6) Hyperglycemia: Glucose now well controlled -Continue Accu-Cheks, continue NovoLog sliding scale Hemoglobin A1c only 5.7% (7) Sjogrens syndrome: -Continue to hold home hydroxychloroquine during acute infection (8) Non-STEMI (non-ST elevated myocardial infarction): Secondary to myocardial demand ischemia in the setting of tachycardia from sepsis and alcohol withdrawal With preserved EF on echo, but with some wall motion abnormalities with moderate to severe hypokinesis involving the mid to distal anterior septal arana ECG with nonspecific T wave inversions cardiology consult appreciated, likely demand ischemia -Cardiology recommends outpatient perfusion imaging -Added aspirin 81mg daily -Add metoprolol when BP can tolerate (9) Tobacco abuse: Will eventually need counseling on smoking cessation (10) Ventricular trigeminy: likely due to alcohol withdrawal, severe distress with multifocal pn eumonia keep electrolytes normal -Have been unable to give beta-yaya due to hypotension requiring Levophed -We will likely be able to add metoprolol back on now that she is extubated, off sedation, and weaned off of Levophed-not today as blood pressures are still soft at times continue tele monitor Follow BMP (11) Pulmonary edema: likely due to aggressive fluid resuscitation at admission and then with bronchial lavage Diuresed with IV lasix Weight is down dc po lasix as no longer edematous (12) Elevated LFTs: Mildly elevated AST and alkaline phosphatase Could be secondary to antifungal versus sepsis -Continue to follow LFTs -dc Voriconazole today (13) Hypoalbuminemia: Severely low at albumin of 1.4 Secondary to critical illness and poor p.o. intake -Nutrition following -encouraged po intake -consider adding on Remeron but pt wants to wait on that (14) Hypokalemia: Potassium low at 2.9 today Replaced Follow BMP in the morning (15) Urinary retention: now resolved (16) Hypophosphatemia: replace follow level in AM (17) DVT prophylaxis: Lovenox SQ Dispo-continued stay on PCU, slowly improving May be ready for discharge in the next 1-2 days Admission and Anticipated Discharge Date Admission Date: December 15, 2019 Subjective Pt feeling very anxious, low appetite. Feels still "doped up." Feels it started getting worse perhaps since starting the Lexapro. Has tried taking Remeron briefly as an outpt nd then stopped it on her own accord. Also was on prednisone off an on for 4 years, hasn't taken any since October. Denies CP or SOB, no nausea. Moved her bowels and voiding on her own today. Is drinking Boost shakes. Was OOB to bedside commode today and was very weak, took 2 people to get her there. Tele with sinus arrhythmia, PVCs, ST, rates 100-120s Review of Systems Review of Systems: All systems reviewed & are unremarkable except as noted in HPI & below Physical Exam Constitutional: + thin; no acute distress and not lethargic (more alert today) Eyes: + anicteric sclerae ENMT: Mouth: + tongue abnormality (some white exudate on tongue); no oropharynx abnormality Neck: trachea midline, no thyromegaly Respiratory: normal respiratory effort, lungs clear to auscultation no labored breathing Auscultation: + crackles (R>L lower and middle lung roman); no rhonchi and no wheezes Cardiovascular: RRR, no murmur, no edema Rate/Rhythm: regular rhythm and + tachycardic Extremities: no edema Chest (Breasts): Chest: normal inspection of chest Gastrointestinal (Abdomen): normal bowel sounds, soft, nontender, no hepatosplenomegaly Musculoskeletal: Extremities: no cyanosis and no clubbing Skin: no rashes, warm and dry Neurologic: awake; no focal motor deficits Motor/Sensory: + tremor (of the bottom lip and chin) Psychiatric: Affect: + flat affect Mood: + depressed mood and + anxious mood Results & Data Results & Data ([facility]) Vital Signs (Past 12 Hours) Vital Signs Temp Pulse Resp BP Pulse Ox 12/24/19 12:00 36.5 C 115 H 18 108/72 95 12/24/19 06:57 36.6 C 117 H 20 137/67 96 12/24/19 04:24 36.7 C 112 H 20 131/70 97 12/24/19 03:16 94 Laboratory Results 12/24/19 12/24/19 12/17/19 Range/Units 05:32 05:29 12:23 Sodium 139 (136-145) mmol/L Potassium 2.9 L (3.5-5.1) mmol/L Chloride 102 (98-107) mmol/L Carbon Dioxide 30 (21-32) mmol/L Anion Gap 7.0 (3-11) BUN 13 (7-18) mg/dl Creatinine 0.59 L (0.6-1.2) mg/dl Est Cr Clr Drug Dosing 78.3 ml/min Est GFR ( Amer) 108.4 Est GFR (Non-Af Amer) 93.5 BUN/Creatinine Ratio 21.5 H (10-20) Glucose 96 (70-99) mg/dl Calcium 8.4 L (8.5-10.1) mg/dl Phosphorus 2.2 L (2.5-4.9) mg/dl Magnesium 1.8 (1.8-2.4) mg/dl Beta-(1,3)-D-Glucan <31 B-(1,3)-D-Glucan Intrp NEGATIVE PG Care Time/CCT Total # of Minutes Spent Total Time Spent with Patient: Total time spent is greater than 50% in coordination of care (as documented) at patient's floor/unit and/or counseling patient: Coding Level of Care Code 41630 Subseq Hosp Care Lvl 3 Diagnoses Sepsis A41.9; R65.20 Sepsis acute organ dysfunction status: with acute organ dysfunction Sepsis type: sepsis due to unspecified organism Severe sepsis acute organ dysfunction type: unspecified Severe sepsis shock status: without septic shock Multifocal pneumonia J18.9 Acute respiratory failure with hypoxia J96.01 Alcohol withdrawal F10.239 Emphysema of lung J43.9 Hyperglycemia R73.9 Sjogrens syndrome M35.00 Non-STEMI (non-ST elevated myocardial infarction) I21.4 Tobacco abuse Z72.0 Ventricular trigeminy I49.8 Pulmonary edema J81.1 Elevated LFTs R79.89 Hypoalbuminemia E88.09 Hypokalemia E87.6 Urinary retention R33.9 Hypophosphatemia E83.39 DVT prophylaxis Z29.9 (1) Sepsis Sepsis acute organ dysfunction status: with acute organ dysfunction Sepsis type: sepsis due to unspecified organism Severe sepsis acute organ dysfunction type: unspecified Severe sepsis shock status: without septic shock Qualified Code(s): A41.9 - Sepsis, unspecified organism; R65.20 - Severe sepsis without septic shock
[2019-12-24] MEDS ORDERED: POTASSIUM CHLORIDE 20 MEQ TABCR PO ONE (18:00)
--- NOTE | 2019-12-24 18:17 | Pulmonology Progress Note ---
Date of Service December 24, 2019 Assessment & Plan (1) S/P admission to ICU (intensive care unit): 69-year-old female was admitted to the hospital because of multilobar pneumonia, she has history of Sjogren's, actively smoking, daily drinker, vaping. She has mediastinal lymphadenopathy and she underwent EBUS for it. Because of the worsening respiratory status she was intubated. Extubated 12/21/2019. Downgraded 12/22/2019 --Acute hypoxic respiratory failure secondary to multifocal pneumonia Status post 10 days of Zosyn and voriconazole O2 supplementation to keep O2 saturation 88-92% BiPAP nightly as well as PRN shortness of breath Status post EBUS. Cytology from EBUS is negative for malignancy. Bronchial cultures are negative to date. 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 --Patient has history of anxiety as well as chronic alcohol use Lexapro has been added today for her anxiety issues --History of Sjogren's syndrome --Plan Repeat chest x-ray today. Little bit more crackles compared to yesterday. Lasix has been discontinued. Continue with BiPAP nightly and PRN. Patient needs to be checked for home O2. Beta D glucan and galactomannan negative Aggressive PT OT Patient is to follow-up with pulmonary (Dr. Prasad) as an outpatient. Repeat CT chest in 4 weeks. Please note the above document was generated using voice recognition software. It may contain grammatical, syntax or spelling errors. (2) Pulmonary edema: (3) Alcohol withdrawal: (4) Emphysema of lung: (5) Multifocal pneumonia: (6) Sjogrens syndrome: (7) Non-STEMI (non-ST elevated myocardial infarction): Admission and Anticipated Discharge Date Admission Date: December 15, 2019 Subjective Patient seen and examined at bedside. No acute distress, no adverse events overnight. Used BiPAP overnight. Poor appetite, patient states that she does not like the food here. Shortness of breath is better as per the patient. Urinating well. She did have a need to be straight cathed twice yesterday. No chest pain. Patient thinks that she is being overmedicated as she is given medications every couple of hours. I explained to her that they are giving medication because she needs it. Review of Systems Review of Systems: All systems reviewed & are unremarkable except as noted in Subjective Physical Exam Physical Exam: Constitutional: No acute distress HEENT: PERRLA, EOMI Respiratory system: Decreased air entry bilaterally, no wheeze, no rhonchi, positive crackles bilateral lower lobes CVS: S1-S2 positive, no murmurs or gallops Abdomen: Soft, nontender, positive bowel sounds x4 Extremities: +2 pulses bilaterally radialis/ dorsalis pedis, no cyanosis, no edema bilateral lower extremity, +1 pitting edema left upper extremity Neuro: Awake alert oriented x3 Psych: Normal mood and affect G/U: No Dong Saturating 94% on 3 L nasal cannula with heart rate of 111 at rest. Went down to 2 L Skin: no rashes, warm and dry Lymphatic: no cervical or axillary lymphadenopathy Results & Data Results & Data ([facility]) Vital Signs (Past 12 Hours) Vital Signs Temp Pulse Pulse Resp BP Pulse Ox 12/24/19 16:00 112 H 12/24/19 15:03 36.5 C 108 H 18 101/53 L 96 12/24/19 12:00 36.5 C 115 H 18 108/72 95 12/24/19 08:00 110 H 12/24/19 06:57 36.6 C 117 H 20 137/67 96 12/23/19 06:28 12/24/19 05:32 PG Care Time/CCT Total # of Minutes Spent Total Time Spent with Patient: Total time spent is greater than 50% in coordination of care (as documented) at patient's floor/unit and/or counseling patient: Coding Level of Care Code 06312 Subseq Hosp Care Lvl 3 Diagnoses S/P admission to ICU (intensive care unit) Pulmonary edema J81.1 Alcohol withdrawal F10.239 Emphysema of lung J43.9 Multifocal pneumonia J18.9 Sjogrens syndrome M35.00 Non-STEMI (non-ST elevated myocardial infarction) I21.4
--- NOTE | 2019-12-24 18:45 | XRay Report ---
XR chest 1V portable CLINICAL HISTORY: Abnormal chest x-ray. Follow-up study. COMPARISON STUDY: 12/23/2019 FINDINGS: The heart remains the upper limits of normal in size. There is a right-sided PICC catheter. There is persistent blunting of both lateral costophrenic angles. There are persistent bilateral int erstitial pulmonary opacities. Diagnostic considerations include pulmonary edema versus a interstitia l inflammatory process.[ IMPRESSION: Persistent bilateral interstitial opacities similar to the preceding examination ACT 112: Negative or not required by law. Electronically signed by: August Ibarra M.D. 12/24/2019 6:44 PM
[2019-12-25 06:11] LABS: Basophils # (auto) 0.01 K/uL (0-0.2); Basophils % (auto) 0.1 %; Eosinophils # (auto) 0.03 K/uL (0-0.5); Eosinophils % (auto) 0.4 %; Hematocrit (blood only) 30.9 % (37-47); Hemoglobin 10.4 g/dL (12.0-16.0); Immature Granulocytes # (auto) 0.14 K/uL (0.00-0.02); Immature Granulocytes % (auto) 1.7 %; Lymphocytes # (auto) 0.65 K/uL (1.2-3.4); Lymphocytes % (auto) 7.8 %; Mean Corpuscular Hemoglobin 31.5 pg (25-34); Mean Corpuscular Hgb Conc 33.7 g/dL (32-36); Mean Corpuscular Volume 93.6 fL (80-100); Mean Platelet Volume 10.4 fL (7.4-10.4); Monocytes # (auto) 0.16 K/uL (0.11-0.59); Monocytes % (auto) 1.9 %; Neutrophils # (auto) 7.37 K/uL (1.4-6.5); Neutrophils % (auto) 88.1 %; Platelet Count 294 K/uL (130-400); RDW Coefficient of Variation 14.1 % (11.5-14.5); RDW Standard Deviation 48.3 fL (36.4-46.3); White Blood Count 8.36 K/uL (4.8-10.8)
[2019-12-25 06:43] LABS: Alanine Aminotransferase 38 U/L (12-78); Albumin Level 1.5 gm/dl (3.4-5.0); Aspartate Aminotransferase 55 U/L (15-37); BUN Creatinine Ratio 26.8 (10-20); Bilirubin Direct < 0.1 mg/dl (0-0.2); Blood Urea Nitrogen 10 mg/dl (7-18); Calcium 7.8 mg/dl (8.5-10.1); Carbon Dioxide 28 mmol/L (21-32); Chloride 105 mmol/L (98-107); Creatinine Clr Calc Pharmacy 119.1 ml/min; Est GFR (African American) 125.3; Est GFR (Non-African American) 108.1; Glucose 81 mg/dl (70-99); Potassium 3.3 mmol/L (3.5-5.1); Sodium 138 mmol/L (136-145)
[2019-12-25 06:46] LABS: Alkaline Phosphatase 151 U/L (45-117); Bilirubin,Total 0.3 mg/dl (0.2-1); Total Protein 5.3 gm/dl (6.4-8.2)
--- NOTE | 2019-12-25 08:42 | XRay Report ---
XR chest 1V portable HISTORY: 69 years-old Female f/u follow-up study in a patient with shortness of breath COMPARISON: Chest radiograph 12/24/2019, chest CT 12/15/2019. TECHNIQUE: Portable AP view of the chest FINDINGS: Cardiomediastinal and hilar silhouettes are unchanged.. Unchanged right-sided PICC. Unchanged interst itial coarsening with moderate emphysema. Probable trace pleural effusions. No pneumothorax. Ill-defi anahy bilateral nodular consolidative opacities measure up to 1.3 cm within the lateral left midlung. B ones appear grossly intact. IMPRESSION: 1. Ill-defined nodular consolidative opacities within the mid and upper lung zones redemonstrated sug gestive of ongoing infectious or inflammatory pneumonitis. Follow-up recommended. 2. Emphysema with chronic interstitial coarsening. 3. Trace pleural effusions. ACT 112: Negative or not required by law. The above report was generated using voice recognition software. It may contain grammatical, syntax o r spelling errors. Electronically signed by: Zander Cassidy M.D. 12/25/2019 8:41 AM
[2019-12-25] MEDS: ENOXAPARIN INJ 40 MG/0.4 ML SYR SQ SCH (08:45)
[2019-12-25] MEDS: PANTOprazole 40 MG TAB PO SCH (08:45)
[2019-12-25] MEDS: FOLIC ACID 1 MG TAB PO SCH (08:45)
[2019-12-25] MEDS: UMECLIDINIUM BROMIDE 62.5MCG/BLISTER 7 PUFFS/INHALER INH SCH (08:45)
[2019-12-25] MEDS: ASPIRIN 81 MG ECTAB PO SCH (08:45)
[2019-12-25] MEDS ORDERED: ESCITALOPRAM OXALATE 10 MG TAB PO SCH (09:00)
[2019-12-25] MEDS: THIAMINE HCL 100 MG TAB PO SCH (11:05)
--- NOTE | 2019-12-25 11:05 | Pulmonology Progress Note ---
Date of Service December 25, 2019 Assessment & Plan (1) S/P admission to ICU (intensive care unit): 69-year-old female was admitted to the hospital because of multilobar pneumonia, she has history of Sjogren's, actively smoking, daily drinker, vaping. She has mediastinal lymphadenopathy and she underwent EBUS for it. Because of the worsening respiratory status she was intubated. Extubated 12/21/2019. Downgraded 12/22/2019 --Acute hypoxic respiratory failure secondary to multifocal pneumonia Status post 10 days of Zosyn and voriconazole O2 supplementation to keep O2 saturation 88-92% BiPAP nightly as well as PRN shortness of breath Status post EBUS. Cytology from EBUS is negative for malignancy. Bronchial cultures are negative to date. 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 --Patient has history of anxiety as well as chronic alcohol use Lexapro has been added today for her anxiety issues --History of Sjogren's syndrome --Plan Chest x-ray from today shows good aeration. Opacities from her pneumonia have improved but some still persist. Continue with BiPAP nightly and PRN. Patient needs to be checked for home O2. Beta D glucan and galactomannan negative Aggressive PT OT Patient is to follow-up with pulmonary (Dr. Prasad) as an outpatient. Repeat CT chest in 4 weeks. Maculopapular rash most likely from Lexapro which was recently started. I will discontinue it. Would recommend restarting patient's hydroxychloroquine. Patient's pulmonary status seems to be stable. No further recommendations from pulmonary perspective. Will sign off recall if needed. Please note the above document was generated using voice recognition software. It may contain grammatical, syntax or spelling errors. (2) Pulmonary edema: (3) Alcohol withdrawal: (4) Emphysema of lung: (5) Multifocal pneumonia: (6) Sjogrens syndrome: (7) Non-STEMI (non-ST elevated myocardial infarction): Admission and Anticipated Discharge Date Admission Date: December 15, 2019 Subjective Patient seen and examined at bedside. No acute distress, no adverse events ov ernight. Respiratory status seems better. She still tachycardic. Uses BiPAP overnight. No chest pain, complaining of generalized fatigue. Encourage patient to sit on a chair doing gradual exercises on a daily basis with help. Complaining of heaviness in the head. Review of Systems Review of Systems: All systems reviewed & are unremarkable except as noted in Subjective Physical Exam Physical Exam: Constitutional: No acute distress HEENT: PERRLA, EOMI Respiratory system: Decreased air entry bilaterally, no wheeze, no rhonchi, positive crackles bilateral lower lobes CVS: S1-S2 positive, no murmurs or gallops Abdomen: Soft, nontender, positive bowel sounds x4 Extremities: +2 pulses bilaterally radialis/ dorsalis pedis, no cyanosis, no edema bilateral lower extremity, positive macular rash appreciated diffusely all over the body, blanching Neuro: Awake alert oriented x3 Psych: Normal mood and affect G/U: No Dong Saturating 94% on 3 L nasal cannula with heart rate of 111 at rest. Went down to 2 L Skin: no rashes, warm and dry Lymphatic: no cervical or axillary lymphadenopathy Results & Data Results & Data ([facility]) Vital Signs (Past 12 Hours) Vital Signs Temp Pulse Pulse Resp BP Pulse Ox 12/25/19 08:00 123 H 12/25/19 07:47 36.9 C 108 H 16 133/71 98 12/25/19 03:14 36.4 C L 96 H 20 127/66 92 12/25/19 00:00 94 H 12/25/19 05:35 12/25/19 05:35 PG Care Time/CCT Total # of Minutes Spent Total Time Spent with Patient: Total time spent is greater than 50% in coordination of care (as documented) at patient's floor/unit and/or counseling patient: Coding Level of Care Code 52816 Subseq Hosp Care Lvl 3 Diagnoses S/P admission to ICU (intensive care unit) Pulmonary edema J81.1 Alcohol withdrawal F10.239 Emphysema of lung J43.9 Multifocal pneumonia J18.9 Sjogrens syndrome M35.00 Non-STEMI (non-ST elevated myocardial infarction) I21.4
[2019-12-25] MEDS ORDERED: POTASSIUM CHLORIDE 20 MEQ TABCR PO STA (12:31)
--- NOTE | 2019-12-25 12:33 | Hospitalist Progress Note ---
Date of Service December 25, 2019 Assessment & Plan (1) Sepsis: present on arrival due to multifocal pneumonia on chest x-ray, presented with leukocytosis, fever, tachycardia Was afebrile, except had temperature of 38.0 on the morning of 12/19, but none since then Leukocytosis now resolved, tachycardia now resolved and was likely related to alcohol withdrawal in addition to sepsis With bilateral infiltrates on CXR and CT chest, worsening on chest x-ray 12/18, respiratory failure. Chest x-ray on 12/19 is improved and on 12/20 is stable. CXR on 12/21 slightly progressed components of congestive change and superimposed right hemithoracic infiltrative change. Chest x-ray on 12/24 with nodular bilateral infiltrates. Procalcitonin trended almost back to normal blood cultures - no growth from 12/14 urine culture - no growth, < 1000 colonies bronchial lavage - no growth on fungal, AFB, microbial -Completed Zosyn x10-day course; completed a 5-day course of Zithromax; and Vanco was stopped due to MRSA swab negativity -Completed 10-day course of voriconazole IV which was to cover for possible fungal infection given immunocompromised status and possible appearance of fungal PNA--> bet D glucan and galactomannan both neg -Was eventually weaned off Levophed as she has been extubated and is off sedation BPs now stable (2) Multifocal pneumonia: multifocal pneumonia, likely aspiration pneumonia in setting of heavy alcohol abuse, malnutrition also, patient vapes nicotine daily, possible Vaping associated lung injury COVID negative Pro-Lorenzo elevated at 19.35 on admission, trended down to 1 CT chest with multifocal pneumonia, enlarged mediastinal lymph node which was biopsied on EBUS and negative for malignancy Chest x-ray overall improved but stable with bilateral parenchymal infiltrates persisting on chest x-ray 12/24 bronchoscopy on 12/[address] Parsad bronchial lavage sent for cultures-all no growth Suspicion for fungal pneumonia as per pulmonology-beta glucan neg and galactomannan is negative--> completed 10 days of voriconazole Legionella antigen negative transferred to ICU shortly after bronchoscopy due to worsening hypoxia in the setting of alcohol withdrawal Was intubated for several days and was extubated on 12/20, downgraded from ICU on 12/21 - improving, needs BiPAP with sleeping -Follow chest x-ray to resolution completed abx as above -Appreciate pulmonology/critical care management (3) Acute respiratory failure with hypoxia: due to multifocal pneumonia, may have aspirated after bronchoscopy complicated by suspected alcohol withdrawal Had worsening respiratory status early on in stay, was transferred to ICU, placed on HFNC, saturations in the low 90's placed on CPAP overnight on 12/15 and into the morning on 12/16 intubated on 12/[address] Prasad and now extubated on 12/20 as above Continues to be improving, down to 2 LNC and using BiPAP at night -Continue supplemental O2 to keep pulse ox greater than 90% -Diuresed with IV Lasix as volume overload was also contributing, have since DC'd the Lasix (4) Alcohol withdrawal: unsure how much patient drinks as she drinks a lot after goes to bed may be as much as a fifth a night AWSS scale -Now weaned off of Precedex drip and use Ativan as [id number] to po ativan as needed -Continue thiamine, folate -Have encouraged alcohol cessation started Lexapro for anxiety, but developed a rash on day 1-doubt this is the cause of her rash, however pulmonology discontinued the Lexapro (5) Emphysema of lung: seen on CT, this is a new diagnosis she is a heavy smoker will need outpatient follow up and PFTs BiPAP qhs ordered (6) Hyperglycemia: Glucose now well controlled -Continue Accu-Cheks, continue NovoLog sliding scale Hemoglobin A1c only 5.7% (7) Sjogrens syndrome: -Held home hydroxychloroquine during acute infection, but okay to restart for tomorrow (8) Non-STEMI (non-ST elevated myocardial infarction): Secondary to myocardial demand ischemia in the setting of tachycardia from sepsis and alcohol withdrawal With preserved EF on echo, but with some wall motion abnormalities with moderate to severe hypokinesis involving the mid to distal anterior septal arana ECG with nonspecific T wave inversions cardiology consult appreciated, likely demand ischemia -Cardiology recommends outpatient perfusion imaging -Added aspirin 81mg daily -Could add metoprolol when BP can tolerate-does not seem possible yet (9) Tobacco abuse: -Counseling on smoking cessation given (10) Ventricular trigeminy: likely due to alcohol withdrawal, severe distress with multifocal pneumonia Now resolved (11) Pulmonary edema: likely due to aggressive fluid resuscitation at admission and then with bronchial lavage Diuresed with IV lasix Resolved (12) Elevated LFTs: Mildly elevated AST and alkaline phosphatase-improving Could be secondary to antifungal versus sepsis -Continue to follow LFTs -Have discontinued the voriconazole (13) Hypoalbuminemia: Severely low at albumin of 1.4 Secondary to critical illness and poor p.o. intake -Nutrition following -encouraged po intake -consider adding on Remeron but pt wants to wait on that as below (14) Hypokalemia: Potassium low but improved today to 3.2 Replaced Follow BMP in the morning (15) Urinary retention: now resolved (16) Hypophosphatemia: Replaced and resolved (17) Anxiety: Severe prior to admission, was using alcohol to help with anxiety Was tried on Remeron as an outpatient and did tolerate a low-dose of 7.5 mg She does not want to start back on this again until she is feeling stronger as it can have sedating side effects -Consider starting Remeron in 1 to 2 weeks at inpatient rehab (18) Drug rash: Came on on 12/23, likely secondary to antibiotics Antibiotics have been discontinued Not bothering her at all, no pruritus Would not start steroids at this time given significant anxiety, tachycardia, and recent critical illness with possibility of peptic ulcer disease (19) DVT prophylaxis: Lovenox SQ Dispo-continued stay on PCU, slowly improving May be ready for discharge in the next 1-2 days to [facility] if approved Encourage patient to get out of bed to chair today which she has not done yet this hospitalization Admission and Anticipated Discharge Date Admission Date: December 15, 2019 Subjective Patient feels much better today, but continues to feel a little bit "like an elephant is in my head" meaning that she still feels slightly "doped up." Denies headache or lightheadedness. She is not short of breath. Spotcheck on room air when I saw her was 87% but easily came up to 94% on 2 L after oxygen was reapplied. She has a mild cough. Denies chest pain or abdominal pain. She is moving her bowels and voiding without difficulty now. She is still extremely weak especially in the lower extremities, but her notes that she is getting stronger and was able to feed herself today for the first time. She is much more conversive today and alert. She still has the rash all over her body but it is not itchy and not worse than before. Telemetry with normal sinus rhythm with rates in the 90s Review of Systems Review of Systems: All systems reviewed & are unremarkable except as noted in HPI & below Physical Exam Constitutional: + thin; no acute distress and not lethargic (more alert today) Eyes: + anicteric sclerae Neck: trachea midline, no thyromegaly Respiratory: no labored breathing Auscultation: + crackles (R>L lower and middle lung roman); no rhonchi and no wheezes Cardiovascular: Rate/Rhythm: regular rate and regular rhythm Extremities: no edema Chest (Breasts): Chest: normal inspection of chest Gastrointestinal (Abdomen): normal bowel sounds, soft, nontender, no hepatosplenomegaly Inspection/Auscultation: + abdomen distended (Mild) and normal bowel sounds Percussion/Palpation: abdomen soft; abdomen nontender Musculoskeletal: Extremities: no cyanosis and no clubbing Skin: no rashes, warm and dry Neurologic: awake; no focal motor deficits Motor/Sensory: + tremor (of the bottom lip and chin) Psychiatric: Affect: + flat affect Mood: + depressed mood and + anxious mood Results & Data Results & Data ([facility]) Vital Signs (Past 12 Hours) Vital Signs Temp Pulse Pulse Resp BP Pulse Ox 12/25/19 11:46 36.5 C 94 H 18 127/68 97 12/25/19 08:00 123 H 12/25/19 07:47 36.9 C 108 H 16 133/71 98 12/25/19 03:14 36.4 C L 96 H 20 127/66 92 Laboratory Results 12/25/19 12/25/19 12/25/19 Range/Units 11:23 07:11 05:35 WBC (4.8-10.8) K/uL RBC (4.2-5.4) M/uL Hgb (12.0-16.0) g/dL Hct (37-47) % MCV (80-100) fL MCH (25-34) pg MCHC (32-36) g/dL RDW Std Deviation (36.4-46.3) fL RDW Coeff of Oz (11.5-14.5) % Plt Count (130-400) K/uL MPV (7.4-10.4) fL Immature Gran % (Auto) % Neut % (Auto) % Lymph % (Auto) % [place] % (Auto) % Eos % (Auto) % Baso % (Auto) % Neut # (Auto) (1.4-6.5) K/uL Lymph # (Auto) (1.2-3.4) K/uL [place] # (Auto) (0.11-0.59) K/uL Eos # (Auto) (0-0.5) K/uL Baso # (Auto) (0-0.2) K/uL Immature Gran # (Auto) (0.00-0.02) K/uL Sodium 138 (136-145) mmol/L Potassium 3.3 L (3.5-5.1) mmol/L Chloride 105 (98-107) mmol/L Carbon Dioxide 28 (21-32) mmol/L Anion Gap 5.0 (3-11) BUN 10 (7-18) mg/dl Creatinine 0.38 L (0.6-1.2) mg/dl Est Cr Clr Drug Dosing 119.1 ml/min Est GFR ( Amer) 125.3 Est GFR (Non-Af Amer) 108.1 BUN/Creatinine Ratio 26.8 H (10-20) Glucose 81 (70-99) mg/dl POC Glucose 104 H 172 H (70-99) mg/dl Calcium 7.8 L (8.5-10.1) mg/dl Magnesium 2.0 (1.8-2.4) mg/dl Total Bilirubin 0.3 (0.2-1) mg/dl Direct Bilirubin < 0.1 (0-0.2) mg/dl AST 55 H (15-37) U/L ALT 38 (12-78) U/L Alkaline Phosphatase 151 H (45-117) U/L Total Protein 5.3 L (6.4-8.2) gm/dl Albumin 1.5 L (3.4-5.0) gm/dl 12/25/19 Range/Units 05:35 WBC 8.36 (4.8-10.8) K/uL RBC 3.30 L (4.2-5.4) M/uL Hgb 10.4 L (12.0-16.0) g/dL Hct 30.9 L (37-47) % MCV 93.6 (80-100) fL MCH 31.5 (25-34) pg MCHC 33.7 (32-36) g/dL RDW Std Deviation 48.3 H (36.4-46.3) fL RDW Coeff of Oz 14.1 (11.5-14.5) % Plt Count 294 (130-400) K/uL MPV 10.4 (7.4-10.4) fL Immature Gran % (Auto) 1.7 % Neut % (Auto) 88.1 % Lymph % (Auto) 7.8 % [place] % (Auto) 1.9 % Eos % (Auto) 0.4 % Baso % (Auto) 0.1 % Neut # (Auto) 7.37 H (1.4-6.5) K/uL Lymph # (Auto) 0.65 L (1.2-3.4) K/uL [place] # (Auto) 0.16 (0.11-0.59) K/uL Eos # (Auto) 0.03 (0-0.5) K/uL Baso # (Auto) 0.01 (0-0.2) K/uL Immature Gran # (Auto) 0.14 H (0.00-0.02) K/uL Sodium (136-145) mmol/L Potassium (3.5-5.1) mmol/L Chloride (98-107) mmol/L Carbon Dioxide (21-32) mmol/L Anion Gap (3-11) BUN (7-18) mg/dl Creatinine (0.6-1.2) mg/dl Est Cr Clr Drug Dosing ml/min Est GFR ( Amer) Est GFR (Non-Af Amer) BUN/Creatinine Ratio (10-20) Glucose (70-99) mg/dl POC Glucose (70-99) mg/dl Calcium (8.5-10.1) mg/dl Magnesium (1.8-2.4) mg/dl Total Bilirubin (0.2-1) mg/dl Direct Bilirubin (0-0.2) mg/dl AST (15-37) U/L ALT (12-78) U/L Alkaline Phosphatase (45-117) U/L Total Protein (6.4-8.2) gm/dl Albumin (3.4-5.0) gm/dl Diagnostic Findings Chest x-ray image personally reviewed by me and agree with the following report: XR chest 1V portable HISTORY: 69 years-old Female f/u follow-up study in a patient with shortness of breath COMPARISON: Chest radiograph 12/24/2019, chest CT 12/15/2019. TECHNIQUE: Portable AP view of the chest FINDINGS: Cardiomediastinal and hilar silhouettes are unchanged.. Unchanged right-sided PICC. Unchanged interstitial coarsening with moderate emphysema. Probable trace pleural effusions. No pneumothorax. Ill-defined bilateral nodular consolidative opacities measure up to 1.3 cm within the lateral left midlung. Bones appear grossly intact. IMPRESSION: 1. Ill-defined nodular consolidative opacities within the mid and upper lung zones redemonstrated suggestive of ongoing infectious or inflammatory pneumonitis. Follow-up recommended. 2. Emphysema with chronic interstitial coarsening. 3. Trace pleural effusions. PG Care Time/CCT Total # of Minutes Spent Total Time Spent with Patient: Total time spent is greater than 50% in coordination of care (as documented) at patient's floor/unit and/or counseling patient: Coding Level of Care Code 66065 Subseq Hosp Care Lvl 3 Diagnoses Sepsis A41.9; R65.20 Sepsis acute organ dysfunction status: with acute organ dysfunction Sepsis type: sepsis due to unspecified organism Severe sepsis acute organ dysfunction type: unspecified Severe sepsis shock status: without septic shock Multifocal pneumonia J18.9 Acute respiratory failure with hypoxia J96.01 Alcohol withdrawal F10.239 Emphysema of lung J43.9 Hyperglycemia R73.9 Sjogrens syndrome M35.00 Non-STEMI (non-ST elevated myocardial infarction) I21.4 Tobacco abuse Z72.0 Ventricular trigeminy I49.8 Pulmonary edema J81.1 Elevated LFTs R79.89 Hypoalbuminemia E88.09 Hypokalemia E87.6 Urinary retention R33.9 Hypophosphatemia E83.39 Anxiety F41.9 Drug rash L27.0 DVT prophylaxis Z29.9 (1) Sepsis Sepsis acute organ dysfunction status: with acute organ dysfunction Sepsis type: sepsis due to unspecified organism Severe sepsis acute organ dysfunction type: unspecified Severe sepsis shock status: without septic shock Qualified Code(s): A41.9 - Sepsis, unspecified organism; R65.20 - Severe sepsis without septic shock
[2019-12-26 07:55] LABS: Basophils # (auto) 0.04 K/uL (0-0.2); Basophils % (auto) 0.5 %; Eosinophils # (auto) 0.02 K/uL (0-0.5); Eosinophils % (auto) 0.3 %; Hematocrit (blood only) 30.7 % (37-47); Hemoglobin 10.3 g/dL (12.0-16.0); Immature Granulocytes # (auto) 0.12 K/uL (0.00-0.02); Immature Granulocytes % (auto) 1.5 %; Lymphocytes # (auto) 0.87 K/uL (1.2-3.4); Lymphocytes % (auto) 10.9 %; Mean Corpuscular Hemoglobin 30.7 pg (25-34); Mean Corpuscular Hgb Conc 33.6 g/dL (32-36); Mean Corpuscular Volume 91.6 fL (80-100); Mean Platelet Volume 9.9 fL (7.4-10.4); Monocytes # (auto) 0.17 K/uL (0.11-0.59); Monocytes % (auto) 2.1 %; Neutrophils # (auto) 6.74 K/uL (1.4-6.5); Neutrophils % (auto) 84.7 %; Platelet Count 310 K/uL (130-400); RDW Coefficient of Variation 13.7 % (11.5-14.5); Red Blood Count 3.35 M/uL (4.2-5.4); White Blood Count 7.96 K/uL (4.8-10.8)
[2019-12-26] MEDS: ASPIRIN 81 MG ECTAB PO SCH (08:12)
[2019-12-26] MEDS: PANTOprazole 40 MG TAB PO SCH (08:12)
[2019-12-26] MEDS: THIAMINE HCL 100 MG TAB PO SCH (08:13)
[2019-12-26] MEDS: FOLIC ACID 1 MG TAB PO SCH (08:13)
[2019-12-26] MEDS: UMECLIDINIUM BROMIDE 62.5MCG/BLISTER 7 PUFFS/INHALER INH SCH (08:13)
[2019-12-26] MEDS: ENOXAPARIN INJ 40 MG/0.4 ML SYR SQ SCH (08:14)
[2019-12-26 08:34] LABS: BUN Creatinine Ratio 28.3 (10-20); Calcium 7.2 mg/dl (8.5-10.1); Creatinine Clr Calc Pharmacy 145.7 ml/min; Est GFR (African American) 136.9; Est GFR (Non-African American) 118.1; Potassium 3.1 mmol/L (3.5-5.1)
[2019-12-26] MEDS ORDERED: HYDROXYCHLOROQUINE SULFATE 200 MG TAB PO SCH (09:00)
--- NOTE | 2019-12-26 13:20 | Pulmonology Progress Note ---
Date of Service December 26, 2019 Assessment & Plan (1) S/P admission to ICU (intensive care unit): 69-year-old female was admitted to the hospital because of multilobar pneumonia, she has history of Sjogren's, actively smoking, daily drinker, vaping. She has mediastinal lymphadenopathy and she underwent EBUS for it. Patient has very severe centrilobular emphysema. Likely COPD. She will need PFTs as an outpatient. She needs intense physical therapy given her prolonged hospitalization, recent intubation and mechanical ventilation. Defer management anxiety/depression to primary care team. Recommend discharging her on a long- acting muscarinic antagonist inhaler such as Incruse Ellipta. I discussed this with her as well. Pulmonary will sign off. Agree with physical therapy discharge. Thank you for the consult. Patient will need to follow-up with pulmonary. (2) Pulmonary edema: (3) Alcohol withdrawal: (4) Emphysema of lung: (5) Multifocal pneumonia: (6) Sjogrens syndrome: (7) Non-STEMI (non-ST elevated myocardial infarction): Admission and Anticipated Discharge Date Admission Date: December 15, 2019 Subjective Patient is working with physical therapy and ambulating very short distances like from her bed to the commode. The was noting that she had a rash earlier yesterday and this was thought to be secondary to possibly Lexapro. Review of Systems Review of Systems: All systems reviewed & are unremarkable except as noted in Subjective Physical Exam Physical Exam: Constitutional: No acute distress Respiratory. No evidence of significant tachypnea. CVS: Tachy Abdomen: Soft, nontender, positive bowel sounds x4 Extremities: +2 pulses bilaterally radialis/ dorsalis pedis, no cyanosis, no edema bilateral lower extremity Neuro: Awake alert oriented x3 Psych: Normal mood and affect Skin: no rashes, warm and dry Lymphatic: no cervical or axillary lymphadenopathy Results & Data Results & Data ([facility]) Vital Signs (Past 12 Hours) Vital Signs Temp Pulse Pulse Resp BP Pulse Ox 12/26/19 12:05 98.4 F 108 H 79 18 142/63 H 96 12/26/19 07:50 98.4 F 79 18 142/63 H 96 12/26/19 03:53 98.4 F 99 H 17 137/61 93 I reviewed vital signs, labs and chest imaging PG Care Time/CCT Total # of Minutes Spent Total Time Spent with Patient: Total time spent is greater than 50% in coordination of care (as documented) at patient's floor/unit and/or counseling patient: Coding Level of Care Code 55151 Subseq Hosp Care Lvl 2 Diagnoses S/P admission to ICU (intensive care unit) Pulmonary edema J81.1 Alcohol withdrawal F10.239 Emphysema of lung J43.9 Multifocal pneumonia J18.9 Sjogrens syndrome M35.00 Non-STEMI (non-ST elevated myocardial infarction) I21.4
--- NOTE | 2019-12-26 15:38 | Discharge Summary ---
Date of Service December 26, 2019 Admission HPI Per Admitting Provider The patient is a 69-year-old female with a past medical history including presumptive Sjogren's syndrome/chronic inflammatory state. She has had 2 to 3 days of worsening fatigue, generalized weakness, shortness of breath, fevers and chills. She has not had a recent travels or sick exposures. She was COVID-19 negative in the ED. Chest x-ray in the emergency department suggested a multifocal pneumonia, and oxygenation which initially was 93% on room air and with 3 L improved to 98%, later decreased into the mid 80s toward the end of her course in the ED. She did empirically receive Decadron 10 mg IV,vancomycin 1000 mg IV and cefepime 2 g IV, along with DuoNeb treatment from the emergency department. The patient was presently being sent for a CT angiography of the chest to assess for possible PE, due to declining oxygen. Principal Diagnosis Pneumonia Discharge Exam Constitutional WD/WN, vitals as above Eyes EOM intact bilaterally; no conjunctival abnormality ENMT external ear and nose normal, oropharynx normal Neck trachea midline, no thyromegaly normal visual inspection Respiratory normal respiratory effort, lungs clear to auscultation no respiratory distress Cardiovascular RRR, no murmur, no edema Gastrointestinal (Abdomen) Inspection/Auscultation: abdomen normal to inspection; abdomen not distended Musculoskeletal no cyanosis or clubbing, extremities motor strength 5/5 Skin no rashes, warm and dry Neurologic moves all extremities and awake Psychiatric Orientation: alert, oriented to person and cooperative Discharge Data Allergies Allergy/AdvReac Type Severity Reaction Status Date / Time No Known Allergies Allergy Verified 12/15/19 05:04 Consultations 12/15/19 04:54 ED Decision to Admit Stat 12/15/19 06:53 Consult Cardiology Stat Consult Pulmonology Stat 12/15/19 08:28 Consult Case Management - Discharge Planning Routine Procedures Performed Operation Date: 12/16/19 11:00 Actual Procedures p Endobronchial Ultrasound (EBUS), Bronchoscopy(Bilateral) - Clark Prasad MD Ordered Studies 12/15/19 06:13 CT angio chest PE protocol Stat 12/18/19 08:58 US venous duplex arm [US venous doppler UE LT] Urgent Hospital Course (1) Sepsis: present on arrival due to multifocal pneumonia on chest x-ray, presented with leukocytosis, fever, tachycardia Was afebrile, except had temperature of 38.0 on the morning of 12/19, but none since then Leukocytosis now resolved, tachycardia now resolved and was likely related to alcohol withdrawal in addition to sepsis With bilateral infiltrates on CXR and CT chest, worsening on chest x-ray 12/18, respiratory failure. Chest x-ray on 12/19 is improved and on 12/20 is stable. CXR on 12/21 slightly progressed components of congestive change and superimposed right hemithoracic infiltrative change. Chest x-ray on 12/24 with nodular bilateral infiltrates. Procalcitonin trended almost back to normal blood cultures - no growth from 12/14 urine culture - no growth, < 1000 colonies bronchial lavage - no growth on fungal, AFB, microbial -Completed Zosyn x10-day course; completed a 5-day course of Zithromax; and Vanco was stopped due to MRSA swab negativity -Completed 10-day course of voriconazole IV which was to cover for possible fungal infection given immunocompromised status and possible appearance of fungal PNA--> bet D glucan and galactomannan both neg -Was eventually weaned off Levophed as she has been extubated and is off sedation BPs now stable (2) Multifocal pneumonia: multifocal pneumonia, likely aspiration pneumonia in setting of heavy alcohol abuse, malnutrition also, patient vapes nicotine daily, possible Vaping associated lung injury COVID negative Pro-Lorenzo elevated at 19.35 on admission, trended down to 1 CT chest with multifocal pneumonia, enlarged mediastinal lymph node which was biopsied on EBUS and negative for malignancy Chest x-ray overall improved but stable with bilateral parenchymal infiltrates persisting on chest x-ray 12/24 bronchoscopy on 12/[address] Prasad bronchial lavage sent for cultures-all no growth Suspicion for fungal pneumonia as per pulmonology-beta glucan neg and galactomannan is negative--> completed 10 days of voriconazole Legionella antigen negative transferred to ICU shortly after bronchoscopy due to worsening hypoxia in the setting of alcohol withdrawal Was intubated for several days and was extubated on 12/20, downgraded from ICU on 12/21 - improving, needs BiPAP with sleeping -Follow chest x-ray to resolution completed abx as above -Appreciate pulmonology/critical care management (3) Acute respiratory failure with hypoxia: due to multifocal pneumonia, may have aspirated after bronchoscopy complicated by suspected alcohol withdrawal Had worsening respiratory status early on in stay, was transferred to ICU, placed on HFNC, saturations in the low 90's placed on CPAP overnight on 12/15 and into the morning on 12/16 intubated on 12/[address] Prasad and now extubated on 12/20 as above Continues to be improving, down to 2 LNC and using BiPAP at night -Continue supplemental O2 to keep pulse ox greater than 90% -Diuresed with IV Lasix as volume overload was also contributing, have since DC'd the Lasix (4) Alcohol withdrawal: unsure how much patient drinks as she drinks a lot after goes to bed may be as much as a fifth a night AWSS scale -Now weaned off of Precedex drip and use Ativan as hxiumn-rxyrcepoa-caikdk to po ativan as needed -Continue thiamine, folate -Have encouraged alcohol cessation started Lexapro for anxiety, but developed a rash on day 1-doubt this is the cause of her rash, however pulmonology discontinued the Lexapro. - Could try Vistaril if desired. (5) Emphysema of lung: seen on CT, this is a new diagnosis she is a heavy smoker will need outpatient follow up and PFTs BiPAP qhs ordered (6) Hyperglycemia: Glucose now well controlled -Continue Accu-Cheks, continue NovoLog sliding scale Hemoglobin A1c only 5.7% (7) Sjogrens syndrome: -Held home hydroxychloroquine during acute infection, but okay to restart for tomorrow (8) Non-STEMI (non-ST elevated myocardial infarction): Secondary to myocardial demand ischemia in the setting of tachycardia from sepsis and alcohol withdrawal With preserved EF on echo, but with some wall motion abnormalities with moderate to severe hypokinesis involving the mid to distal anterior septal arana ECG with nonspecific T wave inversions cardiology consult appreciated, likely demand ischemia -Cardiology recommends outpatient perfusion imaging -Added aspirin 81mg daily -Could add metoprolol when BP can tolerate-does not seem possible yet (9) Tobacco abuse: -Counseling on smoking cessation given (10) Ventricular trigeminy: likely due to alcohol withdrawal, severe distress with multifocal pneumonia Now resolved (11) Pulmonary edema: likely due to aggressive fluid resuscitation at admission and then with bronchial lavage Diuresed with IV lasix Resolved (12) Elevated LFTs: Mildly elevated AST and alkaline phosphatase-improving Could be secondary to antifungal versus sepsis -Continue to follow LFTs -Have discontinued the voriconazole (13) Hypoalbuminemia: Severely low at albumin of 1.4 Secondary to critical illness and poor p.o. intake -Nutrition following -encouraged po intake -consider adding on Remeron but pt wants to wait on that as below (14) Hypokalemia: Potassium low but improved today to 3.2 Replaced Follow BMP in the morning (15) Urinary retention: now resolved (16) Hypophosphatemia: Replaced and resolved (17) Anxiety: Severe prior to admission, was using alcohol to help with anxiety Was tried on Remeron as an outpatient and did tolerate a low-dose of 7.5 mg She does not want to start back on this again until she is feeling stronger as i t can have sedating side effects -Consider starting Remeron in 1 to 2 weeks at inpatient rehab (18) Drug rash: Came on on 12/23, likely secondary to antibiotics Antibiotics have been discontinued Not bothering her at all, no pruritus Would not start steroids at this time given significant anxiety, tachycardia, and recent critical illness with possibility of peptic ulcer disease (19) DVT prophylaxis: Lovenox SQ Dispo-continued stay on PCU, slowly improving May be ready for discharge in the next 1-2 days to [facility] if approved Encourage patient to get out of bed to chair today which she has not done yet this hospitalization Total Time Total Time Spent Total Time Spent (In Minutes): 35 Discharge Plan Discharge Items Patient Disposition: Transfer Inpatient Rehab Fac Reason For Visit: PNEUMONIA Discharge Diagnosis: Pneumonia Activity: Resume your previous activity Non-emergency contact: Primary Care Provider, [employer] It Generalist Call non-emergency contact if: your symptoms worsen and your temperature is above 101 Follow-up/Referrals: Jameson Alcocer MD [Physician] - 01/05/20 2:30 pm (Please see Dr. Alcocer or one of his partners for further cardiac testing.) Clark Prasad MD [Physician] - 01/12/20 1:00 pm (Please follow up with Dr. Prasad in 2 weeks with plan for repeat CT scan in 4 weeks to assess pneumonia.) Serafin Suarez MD [Primary Care Provider] - 01/02/20 9:00 am (PLEASE CHECK TIME WITH OFFICE. YOU WILL BE SEEING ROSEMARY TRACY Diet: Heart Healthy [facility] Attending Provider Instructions: You were admitted for pneumonia. You received your full 10-day course of antibiotics before discharge. We treated you both for bacterial and fungal causes of pneumonia. At this point, you mainly need to work on rebuilding the strength that you lost after a prolonged hospitalization and acute illness. We have worked to get you into [facility] to help rebuild your strength. Your rash is thought to have been caused by the Lexapro we started in hopes of helping your anxiety. At this point, we are holding this and perhaps can start you on Remeron after some time. Please discuss this with the doctors at [facility] or with your PCP. If the rash itches, you can have the doctors try Vistaril (hydroxyzine) which helps with rash and can also help with anxiety. Finally, while you were very sick, you had elevated cardiac enzymes (troponin). The cardiologists saw you and made some medication recommendations to try to keep your heart healthy. Please follow up with them in the clinic in a few weeks to consider a stress test after your medical issues have resolved. Pending Studies at Discharge: No Stand-Alone Forms: [facility] Skilled Items Patient informed of condition?: Yes DNR: No Discharge Level of Care: Acute rehab Communicable Disease: No Discharge Prognosis: Improving Lines: None Urinary Catheter: No Medications and DC Order Prescriptions: New ipratropium-albuterol 0.5 mg-3 mg(2.5 mg base)/3 mL Solution For Nebulization 3 ml NEB BID PRN (Reason: shortness of breath or wheezing) Qty: 1 RF: 0 thiamine HCl (vitamin B1) [Vitamin B-1] 100 mg Tablet 100 mg PO QAM Qty: 1 RF: 0 aspirin 81 mg Tablet,Delayed Release (Dr/Ec) 81 mg PO QAM Qty: 1 RF: 0 pantoprazole 40 mg Tablet,Delayed Release (Dr/Ec) 40 mg PO DAILY Qty: 1 RF: 0 folic acid 1 mg Tablet 1 mg PO QAM Qty: 1 RF: 0 Incruse Ellipta 62.5 mcg/actuation Blister With Device 1 puff inhalation DAILY Qty: 1 RF: 0 metoprolol succinate 25 mg tablet extended release 24 hr 25 mg PO DAILY Qty: 1 RF: 0 Continued hydroxychloroquine 200 mg tablet 200 mg PO DAILY RF: 0 Cbd Oil 0 drp PO DIRECTED PRN (Reason: NEEDED) RF: 0 Discharge Orders: Discharge Order (Routine); Ordered 12/26/19 Ordered By: Yinka Hunt Admission Data Admit Date/Time: 12/15/19 05:45 Attending Provider: Yinka Hunt Admit Provider: Eusebio Cutler Primary Care Provider: Serafin Suarez Other Providers: Jmaeson Alcocer ; Audie Walls ; [facility] ; Yinka Hunt Other Interventions: Discharge Summary Assessment (RN) Last Done: 12/26/19 12:05 Coding Level of Care Code D/C Day Management >30 mins Diagnoses Sepsis A41.9; R65.20 Sepsis acute organ dysfunction status: with acute organ dysfunction Sepsis type: sepsis due to unspecified organism Severe sepsis acute organ dysfunction type: unspecified Severe sepsis shock status: without septic shock Multifocal pneumonia J18.9 Acute respiratory failure with hypoxia J96.01 Alcohol withdrawal F10.239 Emphysema of lung J43.9 Hyperglycemia R73.9 Sjogrens syndrome M35.00 Non-STEMI (non-ST elevated myocardial infarction) I21.4 Tobacco abuse Z72.0 Ventricular trigeminy I49.8 Pulmonary edema J81.1 Elevated LFTs R79.89 Hypoalbuminemia E88.09 Hypokalemia E87.6 Urinary retention R33.9 Hypophosphatemia E83.39 Anxiety F41.9 Drug rash L27.0 DVT prophylaxis Z29.9
--- NOTE | 2019-12-30 09:56 | Coding Query ---
CODING QUERY To promote full compliance with coding requirements relating to patient care, provider participation is requested in all cases of user interface artist uncertainty. Please assist us with the question(s) below: Coding Question(s): Multiple diagnoses listed by multiple providers. Please clarify final diagnosis for this encounter. Physician's Response(s): ( ) Alcohol abuse ( x ) Alcoholism with withdrawal ( ) Other, please specify Thank you Sandra Paez Principal Diagnosis: "that condition established after study, to be chiefly responsible for occasioning the admission of the patient to the hospital for care." Co-Existing Principal Diagnosis: "when two or more diagnoses equally meet the criteria for principal diagnosis as determined by the circumstances of admission, diagnostic work up, and/or therapy provided, and the Alphabetic Index, Tabular List, or another coding guideline does not provide sequencing direction, any one of the diagnoses may be sequenced first." "When the physician has documented what appears to be a current diagnosis in the body of the record, but has not included the diagnosis in the final diagnostic statement, the physician should be asked whether the diagnosis should be added." (Source [facility]oding [facility] 2 QTR90. p3-4) ASTER
--- NOTE | 2019-12-30 09:57 | Coding Query ---
CODING QUERY To promote full compliance with coding requirements relating to patient care, provider participation is requested in all cases of customer records division supervisor uncertainty. Please assist us with the question(s) below: Coding Question(s): Multiple diagnoses listed by multiple providers. Please clarify final diagnosis for this encounter. Physician's Response(s): ( ) NSTEMI ( ) Type 2 AL ( ) NSTEMI d/t demand ischemia ( x ) Demand ischemia ( ) Other, please specify Thank you Sandra Paez Principal Diagnosis: "that condition established after study, to be chiefly responsible for occasioning the admission of the patient to the hospital for care." Co-Existing Principal Diagnosis: "when two or more diagnoses equally meet the criteria for principal diagnosis as determined by the circumstances of admission, diagnostic work up, and/or therapy provided, and the Alphabetic Index, Tabular List, or another coding guideline does not provide sequencing direction, any one of the diagnoses may be sequenced first." "When the physician has documented what appears to be a current diagnosis in the body of the record, but has not included the diagnosis in the final diagnostic statement, the physician should be asked whether the diagnosis should be added." (Source Coding Clinic 2 QTR90. p3-4) [facility]
== END 2019-12-26 18:54 | DRG 853 ==
LOC: ED 03:44 → 2S 05:45 → SUATTDRO 05:45 → 2S 06:50 → 1E 12-16 13:35 → 2E 12-22 19:01

== ENCOUNTER 2021-11-30 17:27 | Observation (INO) ==
[2021-12-01 09:50] LABS: Basophils # (auto) 0.05 K/uL (0-0.2); Basophils % (auto) 0.8 %; Eosinophils # (auto) 0.12 K/uL (0-0.50); Eosinophils % (auto) 1.8 %; Hemoglobin 11.1 g/dl (12.0-16.0); Immature Granulocytes # (auto) 0.03 K/uL (0.00-0.02); Immature Granulocytes % (auto) 0.5 %; Lymphocytes # (auto) 0.64 K/uL (1.2-3.4); Lymphocytes % (auto) 9.8 %; Mean Corpuscular Hemoglobin 29.8 pg (25.0-34.0); Mean Corpuscular Hgb Conc 32.6 g/dL (32.0-36.0); Mean Corpuscular Volume 91.4 fL (80.0-100.0); Monocytes # (auto) 0.71 K/uL (0.24-0.82); Monocytes % (auto) 10.9 %; Neutrophils # (auto) 4.95 K/uL (1.4-6.5); Neutrophils % (auto) 76.2 %; Platelet Count 302 K/uL (130-400); RDW Coefficient of Variation 14.7 % (11.5-14.5); RDW Standard Deviation 49.2 fL (36.4-46.3); Red Blood Count 3.72 M/uL (3.93-5.22)
[2021-12-01 10:09] LABS: Albumin Globulin Ratio 1.2 (0.9-2); Albumin Level 3.8 gm/dl (3.4-5.0); Bilirubin,Total 0.9 mg/dl (0.2-1.0); Calcium 8.4 mg/dl (8.5-10.1); Creatinine Clr Calc Pharmacy 80.4 ml/min; Est GFR (African American) 112.9 ml/min; Est GFR (Non-African American) 97.4 ml/min; Globulin 3.3 gm/dl (2.5-4.0); Magnesium 1.6 mg/dl (1.7-2.4); Potassium 4.1 mmol/L (3.5-5.1); Total Protein 7.1 gm/dl (6.0-8.3)
[2021-12-01 10:15] LABS: Troponin I High Sensitivity 4.2 pg/ml (0-14)
[2021-12-01 10:20] LABS: Partial Thromboplastin Ratio 1.1; Partial Thromboplastin Time 30.7 Seconds (21.0-31.0); Prothrombin Time 10.5 Seconds (9.0-12.0)
--- NOTE | 2021-12-01 10:24 | History & Physical Report ---
Date of Service December 01, 2021 Assessment & Plan (1) Chest pain, rule out acute myocardial infarction: Plan: Repeat troponin today is negative as were high sensitivity troponins over at [facility]. Given duration of pain this appears to be highly unlikely related to coronary artery disease. Therefore do not recommend stress testing due to low pre-test probability. Given resolution of pain and intermittent nature unlikely dissection or pulmonary embolism. HR is 93 although this is consistent with her prior hospitalizations. She has no shortness of breath and O2 sats normal on room air. Recommend discharge at this time with PCP follow up. Mg OX 400mg PO daily for low Mg levels and frequent PVCs although she appears to be asymptomatic from these and she has known history of this. Recommend famotidine for the next 7 days to help with any gastritis/GERD which could be the cause. (2) Frequent PVCs: Admission and Anticipated Discharge Date Admission Date: December 01, 2021 History of Present Illness Chief Complaint: Chest pain Primary Care Provider: Serafin Suarez MD Evon Pino is a 71 year old female who presents as direct admission from [facility] due to chest pain/heaviness. She reports initial chest heaviness started last Thursday, substernal, occurred on exertion although lasted for several hours therefore presumably continued while she is at rest. She reports a similar pain occurring yesterday starting around 9:30 AM which lasted to about 4 PM after being given morphine and aspirin in the emergency room at [facility] which took it away. She reports it slightly came back last night but then resolved by itself. [place] food for lunch yesterday possibly improved her symptoms. She does report feeling better on leaning forward and worse on leaning back. Also worse the more she feels anxious about it the tightness in her chest feels. No worse on inspiration. No associated diaphoresis, nausea or shortness of breath. Severity 3-4 out of 10 at worst, she is currently chest pain/heaviness free and has been since last night. She denies any palpitations, claudication, presyncope or syncope. No calf pain or leg swelling. 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 Prior to diagnosis and treatment she would have a lot of body aches which would respond to prednisone. No similar chest pains before in the past. She recently switched from alendronate to Boniva in November by request due to the hassle of taking alendronate on an empty stomach every week. I discussed with [facility] ER physician last night and the EKGs were sent to our interventional radiologist who did not feel she needed the Lining Finisher urgently. She was accepted for transfer due to concern the patient was high risk chest pain. Unfortunately she was not transferred until this morning. SARS-CoV-2 [place] ID now test was negative. High-sensitivity troponin 6ng/ml [17:50] with repeat also 6 ng/ml [20:00]. CT head showed no acute intracranial abnormality identified. EKG showed sinus tachycardia with ventricular rate of 101 bpm, electronic interpretation of nonspecific ST elevation low threshold for STEMI however wandering baseline and frequent PVCs make the EKG difficult to electronically interpreted and no significant ST elevations seen by myself. Hemoglobin 11.8 (normocytic), WBC 8.6, creatinine 0.7, glucose 138, TSH 1.61, magnesium 1.6, sodium 133, chloride 96, ALP 140. Other labs relatively unremarkable and repeated as below. Allergies Allergy/AdvReac Type Severity Reaction Status Date / Time No Known Allergies Allergy Verified 05/19/21 09:38 Home Medications Medication Instructions Recorded Confirmed Type calcium carbonate 200 mg calcium 200 mg PO BID 02/28/21 05/19/21 History (500 mg) chewable tablet (Tums) cholecalciferol (vitamin D3) 50 50 mcg PO DAILY 02/28/21 05/19/21 History mcg (2,000 unit) capsule ibandronate 150 mg tablet 150 mg PO .EVERY 30 DAYS IN AM 05/19/21 05/19/21 History alendronate 70 mg tablet mg PO 12/01/21 12/01/21 History hydroxychloroquine 200 mg tablet mg PO 12/01/21 History Past Med/Surg History Medical History (Updated 12/01/21 @ 11:15 by Kareem Lofton MD) Alcohol dependence Anxiety PT DENIES Emphysema of lung PT DENIES History of anesthesia reaction WITH LAPAROSCOPY AGE 30'S TOOK LONGER TO WAKE UP History of pneumonia DEC 2019 Sjogren's disease Undifferentiated connective tissue disease Surgical History History of colonoscopy History of laparoscopy History of right cataract extraction History of tonsillectomy Family History Other Family history non-contributory Social History Smoking Status: Former smoker Tobacco Type: Cigarettes Smoking End Date: 5-6 YEARS AGO; Second Hand Exposure: No; Tobacco Cessation Education Requested by Patient: No Hx Alcohol Use: Yes Alcohol type: other Hx Substance Use: No Preferred Language: Amharic Communication Ability: Effective Visual Impairment: No Limitations Rn Anesthesiology Required: No Beliefs That Will Affect Care: None Current Living Situation: Spouse Other Information That Helps Us Care for You: No Feels Safe at Home: Yes Safety Concerns: Feels Safe At This Time Assistive Devices: None Review of Systems Review of Systems: All systems reviewed & are unremarkable except as noted in HPI & below Physical Exam Constitutional: WD/WN, vitals as above Eyes: + anicteric sclerae; normal pupil size ENMT: external ear and nose normal, oropharynx normal Neck: trachea midline, no thyromegaly Respiratory: normal respiratory effort, lungs clear to auscultation Cardiovascular: RRR, no murmur, no edema (Frequent skipped beats) Vessels: no JVD Extremities: normal capillary refill; no calf tenderness Gastrointestinal (Abdomen): normal bowel sounds, soft, nontender, no hepatosplenomegaly Musculoskeletal: no cyanosis or clubbing, extremities motor strength 5/5 Skin: no rashes, warm and dry Neurologic: moves all extremities and awake; not confused Psychiatric: A+Ox3, euthymic affect Results & Data Results & [facility] ([facility] Vital Signs (Past 12 Hours) Vital Signs Temp Pulse Resp BP Pulse Ox O2 Del Method 12/01/21 09:11 36.7 C 93 H 18 132/79 94 Room Air Laboratory Results Abnormal lab results 12/01/21 12/01/21 Range/Units 09:38 09:38 RBC 3.72 L (3.93-5.22) M/uL Hgb 11.1 L (12.0-16.0) g/dl Hct 34.0 L (34.1-44.9) % RDW Std Deviation 49.2 H (36.4-46.3) fL RDW Coeff of Oz 14.7 H (11.5-14.5) % MPV 9.0 L (9.4-12.3) fL Lymph # (Auto) 0.64 L (1.2-3.4) K/uL Immature Gran # (Auto) 0.03 H (0.00-0.02) K/uL Sodium 132 L (136-145) mmol/L Creatinine 0.50 L (0.6-1.2) mg/dl Calcium 8.4 L (8.5-10.1) mg/dl Magnesium 1.6 L (1.7-2.4) mg/dl Diagnostic Findings CXR at [facility] - No acute pathology CT [facility] - No intracranial pathology ECG Indication: chest pain Rate (beats per minute): 89 Rhythm: normal sinus Findings: + other (fusion complexes), + nonspecific-ST abn (Anterolateral) and + PVC (frequent) Comparison ECG Date: from (2019) Change: the following changes noted (TW no longer inverted anteriorly (probable lead placement) Code Status & VTE Plan Code Status Full VTE Prophylaxis Plan VTE Prophylaxis will be ordered: No Reason for no VTE drug order: Treatment not indicated Reason for no VTE mechanical prophylaxis: Treatment not indicated PG Care Time/CCT Total # of Minutes Spent Total Time Spent with Patient: Total time spent is greater than 50% in coordination of care (as documented) at patient's floor/unit and/or counseling patient: Coding Level of Care Code INT OBSERVATION CARE 50M LVL 2 Diagnoses Chest pain, rule out acute myocardial infarction R07.9 Frequent PVCs I49.3
[2021-12-01] MEDS ORDERED: FAMOTIDINE 20 MG TAB PO ONE (11:15)
--- NOTE | 2021-12-01 11:46 | Discharge Summary ---
Date of Service December 01, 2021 Admission HPI Per Admitting Provider Evon Pino is a 71 year old female who presents as direct admission from [facility] due to chest pain/heaviness. She reports initial chest heaviness started last Thursday, substernal, occurred on exertion although lasted for several hours therefore presumably continued while she is at rest. She reports a similar pain occurring yesterday starting around 9:30 AM which lasted to about 4 PM after being given morphine and aspirin in the emergency room at [facility] which took it away. She reports it slightly came back last night but then resolved by itself. [place] food for lunch yesterday possibly improved her symptoms. She does report feeling better on leaning forward and worse on leaning back. Also worse the more she feels anxious about it the tightness in her chest feels. No worse on inspiration. No associated diaphoresis, nausea or shortness of breath. Severity 3-4 out of 10 at worst, she is currently chest pain/heaviness free and has been since last night. She denies any palpitations, claudication, presyncope or syncope. No calf pain or leg swelling. 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 Prior to diagnosis and treatment she would have a lot of body aches which would respond to prednisone. No similar chest pains before in the past. She recently switched from alendronate to Boniva in November by request due to the hassle of taking alendronate on an empty stomach every week. I discussed with [facility] ER physician last night and the EKGs were sent to our interventional radiologist who did not feel she needed the Nozzle Tender urgently. She was accepted for transfer due to concern the patient was high risk chest pain. Unfortunately she was not transferred until this morning. SARS-CoV-2 [place] ID now test was negative. High-sensitivity troponin 6ng/ml [17:50] with repeat also 6 ng/ml [20:00]. CT head showed no acute intracranial abnormality identified. EKG showed sinus tachycardia with ventricular rate of 101 bpm, electronic interpretation of nonspecific ST elevation low threshold for STEMI however wandering baseline and frequent PVCs make the EKG difficult to electronically interpreted and no significant ST elevations seen by myself. Hemoglobin 11.8 (normocytic), WBC 8.6, creatinine 0.7, glucose 138, TSH 1.61, magnesium 1.6, sodium 133, chloride 96, ALP 140. Other labs relatively unremar kable and repeated as below. Discharge Exam Constitutional WD/WN, vitals as above Eyes + anicteric sclerae; normal pupil size ENMT external ear and nose normal, oropharynx normal Neck trachea midline, no thyromegaly Respiratory normal respiratory effort, lungs clear to auscultation Cardiovascular RRR, no murmur, no edema (Frequent skipped beats) Vessels: no JVD Extremities: normal capillary refill; no calf tenderness Gastrointestinal (Abdomen) normal bowel sounds, soft, nontender, no hepatosplenomegaly Musculoskeletal no cyanosis or clubbing, extremities motor strength 5/5 Skin no rashes, warm and dry Neurologic moves all extremities and awake; not confused Psychiatric A+Ox3, euthymic affect Discharge Data Allergies Allergy/AdvReac Type Severity Reaction Status Date / Time No Known Allergies Allergy Verified 05/19/21 09:38 Hospital Course (1) Chest pain, rule out acute myocardial infarction: Repeat troponin today is negative as were high sensitivity troponins over at [facility]. Given duration of pain this appears to be highly unlikely related to coronary artery disease. Therefore do not recommend stress testing due to low pre-test probability. Given resolution of pain and intermittent nature unlikely dissection or pulmonary embolism. HR is 93 although this is consistent with her prior hospitalizations. She has no shortness of breath and O2 sats normal on room air. Recommend discharge at this time with PCP follow up. Mg OX 400mg PO daily for low Mg levels and frequent PVCs although she appears to be asymptomatic from these and she has known history of this. Recommend famotidine for the next 7 days to help with any gastritis/GERD which could be the cause. (2) Frequent PVCs: Discharge Plan Discharge Items Patient Disposition: Home - Self-Care Reason For Visit: CHEST PAIN Discharge Diagnosis: Atypical chest pain Hypomagnesemia Activity: Resume your previous activity Non-emergency contact: Primary Care Provider Call non-emergency contact if: you have any medication questions and your symptoms worsen Follow-up/Referrals: Serafin Suarez MD [Primary Care Provider] - Diet: Heart Healthy Addtl Attending Provider Instructions: You are observed at [facility] on December 01, 2021 due to chest pain. Serial high-sensitivity troponins ruled out a myocardial infarction (heart attack). Given your duration of pain and negative troponins the probability of this being coronary artery disease in nature is very low therefore do not recommend further testing at this time. Please take famotidine 20 mg p.o. daily for the next 7 days to help with any possible heartburn as a cause. Do not recommend taking Tums regularly as this can exacerbate underlying heartburn. Your magnesium level was low and you are having frequent PVCs (skipped beats) therefore recommend supplementation for this. Please follow up with your primary care physician. Recommend stress testing if your pain becomes more typically cardiac i.e. pain on exertion which relieves with rest. Kind regards, Dr. Kareem Lofton Pending Studies at Discharge: No Stand-Alone Forms: My [facility] Note, Smoking Cessation Medications and DC Order Prescriptions: New magnesium oxide 500 mg tablet 500 mg PO DAILY Qty: 30 0RF famotidine 20 mg tablet 20 mg PO DAILY PRN (Reason: heartburn) Qty: 30 0RF Continued cholecalciferol (vitamin D3) 50 mcg (2,000 unit) capsule 50 mcg PO DAILY calcium carbonate [Tums] 200 mg calcium (500 mg) tablet,chewable 200 mg PO BID hydroxychloroquine 200 mg tablet PO ibandronate 150 mg tablet 150 mg PO .EVERY 30 DAYS IN AM Discharge Orders: Discharge Order (Routine); Ordered 12/01/21 Ordered By: Kareem Lofton Admission Data Admit Date/Time: 12/01/21 09:08 Attending Provider: Kareem Lofton Admit Provider: Kareem oLfton Primary Care Provider: Serafin Suarez Coding Diagnoses Chest pain, rule out acute myocardial infarction R07.9 Frequent PVCs I49.3
--- NOTE | 2021-12-02 14:03 | Electrocardiogram Report ---
Test Reason : Blood Pressure : / mmHG Vent. Rate : 089 BPM Atrial Rate : 089 BPM P-R Int : 184 ms QRS Dur : 090 ms QT Int : 390 ms P-R-T Axes : 068 008 027 degrees QTc Int : 474 ms Sinus rhythm with frequent Premature ventricular complexes and Fusion complexes Possible Left atrial enlargement Borderline ECG When compared with ECG of 22-DEC-2019 07:27, Fusion complexes are now Present Premature ventricular complexes are now Present Non-specific change in ST segment in Anterolateral leads T wave inversion no longer evident in Anterior leads Confirmed by Ethan Kim ([id number]) on 12/02/2021 2:02:54 PM Referred By: Luis Alfredo Weber Confirmed By:Ethan Kim
== END 2021-12-01 14:06 | disposition home or self-care (01) ==
LOC: 2S

== ENCOUNTER 2025-04-16 10:45 | Inpatient (IN) ==
[2025-04-16 11:31] LABS: Hematocrit (blood only) 36.0 % (37.0-47.0); Hemoglobin 12.2 g/dL (12.0-16.0); Immature Granulocytes # (auto) 0.02 K/uL (0.01-0.20); Immature Granulocytes % (auto) 0.4 %; Mean Corpuscular Hemoglobin 33.2 pg (25.0-34.0); Mean Corpuscular Volume 97.8 fL (80.0-100.0); Platelet Count 127 K/uL (130-400); RDW Standard Deviation 47.2 fL (36.4-46.3); Red Blood Count 3.68 M/uL (4.20-5.40); White Blood Count 4.73 K/ul (4.8-10.8)
--- NOTE | 2025-04-16 11:43 | XRay Report ---
XR chest 1V not portable HISTORY: 74 years-old Female Weakness acute weakness COMPARISON: Chest CT 03/13/2025 TECHNIQUE: AP view of the chest FINDINGS: Cardiomediastinal and hilar silhouettes are within normal limits. No pneumothorax, pleural effusion, airspace consolidation or overt pulmonary edema. Bones of the chest appear grossly intact. Subacute c hronic posterior left rib fractures again noted. Emphysema with chronic interstitial coarsening. Nodu lar foci of the lungs better seen on the comparison chest CT. IMPRESSION: 1. Emphysema without acute process upper chest. 2. Subacute to chronic left-sided rib fractures redemonstrated. ACT 112: Negative or not required by law. The above report was generated using voice recognition software. It may contain grammatical, syntax o r spelling errors. Electronically signed by: Garrison Cassidy M.D. 04/16/2025 11:41 AM
[2025-04-16 11:47] LABS: Anion Gap 16 (3-11); Blood Urea Nitrogen 10 mg/dl (6-23); Calcium 8.9 mg/dl (8.6-10.3); Carbon Dioxide 26 mmol/L (21-32); Chloride 93 mmol/L (98-107); Glucose 63 mg/dl (70-99(Fasting)); Potassium 3.6 mmol/L (3.5-5.1); Sodium 135 mmol/L (136-145)
[2025-04-16 11:57] LABS: INR 1.0 (0.9-1.1); Partial Thromboplastin Time 27 Seconds (21-31); Prothrombin Time 10.7 Seconds (9.0-12.0)
[2025-04-16 12:03] LABS: Thyroid Stimulating Hormone 2.709 uIu/ml (0.300-4.500)
[2025-04-16 12:13] LABS: Alanine Aminotransferase 149 U/L (7-52); Albumin Globulin Ratio 1.3 (0.9-2); Albumin Level 4.4 gm/dl (3.4-5.0); Alkaline Phosphatase 223 U/L (34-104); Bilirubin,Total 1.3 mg/dl (0.2-1.0); Globulin 3.4 gm/dl (2.5-4.0); Magnesium 0.9 mg/dl (1.7-2.4); Total Protein 7.8 gm/dl (6.0-8.3)
[2025-04-16] MEDS: SODIUM CHLORIDE 0.9% 1,000 ML IV SCH (12:59)
[2025-04-16] MEDS: MAGNESIUM SULFATE / D5W 1 GM/100 ML BAG IV SCH ×2 (12:59→15:38)
[2025-04-16 13:17] LABS: Appearance Urine Cloudy (Clear); Bacteria Urine Automated 4+ (None Seen); Epithelial Cell Urine Auto 0-2 /hpf (0-2); Glucose Urine UA Negative (Negative); WBC Urine Automated >50 /hpf (0-5)
--- NOTE | 2025-04-16 13:44 | CT Scan Report ---
CT head/brain wo con CLINICAL HISTORY: 74 years-old Female with fall. Acute head trauma status post fall TECHNIQUE: Multiple axial CT images of the head were obtained without contrast. A dose lowering tech nique was utilized adhering to the principles of ALARA. CT DOSE: 625.8 mGy.cm COMPARISON: 04/14/2025 FINDINGS: No acute intracranial hemorrhage, midline shift, intracranial mass, hydrocephalus, territorial ischem ia or abnormal extra-axial collection. Involutional changes with white matter hypodensities favoring chronic microvascular ischemic disease. The calvarium is intact. Trace left mastoid effusion. The right mastoid air cells are clear. Mild mu cosal thickening of the paranasal sinuses with scattered air-fluid levels suggestive of acute sinusit is. Small anterior right frontal scalp contusion again noted. IMPRESSION: 1. No acute intracranial abnormality or calvarial fracture. 2. Small right anterior frontal scalp contusion again noted. ACT 112: Negative or not required by law. The above report was generated using voice recognition software. It may contain grammatical, syntax o r spelling errors. Electronically signed by: Garrison Cassidy M.D. 04/16/2025 1:41 PM
[2025-04-16] MEDS: METOPROLOL TARTRATE 1 MG/ML VIAL IV STA (15:20)
--- NOTE | 2025-04-16 15:22 | History & Physical Report ---
Date of Service April 16, 2025 Assessment & Plan (1) Weakness: (2) Hypomagnesemia: (3) Elevated troponin: (4) Alcohol dependence: Plan This is a 74-year-old female who has a significant past medical history of Sjogren syndrome, Raynaud's, osteoporosis, pulmonary hypertension, emphysema and alcohol dependence who presents to ED secondary to progressive weakness x 2 days. #Lower extremity Weakness #Hypomagnesemia #High anion gap metabolic acidosis admit to PCU suspect weakness may be multifactorial will need aggressive magnesium replacement, received 2g in ED, will give additional 2g administer KCL 40meq x 1 now check bmp, mag q6 hr start on mag oxide 400mg bid will check CK, lactate, folic acid, B12 TSH in normal some concern for underlying wernicke developing given hx start on IV thiamine 500mg TID, oral folate replacement #Alcohol dependence concern for impending withdrawal given tachycardia and elevated BP diazepam prn IV thiamine 500mg TID, folate #SVT likely 2/2 above, will obtain echo, lopressor #Elevated LFTS AST 354, ALT 149, T bili 1.3, ALP 224 obtain RUQ US, given low plts suspect possible cirrhosis although INR is WNL #Abnormal Urinalysis possible UTI although pt asymptomatic empiric IV rocephin, await urine culture pt with microscopic hematuria, if culture negative will need OP follow up #DVT: SQ Lovenox, monitor plt ct FULL CODE PCP: Serafin Suarez, [facility] Dispo: admit to PCU Pt was seen and examined in collaboration with Dr. Anderson, please see addendum I spent a total of 76 minutes coordinating, documenting and providing care for this patient excluding time spent in the performance of separately billed services or time spent by another provider/QHP. History of Present Illness Chief Complaint: Progressive weakness x 2 days. Primary Care Provider: Serafin Suarez MD This is a 74-year-old female who has a significant past medical history of Sjogr en syndrome, Raynaud's, osteoporosis, pulmonary hypertension, emphysema and alcohol dependence who presents to ED secondary to progressive weakness x 2 days. History was obtained from discussion with ER provider, patient and her and external chart review. reports over the last 2 to 3 months he has noticed his becoming generally weak. She has been having increasing falls. Her most recent fall was on 04/14 in which she presented to the ED and required sutures to her left eyebrow. He also notes that her gait has become more broad-based. Patient states over the last 2 days her weakness has become profound it has been affecting her ability to walk. She does report a flulike illness approximately 2 weeks ago but feels mostly recovered from this other than some sinus congestion. She denies any pain. She denies any fever, chills, sweats, lightheadedness, dizziness, chest pain, shortness of breath, nausea, vomiting, abdominal pain, dysuria, increased urgency or frequency with urination. She is chronically constipated. Her last bowel movement was about a week ago. In ED patient was hypertensive and tachycardic. She was found to have a significantly low magnesium at 0.9. She also had an elevated anion gap at 16. Her LFTs were elevated at 354 AST and ALT 149, alk phos 223. Her urinalysis was concerning for possible infection. She received IV fluids as w ell as magnesium replacement was initiated. Allergies Allergy/AdvReac Type Severity Reaction Status Date / Time Penicillins Allergy Unknown Verified 04/16/25 13:23 Home Medications Medication Instructions Recorded Confirmed Type ibandronate 150 mg tablet 150 mg PO .EVERY 30 DAYS IN AM 05/19/21 04/16/25 History hydroxychloroquine 200 mg tablet 200 mg PO DAILY 12/01/21 04/16/25 History Calcium/Vitamin D/Magesium/Zinc 1 tab PO DAILY 04/16/25 04/16/25 History alprazolam 0.25 mg tablet 0.25 mg PO BID PRN Anxiety 04/16/25 04/16/25 History cyclosporine 0.05 % eye drops in a 1 drp ophthalmic (eye) BID 04/16/25 04/16/25 History dropperette (Restasis) Past Med/Surg History Problem List (Updated 04/16/25 @ 17:16 by Background Daemon) Acute UTI (Acute) Weakness Facial laceration (Acute) Fall (Acute) COPD with emphysema Frequent PVCs Chest pain, rule out acute myocardial infarction Diverticulitis of intestine with perforation and abscess (Acute) Multifocal pneumonia (Acute) Sjogrens syndrome Acute respiratory failure with hypoxia Non-STEMI (non-ST elevated myocardial infarction) Hypomagnesemia (Acute) Hypokalemia (Acute) Myocardial Infarction nstemi Smokers' cough Smoker No pertinent past surgical history Tobacco abuse (Acute) Troponin level elevated Sepsis (Acute) Elevated troponin (Acute) Alcohol withdrawal Hyperglycemia Ventricular trigeminy Acute hypoxemic respiratory failure Pulmonary edema S/P admission to ICU (intensive care unit) DVT prophylaxis Elevated LFTs Hypoalbuminemia Urinary retention Hypophosphatemia Drug rash Sjogren's disease Exertional shortness of breath Pneumonia Pulmonary hypertension Ex-smoker Pneumonia Mitral regurgitation Abnormal chest CT Encounter for pre-operative examination Medical History Alcohol dependence History of pneumonia DEC 2019 History of anesthesia reaction WITH LAPAROSCOPY AGE 30'S TOOK LONGER TO WAKE UP Undifferentiated connective tissue disease Anxiety PT DENIES Emphysema of lung PT DENIES Sjogren's disease Surgical History History of right cataract extraction History of laparoscopy History of tonsillectomy History of colonoscopy Family History Other Family history non-contributory Social History Smoking Status: Former smoker Tobacco Type: Cigarettes Second Hand Exposure: No; Do You Dip or Chew Tobacco: No; Hx Alcohol Use: Yes Alcohol type: other Hx Substance Use: No Preferred Language: Turkmen Communication Ability: Effective Visual Impairment: No Limitations Hospital Intern Required: No Beliefs That Will Affect Care: None Current Living Situation: Spouse Feels Safe at Home: Yes Assistive Devices: None Review of Systems Review of Systems: All systems reviewed & are unremarkable except as noted in HPI & below Physical Exam Physical Exam: Constitutional: WD/WN, F, vitals as above, NAD, sitting up in bed, pleasant, conversing easily, tremulous Head: Normocephalic, Atraumatic, L eye brow prior laceration with sutures in tact, healing well Eyes: conjunctivae normal, anicteric sclerae ENMT: external ear and nose normal, oropharynx normal Neck: trachea midline, no thyromegaly normal visual inspection Respiratory: CTAB, no W/R/R, normal inspection, no accessory muscle use Cardiovascular: tachycardic rate regular rhythm, no murmur, no edema Chest: normal inspection of chest Abdomen: S, NT, ND, +BS x 4 Musculoskeletal: no cyanosis or clubbing, extremities AROM x 4, strength LLE 4/5, and 5/5 RLE Skin: no rashes, warm and dry normal turgor Neurologic: PERRL, EOMI, accommodation nl, no face palsy, no dysarthria CN's II-XI intact bilaterally and moves all extremities Psychiatric: A+Ox3, euthymic affect Results & Data Results & Data Vital Signs (Past 12 Hours) Vital Signs Temp Pulse Resp BP Pulse Ox O2 Del Method 04/16/25 14:52 Room Air 04/16/25 14:38 125 H 17 153/95 H 95 Room Air 04/16/25 14:30 116 H 20 171/102 H 94 Room Air 04/16/25 14:00 100 H 21 144/84 H 94 Room Air 04/16/25 13:30 160/94 H 04/16/25 13:19 111 H 04/16/25 13:19 111 H 18 95 Room Air 04/16/25 13:19 Room Air 04/16/25 13:18 104 H 26 H 166/100 H 94 Room Air 04/16/25 13:18 105 H 25 H 166/100 H 96 Room Air 04/16/25 13:02 117 H 04/16/25 13:00 115 H 24 172/102 H 97 Room Air 04/16/25 10:56 37.2 C 120 H 18 136/89 94 Laboratory Results I have independently reviewed and interpreted patient's admitting labs including CBC, CMP, PTT, PT/INR, mag and troponin. Diagnostic Findings Chest X-Ray 04/16/25 11:14 XR chest 1V not portable HISTORY: 74 years-old Female Weakness acute weakness COMPARISON: Chest CT 03/13/2025 TECHNIQUE: AP view of the chest FINDINGS: Cardiomediastinal and hilar silhouettes are within normal limits. No pneumothorax, pleural effusion, airspace consolidation or overt pulmonary edema. Bones of the chest appear grossly intact. Subacute chronic posterior left rib fractures again noted. Emphysema with chronic interstitial coarsening. Nodular foci of the lungs better seen on the comparison chest CT. IMPRESSION: 1. Emphysema without acute process upper chest. 2. Subacute to chronic left-sided rib fractures redemonstrated. ACT 112: Negative or not required by law. The above report was generated using voice recognition software. It may contain grammatical, syntax or spelling errors. Electronically signed by: Garrison Cassidy M.D. 04/16/2025 11:[address] 04/16/25 12:56 CT head/brain wo con CLINICAL HISTORY: 74 years-old Female with fall. Acute head trauma status post fall TECHNIQUE: Multiple axial CT images of the head were obtained without contrast. A dose lowering technique was utilized adhering to the principles of ALARA. CT DOSE: 625.8 mGy.cm COMPARISON: 04/14/2025 FINDINGS: No acute intracranial hemorrhage, midline shift, intracranial mass, hydrocephalus, territorial ischemia or abnormal extra-axial collection. Involutional changes with white matter hypodensities favoring chronic microvascular ischemic disease. The calvarium is intact. Trace left mastoid effusion. The right mastoid air cells are clear. Mild mucosal thickening of the paranasal sinuses with scattered air-fluid levels suggestive of acute sinusitis. Small anterior right frontal scalp contusion again noted. IMPRESSION: 1. No acute intracranial abnormality or calvarial fracture. 2. Small right anterior frontal scalp contusion again noted. ACT 112: Negative or not required by law. The above report was generated using voice recognition software. It may contain grammatical, syntax or spelling errors. Electronically signed by: Garrison Cassidy M.D. 04/16/2025 1:41 PM Medications Administered Medication List Sodium Chloride (Nss) 1,000 mls @ 125 mls/hr IV .Q8H [facility] Stop: 04/19/25 12:59 Last Admin: 04/16/25 12:59 Dose: 125 mls/hr Documented By: JEROME Discontinued Medications Magnesium Sulfate/Dextrose (Magnesium Sulfate / D5w) 1 gm in 100 mls @ 100 mls/hr IV Q1H [facility] Stop: 04/16/25 14:38 Last Admin: 04/16/25 14:21 Dose: 100 mls/hr Documented By: Infusion: 04/16/25 13:59 Dose: Infused Documented By: Admin: 04/16/25 12:59 Dose: 100 mls/hr Documented By: JEROME ECG Additional Comments: I have independently reviewed and interpreted patient's admitting EKG which revealed: 120 ST Code Status & VTE Plan Code Status FULL CODE VTE Prophylaxis Plan VTE Prophylaxis will be ordered: Yes Supervising Physician Co-Signing Physician Notes I have seen and discussed the case with the collaborating advanced practitioner. I agree with the above H&P. I have reviewed and confirmed the patients medical history, the findings on physical examination, and the patients diagnosis and treatment plan with Edita MOTTA and agree with the information documented. Evaluated patient at bedside. Reports eagerness to get home and ready for an appointment and vacation. Discussed her symptoms and she reports worsening weakness. was able to provide more detailed information including more chronic ataxia with worsening over the weekend. Notably patient even sustained a fall with laceration to left eye requiring sutures. Patient drinks about two bourbon drinks a night. During exam patient went into SVT with rates in 140s-150s, quickly improved with metoprolol IV. Ongoing aggressive mag replacement. labs reviewed, elevated LFTs, mild trop to 30.6, mag of 0.9, folate wnl b12 wnl, UA questionable no symptoms head ct without acute changes CXR unremarkable #Alcohol dependence #hypomagnesemia #Progressive ambulatory dysfunction #Recent mechanical fall reports of ongoing ataxia, worsening in last week (potentially related to already known diagnosis x 2 weeks prior, no fevers/chills/resp symptoms at this time) mag of 0.9 MRI brain iso worsening gait abnormality start high dose thiamine 500mg q8 b12/folate wnl consider neuro contingent on imaging PT/OT diazepam prn for withdrawal #Transaminitis #thrombocytopenia RUQ US ordered trend labs #Abnormal uti perhaps some frequency reported, however, difficult to ascertain much hx from patient continue empiric CTX for now #SVT noted in 140s aggressive lytes replacement and follow up metoprolol 5mgIV push, start metop tartrate q6h rest of plan as above I spent a total of 35 minutes coordinating, documenting, and providing care for this patient excluding time spent in the performance of separately billed services. All of the aforementioned completed outside of collaborating with the assigned advanced practitioner for a full treatment plan. I have reviewed the advanced practitioner's documentation, and I agree with, and take responsibility for the plan of care
[2025-04-16 15:33] LABS: Chlamydia pneumoniae PCR Not Detected (NotDetected); Coronavirus 229E PCR Not Detected (NotDetected); Coronavirus CoV-2 (COVID19)PCR DETECTED (NotDetected); Coronavirus HKU1 PCR Not Detected (NotDetected); Coronavirus NL63 PCR Not Detected (NotDetected); Coronavirus OC43PCR Not Detected (NotDetected); Human Metapneumovirus PCR Not Detected (NotDetected); Parainfluenza Virus 1 PCR Not Detected (NotDetected); Parainfluenza Virus 2 PCR Not Detected (NotDetected); Parainfluenza Virus 3 PCR Not Detected (NotDetected); Parainfluenza Virus 4 PCR Not Detected (NotDetected); Respiratory Syncytial VirusPCR Not Detected (NotDetected); Rhinovirus/Enterovirus PCR Not Detected (NotDetected)
--- NOTE | 2025-04-16 15:38 | Emergency Department Note ---
History of Present Illness General Chief complaint: Weakness Stated complaint: WEAKNESS Time Seen by Provider: 04/16/25 12:36 History of Present Illness Provider complaint: Weakness 74-year-old female presents emergency department for weakness. Patient reports she has been feeling increasingly weak for the last 2 days. She reports she has been feeling increasingly particular in her legs. She reports that her balance is off and she is having difficulty walking. Patient does report a recent fall. 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 He states that she has been drinking more and not been eating properly. No chest pain difficulty breathing neck pain or abdominal pain. Home Medications Medication Instructions Recorded Confirmed Type ibandronate 150 mg tablet 150 mg PO .EVERY 30 DAYS IN AM 05/19/21 04/16/25 History hydroxychloroquine 200 mg tablet 200 mg PO DAILY 12/01/21 04/16/25 History Calcium/Vitamin D/Magesium/Zinc 1 tab PO DAILY 04/16/25 04/16/25 History alprazolam 0.25 mg tablet 0.25 mg PO BID PRN Anxiety 04/16/25 04/16/25 History cyclosporine 0.05 % eye drops in a 1 drp ophthalmic (eye) BID 04/16/25 04/16/25 History dropperette (Restasis) Allergies Allergy/AdvReac Type Severity Reaction Status Date / Time Penicillins Allergy Unknown Verified 04/16/25 13:23 Past Med/Surg History Problem List (Updated 04/16/25 @ 15:37 by Cheng Epperson MD) Acute UTI (Acute) Weakness Facial laceration (Acute) Fall (Acute) COPD with emphysema Frequent PVCs Chest pain, rule out acute myocardial infarction Diverticulitis of intestine with perforation and abscess (Acute) Multifocal pneumonia (Acute) Sjogrens syndrome Acute respiratory failure with hypoxia Non-STEMI (non-ST elevated myocardial infarction) Hypomagnesemia (Acute) Hypokalemia (Acute) Myocardial Infarction nstemi Smokers' cough Smoker No pertinent past surgical history Tobacco abuse (Acute) Troponin level elevated Sepsis (Acute) Elevated troponin (Acute) Alcohol withdrawal Hyperglycemia Ventricular trigeminy Acute hypoxemic respiratory failure Pulmonary edema S/P admission to ICU (intensive care unit) DVT prophylaxis Elevated LFTs Hypoalbuminemia Urinary retention Hypophosphatemia Drug rash Sjogren's disease Exertional shortness of breath Pneumonia Pulmonary hypertension Ex-smoker Pneumonia Mitral regurgitation Abnormal chest CT Encounter for pre-operative examination Medical History Alcohol dependence History of pneumonia DEC 2019 History of anesthesia reaction WITH LAPAROSCOPY AGE 30'S TOOK LONGER TO WAKE UP Undifferentiated connective tissue disease Anxiety PT DENIES Emphysema of lung PT DENIES Sjogren's disease Surgical History History of right cataract extraction History of laparoscopy History of tonsillectomy History of colonoscopy Family History Other Family history non-contributory Social History Smoking Status: Former smoker Tobacco Type: Cigarettes Second Hand Exposure: No; Do You Dip or Chew Tobacco: No; Hx Alcohol Use: Yes Alcohol type: other Hx Substance Use: No Preferred Language: Georgian Communication Ability: Effective Visual Impairment: No Limitations Mixer And Scaler Required: No Beliefs That Will Affect Care: None Current Living Situation: Spouse Feels Safe at Home: Yes Assistive Devices: None Physical Exam Vital Signs Vital Signs - 24 hr 04/16/25 10:56 04/16/25 13:00 04/16/25 13:02 Temperature 37.2 C Temperature Source Oral Pulse Rate 120 H 115 H 117 H Pulse Rhythm Respiratory Rate 18 24 Respiratory Effort / Characteristics Non-Labored Spontaneous Respiratory Depth Normal Respiratory Pattern Regular Blood Pressure 136/89 172/102 H Blood Pressure Mean 104 139 Blood Pressure Position Sitting Pulse Oximetry 94 97 Oxygen Delivery Method Room Air Sepsis Recent Fever Within 48 Hours No Sepsis New/Unexplained Change in Mental Status N/A Sepsis Action Taken by Nursing No Action Required Pulse Oximetry Post Tiitration 04/16/25 13:18 04/16/25 13:18 04/16/25 13:19 Temperature Temperature Source Pulse Rate 105 H 104 H Pulse Rhythm Respiratory Rate 25 H 26 H Respiratory Effort / Characteristics Respiratory Depth Respiratory Pattern Blood Pressure 166/100 H 166/100 H Blood Pressure Mean 125 125 Blood Pressure Position Pulse Oximetry 96 94 Oxygen Delivery Method Room Air Room Air Room Air Sepsis Recent Fever Within 48 Hours Sepsis New/Unexplained Change in Mental Status Sepsis Action Taken by Nursing Pulse Oximetry Post Tiitration 95 04/16/25 13:19 04/16/25 13:19 04/16/25 13:30 Temperature Temperature Source Pulse Rate 111 H 111 H Pulse Rhythm Regular Respiratory Rate 18 Respiratory Effort / Characteristics Respiratory Depth Respiratory Pattern Blood Pressure 160/94 H Blood Pressure Mean 132 Blood Pressure Position Pulse Oximetry 95 Oxygen Delivery Method Room Air Sepsis Recent Fever Within 48 Hours Sepsis New/Unexplained Change in Mental Status Sepsis Action Taken by Nursing Pulse Oximetry Post Tiitration 04/16/25 14:00 04/16/25 14:30 04/16/25 14:38 Temperature Temperature Source Pulse Rate 100 H 116 H 125 H Pulse Rhythm Respiratory Rate 21 20 17 Respiratory Effort / Characteristics Respiratory Depth Respiratory Pattern Blood Pressure 144/84 H 171/102 H 153/95 H Blood Pressure Mean 114 126 134 Blood Pressure Position Pulse Oximetry 94 94 95 Oxygen Delivery Method Room Air Room Air Room Air Sepsis Recent Fever Within 48 Hours Sepsis New/Unexplained Change in Mental Status Sepsis Action Taken by Nursing Pulse Oximetry Post Tiitration 04/16/25 14:52 04/16/25 15:20 Temperature Temperature Source Pulse Rate 125 H Pulse Rhythm Respiratory Rate Respiratory Effort / Characteristics Respiratory Depth Respiratory Pattern Blood Pressure 150/94 H Blood Pressure Mean Blood Pressure Position Pulse Oximetry Oxygen Delivery Method Room Air Sepsis Recent Fever Within 48 Hours Sepsis New/Unexplained Change in Mental Status Sepsis Action Taken by Nursing Pulse Oximetry Post Tiitration Physical Exam GENERAL: She is oriented to person, place, and time. She appears well-developed and well-nourished. She does not appear distressed. HENT: Exam performed. -Head: Normocephalic sutures in place on the face. -Right Ear: External ear normal. No mastoid erythema -Left Ear: External ear normal. No mastoid erythema -Mouth/Throat: The oropharynx is clear and moist. No trismus in the jaw. No dental abscesses or uvula swelling. No oropharyngeal exudate or tonsillar abscesses. EYES: Conjunctivae and EOM are normal. Pupils are equal, round, and reactive to light. Right eye exhibits no discharge. Left eye exhibits no discharge. No scleral icterus. NECK: Normal range of motion. Neck supple. No JVD present. No spinous process tenderness present. CV: Normal rate, regular rhythm, normal heart sounds and intact distal pulses. There is no peripheral edema. Palpable radial pulses bue. PULM/CHEST: Effort normal and breath sounds normal. No respiratory distress. No stridor. She has no wheezes. She has no rales. ABD: The abdomen is soft. Scars over the anterior abdominal wall. There is no tenderness. There is no rebound, no guarding. MUSC/SKEL: Normal range of motion. There is no peripheral edema, tenderness or deformity. Pelvis stable. NEURO: Motor and sensation grossly intact. Course Course 1236: The patient was evaluated in room B10. A complete history and physical exam was performed Cardiac monitoring: An order was placed for continuous cardiac monitoring. The monitor shows a rate of 110 with sinus tachycardia rhythm interpreted by ri 1445: Vital signs stable. Imaging shows no acute traumatic injury. Labs are significant for a magnesium of 0.9. Patient total bilirubin of 1.3 AST 354 ALT 149 alkaline phosphatase 223. Patient's transaminitis is thought to be secondary to her alcohol abuse. Patient's high-sensitivity troponin is elevated at 30.6. Urinalysis is concerning for infection. Antibiotics ordered for the patient. Patient's glucose 63. Patient tolerating p.o. in the emergency department. Patient will be admitted for electrolyte repletion which was started in the emergency department. Patient be admitted to the [facility] team. Administered Medications Sodium Chloride (Nss) 1,000 mls @ 125 mls/hr IV .Q8H EVELYN Stop: 04/19/25 12:59 Last Admin: 04/16/25 12:59 Dose: 125 mls/hr Documented By: JEROME Discontinued Medications Magnesium Sulfate/Dextrose (Magnesium Sulfate / D5w) 1 gm in 100 mls @ 100 mls/hr IV Q1H EVELYN Stop: 04/16/25 14:38 Last Admin: 04/16/25 14:21 Dose: 100 mls/hr Documented By: Infusion: 04/16/25 13:59 Dose: Infused Documented By: Admin: 04/16/25 12:59 Dose: 100 mls/hr Documented By: JEROME Metoprolol Tartrate (Metoprolol Tartrate 1 Mg/Ml Vial) 5 mg IV NOW STA Stop: 04/16/25 15:00 Last Admin: 04/16/25 15:20 Dose: 5 mg Documented By: REKHA Medical Decision Making Medical Records Attestation: I reviewed the patient's medical records. Medical records reviewed. Patient was seen in the emergency department 2 days ago after a fall. CT imaging showed no traumatic injury. Laboratory Data Attestation: I reviewed the patient's lab results. 04/16/25 11:15 04/16/25 11:15 Lab Results 04/16/25 04/16/25 04/16/25 Range/Units 11:15 13:00 14:52 WBC 4.73 L (4.8-10.8) K/ul RBC 3.68 L (4.20-5.40) M/uL Hgb 12.2 (12.0-16.0) g/dL Hct 36.0 L (37.0-47.0) % MCV 97.8 (80.0-100.0) fL MCH 33.2 (25.0-34.0) pg MCHC 33.9 (32.0-36.0) g/dL RDW Std Deviation 47.2 H (36.4-46.3) fL RDW Coeff of Oz 13.2 (11.5-14.5) % Plt Count 127 L (130-400) K/uL MPV 10.3 (9.4-12.4) fL Immature Gran % (Auto) 0.4 % Neut % (Auto) 79.6 % Lymph % (Auto) 11.2 % [place] % (Auto) 7.8 % Eos % (Auto) 0.2 % Baso % (Auto) 0.8 % Neut # (Auto) 3.76 (1.40-6.50) K/uL Lymph # (Auto) 0.53 L (1.20-3.40) K/uL [place] # (Auto) 0.37 (0.11-0.59) K/uL Eos # (Auto) 0.01 (0.00-0.50) K/uL Baso # (Auto) 0.04 (0.00-0.20) K/uL Immature Gran # (Auto) 0.02 (0.01-0.20) K/uL PT 10.7 (9.0-12.0) Seconds INR 1.0 (0.9-1.1) APTT 27 (21-31) Seconds PTT Ratio 1.0 Sodium 135 L (136-145) mmol/L Potassium 3.6 (3.5-5.1) mmol/L Chloride 93 L (98-107) mmol/L Carbon Dioxide 26 (21-32) mmol/L Anion Gap 16 H (3-11) BUN 10 (6-23) mg/dl Creatinine 0.48 L (0.6-1.2) mg/dl Est Cr Clr Drug Dosing Not Reportable eGFR 99.33 BUN/Creatinine Ratio 20.8 H (10-20) Glucose 63 L (70-99(Fasting)) mg/dl POC Glucose 91 (70-99) mg/dl Calcium 8.9 (8.6-10.3) mg/dl Magnesium 0.9 L* (1.7-2.4) mg/dl Total Bilirubin 1.3 H (0.2-1.0) mg/dl AST 354 H (13-39) U/L ALT 149 H (7-52) U/L Alkaline Phosphatase 223 H (34-104) U/L Troponin I High Sens 30.6 H (0-14) pg/ml Total Protein 7.8 (6.0-8.3) gm/dl Albumin 4.4 (3.4-5.0) gm/dl Globulin 3.4 (2.5-4.0) gm/dl Albumin/Globulin Ratio 1.3 (0.9-2) TSH 2.709 (0.300-4.500) uIu/ml Urine Color Dark Yellow Urine Appearance Cloudy A (Clear) Urine pH 5.5 (4.5-7.5) Ur Specific [place] 1.017 (1.000-1.030) Urine Protein 2+ H (Negative) Urine Glucose (UA) Negative (Negative) Urine Ketones 2+ H (Negative) Urine Blood 1+ H (Negative) Urine Nitrite Negative (Negative) Urine Bilirubin 1+ H (Negative) Urine Urobilinogen Negative (Negative) Ur Leukocyte Esterase 2+ H (Negative) Urine WBC (Auto) >50 H (0-5) /hpf Urine RBC (Auto) 3-5 H (0-2) /hpf U Hyaline Cast (Auto) 3-5 H (0-2) /lpf U Epithel Cells (Auto) 0-2 (0-2) /hpf Urine Bacteria (Auto) 4+ H (None Seen) Urine Comment Imaging Data Radiologist's Impression: Chest X-Ray 04/16/25 11:14 XR chest 1V not portable HISTORY: 74 years-old Female Weakness acute weakness COMPARISON: Chest CT 03/13/2025 TECHNIQUE: AP view of the chest FINDINGS: Cardiomediastinal and hilar silhouettes are within normal limits. No pneumothorax, pleural effusion, airspace consolidation or overt pulmonary edema. Bones of the chest appear grossly intact. Subacute chronic posterior left rib fractures again noted. Emphysema with chronic interstitial coarsening. Nodular foci of the lungs better seen on the comparison chest CT. IMPRESSION: 1. Emphysema without acute process upper chest. 2. Subacute to chronic left-sided rib fractures redemonstrated. ACT 112: Negative or not required by law. The above report was generated using voice recognition software. It may contain grammatical, syntax or spelling errors. Electronically signed by: Garrison Cassidy M.D. 04/16/2025 11:[address] 04/16/25 12:56 CT head/brain wo con CLINICAL HISTORY: 74 years-old Female with fall. Acute head trauma status post fall TECHNIQUE: Multiple axial CT images of the head were obtained without contrast. A dose lowering technique was utilized adhering to the principles of ALARA. CT DOSE: 625.8 mGy.cm COMPARISON: 04/14/2025 FINDINGS: No acute intracranial hemorrhage, midline shift, intracranial mass, hydrocephalus, territorial ischemia or abnormal extra-axial collection. Involutional changes with white matter hypodensities favoring chronic microvascular ischemic disease. The calvarium is intact. Trace left mastoid effusion. The right mastoid air cells are clear. Mild mucosal thickening of the paranasal sinuses with scattered air-fluid levels suggestive of acute sinusitis. Small anterior right frontal scalp contusion again noted. IMPRESSION: 1. No acute intracranial abnormality or calvarial fracture. 2. Small right anterior frontal scalp contusion again noted. ACT 112: Negative or not required by law. The above report was generated using voice recognition software. It may contain grammatical, syntax or spelling errors. Electronically signed by: Garrison Cassidy M.D. 04/16/2025 1:41 PM ECG Data Attestation: I personally reviewed and interpreted this ECG as follows: Rate (beats per minute): 120 Rhythm: + sinus tachycardia ECG Intervals/blocks: + Normal QRS, + Normal CO and + Normal QT-c ECG ST segments: + Normal ST segments MDM Narrative 1236: The patient was evaluated in room B10. A complete history and physical exam was performed Cardiac monitoring: An order was placed for continuous cardiac monitoring. The monitor shows a rate of 110 with sinus tachycardia rhythm interpreted by ri 1445: Vital signs stable. Imaging shows no acute traumatic injury. Labs are significant for a magnesium of 0.9. Patient total bilirubin of 1.3 AST 354 ALT 149 alkaline phosphatase 223. Patient's transaminitis is thought to be secondary to her alcohol abuse. Patient's high-sensitivity troponin is elevated at 30.6. Urinalysis is concerning for infection. Antibiotics ordered for the patient. Patient's glucose 63. Patient tolerating p.o. in the emergency department. Patient will be admitted for electrolyte repletion which was started in the emergency department. Patient be admitted to the [facility] team. Impression & Plan Hypomagnesemia, Acute UTI Discharge Plan Visit Data Chief Complaint: Weakness Stated Complaint: WEAKNESS ED Provider: Cheng Epperson Discharge Problem: Hypomagnesemia, Acute UTI Patient Disposition: Admitted As Inpatient Condition: Fair Discharge Instructions Interventions: ED Discharge Assessment Last Done: 04/16/25 14:52 Forms Stand Alone Forms: [facility] Prescriptions Prescriptions: No Action hydroxychloroquine 200 mg tablet 200 mg PO DAILY ibandronate 150 mg tablet 150 mg PO .EVERY 30 DAYS IN AM alprazolam 0.25 mg tablet 0.25 mg PO BID PRN (Reason: Anxiety) cyclosporine [Restasis] 0.05 % Dropperette 1 drp OPHTHALMIC (EYE) BID Calcium/Vitamin D/Magesium/Zinc 1 tab PO DAILY Referrals Referrals: Serafin Suarez MD [Primary Care Provider] -
[2025-04-16] MEDS: MAGNESIUM OXIDE 400 MG TAB PO SCH (15:39)
[2025-04-16] MEDS: POTASSIUM CHLORIDE CRTAB 20 MEQ TABCR PO STA (15:39)
[2025-04-16] MEDS: CIPROFLOXACIN 500 MG TAB PO STA (15:56)
[2025-04-16] MEDS: THIAMINE HCL 500 MG in SODIUM CHLORIDE 0.9% 50 ML IV SCH (16:39)
[2025-04-16] MEDS: cefTRIAXone SODIUM 2,000 MG/50 ML BAG IV STA (16:49)
[2025-04-16] MEDS: POTASSIUM CHLORIDE PWD 20 MEQ PACK PO STA (16:49)
[2025-04-16] MEDS ORDERED: ALUMINUM/MAGNESIUM SUSP 30 ML UDC PO PRN (17:30)
[2025-04-16] MEDS ORDERED: POLYETHYLENE (MIRALAX) 17 GM PACK PO PRN (17:30)
[2025-04-16] MEDS ORDERED: ACETAMINOPHEN 325 MG TAB PO PRN (17:30)
[2025-04-16] MEDS ORDERED: ONDANSETRON INJ 2 MG/ML 2 ML VIAL IV PRN (17:30)
[2025-04-16] MEDS ORDERED: ARTIFICIAL TEARS OP PRN (17:42)
[2025-04-16 18:27] LABS: Hep B Surface Ag with confirm Negative (Negative)
[2025-04-16 18:32] LABS: Hep C Ab Rflx HepCQuant RNA Negative (Negative)
[2025-04-16] MEDS: METOPROLOL TARTRATE 25 MG TAB PO SCH (19:12)
[2025-04-16 20:41] LABS: Anion Gap 9.0 (3-11); Blood Urea Nitrogen 15.0 mg/dl (6-23); Calcium 8.6 mg/dl (8.6-10.3); Carbon Dioxide 29.0 mmol/L (21-32); Chloride 96.0 mmol/L (98-107); Creatine Kinase 234.0 U/L (26-192); Creatinine Clr Calc Pharmacy 64.9 ml/min; Glucose 120.0 mg/dl (70-99(Fasting)); Magnesium 2.5 mg/dl (1.7-2.4); Potassium 3.9 mmol/L (3.5-5.1); Sodium 134.0 mmol/L (136-145)
[2025-04-16] MEDS ORDERED: SODIUM PHOSPHATE 3 MMOL/1 ML INFUSION IV STA (20:55)
[2025-04-16] MEDS ORDERED: SODIUM PHOSPHATE 15 MMOL in SODIUM CHLORIDE 0.9% 500 ML IV ONE (21:00)
[2025-04-16] MEDS: ENOXAPARIN INJ 40 MG/0.4 ML SYR SQ SCH (21:25)
[2025-04-16] MEDS: SODIUM PHOSPHATE 15 MMOL in SODIUM CHLORIDE 0.9% 250 ML IV ONE (21:25)
[2025-04-16] MEDS: DOCUSATE SODIUM 100 MG CAP PO SCH (21:28)
--- NOTE | 2025-04-16 21:46 | Magnetic Resonance Report ---
Exam(s): MRI HEAD Without Contrast EXAM: MR Head Without Intravenous Contrast CLINICAL HISTORY: Reason for exam: weakness. TECHNIQUE: Magnetic resonance images of the head/brain without intravenous contrast in multiple planes. COMPARISON: No relevant prior studies available. FINDINGS: Brain: Chronic periventricular ischemic demyelination changes seen due to small vessel disease. No hemorrhage. Ventricles: Unremarkable. No ventriculomegaly. Bones/joints: Unremarkable. No acute fracture. Sinuses: Mucosal thickening seen in the ethmoidal, sphenoidal and maxillary sinuses. Mastoid air cells: Unremarkable as visualized. No mastoid effusion. Orbits: Unremarkable as visualized. IMPRESSION: No acute intracranial abnormality Chronic periventricular ischemic demyelination changes seen due to small vessel disease Ethmoidal, sphenoidal and maxillary sinusitis Electronically signed by: Subhash Stephenson MD 04/16/25 21:45 PM
--- NOTE | 2025-04-17 03:43 | Ultrasound Report ---
EXAM: US liver CLINICAL HISTORY: Elevated LFTs TECHNIQUE: Limited ultrasound of the liver and gallbladder was performed in grayscale and Doppler. Multiple images were obtained in transverse and longitudinal planes. COMPARISON: No prior studies are available for comparison. FINDINGS: Liver: Liver size: Diffusely enlarged liver (right lobe span 17.8 cm), with the left lobe extending to the left upper quadrant. It displays inhomogeneous increased echogenicity. No evidence of focal lesions, cysts, or masses. Hepatic vasculature appears normal. Gallbladder: The gallbladder is visualized and appears normal in size and shape. No gallstones, wall thickening (0.9 mm), or pericholecystic fluid noted. No evidence of gallbladder wall edema or signs of acute cholecystitis. Biliary Tree: Common bile duct diameter: 3.8 mm. The common bile duct is within normal limits in caliber and not dilated. No evidence of choledocholithiasis or biliary obstruction. The pancreas is not visualized. The right kidney is remarkable, showing normal size and shape; no stones or hydronephrosis. IMPRESSION: - Enlarged liver displays diffuse, inhomogeneous increased echogenicity, denoting fatty liver changes. - Otherwise, unremarkable study. Electronically signed by Osito Balbuena 04-17-2025 03:42 AM
[2025-04-17 03:46] LABS: Hematocrit (blood only) 32.4 % (37.0-47.0); Hemoglobin 11.0 g/dL (12.0-16.0); Immature Granulocytes # (auto) 0.02 K/uL (0.01-0.20); Immature Granulocytes % (auto) 0.6 %; Mean Corpuscular Hemoglobin 33.6 pg (25.0-34.0); Mean Corpuscular Volume 99.1 fL (80.0-100.0); Platelet Count 116 K/uL (130-400); RDW Standard Deviation 48.6 fL (36.4-46.3); Red Blood Count 3.27 M/uL (4.20-5.40); White Blood Count 3.54 K/ul (4.8-10.8)
[2025-04-17 03:59] LABS: Anion Gap 9.0 (3-11); Blood Urea Nitrogen 11.0 mg/dl (6-23); Calcium 8.0 mg/dl (8.6-10.3); Carbon Dioxide 27.0 mmol/L (21-32); Chloride 99.0 mmol/L (98-107); Creatinine Clr Calc Pharmacy 73.9 ml/min; Glucose 96.0 mg/dl (70-99(Fasting)); Magnesium 1.9 mg/dl (1.7-2.4); Potassium 4.2 mmol/L (3.5-5.1); Sodium 135.0 mmol/L (136-145)
[2025-04-17 04:01] LABS: Alanine Aminotransferase 105.0 U/L (7-52); Albumin Globulin Ratio 1.3 (0.9-2); Albumin Level 3.6 gm/dl (3.4-5.0); Alkaline Phosphatase 197.0 U/L (34-104); Anion Gap 10.0 (3-11); Bilirubin,Total 0.9 mg/dl (0.2-1.0); Blood Urea Nitrogen 11.0 mg/dl (6-23); Calcium 8.0 mg/dl (8.6-10.3); Carbon Dioxide 28.0 mmol/L (21-32); Chloride 98.0 mmol/L (98-107); Creatine Kinase 188.0 U/L (26-192); Creatinine Clr Calc Pharmacy 70.0 ml/min; Globulin 2.7 gm/dl (2.5-4.0); Glucose 90.0 mg/dl (70-99(Fasting)); Magnesium 1.8 mg/dl (1.7-2.4); Potassium 4.1 mmol/L (3.5-5.1); Sodium 136.0 mmol/L (136-145); Total Protein 6.3 gm/dl (6.0-8.3)
[2025-04-17] MEDS: HYDROXYCHLOROQUINE SULFATE 200 MG TAB PO SCH (08:08)
--- NOTE | 2025-04-17 08:37 | XCELERA ---
[id number]
--- NOTE | 2025-04-17 08:37 | Electrocardiogram Report ---
Test Reason : Blood Pressure : */* mmHG Vent. Rate : 120 BPM Atrial Rate : 120 BPM P-R Int : 166 ms QRS Dur : 86 ms QT Int : 314 ms P-R-T Axes : 85 -49 76 degrees QTcB Int : 443 ms Sinus tachycardia Biatrial enlargement Left axis deviation Left anterior fascicular block Left ventricular hypertrophy(Luther product) Abnormal ECG When compared with ECG [id number] 10:15, Fusion complexesare no longerPresent Premature ventricular complexesare no longerPresent QRS axisShifted left T wave inversion no longer evident inInferior leads Confirmed by Jeannette Knox (Willy) on 04/17/2025 8:36:28 AM Referred By: REFERRED SELF Confirmed By: Jeannette Knox
[2025-04-17] MEDS ORDERED: PNEUMOCOCCAL VACCINE (PCV20) 20-VAL CONJ-DIP CRM/PF 0.5 ML SYR IM ONE (09:52)
[2025-04-17 09:53] LABS: Anion Gap 9.0 (3-11); Blood Urea Nitrogen 9.0 mg/dl (6-23); Calcium 8.3 mg/dl (8.6-10.3); Carbon Dioxide 28.0 mmol/L (21-32); Chloride 96.0 mmol/L (98-107); Creatinine Clr Calc Pharmacy 71.4 ml/min; Glucose 132.0 mg/dl (70-99(Fasting)); Magnesium 1.6 mg/dl (1.7-2.4); Potassium 3.7 mmol/L (3.5-5.1); Sodium 133.0 mmol/L (136-145)
[2025-04-17] MEDS: FOLIC ACID 1 MG TAB PO SCH (12:18)
--- NOTE | 2025-04-17 13:29 | Hospitalist Progress Note ---
Date of Service April 17, 2025 Assessment & Plan (1) Weakness: (2) Hypomagnesemia: (3) Elevated troponin: (4) Alcohol dependence: Plan This is a 74-year-old female who has a significant past medical history of Sjogren syndrome, Raynaud's, osteoporosis, pulmonary hypertension, emphysema and alcohol dependence who presents to ED secondary to progressive weakness x 2 days. #Lower extremity Weakness #Hypomagnesemia, Hypophosphatemia #High anion gap metabolic acidosis - resolved admit to PCU suspect weakness may be multifactorial in setting of low mag, Sars COV2, UTI Aggressive mag repletion, Mag still 1.6, will give additional 2g now will also give 40meq KCL x 1 now will aim for K > 4.0 and mag > 2 start on mag oxide 400mg bid some concern for underlying wernicke developing given hx Continue IV thiamine 500mg TID, oral folate replacement #Alcohol dependence does not appear to be in withdrawal today, has not required IV diazepam will switch from IV diazepam to IV ativan prn IV thiamine 500mg TID, folate #SARS COV-2 pt symptomatic 2 weeks ago, no longes URI sx continue airborne precautions #SVT likely 2/2 above Echo:mild concentric LVH, EF 60-65%, mild mR, mild TR, PASP 41mmhg #Elevated LFTS AST 354, ALT 149, T bili 1.3, ALP 224 RUQ US:Enlarged liver displays diffuse, inhomogeneous increased echogenicity, denoting fatty liver changes. 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 Discussed above with pts Megha Pino over the phone. Admission and Anticipated Discharge Date Admission Date: April 16, 2025 Subjective Pt was seen in room 458-1. She feels improved today. She feels the IVF help. She still feels weak and is concerned about walking. Denies f/c/s, chest pain, sob, n/v. She feels her appetite has improved. She denies resp sx. Review of Systems Review of Systems: All systems reviewed & are unremarkable except as noted in HPI & below Physical Exam Physical Exam: Gen: WD/WN, NAD, A&O x3, tremulous is improving HEENT: Normocephalic, atraumatic, conjunctivae moist, sclerae anicteric, mucous membranes moist. Lung: Clear to Auscultation bilaterally, no wheezes/rales/rhonchi Heart: Regular rate, regular rhythm, no murmurs, rubs, or gallops Abdomen: Soft, NT, ND +BS x 4 Extremities: No edema Skin: Warm, no rash, negative turgor. Results & Data Results & Data Vital Signs (Past 12 Hours) Vital Signs Temp Pulse Pulse Resp BP Pulse Ox O2 Del Method 04/17/25 11:20 36.6 C 98 H 19 159/89 H 92 Room Air 04/17/25 08:08 94 H 04/17/25 07:08 36.5 C 97 H 22 181/83 H 96 Room Air 04/17/25 05:09 36.6 C 93 H 17 172/91 H 93 Room Air Laboratory Results I have independently reviewed and interpreted patient's cbc, bmp, mag, phos Medications Administered Current Inpatient Medications Acetaminophen (Acetaminophen 325 Mg Tab) 650 mg PO Q4H PRN PRN Reason: Pain or Fever Stop: 05/16/25 17:29 Al Hydrox/Mg Hydrox/Simethicone (Aluminum/Magnesium Susp 30 Ml Udc) 15 ml PO Q4H PRN PRN Reason: Dyspepsia Stop: 05/16/25 17:29 Artificial Tears (Artificial Tears) 1 drops OP QID PRN PRN Reason: Dryness Stop: 05/16/25 17:41 Diazepam (Diazepam Inj 5 Mg/Ml 2 Ml Carp) 5 mg IV UD PRN; Protocol PRN Reason: AWSS 6,7 (Sx Triggered) Stop: 05/16/25 14:53 Diazepam (Diazepam Inj 5 Mg/Ml 2 Ml Carp) 10 mg IV UD PRN; Protocol PRN Reason: AWSS 8,9 (Sx Triggered) Stop: 05/16/25 14:53 Diazepam (Diazepam Inj 5 Mg/Ml 2 Ml Carp) 20 mg IV ONCE PRN; Protocol PRN Reason: AWSS 10 & Above (Sx Triggered) Stop: 05/16/25 14:53 Docusate Sodium (Docusate Sodium 100 Mg Cap) 100 mg PO BID [facility] Stop: 05/16/25 20:59 Last Admin: 04/17/25 08:08 Dose: Not Given Enoxaparin Sodium (Enoxaparin Inj 40 Mg/0.4 Ml Syr) 40 mg SQ HS EVELYN Stop: 05/16/25 20:59 Last Admin: 04/16/25 21:25 Dose: 40 mg Folic Acid (Folic Acid 1 Mg Tab) 1 mg PO QAM [facility] Stop: 05/17/25 11:44 Last Admin: 04/17/25 12:18 Dose: 1 mg Hydroxychloroquine Sulfate (Hydroxychloroquine Sulfate 200 Mg Tab) 200 mg PO DAILY [facility] Stop: 05/17/25 08:59 Last Admin: 04/17/25 08:08 Dose: 200 mg Thiamine HCl 500 mg/ Sodium (Chloride) 55 mls @ 210 mls/hr IV Q8H EVELYN Stop: 04/18/25 07:16 Last Infusion: 04/17/25 08:32 Dose: Infused Ceftriaxone Sodium (Rocephin) 2,000 mg in 50 mls @ 100 mls/hr IV Q24H [facility] Stop: 04/22/25 14:59 Magnesium Sulfate/Dextrose (Magnesium Sulfate / D5w) 1 gm in 100 mls @ 50 mls/hr IV Q2H EVELYN Stop: 04/17/25 17:14 Metoprolol Tartrate (Metoprolol Tartrate 25 Mg Tab) 12.5 mg PO Q6H EVELYN Stop: 05/16/25 17:59 Last Admin: 04/17/25 12:18 Dose: Not Given Ondansetron HCl (Ondansetron Inj 2 Mg/Ml 2 Ml Vial) 4 mg IV Q6H PRN PRN Reason: Nausea Stop: 05/16/25 17:29 Polyethylene Glycol (Polyethylene (Miralax) 17 Gm Pack) 17 gm PO DAILY PRN PRN Reason: Constipation Stop: 05/16/25 17:29
[2025-04-17] MEDS: MAGNESIUM SULFATE / D5W 1 GM/100 ML BAG IV SCH (14:12)
[2025-04-17] MEDS: POTASSIUM CHLORIDE CRTAB 20 MEQ TABCR PO STA (14:12)
[2025-04-17] MEDS: cefTRIAXone SODIUM 2,000 MG/50 ML BAG IV SCH (14:39)
[2025-04-17] MEDS: LORazepam Inj 1 MG in SYRINGE 0.5 ML IV PRN (15:36)
[2025-04-18 06:43] LABS: Hematocrit (blood only) 34.2 % (37.0-47.0); Hemoglobin 11.8 g/dL (12.0-16.0); Mean Corpuscular Hemoglobin 33.6 pg (25.0-34.0); Mean Corpuscular Volume 97.4 fL (80.0-100.0); Platelet Count 114 K/uL (130-400); RDW Standard Deviation 47.6 fL (36.4-46.3); Red Blood Count 3.51 M/uL (4.20-5.40); White Blood Count 3.30 K/ul (4.8-10.8)
[2025-04-18 07:30] LABS: Anion Gap 8.0 (3-11); Blood Urea Nitrogen 8.0 mg/dl (6-23); Calcium 8.2 mg/dl (8.6-10.3); Carbon Dioxide 27.0 mmol/L (21-32); Chloride 100.0 mmol/L (98-107); Creatinine Clr Calc Pharmacy 82.0 ml/min; Glucose 75.0 mg/dl (70-99(Fasting)); Magnesium 1.9 mg/dl (1.7-2.4); Potassium 4.0 mmol/L (3.5-5.1); Sodium 135.0 mmol/L (136-145)
[2025-04-18 09:52] VITALS: PULSE 117; RESP 18; TEMP 97.3; O2SAT 98
[2025-04-18 10:20] VITALS: BP 166/98
--- NOTE | 2025-04-18 12:12 | Discharge Summary ---
Date of Service April 18, 2025 Admission HPI Per Admitting Provider This is a 74-year-old female who has a significant past medical history of Sjogren syndrome, Raynaud's, osteoporosis, pulmonary hypertension, emphysema and alcohol dependence who presents to ED secondary to progressive weakness x 2 days. History was obtained from discussion with ER provider, patient and her and external chart review. reports over the last 2 to 3 months he has noticed his becoming generally weak. She has been having increasing falls. Her most recent fall was on 04/14 in which she presented to the ED and required sutures to her left eyebrow. He also notes that her gait has become more broad-based. Patient states over the last 2 days her weakness has become profound it has been affecting her ability to walk. She does report a flulike illness approximately 2 weeks ago but feels mostly recovered from this other than some sinus congestion. She denies any pain. She denies any fever, chills, sweats, lightheadedness, dizziness, chest pain, shortness of breath, nausea, vomiting, abdominal pain, dysuria, increased urgency or frequency with urination. She is chronically constipated. Her last bowel movement was about a week ago. In ED patient was hypertensive and tachycardic. She was found to have a significantly low magnesium at 0.9. She also had an elevated anion gap at 16. Her LFTs were elevated at 354 AST and ALT 149, alk phos 223. Her urinalysis was concerning for possible infection. She received IV fluids as well as magnesium replacement was initiated. Admission Exam Per Admitting Provider Physical Exam Physical Exam: Constitutional: WD/WN, F, vitals as above, NAD, sitting up in bed, pleasant, conversing easily, tremulous Head: Normocephalic, Atraumatic, L eye brow prior laceration with sutures in tact, healing well Eyes: conjunctivae normal, anicteric sclerae ENMT: external ear and nose normal, oropharynx normal Neck: trachea midline, no thyromegaly normal visual inspection Respiratory: CTAB, no W/R/R, normal inspection, no accessory muscle use Cardiovascular: tachycardic rate regular rhythm, no murmur, no edema Chest: normal inspection of chest Abdomen: S, NT, ND, +BS x 4 Musculoskeletal: no cyanosis or clubbing, extremities AROM x 4, strength LLE 4/5, and 5/5 RLE Skin: no rashes, warm and dry normal turgor Neurologic: PERRL, EOMI, accommodation nl, no face palsy, no dysarthria CN's II-XI intact bilaterally and moves all extremities Psychiatric: A+Ox3, euthymic affect Principal Diagnosis (1) Weakness: (2) Hypomagnesemia: (3) Elevated troponin: (4) Alcohol dependence: Discharge Exam General: awake, alert, no apparent distress, white female Head: Normocephalic, Left forehead laceration healing well, sutures intact (will have nurse remove prior to dc). ENT: PERRL, EOMI, no pharyngeal exudate, mucous membranes moist Chest: Clear to auscultation, on room air, no adventitious breath sounds Cardiac: Regular rate and rhythm, no murmur, no JVD, normal peripheral pulses, good capillary refill Abdominal: NABS x 4 quadrants, soft, nondistended, nontender to palpation, no rebound or guarding Extremities: Normal inspection, no peripheral edema or erythema, calfs nontender to palpation Psych: Normal mood and affect Neuro: AAO x 3, strength intact bilaterally and rated 4/5, no gross motor deficits, speech is clear, no peripheral sensory deficits Discharge Data Allergies Allergy/AdvReac Type Severity Reaction Status Date / Time Penicillins Allergy Unknown Verified 04/16/25 13:23 Consultations 04/16/25 13:55 ED Decision to Admit Stat Ordered Studies 04/16/25 12:56 CT head/brain wo con Stat 04/16/25 16:19 MRI Brain [MR brain wo con] Routine 04/17/25 liver Routine Hospital Course (1) Weakness: (2) Hypomagnesemia: (3) Elevated troponin: (4) Alcohol dependence: Plan This is a 74-year-old female who has a significant past medical history of Sjogren syndrome, Raynaud's, osteoporosis, pulmonary hypertension, emphysema and alcohol dependence who presents to ED secondary to progressive weakness x 2 days. #Lower extremity Weakness #Hypomagnesemia, Hypophosphatemia #High anion gap metabolic acidosis - resolved admit to PCU suspect weakness may be multifactorial in setting of low mag, Sars COV2, UTI Aggressive mag repletion, Mag 2.0 on day of dc Required Kcl aggressive repletion Maintain K > 4.0 and mag > 2 start on mag oxide 400mg bid, cont on dc some concern for underlying wernicke developing given hx Continue IV thiamine 500mg TID, oral folate replacement daily as well - discussed with pt the importance of taking it. s/p fall with left forehead laceration - sutures removed prior to discharge on 04/18 as they were placed 5 days ago. #Alcohol dependence does not appear to be in withdrawal today, has not required IV diazepam will switch from IV diazepam to IV ativan prn IV thiamine 500mg TID, folate - encouraged reduction and cessation at bedside #SARS COV-2 pt symptomatic 2 weeks ago, no longes URI sx continue airborne precautions #SVT likely 2/2 above Echo:mild concentric LVH, EF 60-65%, mild mR, mild TR, PASP 41mmhg #Elevated LFTS AST 354, ALT 149, T bili 1.3, ALP 224 RUQ US:Enlarged liver displays diffuse, inhomogeneous increased echogenicity, denoting fatty liver changes. #UTI urine growing e.coli Was placed on IV rocephin - transitioned to cefdinir to complete a 5 day course on 04/18. Finish on 04/20. 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 I spent a total of 35 minutes coordinating, documenting and providing care for this patient excluding time spent in the performance of separately billed serv ices or time spent by another provider/QHP. Total Time Total Time Spent Total Time Spent (In Minutes): 35 Discharge Plan Discharge Items Patient Disposition: Home - Home Health Services Reason For Visit: WEAKNESS, HYPOMAGNESEMIA Discharge Diagnosis: Urinary tract infection Condition on Discharge: Fair Activity: Resume your previous activity Lifting: Gradually increase as tolerated and No more than 5 pounds Bathing: No limitations Exercise/Sports: Rest today and Gradually increase as tolerated Weightbearing: Full weightbearing Weightbearing Comment: Use walker for ambulation assistance Non-emergency contact: Primary Care Provider Call non-emergency contact if: you have any medication questions, your symptoms worsen and your pain is not controlled Follow-up/Referrals: Serafin Suarez MD [Primary Care Provider] - 04/21/25 11:20 am Diet: Heart Healthy Addtl Attending Provider Instructions: You were admitted to [facility] due to weakness, fall and diagnosed with Left forehead laceration, Urinary Tract Infection and heavy alcohol use. During your stay here you were treated with supportive care, medications including antibiotics, vitamins, fluids, and evaluated by physical therapy and your symptoms improved. Medications: Continue taking you medications as prescribed: Cefdinir 300 mg twice daily: START this tonight on 04/18, finish last dose on 04/20 to complete a 5 day course. Vitamins: Thiamine Folic Acid Appointments: Follow up with PCP within 1 week, an appointment has been requested for you. Home health services have been requested and set up for you. You declined therapy although it was recommended by physical therapy. Please continue to work with home health services to promote strength, balance and stability. Pending Studies at Discharge: No Stand-Alone Forms: [facility], Smoking Cessation Medications and DC Order Prescriptions: New cefdinir 300 mg capsule 300 mg PO BID Qty: 5 0RF magnesium oxide 400 mg (241.3 mg magnesium) tablet 400 mg PO BID Qty: 60 0RF thiamine HCl (vitamin B1) 100 mg capsule 100 mg PO DAILY Qty: 30 0RF folic acid 1 mg tablet 1 mg PO DAILY Qty: 30 0RF Continued hydroxychloroquine 200 mg tablet 200 mg PO DAILY ibandronate 150 mg tablet 150 mg PO .EVERY 30 DAYS IN AM alprazolam 0.25 mg tablet 0.25 mg PO BID PRN (Reason: Anxiety) cyclosporine [Restasis] 0.05 % Dropperette 1 drp OPHTHALMIC (EYE) BID Calcium/Vitamin D/Magesium/Zinc 1 tab PO DAILY Discharge Orders: Discharge Order (Routine); Ordered 04/18/25 Ordered By: Imani King Admission Data Admit Date/Time: 04/16/25 14:12 Attending Provider: Vel Cuenca Admit Provider: Tram Anderson Primary Care Provider: Serafin Suarez Other Providers: Tram Anderson; [facility] Fax Other Interventions: Discharge Summary Assessment (RN) Last Done: 04/18/25 10:19 Supervising Physician Co-Signing Physician Notes Patient seen and examined independently. Discussed with above provider I discussed with patient regarding going to rehab which she refused as she plans to go on a holiday trip. I also discussed that she has elevated blood pressure; is at increased risks for ischemic strokes, hemorrhagic strokes, progressive CKD, hypertensive retinopathy if it is left untreated. Patient does not want to start any medication and would like to follow-up with her primary care doctor. She verbalized and understood the risks. I also discussed that she is at increased risks of cirrhosis and its related complication due to her alcohol use. She verbalized understanding of the risks involved but did not specify if she would stop drinking or not. I also discussed her MRI brain findings; she did not want any further workup and would like to go home. She is at increased risks of multiple fall, injury, repeated hospitalization. She gail balized understanding of the risks involved but wants to go home. Patient discharged home with instructions to follow-up with PCP. I have reviewed the advanced practitioner's documentation, and I agree with, and take responsibility for the plan of care I spent a total of 45 minutes coordinating, documenting, and providing care for this patient excluding time spent in the performance of separately billed services. All of the aforementioned completed while collaborating with the assigned advanced practitioner for a full treatment plan
[2025-04-18 13:32] LABS: Hepatitis A Antibody IgM NON-REACTIVE (NON-REACTIVE); Hepatitis B Core Antibody IgM NON-REACTIVE (NON-REACTIVE)
== END 2025-04-18 11:26 | disposition home health service (06) | DRG 640 ==
LOC: ED 10:45 → SUATTDRO 14:12 → EDINP 14:12 → 4W 14:52